=== PATIENT | female | born 1955 | race Two or more races ===

== ENCOUNTER → 2020-07-30 10:49 | Outpatient (BNVA) | payer MEDICARE, MEDICAID, SELFPAY | PROVIDERS: PCP Internal Medicine; Referring Provider Internal Medicine; Visit Provider Internal Medicine Endocrinology, Diabetes & Metabolism | DX: E11.9 Type 2 diabetes mellitus without complications (principal); E11.21 Type 2 diabetes mellitus with diabetic nephropathy; E11.319 Type 2 diabetes mellitus with unspecified diabetic retinopathy without macular edema; E11.22 Type 2 diabetes mellitus with diabetic chronic kidney disease; I12.9 Hypertensive chronic kidney disease with stage 1 through stage 4 chronic kidney disease, or unspecified chronic kidney disease; N18.30 Chronic kidney disease, stage 3 unspecified; E04.2 Nontoxic multinodular goiter; E55.9 Vitamin D deficiency, unspecified; Z79.4 Long term (current) use of insulin | CPT/HCPCS: 82947; 99214 ==

== ENCOUNTER 2020-08-13 09:04 | Day surgery (SDC) | payer MEDICARE, MEDICAID, SELFPAY ==
[2020-08-07 16:02] VITALS: BMI 25.4
--- NOTE | 2020-08-12 10:46 | HO.ANESPROP2 ---
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 Non-toxic multinodular goiter Family History Family History Father Liver disease Mother Hypertension CVD (cardiovascular disease) Renal disease Hyperlipidemia Surgical History Surgical History History of hysterectomy with unilateral oophorectomy Hx of bilateral cataract extraction Hx of section Hx of thyroidectomy Social History Social History Smoking Status: Never smoker Use of substances other than those prescribed or required for medical reasons: No Advance Directives: No Advance Directives Information Provided: No Advance Directives on File: No Meds Allergies Allergy/AdvReac Type Severity Reaction Status Date / Time crab Allergy Severe SWELLING Unverified 06/27/20 15:09 metformin AdvReac Unknown diarrhea Verified 04/30/20 00:00 Home Medications Medication Instructions Recorded Confirmed Type alcohol swabs pad TOPICAL 07/30/20 07/30/20 History elviteg 150 mg-cob 150 mg-emtricit tab PO 07/30/20 07/30/20 History 200 mg-tenofo alafenam 10 mg tablet ferrous sulfate 325 mg (65 mg 325 mg PO DAILY 07/30/20 08/07/20 History iron) tablet liraglutide 1.8 mg SUBCUT BEDTIME 08/07/20 08/07/20 History Exam Exam Date and Time: August 12, 2020 1046 Height,Weight and Vital Signs: Height 4 ft 11 in Weight 57.153 kg Pertinent Lab Results Pertinent Lab Results: Laboratory Tests 06/04/20 06/04/20 10:12 10:12 WBC 5.2 Hgb 11.1 L Hct 36.6 L Plt Count 250 Sodium 141 Potassium 4.1 Chloride 106 BUN 17 H Creatinine 1.12 Assessment and Plan Assessment Anesthesia Assessment: Chart Reviewed Documented by User: Dany Saucedo 08/13/20 10:05 PMFSH Past Medical History Medical History CKD stage 3 due to type 2 diabetes mellitus Diabetes type 2, controlled Diabetic nephropathy associated with type 2 diabetes mellitus Diabetic retinopathy associated with type 2 diabetes mellitus Dyslipidemia 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 infection) Hypertension Hypovitaminosis D detention (current) use of insulin Non-toxic multinodular goiter Family History Family History Father Liver disease Mother Hypertension CVD (cardiovascular disease) Renal disease Hyperlipidemia Surgical History Surgical History History of hysterectomy with unilateral oophorectomy Hx of bilateral cataract extraction Hx of section Hx of thyroidectomy Social History Social History Smoking Status: Never smoker Use of substances other than those prescribed or required for medical reasons: No Advance Directives: No Advance Directives Information Provided: No Advance Directives on File: No Meds Allergies Allergy/AdvReac Type Severity Reaction Status Date / Time crab Allergy Severe SWELLING Unverified 06/27/20 15:09 metformin AdvReac Unknown diarrhea Verified 04/30/20 00:00 Home Medications Medication Instructions Recorded Confirmed Type alcohol swabs pad TOPICAL 07/30/20 07/30/20 History elviteg 150 mg-cob 150 mg-emtricit tab PO 07/30/20 07/30/20 History 200 mg-tenofo alafenam 10 mg tablet ferrous sulfate 325 mg (65 mg 325 mg PO DAILY 07/30/20 08/07/20 History iron) tablet liraglutide 1.8 mg SUBCUT BEDTIME 08/07/20 08/07/20 History Exam Airway Mallampati Class: II TM Dist: >3cm Neck ROM: Full Loose/Missing/Broken Teeth: Yes (Poor) Heart: [id number] Lungs: cta b/l Assessment and Plan Assessment Anesthesia Assessment: Anesthesia Plan Discussed, PAT Visit and Chart Reviewed Final Anesthetic Review NPO: Yes ASA Class: III Final Preanesthetic Review: No Changes in Pt Med Stat, Meds/Allgs Chart Reviewed, Consent Obtained/Reviewed and Anes Risks/Benef Reviewed Patient Risk: Low Procedure Risk: Low Assessment/Block/Sedation in SS: Assess/Block/Sedation-SS Anesthetic Plan Anesthetic Plan: MAC: Disposition: Standard PACU
[2020-08-13 09:26] VITALS: BP 147/62; PULSE 63; RESP 16; TEMP 36; O2SAT 100; BMI 25.4
[2020-08-13] MEDS: Lactated Ringers 1,000 ML 100 ML IVCONT (09:43)
[2020-08-13] MEDS: Sodium Phosphate,Mono-Dibasic 133 ML ENEMA PR (09:45)
--- NOTE | 2020-08-13 09:46 | MHC.SHP ---
Pre-Procedural Eval Section A The History & Physical has been completed within 30 days and I have reviewed it.: No Section B Chief Complaint: SCREENING Details of Present Illness: A 64 y/o female referred for 10 year screening colonoscopy. She reportedly had a colonoscopy 10 years ago without any issues she did not have any polyps. She typically has no GI complaints Good apetite no BM issues-she feels quite well. She does have diabetes which she tries to manage well She has no nausea, vomiting, abdominal pain, change in bowels, rectal bleeding fever or chills. Relevant Family History (Specify if Yes): No Relevant Social History: None Present Medications: see Short Stay Collaborative assessment Medical History: Significant History (Hypertension. Hyperlipidemia. type II diabetes. Anemia. Non toxic multinodular goiter. ) History of Previous Operations: Relevant previous surgery/procedure and date(s) (total with unilateral salpingo-oophorectomy (USO) hysterectomy thyroidectomy section Right eye surgery- day stay, not admitted 06/30/19 Left eye surgery 07/28/19 ) Allergies: Allergies Allergy/AdvReac Type Severity Reaction Status Date / Time crab Allergy Severe SWELLING Unverified 06/27/20 15:09 metformin AdvReac Unknown diarrhea Verified 04/30/20 00:00 Review of Systems Sugical H&P ROS: Negative: Cardiovascular, Respiratory, Gastrointestinal and Musculoskeletal Exam Surgical H&P Exam: Normal: Heart, Normal: Lungs, Normal: Extremities and Normal: Abdomen Plan Diagnosis/Plan: Unchanged Patient has been examined and remains a candidate for the planned procedure
[2020-08-13 10:46] VITALS: BP 124/71; PULSE 83; RESP 14; TEMP 36.7; O2SAT 97
[2020-08-13 11:01] VITALS: BP 136/68; PULSE 58; RESP 16; O2SAT 99
--- NOTE | 2020-08-13 11:24 | HO.POSTANES ---
Post Anesthesia Evaluation Post Anesthesia Evaluation Vital Signs: Vital Signs Temp Pulse Resp BP Pulse Ox 08/13/20 11:01 98.1 F 58 16 136/68 99 08/13/20 10:46 98.1 F 83 14 124/71 97 08/13/20 09:26 96.8 F 63 16 147/62 H 100 Anesthesia: Monitored Mental Status: Awake Pain Control: Satisfactory Nausea/Vomiting: None Hydration: Adequate Anesthesia-Related Issues: No Anes. Related Issues
--- NOTE | 2020-08-13 18:00 | W.PM.OPN ---
Operative Note Operative Note Narrative: Date of procedure: 08/13/20 Pre-op diagnosis: Colon cancer screening Post-op diagnosis: other (Colon polyp, diverticulosis internal hemorrhoids) Procedure: COLONOSCOPY TILL CECUM WITH BIOPSIES Consent: Indications for the procedure and potential complications of bleeding, perforation, reaction to medications and missed diagnosis were discussed with the patient and informed consent was obtained. Instrument: Olympus PCF H 190 L variable stiffness pediatric colonoscope Monitoring: Vital signs and clinical assessment, intermittent blood pressure monitoring, continuous EKG monitoring, Pulse oximetry and Carbon Dioxide monitoring were done throughout the procedure. Colon withdrawl time was 23 minutes. Procedure: The patient was placed in the left lateral decubitis position and pre-procedure medications were administered. After a digital rectal examination of the ano-rectum, the video colonoscope was inserted into the rectum and advanced through the colon to the cecum. The colonoscope was slowly withdrawn in a retrograde panoramic fashion and the colon mucosa was carefully examined including a retroflexed view of the rectum. Findings and interventions are described below. Procedure Difficulty: Without difficulty Findings: Terminal Ileum: Not evaluated Cecum: Partially evaluated to sub-optimal prep Ascending Colon: 5 mm sessile polyp ascending, removed with a cold bx. Transverse Colon: Normal Descending Colon: Moderate diverticulosis Sigmoid Colon: Moderate diverticulosis Rectum: Normal Ano-rectum: Small internal hemorrhoids Colon preparation: Fair and poor in the right colon with adherent stool which could not be flushed off. Impression and Post Procedure Diagnosis: Colonoscopy Findings: One small polyp removed Moderate diverticulosis seen in the left colon Small hemorrhoids on retroflexed exam. Fair prep - poor in the right colon Plan: Await pathology results Patient has an appointment on 09/03/20 in the [facility] with MARY Beck. Repeat Colonoscopy interval based on path results - in 1-2 years due to fair prep. Above findings were reviewed with the patient and colon polyps and diverticulosis handouts were given in the discharge area Surgeon: Дмитрий Ferraro MD Travel Specialist: Gómez Cantor Estimated blood loss (mL): 0 Pathology: other (A. AC polyp) Condition: stable Disposition: PACU
== END 2020-08-13 11:34 | disposition home or self-care (01) ==
PROVIDERS: PCP Internal Medicine; Visit Provider Internal Medicine Gastroenterology
PROC: 0DJD8ZZ Inspection of Lower Intestinal Tract, Via Natural or Artificial Opening Endoscopic (ICD-10-PCS; CPT 45378; principal; 2020-08-13 10:30)
DX: Z12.11 Encounter for screening for malignant neoplasm of colon (principal); D12.2 Benign neoplasm of ascending colon; K57.30 Diverticulosis of large intestine without perforation or abscess without bleeding; K64.8 Other hemorrhoids; E11.22 Type 2 diabetes mellitus with diabetic chronic kidney disease; I12.9 Hypertensive chronic kidney disease with stage 1 through stage 4 chronic kidney disease, or unspecified chronic kidney disease; N18.30 Chronic kidney disease, stage 3 unspecified; E11.21 Type 2 diabetes mellitus with diabetic nephropathy; E11.319 Type 2 diabetes mellitus with unspecified diabetic retinopathy without macular edema; Z79.4 Long term (current) use of insulin; B20 Human immunodeficiency virus [HIV] disease; E55.9 Vitamin D deficiency, unspecified; Z88.8 Allergy status to other drugs, medicaments and biological substances
CPT/HCPCS: 45380; 88305; J2405

== ENCOUNTER → 2020-09-03 08:59 | Outpatient (BNVA) | payer MEDICARE, MEDICAID, SELFPAY | PROVIDERS: PCP Internal Medicine; Referring Provider Internal Medicine; Visit Provider Physician Assistant | DX: D12.6 Benign neoplasm of colon, unspecified (principal) | CPT/HCPCS: Q3014 ==

== ENCOUNTER 2020-10-08 09:58 | Outpatient (REF) | payer MEDICARE, MEDICAID, SELFPAY ==
[2020-10-08 10:38] LABS: MANUAL DIFF FLAG NO
[2020-10-08 10:45] LABS: Basophils Percent Auto 0.2 % (0-2); Eosinophils Absolute Auto 0.1 X10*3/uL (0.0-0.4); Eosinophils Percent Auto 0.9 % (0-4); Hematocrit 35.6 % (37-47); Imm Gran Abs Auto 0.01 X10*3/uL (0.00-0.03); Imm Gran Pct Auto 0.2 % (0.0-0.4); Lymphocytes Absolute Auto 1.5 X10*3/uL (1.2-4.9); Lymphocytes Percent Auto 28.7 % (20-40); Mean Corpuscular HGB Conc 30.9 g/dl (31.0-35.0); Mean Corpuscular Hemoglobin 26.8 pg (27.0-33.0); Mean Corpuscular Volume 86.6 fL (80-98); Mean Platelet Volume 10.4 fL (9.4-12.3); Monocytes Absolute Auto 0.5 X10*3/uL (0.1-1.2); Monocytes Percent Auto 9.7 % (2-11); Neutrophils Absolute Auto 3.2 X10*3/uL (2.0-8.3); Neutrophils Percent Auto 60.3 % (45-73); Platelet Count 238 X10*3/uL (160-400); Red Blood Count 4.11 X10*6/uL (4.20-5.50); Red Cell Distribution Width 12.9 % (11.0-16.0); White Blood Count 5.3 X10*3/uL (4.8-10.8)
[2020-10-08 11:10] LABS: Alanine Aminotransferase 53 U/L (0-31); Albumin Level 4.1 g/dL (3.5-5.0); Alkaline Phosphatase 60 U/L (39-117); Anion Gap 11 (12-20); Aspartate Amino Transferase 33 U/L (5-31); Bilirubin Direct < 0.2 mg/dL (0.0-0.5); Bilirubin Total 0.3 mg/dL (0.0-1.0); Blood Urea Nitrogen 24 mg/dL (9-16); Carbon Dioxide 26 mmol/L (22-29); Chloride 107 mmol/L (96-108); Estimated Glomerular Filt Rate 42; Glucose Random 138 mg/dL (60-115); Potassium 4.1 mmol/l (3.3-5.1); Sodium 140 mmol/L (135-145); Total Protein 7.6 g/dL (6.5-8.0)
[2020-10-08 11:14] LABS: Phosphorus 3.7 mg/dL (2.7-4.5)
[2020-10-08 11:42] LABS: Renal w Reflex Lab Use Only Order verified
[2020-10-08 11:49] LABS: Creatinine Urine 157.48 mg/dL; Microalbum/Creatinine Ratio Ur 304.8 ug/mg cr
[2020-10-09 12:43] LABS: Absolute CD3 Count 1295 cells/uL (840-3060); Absolute CD4 Count 432 cells/uL (490-1740); Absolute CD8 Count 857 cells/uL (180-1170); Absolute Lymphocytes 1749 cells/uL (850-3900); Percent CD3 Cells 74 % (57-85); Percent CD4 Cells 25 % (30-61); Percent CD8 Cells 49 % (12-42)
[2020-10-11 14:48] LABS: HIV RNA PCR Qn Copies <20 NOT DETECTED copies/mL (NOT DETECTED); HIV RNA PCR Qn Log Copies <1.30 NOT DETECTED (NOT DETECTED)
[2020-10-12 16:52] LABS: FIB-ALT 40 U/L (6-29); FIB-Alpha-2-Macroglobulin 330 mg/dL (106-279); FIB-Apolipoprotein A1 154 mg/dL (101-198); FIB-GGT 28 U/L (3-65); FIB-Haptoglobin 137 mg/dL (43-212); FIB-Total Bilirubin 0.2 mg/dL (0.2-1.2); Liver Fibrosis Score 0.26; Liver Fibrosis Stage F0-F1; Nec Inflam Act Grade A0-A1; Nec Inflam Act Score 0.21
== END 2020-10-08 09:59 | disposition home or self-care (01) ==
LOC: HO.LAB 09:58
PROVIDERS: Absent Provider Internal Medicine; PCP Internal Medicine; Visit Provider Internal Medicine Nephrology
DX: N28.1 Cyst of kidney, acquired (principal); E11.9 Type 2 diabetes mellitus without complications; I10 Essential (primary) hypertension; R80.9 Proteinuria, unspecified; Z21 Asymptomatic human immunodeficiency virus [HIV] infection status
CPT/HCPCS: 36415; 80048; 80051; 80076; 81596; 82043; 82310; 82565; 84100; 84520; 85025; 86359; 86360; 87536

== ENCOUNTER → 2020-10-15 10:40 | Outpatient (BNVA) | payer MEDICARE, MEDICAID, SELFPAY | PROVIDERS: PCP Internal Medicine; Visit Provider Nurse Practitioner Gerontology | DX: E11.319 Type 2 diabetes mellitus with unspecified diabetic retinopathy without macular edema (principal); E11.21 Type 2 diabetes mellitus with diabetic nephropathy; E78.00 Pure hypercholesterolemia, unspecified; I10 Essential (primary) hypertension | CPT/HCPCS: 82947; 99212 ==

== ENCOUNTER 2020-10-22 09:59 | Outpatient (REF) | payer MEDICARE, MEDICAID, SELFPAY ==
[2020-10-22 11:19] LABS: Alanine Aminotransferase 54 U/L (0-31); Alkaline Phosphatase 58 U/L (39-117); Anion Gap 11 (12-20); Aspartate Amino Transferase 37 U/L (5-31); Bilirubin Total 0.3 mg/dL (0.0-1.0); Blood Urea Nitrogen 22 mg/dL (9-16); Calcium 9.3 mg/dL (8.4-10.2); Carbon Dioxide 27 mmol/L (22-29); Chloride 106 mmol/L (96-108); Cholesterol 155 mg/dL; Estimated Glomerular Filt Rate 45; Glucose Fasting 127 mg/dL (60-99); HDL Cholesterol 39 mg/dL; LDL Cholesterol Calculated 52 mg/dl; Potassium 4.3 mmol/l (3.3-5.1); Sodium 140 mmol/L (135-145); Total Protein 7.8 g/dL (6.5-8.0); Triglycerides 322 mg/dL
[2020-10-22 11:38] LABS: Vitamin B12 313 pg/mL (200-900)
[2020-10-23 09:53] LABS: LDL Cholesterol Direct 42 mg/dL (<100)
== END 2020-10-22 10:00 | disposition home or self-care (01) ==
LOC: HO.LAB 09:59
PROVIDERS: PCP Internal Medicine; Visit Provider Internal Medicine Endocrinology, Diabetes & Metabolism
DX: E11.9 Type 2 diabetes mellitus without complications (principal)
CPT/HCPCS: 36415; 80053; 80061; 82607; 83721

== ENCOUNTER → 2020-10-29 10:22 | Outpatient (BNVA) | payer MEDICARE, MEDICAID, SELFPAY | PROVIDERS: PCP Internal Medicine; Visit Provider Internal Medicine Endocrinology, Diabetes & Metabolism | DX: E11.21 Type 2 diabetes mellitus with diabetic nephropathy (principal); E11.319 Type 2 diabetes mellitus with unspecified diabetic retinopathy without macular edema; E11.22 Type 2 diabetes mellitus with diabetic chronic kidney disease; I12.9 Hypertensive chronic kidney disease with stage 1 through stage 4 chronic kidney disease, or unspecified chronic kidney disease; N18.30 Chronic kidney disease, stage 3 unspecified; E04.2 Nontoxic multinodular goiter; E55.9 Vitamin D deficiency, unspecified; E78.5 Hyperlipidemia, unspecified; Z79.4 Long term (current) use of insulin | CPT/HCPCS: 82947; 99212 ==

== ENCOUNTER 2020-11-19 09:09 | Outpatient (REF) | payer MEDICARE, MEDICAID, SELFPAY ==
[2020-11-19 10:31] LABS: Hematocrit 34.6 % (37-47); Hemoglobin 10.6 g/dl (12.0-16.0); Mean Corpuscular HGB Conc 30.6 g/dl (31.0-35.0); Mean Corpuscular Hemoglobin 26.5 pg (27.0-33.0); Mean Corpuscular Volume 86.5 fL (80-98); Mean Platelet Volume 10.9 fL (9.4-12.3); Platelet Count 228 X10*3/uL (160-400); Red Cell Distribution Width 12.4 % (11.0-16.0); White Blood Count 4.2 X10*3/uL (4.8-10.8)
[2020-11-19 10:47] LABS: Alanine Aminotransferase 40 U/L (0-31); Alkaline Phosphatase 57 U/L (39-117); Anion Gap 13 (12-20); Aspartate Amino Transferase 26 U/L (5-31); Bilirubin Direct < 0.2 mg/dL (0.0-0.5); Bilirubin Total 0.2 mg/dL (0.0-1.0); Blood Urea Nitrogen 22 mg/dL (9-16); Carbon Dioxide 25 mmol/L (22-29); Chloride 109 mmol/L (96-108); Estimated Glomerular Filt Rate 43; Glucose Fasting 135 mg/dL (60-99); Sodium 143 mmol/L (135-145); Total Protein 7.5 g/dL (6.5-8.0)
[2020-11-19 11:09] LABS: ~HepC Num1 0.53 S/CO (0.00-0.79); ~Hepatitis C Antibody Nonreactive (Nonreactive)
[2020-11-20 13:58] LABS: Absolute CD3 Count 1031 cells/uL (840-3060); Absolute CD4 Count 356 cells/uL (490-1740); Absolute CD8 Count 677 cells/uL (180-1170); Absolute Lymphocytes 1375 cells/uL (850-3900); CD4 CD8 Ratio 0.53 (0.86-5.00); Percent CD3 Cells 75 % (57-85); Percent CD4 Cells 26 % (30-61); Percent CD8 Cells 49 % (12-42)
[2020-11-23 07:57] LABS: HIV RNA PCR Qn Copies 25 copies/mL (NOT DETECTED)
== END 2020-11-19 09:10 | disposition home or self-care (01) ==
LOC: HO.LAB 09:09
PROVIDERS: PCP Internal Medicine; Visit Provider Internal Medicine
DX: B20 Human immunodeficiency virus [HIV] disease (principal)
CPT/HCPCS: 36415; 80048; 80076; 85027; 86359; 86360; 86803; 87536

== ENCOUNTER → 2020-11-27 10:31 | Outpatient (BNVA) | payer MEDICARE, MEDICAID, SELFPAY | PROVIDERS: PCP Internal Medicine; Visit Provider Internal Medicine | DX: B20 Human immunodeficiency virus [HIV] disease (principal) | CPT/HCPCS: 99212 ==

== ENCOUNTER 2020-12-13 09:03 | Outpatient (REF) | payer MEDICARE, MEDICAID, SELFPAY ==
[2020-12-13 10:38] LABS: Syphilis Screen Nonreactive (Nonreactive)
== END 2020-12-13 09:04 | disposition home or self-care (01) ==
LOC: HO.LAB 09:03
PROVIDERS: PCP Internal Medicine; Visit Provider Internal Medicine
DX: B20 Human immunodeficiency virus [HIV] disease (principal)
CPT/HCPCS: 36415; 86780

== ENCOUNTER 2020-12-17 10:45 | Outpatient (REF) | payer MEDICARE, MEDICAID, SELFPAY ==
--- NOTE | ~2020-12-17 | MM_ITS ---
EXAMINATION: MM SCREENING DIGITAL BREAST TOMOSYNTHESIS, BILATERAL CLINICAL INFORMATION: Screening. Asymptomatic. The lifetime risk of breast cancer based on the Tyrer-Cuzick Model is 4.2%. COMPARISON: Mammography: June 05, 2019 and studies dating back to September 17, 2005 TECHNIQUE: Digital breast tomosynthesis is performed in both the craniocaudal and mediolateral oblique views along with computer-aided detection (CAD). Synthesized 2D images are generated from the tomosynthesis. FINDINGS: There are scattered areas of fibroglandular density (ACR BI-RADS breast composition Category b). There are no significant masses, abnormal calcifications, or other abnormalities. MM/MM tomosynthesis screening BI IMPRESSION: There are no significant changes from prior study. ASSESSMENT: BI-RADS 1: Negative RECOMMENDATION: Routine annual mammography screening. This patient's information was entered into a reminder system with a target due date for their next mammogram.
== END 2020-12-17 10:46 | disposition home or self-care (01) ==
LOC: HO.MAMMO 10:45
PROVIDERS: PCP Internal Medicine; Visit Provider Internal Medicine
DX: Z12.31 Encounter for screening mammogram for malignant neoplasm of breast (principal)
CPT/HCPCS: 77063; 77067

== ENCOUNTER → 2021-02-06 11:12 | Outpatient (BNVA) | payer MEDICARE, MEDICAID, SELFPAY | PROVIDERS: PCP Internal Medicine; Visit Provider Internal Medicine Endocrinology, Diabetes & Metabolism | DX: E11.22 Type 2 diabetes mellitus with diabetic chronic kidney disease (principal); E11.319 Type 2 diabetes mellitus with unspecified diabetic retinopathy without macular edema; E11.21 Type 2 diabetes mellitus with diabetic nephropathy; I12.9 Hypertensive chronic kidney disease with stage 1 through stage 4 chronic kidney disease, or unspecified chronic kidney disease; N18.30 Chronic kidney disease, stage 3 unspecified; E78.5 Hyperlipidemia, unspecified; E04.2 Nontoxic multinodular goiter; E55.9 Vitamin D deficiency, unspecified; Z79.4 Long term (current) use of insulin | CPT/HCPCS: 82947; 99212 ==

== ENCOUNTER 2021-02-21 08:06 | Outpatient (REF) | payer MEDICARE, MEDICAID, SELFPAY ==
[2021-02-21 08:34] LABS: Hematocrit 34.6 % (37-47); Hemoglobin 10.6 g/dl (12.0-16.0); Mean Corpuscular HGB Conc 30.6 g/dl (31.0-35.0); Mean Corpuscular Hemoglobin 26.4 pg (27.0-33.0); Mean Corpuscular Volume 86.3 fL (80-98); Mean Platelet Volume 10.5 fL (9.4-12.3); Platelet Count 222 X10*3/uL (160-400); Red Blood Count 4.01 X10*6/uL (4.20-5.50); Red Cell Distribution Width 12.9 % (11.0-16.0); White Blood Count 5.3 X10*3/uL (4.8-10.8)
[2021-02-21 08:57] LABS: Alanine Aminotransferase 47 U/L (0-31); Alkaline Phosphatase 63 U/L (39-117); Anion Gap 10 (12-20); Aspartate Amino Transferase 33 U/L (5-31); Bilirubin Direct < 0.2 mg/dL (0.0-0.5); Bilirubin Total 0.2 mg/dL (0.0-1.0); Blood Urea Nitrogen 24 mg/dL (9-16); Calcium 9.4 mg/dL (8.4-10.2); Carbon Dioxide 27 mmol/L (22-29); Chloride 105 mmol/L (96-108); Estimated Glomerular Filt Rate 48; Glucose Random 150 mg/dL (60-115); Potassium 4.1 mmol/L (3.3-5.1); Sodium 138 mmol/L (135-145); Total Protein 7.5 g/dL (6.5-8.0)
[2021-02-21 09:14] LABS: ~HepC Num1 0.48 S/CO (0.00-0.79); ~Hepatitis C Antibody Nonreactive (Nonreactive)
[2021-02-24 14:22] LABS: Absolute CD3 Count 1564 cells/uL (840-3060); Absolute CD4 Count 529 cells/uL (490-1740); Absolute CD8 Count 1047 cells/uL (180-1170); Absolute Lymphocytes 2069 cells/uL (850-3900); CD4 CD8 Ratio 0.51 (0.86-5.00); Percent CD3 Cells 76 % (57-85); Percent CD4 Cells 26 % (30-61); Percent CD8 Cells 51 % (12-42)
[2021-02-25 09:37] LABS: HIV RNA PCR Qn Copies <20 NOT DETECTED copies/mL (NOT DETECTED); HIV RNA PCR Qn Log Copies <1.30 NOT DETECTED (NOT DETECTED)
== END 2021-02-21 08:07 | disposition home or self-care (01) ==
LOC: HO.LAB 08:06
PROVIDERS: PCP Internal Medicine; Visit Provider Internal Medicine
DX: B20 Human immunodeficiency virus [HIV] disease (principal)
CPT/HCPCS: 36415; 80048; 80076; 85027; 86359; 86360; 86803; 87536

== ENCOUNTER 2021-03-23 14:41 | Emergency (ER) | payer MEDICARE, MEDICAID, SELFPAY ==
--- NOTE | ~2021-03-23 | XR_ITS ---
EXAMINATION: XR CHEST CLINICAL INFORMATION: Cough COMPARISON: Chest x-ray of 04/10/2020 and 12/08/2014 TECHNIQUE: 2 views of the chest were obtained. FINDINGS: The cardiomediastinal silhouette is stable and normal. Scattered aortic wall calcifications. No abnormal tracheal deviation. The lungs are mildly hyperinflated. The lungs are clear. No evidence of pleural effusions or pneumothorax. Mild S-shaped scoliosis of the thoracolumbar spine is seen with associated multilevel mild degenerative changes. No acute osseous abnormality. The visualized upper abdomen is unremarkable. XR/XR chest 2V IMPRESSION: Mildly hyperinflated lungs. Noted atrophic evidence of pneumonia. No acute pulmonary process.
[2021-03-23 14:47] VITALS: BP 131/78; PULSE 98; RESP 18; TEMP 36.9; O2SAT 98; BMI 25.0
--- NOTE | 2021-03-23 16:35 | ECG_ITS ---
Test Reason : DISCONFORT CHEST Blood Pressure : / mmHG Vent. Rate : 099 BPM Atrial Rate : 099 BPM P-R Int : 170 ms QRS Dur : 082 ms QT Int : 366 ms P-R-T Axes : 042 003 048 degrees QTc Int : 469 ms Normal sinus rhythm Normal ECG When compared with ECG of 20-JUN-2019 09:07, No significant change was found Referred By: Boo Chacko Electronically Signed By:HUNTER NICOLAS
[2021-03-23 16:48] LABS: MANUAL DIFF FLAG NO
[2021-03-23 16:53] LABS: Basophils Percent Auto 0.2 % (0-2); Eosinophils Absolute Auto 0.1 X10*3/uL (0.0-0.4); Eosinophils Percent Auto 0.9 % (0-4); Hematocrit 34.5 % (37-47); Hemoglobin 10.7 g/dl (12.0-16.0); Imm Gran Abs Auto 0.02 X10*3/uL (0.00-0.03); Imm Gran Pct Auto 0.2 % (0.0-0.4); Lymphocytes Absolute Auto 2.1 X10*3/uL (1.2-4.9); Lymphocytes Percent Auto 25.7 % (20-40); Mean Corpuscular Hemoglobin 26.4 pg (27.0-33.0); Mean Corpuscular Volume 85.2 fL (80-98); Mean Platelet Volume 10.6 fL (9.4-12.3); Monocytes Absolute Auto 0.8 X10*3/uL (0.1-1.2); Monocytes Percent Auto 10.1 % (2-11); Neutrophils Percent Auto 62.9 % (45-73); Platelet Count 213 X10*3/uL (160-400); Red Blood Count 4.05 X10*6/uL (4.20-5.50); Red Cell Distribution Width 12.5 % (11.0-16.0)
[2021-03-23 17:19] VITALS: BP 158/83; PULSE 76; RESP 141; O2SAT 100
[2021-03-23 17:29] LABS: Alanine Aminotransferase 33 U/L (0-31); Alkaline Phosphatase 63 U/L (39-117); Anion Gap 11 (12-20); Aspartate Amino Transferase 25 U/L (5-31); Bilirubin Direct < 0.2 mg/dL (0.0-0.5); Bilirubin Total 0.3 mg/dL (0.0-1.0); Blood Urea Nitrogen 16 mg/dL (9-16); Calcium 9.4 mg/dL (8.4-10.2); Carbon Dioxide 27 mmol/L (22-29); Chloride 106 mmol/L (96-108); Estimated Glomerular Filt Rate 50; Glucose Random 76 mg/dL (60-115); Lipase 32 U/L (8-78); Potassium 4.2 mmol/L (3.3-5.1); Sodium 140 mmol/L (135-145); Total Protein 7.4 g/dL (6.5-8.0); Troponin-I High Sensitivity < 3.5 ng/L (<3.5-17.0)
--- NOTE | 2021-03-23 18:14 | ED_ITS ---
HPI - General Adult General Chief complaint: Upper Respiratory Symptoms <MARY Srinivasan - Last Filed: 03/23/21 18:22> Stated complaint: bad cough <MARY Srinivasan - Last Filed: 03/23/21 18:22> Time Seen by Provider: 03/23/21 15:57 <MARY Srinivasan - Last Filed: 03/23/21 18:22> History of Present Illness HPI narrative: Patient with past medical history of hyper cholesterol, hypertension, diabetes, HIV complains of episodes lasting a few minutes over the past week that she believes are GERD which involve a pain radiating up from her stomach that is burning that shoots into her chest, it seems to be worse after eating, there is no associated nausea or vomiting there is no associated shortness of breath no sweating no fainting no feeling faint She came today as last night she had the burning sensation accompanied by coughing spells, the coughing was gone this morning <MARY Srinivasan - Last Filed: 03/23/21 18:22> Related Data Home medications: Home Medications Medication Instructions Recorded Confirmed elviteg 150 mg-cob 150 mg-emtricit tab PO 07/30/20 02/25/21 200 mg-tenofo alafenam 10 mg tablet Previous Rx's Medication Instructions Recorded ferrous sulfate 325 mg (65 mg 325 mg PO DAILY #90 tab 11/23/20 iron) tablet blood sugar diagnostic #150 ea 12/10/20 blood-glucose meter #1 ea 12/10/20 alcohol swabs 1 pad TOPICAL .4 times a day 30 02/06/21 Days #200 ea amlodipine 5 mg tablet 5 mg PO DAILY 90 Days #90 tab 02/06/21 blood sugar diagnostic #100 ea 02/06/21 canagliflozin 100 mg tablet 100 mg PO DAILY 90 Days #90 tab 02/06/21 cholecalciferol (vitamin D3) 50 50 mcg PO DAILY 90 Days #90 cap 02/06/21 mcg (2,000 unit) capsule insulin glargine 100 unit/mL (3 12 unit SUBCUT DAILY 90 Days #15 ml 02/06/21 mL) subcutaneous pen lancets #100 ea 02/06/21 liraglutide 0.6 mg/0.1 mL (18 mg/3 1.8 mg SUBCUT DAILY 90 Days #27 ml 02/06/21 mL) subcutaneous pen injector lisinopril 40 mg tablet 40 mg PO DAILY #90 tab 02/06/21 pen needle, diabetic 32 gauge x #200 ea 02/06/21 rosuvastatin 20 mg tablet 20 mg PO DAILY 90 Days #90 tab 02/06/21 elviteg 150 mg-cob 150 mg-emtricit 1 tab PO DAILY 90 Days #90 tab 03/11/21 200 mg-tenofo alafenam 10 mg tablet pen needle, diabetic 32 gauge x #100 ea 03/20/21 omeprazole 40 mg PO DAILY #30 cap 03/23/21 <MARY Srinivasan Last Filed: 03/23/21 18:22> Allergies/adverse reactions: Allergies Allergy/AdvReac Type Severity Reaction Status Date / Time crab Allergy Severe SWELLING Verified 02/25/21 09:19 metformin AdvReac Intermediate diarrhea Verified 02/25/21 09:19 <MARY Srinivasan Last Filed: 03/23/21 18:22> Review of Systems Review of Systems: Positive for burning epigastric pain shooting into the chest as well as coughing Negatives are no fever no chills no dizziness no weakness no fainting no feeling faint no headache no neck pain no shortness of breath no palpitations no nausea vomiting or diarrhea no blood in the stool no dysuria no frequency no pain or swelling in legs, no rash, no numbness or weakness <MARY Srinivasan Last Filed: 03/23/21 18:22> Yes all other systems are reviewed and are negative <MARY Srinivasan Last Filed: 03/23/21 18:22> [facility] Past Medical History Source: nursing notes reviewed <MARY Srinivasan Last Filed: 03/23/21 18:22> Medical History: Medical History (Updated 03/23/21 @ 20:29 by Sendy Mejia NP) CKD stage 3 due to type 2 diabetes mellitus Diabetes type 2, controlled Diabetic nephropathy associated with type 2 diabetes mellitus Diabetic retinopathy associated with type 2 diabetes mellitus Dyslipidemia Essential hypertension 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 infection) 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 infection) Hypertension Hypovitaminosis D skilled nursing (current) use of insulin Non-toxic multinodular goiter Normocytic anemia Pure hypercholesterolemia Sessile colonic polyp <MARY Srinivasan Last Filed: 03/23/21 18:22> Surgical History: Surgical History H/O colonoscopy (08/13/20) History of hysterectomy with unilateral oophorectomy Hx of bilateral cataract extraction Hx of section Hx of thyroidectomy <MARY Srinivasan - Last Filed: 03/23/21 18:22> Family History Family History: Family History Father Liver disease Mother Hypertension CVD (cardiovascular disease) Renal disease Hyperlipidemia <MARY Srinviasan - Last Filed: 03/23/21 18:22> Social History Social History: Social History Household Members: Other Household Members Other:: grandson Housing: House Advance Directives: No Advance Directives Information Provided: Yes Patient : No <MARY Srinivasan - Last Filed: 03/23/21 18:22> Physical Exam Vital Signs: Vital Signs: Last Vital Signs Temp 98.7 F 03/23/21 20:13 Pulse 69 03/23/21 20:13 Resp 16 03/23/21 20:13 BP 152/76 H 03/23/21 20:13 Pulse Ox 100 03/23/21 20:13 Body Mass Index 25.0 Respiratory rate is 16 to 18, a respiratory rate of 141 was entered by mistake <MARY Srinivasan - Last Filed: 03/23/21 18:22> Vital Signs: Last Vital Signs Temp 98.7 F 03/23/21 20:13 Pulse 69 03/23/21 20:13 Resp 16 03/23/21 20:13 BP 152/76 H 03/23/21 20:13 Pulse Ox 100 03/23/21 20:13 Body Mass Index 25.0 <Sendy Mejia NP - Last Filed: 03/23/21 20:40> General appearance no acute distress comfortable and cooperative Eyes are anicteric with no pallor Pharynx is well hydrated with no redness swelling or exudate, voice is normal The neck is supple The chest is clear to auscultation bilateral There is no respiratory distress there is no chest wall tenderness The heart no murmur auscultated Abdomen is soft and nontender Extremities no edema, no calf tenderness or swelling Extremities full range of motion x4 Neuro no gross motor or sensory deficit, speech both expression and comprehension are normal there is no facial asymmetry motor is 5/5 x4, gait and balance are normal <MARY Srinivasan - Last Filed: 03/23/21 18:22> Course Course Course Narrative: EKG was a normal sinus rhythm with the rate of 99, MT interval was 170, QRS was 82, intervals were normal, there are no acute ST changes, no acute ischemic changes Initial troponin was negative No other acute laboratory abnormality Patient with hypercholesterol, hypertension and diabetes who has new onset over past 2 weeks of intermittent episode of burning pain radiating from epigastrium to chest is pending 2nd troponin to rule out acute myocardial infarction At 18:00 the case was signed out to physician grants and contracts assistant joanna <MARY Srinivasan - Last Filed: 03/23/21 18:22> [id number] was received from Rigoberto HERNANDEZ pending repeat troponin. I reviewed her labs, EKG, chest x-ray and troponin x2 which were all negative. Symptoms typical for GERD. Will start patient on low-dose PPI. Will have her follow-up with her primary care doctor Reviewed worrisome signs and symptoms with diplomatic interpreter/translator. Comfortable discharge home. <Sendy Mejia NP - Last Filed: 03/23/21 20:40> Medical Decision Making Lab Data Result diagrams: : 03/23/21 16:43 03/23/21 16:43 <MARY Srinivasan - Last Filed: 03/23/21 18:22> Labs: Lab Results 03/23/21 03/23/21 03/23/21 Range/Units 16:43 16:43 16:43 WBC 8.0 (4.8-10.8) X10*3/uL RBC 4.05 L (4.20-5.50) X10*6/uL Hgb 10.7 L (12.0-16.0) g/dl Hct 34.5 L (37-47) % MCV 85.2 (80-98) fL MCH 26.4 L (27.0-33.0) pg MCHC 31.0 (31.0-35.0) g/dl RDW 12.5 (11.0-16.0) % Plt Count 213 (160-400) X10*3/uL MPV 10.6 (9.4-12.3) fL Immature Gran % (Auto) 0.2 (0.0-0.4) % Neut % (Auto) 62.9 (45-73) % Lymph % (Auto) 25.7 (20-40) % [place] % (Auto) 10.1 (2-11) % Eos % (Auto) 0.9 (0-4) % Baso % (Auto) 0.2 (0-2) % Lymph # (Auto) 2.1 (1.2-4.9) X10*3/uL [place] # (Auto) 0.8 (0.1-1.2) X10*3/uL Eos # (Auto) 0.1 (0.0-0.4) X10*3/uL Baso # (Auto) 0.0 (0.0-0.2) X10*3/uL Abs Immat Gran (auto) 0.02 (0.00-0.03) X10*3/uL Absolute Neuts (auto) 5.0 (2.0-8.3) X10*3/uL Absolute Nucleated RBC 0.000 (0.0-0.012) X10*3/uL Nucleated RBC % (auto) 0.0 (0.0-0.2) /100WBC Sodium 140 (135-145) mmol/L Potassium 4.2 (3.3-5.1) mmol/L Chloride 106 (96-108) mmol/L Carbon Dioxide 27 (22-29) mmol/L Anion Gap 11 L (12-20) BUN 16 (9-16) mg/dL Creatinine 1.10 (0.5-1.4) mg/dL Estim Creat Clear Calc 40.0 Estimated GFR 50 Random Glucose 76 D (60-115) mg/dL Calcium 9.4 (8.4-10.2) mg/dL Total Bilirubin 0.3 (0.0-1.0) mg/dL Direct Bilirubin < 0.2 (0.0-0.5) mg/dL AST 25 (5-31) U/L ALT 33 H (0-31) U/L Alkaline Phosphatase 63 (39-117) U/L Troponin I High Sens < 3.5 (<3.5-17.0) ng/L Total Protein 7.4 (6.5-8.0) g/dL Albumin 4.0 (3.5-5.0) g/dL Lipase 32 (8-78) U/L 03/23/21 Range/Units 19:47 WBC (4.8-10.8) X10*3/uL RBC (4.20-5.50) X10*6/uL Hgb (12.0-16.0) g/dl Hct (37-47) % MCV (80-98) fL MCH (27.0-33.0) pg MCHC (31.0-35.0) g/dl RDW (11.0-16.0) % Plt Count (160-400) X10*3/uL MPV (9.4-12.3) fL Immature Gran % (Auto) (0.0-0.4) % Neut % (Auto) (45-73) % Lymph % (Auto) (20-40) % [place] % (Auto) (2-11) % Eos % (Auto) (0-4) % Baso % (Auto) (0-2) % Lymph # (Auto) (1.2-4.9) X10*3/uL [place] # (Auto) (0.1-1.2) X10*3/uL Eos # (Auto) (0.0-0.4) X10*3/uL Baso # (Auto) (0.0-0.2) X10*3/uL Abs Immat Gran (auto) (0.00-0.03) X10*3/uL Absolute Neuts (auto) (2.0-8.3) X10*3/uL Absolute Nucleated RBC (0.0-0.012) X10*3/uL Nucleated RBC % (auto) (0.0-0.2) /100WBC Sodium (135-145) mmol/L Potassium (3.3-5.1) mmol/L Chloride (96-108) mmol/L Carbon Dioxide (22-29) mmol/L Anion Gap (12-20) BUN (9-16) mg/dL Creatinine (0.5-1.4) mg/dL Estim Creat Clear Calc Estimated GFR Random Glucose (60-115) mg/dL Calcium (8.4-10.2) mg/dL Total Bilirubin (0.0-1.0) mg/dL Direct Bilirubin (0.0-0.5) mg/dL AST (5-31) U/L ALT (0-31) U/L Alkaline Phosphatase (39-117) U/L Troponin I High Sens < 3.5 (<3.5-17.0) ng/L Total Protein (6.5-8.0) g/dL Albumin (3.5-5.0) g/dL Lipase (8-78) U/L <MARY Srinivasan - Last Filed: 03/23/21 18:22> Lab Results 03/23/21 03/23/21 03/23/21 Range/Units 16:43 16:43 16:43 WBC 8.0 (4.8-10.8) X10*3/uL RBC 4.05 L (4.20-5.50) X10*6/uL Hgb 10.7 L (12.0-16.0) g/dl Hct 34.5 L (37-47) % MCV 85.2 (80-98) fL MCH 26.4 L (27.0-33.0) pg MCHC 31.0 (31.0-35.0) g/dl RDW 12.5 (11.0-16.0) % Plt Count 213 (160-400) X10*3/uL MPV 10.6 (9.4-12.3) fL Immature Gran % (Auto) 0.2 (0.0-0.4) % Neut % (Auto) 62.9 (45-73) % Lymph % (Auto) 25.7 (20-40) % [place] % (Auto) 10.1 (2-11) % Eos % (Auto) 0.9 (0-4) % Baso % (Auto) 0.2 (0-2) % Lymph # (Auto) 2.1 (1.2-4.9) X10*3/uL [place] # (Auto) 0.8 (0.1-1.2) X10*3/uL Eos # (Auto) 0.1 (0.0-0.4) X10*3/uL Baso # (Auto) 0.0 (0.0-0.2) X10*3/uL Abs Immat Gran (auto) 0.02 (0.00-0.03) X10*3/uL Absolute Neuts (auto) 5.0 (2.0-8.3) X10*3/uL Absolute Nucleated RBC 0.000 (0.0-0.012) X10*3/uL Nucleated RBC % (auto) 0.0 (0.0-0.2) /100WBC Sodium 140 (135-145) mmol/L Potassium 4.2 (3.3-5.1) mmol/L Chloride 106 (96-108) mmol/L Carbon Dioxide 27 (22-29) mmol/L Anion Gap 11 L (12-20) BUN 16 (9-16) mg/dL Creatinine 1.10 (0.5-1.4) mg/dL Estim Creat Clear Calc 40.0 Estimated GFR 50 Random Glucose 76 D (60-115) mg/dL Calcium 9.4 (8.4-10.2) mg/dL Total Bilirubin 0.3 (0.0-1.0) mg/dL Direct Bilirubin < 0.2 (0.0-0.5) mg/dL AST 25 (5-31) U/L ALT 33 H (0-31) U/L Alkaline Phosphatase 63 (39-117) U/L Troponin I High Sens < 3.5 (<3.5-17.0) ng/L Total Protein 7.4 (6.5-8.0) g/dL Albumin 4.0 (3.5-5.0) g/dL Lipase 32 (8-78) U/L 03/23/21 Range/Units 19:47 WBC (4.8-10.8) X10*3/uL RBC (4.20-5.50) X10*6/uL Hgb (12.0-16.0) g/dl Hct (37-47) % MCV (80-98) fL MCH (27.0-33.0) pg MCHC (31.0-35.0) g/dl RDW (11.0-16.0) % Plt Count (160-400) X10*3/uL MPV (9.4-12.3) fL Immature Gran % (Auto) (0.0-0.4) % Neut % (Auto) (45-73) % Lymph % (Auto) (20-40) % [place] % (Auto) (2-11) % Eos % (Auto) (0-4) % Baso % (Auto) (0-2) % Lymph # (Auto) (1.2-4.9) X10*3/uL [place] # (Auto) (0.1-1.2) X10*3/uL Eos # (Auto) (0.0-0.4) X10*3/uL Baso # (Auto) (0.0-0.2) X10*3/uL Abs Immat Gran (auto) (0.00-0.03) X10*3/uL Absolute Neuts (auto) (2.0-8.3) X10*3/uL Absolute Nucleated RBC (0.0-0.012) X10*3/uL Nucleated RBC % (auto) (0.0-0.2) /100WBC Sodium (135-145) mmol/L Potassium (3.3-5.1) mmol/L Chloride (96-108) mmol/L Carbon Dioxide (22-29) mmol/L Anion Gap (12-20) BUN (9-16) mg/dL Creatinine (0.5-1.4) mg/dL Estim Creat Clear Calc Estimated GFR Random Glucose (60-115) mg/dL Calcium (8.4-10.2) mg/dL Total Bilirubin (0.0-1.0) mg/dL Direct Bilirubin (0.0-0.5) mg/dL AST (5-31) U/L ALT (0-31) U/L Alkaline Phosphatase (39-117) U/L Troponin I High Sens < 3.5 (<3.5-17.0) ng/L Total Protein (6.5-8.0) g/dL Albumin (3.5-5.0) g/dL Lipase (8-78) U/L <Sendy Mejia NP - Last Filed: 03/23/21 20:40> Discharge Plan Discharge Clinical Impression: Atypical chest pain, GERD without esophagitis <MARY Srinivasan - Last Filed: 03/23/21 18:22> Patient Disposition: Home, Self-Care <MARY Srinivasan - Last Filed: 03/23/21 18:22> Instructions: Chest Pain (ED), Gastroesophageal Reflux Disease (ED) <MARY Srinivasan - Last Filed: 03/23/21 18:22> Additional Instructions: Your labs, EKG and chest x-ray all show now acute finding Follow a gerd diet seen in attached paperwork <MARY Srinivasan - Last Filed: 03/23/21 18:22> Prescriptions: New omeprazole 40 mg capsule,delayed release(DR/EC) 40 mg PO DAILY Qty: 30 RF: 0 No Action ferrous sulfate 325 mg (65 mg iron) tablet 325 mg PO DAILY Qty: 90 RF: 2 (DME) FreeStyle Lite Strips Strip See Rx Instructions .MEDSUPPLY Qty: 150 RF: 6 (DME) blood-glucose meter [Accu-Chek Moriah Plus Meter] Misc See Rx Instructions .ROUTE .MEDSUPPLY Qty: 1 RF: 0 Genvoya [phone] mg tablet 1 tab PO DAILY 90 Days Qty: 90 RF: 1 (DME) pen needle, diabetic [BD Mansi 2nd Gen Pen Needle] 32 gauge x 5/32 needle See Rx Instructions .MEDSUPPLY Qty: 100 RF: 4 tqusyns-any-objpt-tenof alafen [id number] mg tablet PO RF: 0 alcohol swabs Pads, Medicated 1 pad topical .4 times a day 30 Days Qty: 200 RF: 11 amlodipine 5 mg tablet 5 mg PO DAILY 90 Days Qty: 90 RF: 3 canagliflozin 100 mg tablet 100 mg PO DAILY 90 Days Qty: 90 RF: 3 cholecalciferol (vitamin D3) 50 mcg (2,000 unit) capsule 50 mcg PO DAILY 90 Days Qty: 90 RF: 3 insulin glargine 100 unit/mL (3 mL) insulin pen 12 unit subcut DAILY 90 Days Qty: 15 RF: 3 (DME) lancets [Accu-Chek Fastclix Lancet Drum] Misc See Rx Instructions .ROUTE .MEDSUPPLY Qty: 100 RF: 6 (DME) Accu-Chek Moriah Plus test strp Strip See Rx Instructions .ROUTE .MEDSUPPLY Qty: 100 RF: 6 Victoza 3-Yvon 0.6 mg/0.1 mL (18 mg/3 mL) pen injector 1.8 mg subcut DAILY 90 Days Qty: 27 RF: 3 lisinopril 40 mg tablet 40 mg PO DAILY Qty: 90 RF: 3 (DME) pen needle, diabetic 32 gauge x 5/32 needle See Rx Instructions ea subcut .MEDSUPPLY Qty: 200 RF: 5 rosuvastatin 20 mg tablet 20 mg PO DAILY 90 Days Qty: 90 RF: 3 <MARY Srinivasan - Last Filed: 03/23/21 18:22> Referrals: Mishel Cummings MD [Primary Care Provider] - 2 days <MARY Srinivasan - Last Filed: 03/23/21 18:22> Print Language: Guamanian <MARY Srinivasan - Last Filed: 03/23/21 18:22>
[2021-03-23 20:13] VITALS: BP 152/76; PULSE 69; RESP 16; TEMP 37.1; O2SAT 100
[2021-03-23 20:20] LABS: Troponin-I High Sensitivity < 3.5 ng/L (<3.5-17.0)
== END 2021-03-23 21:46 | disposition home or self-care (01) ==
PROVIDERS: Nurse Practitioner Family; Physician Assistant Medical; Emergency Provider Emergency Medicine Emergency Medical Services; PCP Internal Medicine
DX: R07.89 Other chest pain (principal); K21.9 Gastro-esophageal reflux disease without esophagitis; I12.9 Hypertensive chronic kidney disease with stage 1 through stage 4 chronic kidney disease, or unspecified chronic kidney disease; E11.22 Type 2 diabetes mellitus with diabetic chronic kidney disease; N18.30 Chronic kidney disease, stage 3 unspecified; Z21 Asymptomatic human immunodeficiency virus [HIV] infection status; Z79.4 Long term (current) use of insulin; Z79.899 Other long term (current) drug therapy
CPT/HCPCS: 36415; 71046; 80048; 80076; 83690; 84484; 85025; 93005; 99283; 99284

== ENCOUNTER 2021-03-31 09:56 | Outpatient (REF) | payer MEDICARE, MEDICAID, SELFPAY ==
[2021-03-31 11:19] LABS: Anion Gap 11 (12-20); Blood Urea Nitrogen 25 mg/dL (9-16); Calcium 9.4 mg/dL (8.4-10.2); Carbon Dioxide 26 mmol/L (22-29); Chloride 108 mmol/L (96-108); Estimated Glomerular Filt Rate 46; Phosphorus 3.7 mg/dL (2.7-4.5); Sodium 141 mmol/L (135-145)
[2021-03-31 11:33] LABS: Renal w Reflex Lab Use Only Order verified
[2021-03-31 11:40] LABS: Glucose Urine UA 500 MG/DL (NEG); Leukocyte Esterase Urine NEG (NEG); Nitrite Urine NEG (NEG); Specific Gravity - Urine 1.025 (1.005-1.025); Urine Blood NEG (NEG); Urine Ketones NEG (NEG); Urine Protein 1+ MG/DL (NEG-TRACE)
[2021-03-31 11:45] LABS: Appearance Urine HAZY; Color Urine YELLOW
[2021-03-31 11:54] LABS: Bacteria Urine 2+ /LPF; RBC Urine 0 /HPF (0); Squamous Epithelial Cell Urine TRACE /LPF
[2021-03-31 12:22] LABS: Creatinine Urine 104.97 mg/dL; Microalbum/Creatinine Ratio Ur 373.4 ug/mg cr
== END 2021-03-31 09:57 | disposition home or self-care (01) ==
LOC: HO.LAB 09:56
PROVIDERS: PCP Internal Medicine; Visit Provider Internal Medicine Nephrology
DX: N28.1 Cyst of kidney, acquired (principal); E11.9 Type 2 diabetes mellitus without complications; I10 Essential (primary) hypertension; R80.9 Proteinuria, unspecified
CPT/HCPCS: 36415; 80051; 81001; 82043; 82310; 82565; 84100; 84520

== ENCOUNTER → 2021-05-14 10:00 | Outpatient (BNVA) | payer MEDICARE, MEDICAID, SELFPAY | PROVIDERS: Visit Provider Internal Medicine | DX: Z21 Asymptomatic human immunodeficiency virus [HIV] infection status (principal) | CPT/HCPCS: 99212 ==

== ENCOUNTER 2021-08-08 10:05 | Outpatient (REF) | payer MEDICARE, MEDICAID, SELFPAY ==
--- NOTE | ~2021-08-08 | MM_ITS ---
EXAMINATION: BONE DENSITOMETRY CLINICAL INDICATION: Asymptomatic menopausal state. COMPARISON: This is the patient's baseline examination. TECHNIQUE: Using a [employer] DXA System (software version: 13.1) manufactured by [employer], dual-energy x-ray absorptiometry was performed of the lumbar spine and left hip. The images are of good technical quality. Summary results are attached. FINDINGS: AP SPINE L1-L4: BMD 1.052 g/cm2, Z-score 0.7, T-score -1.1, osteopenia. LEFT FEMUR, NECK: BMD 0.842 g/cm2, Z-score 0.2, T-score -1.4, osteopenia. LEFT FEMUR, TOTAL: BMD 0.951 g/cm2, Z-score 0.9, T-score -0.4, normal. IDENTIFIED RISK FACTORS: Secondary osteoporosis, menopause, hysterectomy, bilateral oophorectomy. HISTORY OF FRACTURE: None listed. MEDICATIONS: None listed. MM/XR DEXA axial skeleton IMPRESSION: 1. DIAGNOSIS: Osteopenia based on the lowest T-score value of -1.4 in the femoral neck applying World Health Organization criteria. 2. 10-YEAR FRACTURE RISK PREDICTION, FRAX: Major osteoporotic fracture (clinical spine, forearm, hip or shoulder) 4.8%. Hip fracture 0.5%. 3. Treatment Recommendations: NOF guidelines recommend consideration for treatment in postmenopausal women and men age 50 and older presenting with the following: -A hip or vertebral (clinical or morphometric) fracture. -T-score less than or equal to -2.5 at the femoral neck or spine after appropriate evaluation to exclude secondary causes. -Low bone mass at the hip or spine and a 10-year fracture probability by FRAX of greater than or equal to 3% for hip fracture or greater than or equal to 20% for major osteoporotic fracture based on the [place] adapted WHO algorithm. 4. Other Recommendations: All treatment decisions require clinical judgment and consideration of individual patient factors, including patient preferences, comorbidities, previous drug use, risk factors not captured in the FRAX model (e.g. frailty, falls, vitamin D deficiency, increased bone turnover, interval significant decline in bone density) and possible under or overestimation of fracture risk by FRAX. Additional medical evaluation for secondary cause of low bone mineral density may be appropriate. FUTURE SCAN RECOMMENDATION: People with diagnosed cases of osteoporosis or at high risk for fracture should have regular bone mineral density tests. For patients eligible for Medicare, routine testing is allowed once every 2 years. The testing frequency can be increased to one year for patients who have rapidly progressing disease, those who are receiving or discontinuing medical therapy to restore bone mass, or have additional risk factors.
== END 2021-08-08 10:06 | disposition home or self-care (01) ==
LOC: HO.MAMMO 10:05
PROVIDERS: PCP Internal Medicine; Visit Provider Nurse Practitioner Family
DX: Z13.820 Encounter for screening for osteoporosis (principal); M85.80 Other specified disorders of bone density and structure, unspecified site; Z78.0 Asymptomatic menopausal state; Z98.890 Other specified postprocedural states
CPT/HCPCS: 77080

== ENCOUNTER → 2021-09-19 12:21 | Outpatient (BNVA) | payer MEDICARE, MEDICAID, SELFPAY | PROVIDERS: PCP Internal Medicine; Visit Provider Nurse Practitioner Gerontology | DX: E11.22 Type 2 diabetes mellitus with diabetic chronic kidney disease (principal); I12.9 Hypertensive chronic kidney disease with stage 1 through stage 4 chronic kidney disease, or unspecified chronic kidney disease; N18.30 Chronic kidney disease, stage 3 unspecified; E11.21 Type 2 diabetes mellitus with diabetic nephropathy; E11.319 Type 2 diabetes mellitus with unspecified diabetic retinopathy without macular edema; E78.5 Hyperlipidemia, unspecified; E04.2 Nontoxic multinodular goiter; E55.9 Vitamin D deficiency, unspecified; Z79.4 Long term (current) use of insulin | CPT/HCPCS: 82947; 83036; 99212 ==

== ENCOUNTER 2021-10-09 12:02 | Emergency (ER) | payer MEDICARE, MEDICAID, SELFPAY ==
--- NOTE | ~2021-10-09 | CT_ITS ---
EXAMINATION: CT ANGIOGRAM HEAD CT ANGIOGRAM NECK CLINICAL INFORMATION: Dizziness. Headache. Presented with right-sided weakness. COMPARISON: CT head from 10/09/2021. Thyroid ultrasound from 09/11/2019. TECHNIQUE: Initial noncontrast licensed vocational nurse imaging of the head and neck was performed. Comparison is made with noncontrast head CT from earlier today. Test bolus sequences followed by intravenous administration 70 mL of Omnipaque 350. Helical imaging was performed in the axial plane from the aortic arch to the skull vertex. Delayed postcontrast imaging of the head was also performed. The data was processed at the dairy technologist's workstation for generation of MIP sequences. Angled MIPs and volume rendered reformatted images were also generated at an offline 3D workstation. Stenoses are assessed in accordance with NASCET criteria unless otherwise indicated. This CT examination was performed using dose optimization techniques as appropriate, variously including the following: *Automated exposure control. *Adjustment of mA and/or kV according to patient size (this includes techniques or standardized protocols for targeted exams where dose is matched to indication/reason for exam; i.e. extremities or head). *Use of iterative reconstruction technique. DLP: 1397 mGy-cm FINDINGS: CT Head: There is no evidence of acute intracranial hemorrhage or edematous territorial infarction. A few foci of hypoattenuation in the periventricular and deep white matter are consistent with mild microangiopathy. Small lacunar infarcts of the left thalamus and left caudate head. No additional loss of sebastian-white matter differentiation. The ventricles are normal in size and configuration. No evidence for obstructive hydrocephalus. No abnormal mass effect or midline shift. No extra-axial fluid collections. No pathologic intra-axial enhancement or regional oligemia. No acute soft tissue or osseous abnormalities. Mild mucosal thickening of the paranasal sinuses. The mastoid air cells and middle ear cavities are clear. CT Neck: Changes of prior left thyroidectomy. There is a 1 cm hypoattenuating nodule in the right thyroid lobe (no follow-up imaging recommended). The remaining cervical soft tissues are within normal limits. Straightening of the normal cervical lordosis. Moderate degenerative disc disease from C4-C7 with disc-osteophyte complex formation. CT Upper Chest: The visualized lung apices and upper mediastinum are within normal limits. Neck CTA: Aortic Arch: Normal contour and caliber with moderate calcific atherosclerotic disease. Two vessel branching pattern of the arch with left common carotid artery arising from the brachiocephalic trunk. Great Vessel Origins: No significant stenosis of the branch origins. Right Common Carotid Artery: No focal stenosis or occlusion. Cervical Right Internal Carotid Artery: Calcific atherosclerotic disease of the carotid bulb and proximal internal carotid artery causing less than 50% stenosis. Left Common Carotid Artery: No focal stenosis or occlusion. Cervical Left Internal Carotid Artery: Mild calcific atherosclerotic disease of the carotid bulb and proximal internal carotid artery without flow-limiting stenosis. Cervical Right Vertebral Artery: Co-dominant. No focal stenosis or occlusion. Cervical Left Vertebral Artery: Co-dominant. No focal stenosis or occlusion. Brain CTA: Intracranial Internal Carotid Arteries: Calcific atherosclerotic disease of the intracranial internal carotid arteries without occlusion or flow-limiting stenosis. Right Anterior Cerebral Artery: Normal A1 segment. Normal opacification of the distal LAURA segments. Left Anterior Cerebral Artery: Normal A1 segment. Normal opacification of the distal LAURA segments. Anterior Communicating Artery: Normal. Right Middle Cerebral Artery: Normal M1 segment of the MCA without focal stenosis or occlusion. Normal arborization of the distal segments. Left Middle Cerebral Artery: Normal M1 segment of the MCA without focal stenosis or occlusion. Normal arborization of the distal segments. Right Vertebral Artery: Normal V4 segment. Normal opacification of the proximal segments of the posterior inferior cerebellar artery. Left Vertebral Artery: Normal V4 segment. Normal opacification of the proximal segments of the posterior inferior cerebellar artery. Basilar Artery: Normal without focal stenosis or occlusion. Normal appearance of the proximal superior cerebellar arteries. Right Posterior Cerebral Artery: Normal P1 segment. Normal opacification of the distal UNPAID INTERN segments. Left Posterior Cerebral Artery: Normal P1 segment. Normal opacification of the distal UNPAID INTERN segments. Normal opacification of the superior sagittal, straight, transverse, and sigmoid sinuses. CT/CT angio head neck stroke IMPRESSION: 1. No evidence of acute intracranial hemorrhage or edematous territorial infarction. 2. CTA of the head and neck without proximal occlusion or flow-limiting stenosis. 3. Mild underlying microangiopathy. Small lacunar infarcts of the left caudate head and left thalamus. This critical result was discussed with Dr. Hutton at 12:48 on 10/09/2021 and it was ascertained that the content and urgency of the report was understood at the time of direct communication.
--- NOTE | ~2021-10-09 | CT_ITS ---
EXAMINATION: CT HEAD WITHOUT CONTRAST (STROKE PROTOCOL) CLINICAL INFORMATION: Stroke, dizziness, headache COMPARISON: January 05, 2018 TECHNIQUE: Contiguous axial imaging was performed from the skull base to vertex without intravenous administration of contrast. This CT examination was performed using dose optimization techniques as appropriate, variously including the following: *Automated exposure control *Adjustment of mA and/or kV according to patient size (this includes techniques or standardized protocols for targeted exams where dose is matched to indication/reason for exam; i.e. extremities or head) *Use of iterative reconstruction technique DLP: 648 mGy-cm FINDINGS: There is no intracranial hemorrhage, hematoma, or extra-axial fluid collection. The ventricles are normal in size. There is no hydrocephalus, edema, or mass effect. The sebastian-white matter differentiation appears symmetric. There is no acute infarct or mass lesion. There is some mild periventricular white matter low density seen The calvarium appears intact. There is no pneumocephalus or orbital emphysema. The visualized sinuses and middle ears and mastoid air cells show no significant mucosal thickening. There are no air-fluid levels. CT/CT head for stroke IMPRESSION: No acute intracranial pathology. Small amount of periventricular white matter low density which can be seen with microangiopathy. This critical result was discussed with Donna Chu at 12:35 PM hours on October 09, 2021. It was ascertained that the content and urgency of the report was understood at the time of direct communication.
--- NOTE | 2021-10-09 12:08 | ECG_ITS ---
Test Reason : SYNCOPE Blood Pressure : / mmHG Vent. Rate : 064 BPM Atrial Rate : 064 BPM P-R Int : 164 ms QRS Dur : 092 ms QT Int : 432 ms P-R-T Axes : 033 022 030 degrees QTc Int : 445 ms Normal sinus rhythm Normal ECG When compared with ECG of 23-MAR-2021 16:51, Vent. rate has decreased BY 35 BPM Referred By: Radha Hutton Electronically Signed By:Rickie Castaneda
[2021-10-09 12:14] VITALS: BP 129/52; BP 138/80; PULSE 66; PULSE 77; RESP 18; TEMP 36.7; O2SAT 100; BMI 21.8
--- NOTE | 2021-10-09 12:17 | ED.NEUROSD ---
HPI - Neuro Symptoms/Deficit General Chief Complaint: Altered Mental Status Stated Complaint: STROKE ALERT ,GARBLE SPEECH,LKWT 1130AM,FAM WIT Time Seen by Provider: 10/09/21 12:07 Source: patient and educational interpreter Mode of arrival: EMS Limitations: no limitations History of Present Illness HPI Narrative: 66 yo female with hx of HLD, HTN, anemia, HIV well controlled here with headaches yesterday then reported dizziness sometime today almost passed out son caught her EMS noted she was slow to respond ?R sided weakness on arrival patient was alert and oriented x 3, no deficits on arrival and patient reports she feels better Onset (ago): hour(s) (headache yesterday then dizziness sometime this AM) Location: other (head) History of same: No Severity: moderate Quality: weak and other (spinning) Relieving factors: rest Exacerbating factors: other (moving, standing up) Context: gradual onset and other (fell and son caught her) On Anticoagulants: No Associated symptoms: headaches, loss of appetite and vertigo Treatments Prior to Arrival: none Related Data Home Medications Medication Instructions Recorded Confirmed omeprazole 10 mg capsule,delayed mg PO 09/19/21 09/19/21 release Previous Rx's Medication Instructions Recorded alcohol swabs 1 pad TOPICAL .4 times a day 30 02/06/21 Days #200 ea amlodipine 5 mg tablet 5 mg PO DAILY 90 Days #90 tab 02/06/21 canagliflozin 100 mg tablet 100 mg PO DAILY 90 Days #90 tab 02/06/21 cholecalciferol (vitamin D3) 50 50 mcg PO DAILY 90 Days #90 cap 02/06/21 mcg (2,000 unit) capsule liraglutide 0.6 mg/0.1 mL (18 mg/3 1.8 mg (0.3 mL) SUBCUT DAILY 02/06/21 mL) subcutaneous pen injector Days #27 ml (Victoza 3-Yvon) lisinopril 40 mg tablet 40 mg PO DAILY #90 tab 02/06/21 pen needle, diabetic 32 gauge x #200 ea 02/06/21 rosuvastatin 20 mg tablet 20 mg PO DAILY 90 Days #90 tab 02/06/21 pen needle, diabetic 32 gauge x #100 ea 03/20/21 (BD Mansi 2nd Gen Pen Needle) omeprazole 40 mg capsule,delayed 40 mg PO DAILY #30 cap 03/23/21 release Accu-Chek Softclix Lancets #300 ea NS 04/04/21 (lancets) FreeStyle Lancets 28 gauge #300 ea NS 04/07/21 (lancets) elviteg 150 mg-cob 150 mg-emtricit 1 tab PO DAILY 90 Days #90 tab 05/14/21 200 mg-tenofo alafenam 10 mg tablet (Genvoya) Accu-Chek Guide test strips (blood #300 ea NS 05/19/21 sugar diagnostic) insulin glargine 100 unit/mL (3 12 unit (0.12 mL) SUBCUT DAILY 90 06/23/21 mL) subcutaneous pen Days #15 ml ferrous sulfate 325 mg (65 mg 325 mg PO DAILY #90 tab 08/25/21 iron) tablet Allergies Allergy/AdvReac Type Severity Reaction Status Date / Time crab Allergy Severe SWELLING Verified 10/09/21 12:14 metformin AdvReac Intermediate diarrhea Verified 10/09/21 12:14 Review of Systems Review of Systems: Constitutional : No Fever, No Chills, No Fatigue ENT/Mouth : No sore throat, No Rhinorrhea Eyes: No Eye Pain, No Swelling, No Redness Cardiovascular : No Chest Pain, No SOB, No Dyspnea on Exertion Respiratory : No Cough, No Sputum Gastrointestinal : No Nausea, No Vomiting, No Diarrhea, No abdominal Pain Genitourinary : No Dysuria, No Urinary Frequency, No Hematuria, Musculoskeletal : No joint pain, No Myalgias, No Joint Swelling Skin : No Skin Lesions, No rash Neuro : No Weakness, No Numbness, pos Dizziness, positive Headache Psych : No Anxiety/Panic, No Depression Heme/Lymph: No Bruising, No Bleeding,No Lymphadenopathy Endocrine : No Polyuria, No Polydipsia All other systems reviewed and are negative [facility] Past Medical History Medical History CKD stage 3 due to type 2 diabetes mellitus Diabetes type 2, controlled Diabetic nephropathy associated with type 2 diabetes mellitus Diabetic retinopathy associated with type 2 diabetes mellitus Dyslipidemia Essential hypertension 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 infection) 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 infection) Hypertension Hypovitaminosis D residential (current) use of insulin Non-toxic multinodular goiter Normocytic anemia Pure hypercholesterolemia Sessile colonic polyp Surgical History H/O colonoscopy (08/13/20) History of hysterectomy with unilateral oophorectomy Hx of bilateral cataract extraction Hx of section Hx of thyroidectomy Family History Family History Father Liver disease Mother Hypertension CVD (cardiovascular disease) Renal disease Hyperlipidemia Paternal Aunt Glaucoma Social History Social History Household Members: Other Household Members Other:: grandson Housing: House Alcohol intake: never Patient Tobacco Use Status: Never used Tobacco Use of substances other than those prescribed or required for medical reasons: No Advance Directives: Yes Advance Directives on File: Yes Advance Directives Date on File: 07/01/21 Patient : No service: No Current occupational status: employed Physical Exam Vital Signs: Vital Signs: Last Vital Signs Temp 97.5 F 10/09/21 13:44 Pulse 72 10/09/21 13:44 Resp 20 10/09/21 13:44 BP 114/92 H 10/09/21 13:44 Pulse Ox 100 10/09/21 13:44 BMI result Body Mass Index 21.8 Appearance: Alert. Oriented X3. No acute distress. Eyes: Pupils equal, round and reactive to light. No nystagmus noted. Denies any visual field changes. ENT: Pharynx normal. Neck: Normal inspection. Neck supple. no meningeal signs noted CVS: Normal heart rate and rhythm. Pulses normal. Respiratory: No respiratory distress. Breath sounds normal. Abdomen: Soft and nontender. Skin: Skin warm and dry. Normal skin color. Normal skin turgor. Extremities: No lower extremity edema. No calf ttp Neuro: Oriented X 3. No motor deficit. No sensory deficit. no pronator drift noted Course Course Course Narrative: headaches yesterday dizziness sometime today then worsening headache - NIH 0 on arrival patient reports symptoms improving, timeline vague as well as NIH 0 score too low for tPa at this time call from radiology - initial head CT negative 1248pm call CTA: no acute findings at this time. no proximal occlusions. hydration slight bump in Cr, after talking to the patient it seems diffuse weakness and malaise no focal deficits and a headache - ?COVID - rapid test sent off I do not suspect stroke or TIA at this time + COVID no hypoxia or dyspnea gentle fluids done, eating food in ED no dizziness up and to commode without issue FILLED OUT MAB FORM FOR PATIENT TO TAKE HOME MDM - Neuro Symptoms/Deficit MDM Narrative Medical decision making narrative: 66 yo female with hx of HIV well controlled, DM, HLD, HTN here with headaches since yesterday as well as dizziness that started some time today resulting in a near syncopal event without trauma at this time no focal deficitis NIH 0 on arrival sent to stat head CT - labs, EKG, ortho VS ordered. Dispo per results and findings. Lab Data Result diagrams: 10/09/21 12:51 10/09/21 12:51 Labs: Lab Results 10/09/21 10/09/21 10/09/21 Range/Units 12:44 12:51 12:51 WBC 6.9 (4.8-10.8) X10*3/uL RBC 3.94 L (4.20-5.50) X10*6/uL Hgb 10.5 L (12.0-16.0) g/dl Hct 34.0 L (37.0-47.0) % MCV 86.3 (80.0-98.0) fL MCH 26.6 L (27.0-33.0) pg MCHC 30.9 L (31.0-35.0) g/dl RDW 13.0 (11.0-16.0) % Plt Count 198 (160-400) X10*3/uL MPV 10.4 (9.4-12.3) fL Immature Gran % (Auto) 0.3 (0.0-0.4) % Neut % (Auto) 67.3 (45-73) % Lymph % (Auto) 16.8 L (20-40) % [place] % (Auto) 15.4 H (2-11) % Eos % (Auto) 0.1 (0-4) % Baso % (Auto) 0.1 (0-2) % Lymph # (Auto) 1.2 (1.2-4.9) X10*3/uL [place] # (Auto) 1.1 (0.1-1.2) X10*3/uL Eos # (Auto) 0.0 (0.0-0.4) X10*3/uL Baso # (Auto) 0.0 (0.0-0.2) X10*3/uL Abs Immat Gran (auto) 0.02 (0.00-0.03) X10*3/uL Absolute Neuts (auto) 4.6 (2.0-8.3) x10*3/uL Absolute Nucleated RBC 0.000 (0.0-0.012) X10*3/uL Nucleated RBC % (auto) 0.0 (0.0-0.2) /100WBC PT (9.9-13.0) SEC INR (0.9-1.1) APTT (24.1-38.0) SEC Sodium 138 (135-145) mmol/L Potassium 3.7 (3.3-5.1) mmol/L Chloride 108 (96-108) mmol/L Carbon Dioxide 24 (22-29) mmol/L Anion Gap 10 L (12-20) BUN 20 H (9-16) mg/dL Creatinine 1.43 H (0.5-1.4) mg/dL Estim Creat Clear Calc 34.3 Estimated GFR 37 POC Glucose 139 H (60-115) mg/dL Random Glucose 167 H (60-115) mg/dL Calcium 8.6 D (8.4-10.2) mg/dL Magnesium 2.0 (1.6-2.6) mg/dL Total Bilirubin 0.4 (0.0-1.0) mg/dL Direct Bilirubin < 0.2 (0.0-0.5) mg/dL AST 32 H (5-31) U/L ALT 39 H (0-31) U/L Alkaline Phosphatase 50 D (39-117) U/L Troponin I High Sens (<3.5-17.0) ng/L B-Natriuretic Peptide (<100) pg/mL Total Protein 7.0 (6.5-8.0) g/dL Albumin 3.5 (3.5-5.0) g/dL Lipase 48 (8-78) U/L COVID-19 (MARI) (Negative) COVID-19 Clin Com 10/09/21 10/09/21 10/09/21 Range/Units 12:51 12:51 12:51 WBC (4.8-10.8) X10*3/uL RBC (4.20-5.50) X10*6/uL Hgb (12.0-16.0) g/dl Hct (37.0-47.0) % MCV (80.0-98.0) fL MCH (27.0-33.0) pg MCHC (31.0-35.0) g/dl RDW (11.0-16.0) % Plt Count (160-400) X10*3/uL MPV (9.4-12.3) fL Immature Gran % (Auto) (0.0-0.4) % Neut % (Auto) (45-73) % Lymph % (Auto) (20-40) % [place] % (Auto) (2-11) % Eos % (Auto) (0-4) % Baso % (Auto) (0-2) % Lymph # (Auto) (1.2-4.9) X10*3/uL [place] # (Auto) (0.1-1.2) X10*3/uL Eos # (Auto) (0.0-0.4) X10*3/uL Baso # (Auto) (0.0-0.2) X10*3/uL Abs Immat Gran (auto) (0.00-0.03) X10*3/uL Absolute Neuts (auto) (2.0-8.3) x10*3/uL Absolute Nucleated RBC (0.0-0.012) X10*3/uL Nucleated RBC % (auto) (0.0-0.2) /100WBC PT 12.4 (9.9-13.0) SEC INR 1.1 (0.9-1.1) APTT 32.1 (24.1-38.0) SEC Sodium (135-145) mmol/L Potassium (3.3-5.1) mmol/L Chloride (96-108) mmol/L Carbon Dioxide (22-29) mmol/L Anion Gap (12-20) BUN (9-16) mg/dL Creatinine (0.5-1.4) mg/dL Estim Creat Clear Calc Estimated GFR POC Glucose (60-115) mg/dL Random Glucose (60-115) mg/dL Calcium (8.4-10.2) mg/dL Magnesium (1.6-2.6) mg/dL Total Bilirubin (0.0-1.0) mg/dL Direct Bilirubin (0.0-0.5) mg/dL AST (5-31) U/L ALT (0-31) U/L Alkaline Phosphatase (39-117) U/L Troponin I High Sens < 3.5 (<3.5-17.0) ng/L B-Natriuretic Peptide < 10 (<100) pg/mL Total Protein (6.5-8.0) g/dL Albumin (3.5-5.0) g/dL Lipase (8-78) U/L COVID-19 (MARI) (Negative) COVID-19 Clin Com 10/09/21 10/09/21 Range/Units 12:52 13:39 WBC (4.8-10.8) X10*3/uL RBC (4.20-5.50) X10*6/uL Hgb (12.0-16.0) g/dl Hct (37.0-47.0) % MCV (80.0-98.0) fL MCH (27.0-33.0) pg MCHC (31.0-35.0) g/dl RDW (11.0-16.0) % Plt Count (160-400) X10*3/uL MPV (9.4-12.3) fL Immature Gran % (Auto) (0.0-0.4) % Neut % (Auto) (45-73) % Lymph % (Auto) (20-40) % [place] % (Auto) (2-11) % Eos % (Auto) (0-4) % Baso % (Auto) (0-2) % Lymph # (Auto) (1.2-4.9) X10*3/uL [place] # (Auto) (0.1-1.2) X10*3/uL Eos # (Auto) (0.0-0.4) X10*3/uL Baso # (Auto) (0.0-0.2) X10*3/uL Abs Immat Gran (auto) (0.00-0.03) X10*3/uL Absolute Neuts (auto) (2.0-8.3) x10*3/uL Absolute Nucleated RBC (0.0-0.012) X10*3/uL Nucleated RBC % (auto) (0.0-0.2) /100WBC PT (9.9-13.0) SEC INR (0.9-1.1) APTT (24.1-38.0) SEC Sodium (135-145) mmol/L Potassium (3.3-5.1) mmol/L Chloride (96-108) mmol/L Carbon Dioxide (22-29) mmol/L Anion Gap (12-20) BUN (9-16) mg/dL Creatinine (0.5-1.4) mg/dL Estim Creat Clear Calc Estimated GFR POC Glucose 130 H (60-115) mg/dL Random Glucose (60-115) mg/dL Calcium (8.4-10.2) mg/dL Magnesium (1.6-2.6) mg/dL Total Bilirubin (0.0-1.0) mg/dL Direct Bilirubin (0.0-0.5) mg/dL AST (5-31) U/L ALT (0-31) U/L Alkaline Phosphatase (39-117) U/L Troponin I High Sens (<3.5-17.0) ng/L B-Natriuretic Peptide (<100) pg/mL Total Protein (6.5-8.0) g/dL Albumin (3.5-5.0) g/dL Lipase (8-78) U/L COVID-19 (MARI) Positive A (Negative) COVID-19 Clin Com See Note ECG Data Attestation: I personally reviewed and interpreted this ECG as follows: ECG interpretation date: 10/09/21 ECG interpretation time: 12:51 Interpretation: Rate: 64 Rhythm: NSR [place]: normal Normal P waves. Normal ISABEL. Normal QRS complex. ST T wave : normal no JAMILA qTC: normal prior studies: no acute ischemia The study has been interpreted contemporaneously by me. . NIH Stroke Scale Internal: Initial- Upon Arrival Level of Consciousness: Alert Level of Consciousness Questions: Answers both questions correctly Level of Consciousness Commands: Performs both tasks correctly Best Gaze: Normal Visual: No visual loss Facial Palsy: Normal Motor Arm (Right): No drift Motor Arm (Left): No drift Motor Leg (Right): No drift Motor Leg (Left): No drift Limb Ataxia: Absent Sensory: Normal Best Language: No aphasia Dysarthia: Normal Extinction and Inattention: No abnormality Score: 0 Discharge Plan Discharge Clinical Impression: Weakness, Acute dehydration, COVID-19 Patient Disposition: Home, Self-Care Instructions: Dehydration (ED), Weakness (ED), COVID-19 (Coronavirus Disease 2019) (ED) Additional Instructions: return to ED for any worsening symptoms or concerns HOLD LISINOPRIL FOR 2 DAYS DRINK PLENTY OF FLUIDS repeat kidney function in 3 days YOU WERE GIVEN A MONOCLONAL ANTIBODY FORM TAKE A PICTURE OF IT AND SEND FROM YOUR EMAIL. RETURN IF YOU HAVE DIFFICULTY BREATHING Prescriptions: No Action (DME) pen needle, diabetic [BD Mansi 2nd Gen Pen Needle] 32 gauge x 5/32 needle See Rx Instructions .MEDSUPPLY Qty: 100 RF: 4 (DME) lancets [Accu-Chek Softclix Lancets] Misc See Rx Instructions .ROUTE .MEDSUPPLY Qty: 300 RF: 2 (DME) lancets [FreeStyle Lancets] 28 gauge misc See Rx Instructions .MEDSUPPLY Qty: 300 RF: 2 (DME) Accu-Chek Guide test strips Strip See Rx Instructions .ROUTE .MEDSUPPLY Qty: 300 RF: 11 insulin glargine 100 unit/mL (3 mL) insulin pen 12 unit subcut DAILY 90 Days Qty: 15 RF: 3 ferrous sulfate 325 mg (65 mg iron) tablet 325 mg PO DAILY Qty: 90 RF: 2 omeprazole 40 mg capsule,delayed release(DR/EC) 40 mg PO DAILY Qty: 30 RF: 0 Genvoya [phone] mg tablet 1 tab PO DAILY 90 Days Qty: 90 RF: 1 alcohol swabs Pads, Medicated 1 pad topical .4 times a day 30 Days Qty: 200 RF: 11 amlodipine 5 mg tablet 5 mg PO DAILY 90 Days Qty: 90 RF: 3 canagliflozin 100 mg tablet 100 mg PO DAILY 90 Days Qty: 90 RF: 3 cholecalciferol (vitamin D3) 50 mcg (2,000 unit) capsule 50 mcg PO DAILY 90 Days Qty: 90 RF: 3 Victoza 3-Yvon 0.6 mg/0.1 mL (18 mg/3 mL) pen injector 1.8 mg subcut DAILY 90 Days Qty: 27 RF: 3 lisinopril 40 mg tablet 40 mg PO DAILY Qty: 90 RF: 3 (DME) pen needle, diabetic 32 gauge x 5/32 needle See Rx Instructions ea subcut .MEDSUPPLY Qty: 200 RF: 5 rosuvastatin 20 mg tablet 20 mg PO DAILY 90 Days Qty: 90 RF: 3 omeprazole 10 mg capsule,delayed release(DR/EC) PO RF: 0 Referrals: Mishel Cummings MD [Primary Care Provider] - 3 days (REPEAT KIDNEY FUNCTION) Print Language: Kiswahili
--- NOTE | 2021-10-09 12:40 | PC.NURSE ---
no neuro deficits after CTA. speaking clearly able to transfer from CT to stretched independently. no weakness noted.
--- NOTE | 2021-10-09 12:43 | PC.NURSE ---
This rn speaking with witness at home. pt was sick yesterday cold sweats last night, headache. This am woke feeling better, was ambulatory and on phone. aprox 1120 patient was walking up the stairs, asked to be lowered to ground and c/o lightheadedness . sat on floor briefly then when she attempted to rise, her body became weak and she sat once more. one arm was shaking and patient wasn't responding to grandson.
[2021-10-09 12:56] LABS: MANUAL DIFF FLAG NO
[2021-10-09 12:57] LABS: Basophils Percent Auto 0.1 % (0-2); Eosinophils Percent Auto 0.1 % (0-4); Hemoglobin 10.5 g/dl (12.0-16.0); Imm Gran Abs Auto 0.02 X10*3/uL (0.00-0.03); Imm Gran Pct Auto 0.3 % (0.0-0.4); Lymphocytes Absolute Auto 1.2 X10*3/uL (1.2-4.9); Lymphocytes Percent Auto 16.8 % (20-40); Mean Corpuscular HGB Conc 30.9 g/dl (31.0-35.0); Mean Corpuscular Hemoglobin 26.6 pg (27.0-33.0); Mean Corpuscular Volume 86.3 fL (80.0-98.0); Mean Platelet Volume 10.4 fL (9.4-12.3); Monocytes Absolute Auto 1.1 X10*3/uL (0.1-1.2); Monocytes Percent Auto 15.4 % (2-11); Neutrophils Absolute Auto 4.6 x10*3/uL (2.0-8.3); Neutrophils Percent Auto 67.3 % (45-73); Platelet Count 198 X10*3/uL (160-400); Red Blood Count 3.94 X10*6/uL (4.20-5.50); White Blood Count 6.9 X10*3/uL (4.8-10.8)
[2021-10-09 12:59] LABS: Glucose, Whole Blood 139 mg/dL (60-115)
[2021-10-09 13:05] LABS: INTERNATIONAL NORM RATIO 1.1 (0.9-1.1); Prothrombin Time 12.4 SEC (9.9-13.0)
[2021-10-09 13:07] LABS: COVID-19 Test Positive (Negative); IDNOW Serial# 9DD0AD1C
[2021-10-09 13:08] LABS: Partial Thromboplastin Time 32.1 SEC (24.1-38.0)
[2021-10-09 13:14] LABS: Alanine Aminotransferase 39 U/L (0-31); Albumin Level 3.5 g/dL (3.5-5.0); Alkaline Phosphatase 50 U/L (39-117); Anion Gap 10 (12-20); Aspartate Amino Transferase 32 U/L (5-31); Bilirubin Direct < 0.2 mg/dL (0.0-0.5); Bilirubin Total 0.4 mg/dL (0.0-1.0); Blood Urea Nitrogen 20 mg/dL (9-16); Calcium 8.6 mg/dL (8.4-10.2); Carbon Dioxide 24 mmol/L (22-29); Chloride 108 mmol/L (96-108); Creatinine Clr Calc Pharmacy 34.3; Estimated Glomerular Filt Rate 37; Glucose Random 167 mg/dL (60-115); Lipase 48 U/L (8-78); Potassium 3.7 mmol/L (3.3-5.1); Sodium 138 mmol/L (135-145)
[2021-10-09 13:20] LABS: B Type Natriuretic Peptide < 10 pg/mL (<100); Troponin-I High Sensitivity < 3.5 ng/L (<3.5-17.0)
--- NOTE | 2021-10-09 13:31 | PC.NURSE ---
pt and family aware of covid status. pt is alert, sitting upright for labs.
[2021-10-09 13:44] VITALS: BP 114/92; PULSE 72; RESP 20; TEMP 36.4; O2SAT 100
[2021-10-09 13:45] LABS: Glucose, Whole Blood 130 mg/dL (60-115)
[2021-10-09 14:00] LABS: Appearance Urine CLEAR; Color Urine YELLOW; Glucose Urine UA >=1000 MG/DL (NEG); Leukocyte Esterase Urine NEG (NEG); Nitrite Urine NEG (NEG); Specific Gravity - Urine <= 1.005 (1.005-1.025); UACC Culture Trigger NO; Urine Blood NEG (NEG); Urine Ketones NEG (NEG); Urine Protein 1+ MG/DL (NEG-TRACE)
[2021-10-09 14:15] LABS: Squamous Epithelial Cell Urine 1+ /LPF; WBC Urine 0-2 /HPF (0-4)
[2021-10-09 14:16] LABS: RBC Urine 0-2 /HPF (0)
[2021-10-09] MEDS: 0.9 % Sodium Chloride 500 ML IV ×2 (14:22→14:23)
[2021-10-09] MEDS: ondansetron HCL 4 MG/2 ML VIAL IVPUSH (14:23)
[2021-10-09 14:24] VITALS: BP 127/63; PULSE 765; RESP 18; TEMP 36.7; O2SAT 98
--- NOTE | 2021-10-09 15:39 | PC.NURSE ---
pt tolerated ambulation without diff. wasn't SOB and saO2 maintained 100% entire time.
== END 2021-10-09 16:23 | disposition home or self-care (01) ==
PROVIDERS: Emergency Provider Emergency Medicine; PCP Internal Medicine
DX: U07.1 COVID-19 (principal); E86.0 Dehydration; R53.1 Weakness; R42 Dizziness and giddiness; R51.9 Headache, unspecified; R06.02 Shortness of breath; Z79.899 Other long term (current) drug therapy
CPT/HCPCS: 36415; 70450; 70496; 70498; 80048; 80076; 81001; 81003; 82947; 83690; 83735; 83880; 84484; 85025; 85610; 85730; 87635; 93005; 96361; 96374; 99284; J2405

== ENCOUNTER 2021-10-24 09:52 | Outpatient (REF) | payer MEDICARE, MEDICAID, SELFPAY ==
[2021-10-24 11:47] LABS: Anion Gap 12 (12-20); Blood Urea Nitrogen 19 mg/dL (9-16); Calcium 9.6 mg/dL (8.4-10.2); Carbon Dioxide 26 mmol/L (22-29); Chloride 107 mmol/L (96-108); Estimated Glomerular Filt Rate 53; Sodium 141 mmol/L (135-145)
[2021-10-24 12:31] LABS: Creatinine Urine 127.49 mg/dL; Protein/Creatinine Ratio, Ur 1.15 (<0.2); Total Protein Urine Random 147 mg/dL (<12)
== END 2021-10-24 09:53 | disposition home or self-care (01) ==
LOC: HO.LAB 09:52
PROVIDERS: Absent Provider Internal Medicine; PCP Internal Medicine; Visit Provider Internal Medicine Nephrology
DX: R80.8 Other proteinuria (principal); I12.9 Hypertensive chronic kidney disease with stage 1 through stage 4 chronic kidney disease, or unspecified chronic kidney disease; N18.31 Chronic kidney disease, stage 3a; Z21 Asymptomatic human immunodeficiency virus [HIV] infection status
CPT/HCPCS: 36415; 80051; 82310; 82565; 84156; 84520

== ENCOUNTER 2021-11-07 13:12 | Emergency (ER) | payer MEDICARE, MEDICAID, SELFPAY ==
--- NOTE | ~2021-11-07 | CT_ITS ---
EXAMINATION: CT ABDOMEN AND PELVIS WITHOUT CONTRAST CLINICAL INFORMATION: Right flank pain COMPARISON: Previous CT December 2017 and abdominal ultrasound May 29 TECHNIQUE: Multidetector volumetric imaging was performed from the superior aspect of the liver through the pubic symphysis. Sagittal and coronal reformatted images were obtained on the technologist's workstation. This CT examination was performed using dose optimization techniques as appropriate, variously including the following: *Automated exposure control *Adjustment of mA and/or kV according to patient size (this includes techniques or standardized protocols for targeted exams where dose is matched to indication/reason for exam; i.e. extremities or head) *Use of iterative reconstruction technique DLP: 332 mGy-cm FINDINGS: LUNG BASES: The visualized lung bases are unremarkable. LIVER, GALLBLADDER, AND BILIARY TREE: The liver is normal in size, shape, and attenuation. No focal hepatic lesion or biliary ductal dilatation is present. There is a gallstone in the gallbladder.. PANCREAS: Unremarkable. SPLEEN: Unremarkable. ADRENAL GLANDS: Unremarkable. KIDNEYS AND URETERS: The kidneys are normal in size, shape, and attenuation. No hydronephrosis, hydroureter, or calculi seen. No perinephric stranding. BLADDER: Unremarkable. GASTROINTESTINAL TRACT: The small and large bowel are unremarkable. The appendix is unremarkable. ABDOMINAL WALL: No significant hernia is appreciated. LYMPH NODES: Normal. VASCULAR: There is evidence of atherosclerotic disease. PELVIC VISCERA: The uterus appears to have been removed. No pelvic mass is seen. OSSEOUS STRUCTURES: There is thoracolumbar scoliosis and degenerative changes of the spine. CT/CT abdomen pelvis wo con IMPRESSION: No renal stone or hydronephrosis. Small gallstone in the gallbladder. Fleischner guidelines were followed.
[2021-11-07 13:51] VITALS: BP 127/64; PULSE 112; RESP 18; TEMP 36.7; O2SAT 100; BMI 37.8
[2021-11-07 14:39] LABS: Appearance Urine CLEAR; Color Urine YELLOW; Glucose Urine UA >=1000 MG/DL (NEG); Leukocyte Esterase Urine NEG (NEG); Nitrite Urine NEG (NEG); Specific Gravity - Urine <= 1.005 (1.005-1.025); UACC Culture Trigger NO; Urine Blood TRACE (NEG); Urine Ketones NEG (NEG); Urine Protein 2+ MG/DL (NEG-TRACE)
[2021-11-07 14:51] LABS: UACC CULT YES
[2021-11-07 14:52] LABS: Bacteria Urine TRACE /LPF; Squamous Epithelial Cell Urine 1+ /LPF
--- NOTE | 2021-11-07 18:59 | ED_ITS ---
HPI - General Adult General Chief complaint: Upper Respiratory Symptoms Stated complaint: congestion,sinus pain,right hip pain Time Seen by Provider: 11/07/21 14:29 Source: patient Mode of arrival: ambulatory Limitations: language barrier History of Present Illness HPI narrative: 66-year-old female presents for 6 days of sinus Pain and pressure, frontal headache, and green mucus when she blows her nose. Patient was diagnosed with COVID at the end of September and got monoclonal antibody treatment. Also 6 days ago patient started with right flank Pain that has been constant, with no radiation, no dysuria, no hematuria, no history of kidney stones. Related Data Home Medications Medication Instructions Recorded Confirmed omeprazole 10 mg capsule,delayed mg PO 09/19/21 11/06/21 release Previous Rx's Medication Instructions Recorded alcohol swabs 1 pad TOPICAL .4 times a day 30 02/06/21 Days #200 ea amlodipine 5 mg tablet 5 mg PO DAILY 90 Days #90 tab 02/06/21 canagliflozin 100 mg tablet 100 mg PO DAILY 90 Days #90 tab 02/06/21 cholecalciferol (vitamin D3) 50 50 mcg PO DAILY 90 Days #90 cap 02/06/21 mcg (2,000 unit) capsule liraglutide 0.6 mg/0.1 mL (18 mg/3 1.8 mg (0.3 mL) SUBCUT DAILY 90 02/06/21 mL) subcutaneous pen injector Days #27 ml (Victoza 3-Yvon) lisinopril 40 mg tablet 40 mg PO DAILY #90 tab 02/06/21 pen needle, diabetic 32 gauge x #200 ea 02/06/21 rosuvastatin 20 mg tablet 20 mg PO DAILY 90 Days #90 tab 02/06/21 pen needle, diabetic 32 gauge x #100 ea 03/20/21 (BD Mansi 2nd Gen Pen Needle) omeprazole 40 mg capsule,delayed 40 mg PO DAILY #30 cap 03/23/21 release Accu-Chek Softclix Lancets #300 ea NS 04/04/21 (lancets) FreeStyle Lancets 28 gauge #300 ea NS 04/07/21 (lancets) Accu-Chek Guide test strips (blood #300 ea NS 05/19/21 sugar diagnostic) insulin glargine 100 unit/mL (3 12 unit (0.12 mL) SUBCUT DAILY 90 06/23/21 mL) subcutaneous pen Days #15 ml ferrous sulfate 325 mg (65 mg 325 mg PO DAILY #90 tab 08/25/21 iron) tablet elviteg 150 mg-cob 150 mg-emtricit 1 tab PO DAILY 90 Days #90 tab 10/22/21 200 mg-tenofo alafenam 10 mg tablet (Genvoya) amoxicillin 875 mg-potassium 1 tab PO BID 10 Days #20 tab 11/07/21 clavulanate 125 mg tablet (Augmentin) Allergies Allergy/AdvReac Type Severity Reaction Status Date / Time crab Allergy Severe SWELLING Verified 11/07/21 13:51 metformin AdvReac Intermediate diarrhea Verified 11/07/21 13:51 Review of Systems Verdana 4l Constitutional: Verdana 4d Constitutional: Verdana 4d Verdana 4d Denies body ache(s), Denies chills, Reports fatigue, Denies fever(s), Reports headache(s), Denies malaise and Denies weakness Verdana 4l Eyes: Verdana 4d Verdana 4d Eyes: Verdana 4d Denies diplopia Verdana 4l ENT: Verdana 4d Denies vertigo, Denies dizziness, Denies otalgia, Reports headache(s), Denies mouth pain, Denies post nasal drip, Reports sinus pain, Reports sinus pressure and Denies sore throat Verdana 4l Cardiovascular: Verdana 4d Cardiovascular: Verdana 4d Verdana 4d Denies chest pain, Denies syncope, Denies leg edema, Denies lightheadedness, Denies Loss of Consciousness, Denies palpitations and Denies dyspnea Verdana 4l Respiratory: Verdana 4d Verdana 4d Respiratory: Verdana 4d Denies chest congestion, Denies cough and Denies dyspnea Verdana 4l Gastrointestinal: Verdana 4d Gastrointestinal: Verdana 4d Verdana 4d Denies abdominal pain, Denies hematochezia, Denies constipation, Denies diarrhea and Denies vomiting Verdana 4l Genitourinary: Verdana 4d Verdana 4d Genitourinary: Verdana 4d Denies hematuria, Denies dysuria, Denies pelvic pain, Reports flank pain, Denies urinary incontinence and Denies urinary hesitancy Verdana 4l Musculoskeletal: Verdana 4d Musculoskeletal: Verdana 4d Verdana 4d Reports back pain Verdana 4l Neurologic: Verdana 4d Denies confusion, Denies vertigo, Denies dizziness, Denies syncope, Reports headache(s) and Denies weakness Verdana 4l Psychiatric: Verdana 4d Verdana 4d Psychiatric: Verdana 4d Denies anxiety, Denies confusion and Denies depression Verdana 4l Endocrine: Verdana 4d Verdana 4d Endocrine: Verdana 4d Reports fatigue and Denies palpitations PMFSH Past Medical History Medical History CKD stage 3 due to type 2 diabetes mellitus Diabetes type 2, controlled Diabetic nephropathy associated with type 2 diabetes mellitus Diabetic retinopathy associated with type 2 diabetes mellitus Dyslipidemia Essential hypertension 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 infection) 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 infection) Hypertension Hypovitaminosis 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 Non-toxic multinodular goiter Normocytic anemia Pure hypercholesterolemia Sessile colonic polyp Surgical History H/O colonoscopy (08/13/20) History of hysterectomy with unilateral oophorectomy Hx of bilateral cataract extraction Hx of section Hx of thyroidectomy Family History Family History Father Liver disease Mother Hypertension CVD (cardiovascular disease) Renal disease Hyperlipidemia Paternal Aunt Glaucoma Social History Social History Household Members: Other Household Members Other:: grandson Housing: House Alcohol intake: never Patient Tobacco Use Status: Never used Tobacco e-Cigarette/Vaping Use: Never Used Advance Directives: No Advance Directives Information Provided: No Advance Directives Date on File: 07/01/21 service: No Current occupational status: employed Physical Exam Verdana 4l Vital Signs: Verdana 4d Verdana 4d Vital Signs: Verdana 4d Verdana 4Bd Last Vital Signs Verdana 4d Air Hole Driller New 4d Air Hole Driller New 4d Temp 98.1 F 11/07/21 13:51 Air Hole Driller New 4d Pulse 112 H 11/07/21 13:51 Air Hole Driller New 4d Resp 18 11/07/21 13:51 BP 127/64 01/28/22 13:51 Pulse Ox 100 11/07/21 13:51 BMI result Body Mass Index 37.8 Const: General: No confusion Nutritional Appearance: well nourished Orientation/consciousness: No confusion Limitations: no limitations HENMT: Head: Yes normal to inspection, Yes normocephalic and Yes atraumatic Ears: hearing grossly normal bilaterally, external ears normal, TM's normal bila terally and EAC's normal General nose exam: Normal external nose present Face and sinus: Yes normal facial exam, Yes face symmetric, No erythema, No edema and Yes sinus tenderness Mouth: Normal oral and palatal mucosa present Throat: Yes posterior oropharynx normal Eyes: Conjunctivae: conjunctivae normal Pupils: Equal, round and reactive pupils present EOM: EOMs intact bilaterally Neck: Neck: Yes full ROM, Yes no lymphadenopathy and Yes supple Resp: Effort & Inspection: normal respiratory effort and able to speak in complete sentences Auscultation: clear to auscultation bilaterally, no crackles, no rales, no rhonchi and no wheezes Cardio: Rate: regular rate Rhythm: regular rhythm Heart sounds: S1 normal heart sound present and S2 normal heart sound present GI: Inspection: Yes normal to inspection Palpation (GI): Soft to palpation, nontender, no guarding and not rigid Percussion: Yes normal to percussion Auscultation: normal bowel sounds : General: Yes CVA tenderness on the right Back/Spine/Pelvis: Back: CVA tenderness Skin: General skin exam: no rashes or lesions noted Neuro: General: No confusion Cranial nerves: Yes Equal, round and reactive pupils present Extrem: General: Yes normal to inspection and Yes full ROM Psych: Appearance: grossly normal Affect: normal affect Attitude: cooperative Thought process: Normal thought process present Course Course Course Narrative: 66-year-old female who had COVID 1 month ago presents with 6 days of sinus P ain.and pressure. On exam, patient is tender to palpation over her left maxillary sinus especially. Patient also has right CVA tenderness. Non con CT shows no renal stone or hydronephrosis. Started patient on Augmentin, gave return precautions CT/CT abdomen pelvis wo con IMPRESSION: No renal stone or hydronephrosis. Small gallstone in the gallbladder.? Medical Decision Making Lab Data Labs: Lab Results 11/07/21 Range/Units 14:22 Urine Color YELLOW Urine Appearance CLEAR Urine pH 6.0 (5.0-8.0) Ur Specific [place] <= 1.005 (1.005-1.025) Urine Protein 2+ H (NEG-TRACE) MG/DL Urine Glucose (UA) >=1000 H (NEG) MG/DL Urine Ketones NEG (NEG) MG/DL Urine Blood TRACE (NEG) Urine Nitrite NEG (NEG) Ur Leukocyte Esterase NEG (NEG) Urine RBC 1-4 (0) /HPF Urine WBC 5-9 H (0-4) /HPF Ur Squamous Epith Cells 1+ /LPF Urine Bacteria TRACE /LPF Discharge Plan Discharge Clinical Impression: Sinusitis, acute Patient Disposition: Home, Self-Care Instructions: Sinusitis (ED) Additional Instructions: The CT scan of your kidneys did not show any disease. Your symptoms show that you have a sinusitis we will treat this with antibiotics and I have prescribed to her pharmacy please return if you have fevers, worsening back pain, has some leg weakness, numbness or tingling in your groin, if you are incontinent of bowel or bladder, or for any other new or concerning symptoms La tomograf?a computarizada de ivan ri?ones no mostr? ninguna enfermedad. Tus s?ntomas muestran que tienes cynthia sinusitis. lo trataremos con antibi?ticos y le he recetado a melton farmacia regrese si tiene fiebre, empeora el dolor de espalda, tiene algo de debilidad en las piernas, entumecimiento u hormigueo en la lv, si tiene incontinencia intestinal o vesical, o por cualquier otro s?ntoma nuevo o preocupante Prescriptions: New amoxicillin-pot clavulanate [Augmentin] 875-125 mg tablet 1 tab PO BID 10 Days Qty: 20 0RF No Action (DME) pen needle, diabetic [BD Mansi 2nd Gen Pen Needle] 32 gauge x 5/32 needle See Rx Instructions .MEDSUPPLY Qty: 100 4RF Rx Instructions: twice a day (DME) lancets [Accu-Chek Softclix Lancets] Misc See Rx Instructions .ROUTE .MEDSUPPLY Qty: 300 2RF Rx Instructions: 3 times a day (DME) lancets [FreeStyle Lancets] 28 gauge misc See Rx Instructions .MEDSUPPLY Qty: 300 2RF Rx Instructions: 3 times a day (DME) Accu-Chek Guide test strips Strip See Rx Instructions .ROUTE .MEDSUPPLY Qty: 300 11RF Rx Instructions: 3 times a day insulin glargine 100 unit/mL (3 mL) insulin pen 12 unit subcut DAILY 90 Days Qty: 15 3RF ferrous sulfate 325 mg (65 mg iron) tablet 325 mg PO DAILY Qty: 90 2RF Genvoya [id number] mg tablet 1 tab PO DAILY 90 Days Qty: 90 1RF Rx Instructions: must administer with a meal/food omeprazole 40 mg capsule,delayed release(DR/EC) 40 mg PO DAILY Qty: 30 0RF alcohol swabs Pads, Medicated 1 pad topical .4 times a day 30 Days Qty: 200 11RF amlodipine 5 mg tablet 5 mg PO DAILY 90 Days Qty: 90 3RF canagliflozin 100 mg tablet 100 mg PO DAILY 90 Days Qty: 90 3RF cholecalciferol (vitamin D3) 50 mcg (2,000 unit) capsule 50 mcg PO DAILY 90 Days Qty: 90 3RF Victoza 3-Yvon 0.6 mg/0.1 mL (18 mg/3 mL) pen injector 1.8 mg subcut DAILY 90 Days Qty: 27 3RF lisinopril 40 mg tablet 40 mg PO DAILY Qty: 90 3RF (DME) pen needle, diabetic 32 gauge x 5/32 needle See Rx Instructions ea subcut .MEDSUPPLY Qty: 200 5RF Rx Instructions: twice a day rosuvastatin 20 mg tablet 20 mg PO DAILY 90 Days Qty: 90 3RF omeprazole 10 mg capsule,delayed release(DR/EC) PO 0RF Interventions: ED Discharge Assessment Last Done: 11/07/21 16:08 Discharge Date/Time: 11/07/21 16:08 Print Language: Italian
== END 2021-11-07 16:08 | disposition home or self-care (01) ==
PROVIDERS: Emergency Provider Emergency Medicine; PCP Internal Medicine
DX: J01.90 Acute sinusitis, unspecified (principal); R51.9 Headache, unspecified; R10.9 Unspecified abdominal pain; R09.81 Nasal congestion; Z79.899 Other long term (current) drug therapy
CPT/HCPCS: 74176; 81001; 87086; 99283; 99284

== ENCOUNTER → 2021-11-12 10:09 | Outpatient (BNVA) | payer MEDICARE, MEDICAID, SELFPAY | LOC: CF 12:24 | PROVIDERS: PCP Internal Medicine; Visit Provider Internal Medicine | DX: J32.9 Chronic sinusitis, unspecified (principal) | CPT/HCPCS: 99212 ==

== ENCOUNTER 2021-11-13 10:58 | Outpatient (REF) | payer MEDICARE, MEDICAID, SELFPAY ==
[2021-11-13 11:42] LABS: Hematocrit 31.5 % (37.0-47.0); Hemoglobin 9.4 g/dl (12.0-16.0); Mean Corpuscular HGB Conc 29.8 g/dl (31.0-35.0); Mean Corpuscular Hemoglobin 25.6 pg (27.0-33.0); Mean Corpuscular Volume 85.8 fL (80.0-98.0); Mean Platelet Volume 9.7 fL (9.4-12.3); Platelet Count 379 X10*3/uL (160-400); Red Blood Count 3.67 X10*6/uL (4.20-5.50); Red Cell Distribution Width 12.7 % (11.0-16.0); White Blood Count 7.6 X10*3/uL (4.8-10.8)
[2021-11-13 12:21] LABS: Alanine Aminotransferase 116 U/L (0-31); Albumin Level 3.5 g/dL (3.5-5.0); Alkaline Phosphatase 90 U/L (39-117); Anion Gap 11 (12-20); Aspartate Amino Transferase 43 U/L (5-31); Bilirubin Direct < 0.2 mg/dL (0.0-0.5); Bilirubin Total 0.3 mg/dL (0.0-1.0); Blood Urea Nitrogen 19 mg/dL (9-16); Calcium 9.7 mg/dL (8.4-10.2); Carbon Dioxide 28 mmol/L (22-29); Chloride 107 mmol/L (96-108); Estimated Glomerular Filt Rate 48; Glucose Random 133 mg/dL (60-115); Potassium 4.4 mmol/L (3.3-5.1); Sodium 142 mmol/L (135-145)
[2021-11-13 12:24] LABS: ~HepC Num1 0.46 S/CO (0.00-0.79); ~Hepatitis C Antibody Nonreactive (Nonreactive)
[2021-11-14 12:56] LABS: Absolute CD3 Count 1537 cells/uL (840-3060); Absolute CD4 Count 535 cells/uL (490-1740); Absolute CD8 Count 1008 cells/uL (180-1170); Absolute Lymphocytes 2027 cells/uL (850-3900); CD4 CD8 Ratio 0.53 (0.86-5.00); Percent CD3 Cells 76 % (57-85); Percent CD4 Cells 26 % (30-61); Percent CD8 Cells 50 % (12-42)
[2021-11-15 20:17] LABS: TS Negative Control Passed; TS Panel A 0; TS Panel B 0; TS Positive Control Passed; TSpotTB Negative (Negative)
[2021-11-16 19:02] LABS: HIV RNA PCR Qn Copies <20 Copies/mL; HIV RNA PCR Qn Log Copies <1.30 Log cps/mL
== END 2021-11-13 10:59 | disposition home or self-care (01) ==
LOC: HO.LAB 10:58
PROVIDERS: PCP Internal Medicine; Visit Provider Internal Medicine
DX: B20 Human immunodeficiency virus [HIV] disease (principal)
CPT/HCPCS: 36415; 80048; 80076; 85027; 86359; 86360; 86481; 86803; 87536

== ENCOUNTER → 2021-11-21 10:13 | Outpatient (BNVA) | payer MEDICARE, MEDICAID, SELFPAY | PROVIDERS: PCP Internal Medicine; Visit Provider Internal Medicine | DX: Z21 Asymptomatic human immunodeficiency virus [HIV] infection status (principal) | CPT/HCPCS: 99212 ==

== ENCOUNTER → 2021-12-03 13:25 | Outpatient (BNVA) | payer MEDICARE, MEDICAID, SELFPAY | PROVIDERS: PCP Internal Medicine; Referring Provider Internal Medicine; Visit Provider Physician Assistant | DX: K63.5 Polyp of colon (principal); E11.21 Type 2 diabetes mellitus with diabetic nephropathy; E11.319 Type 2 diabetes mellitus with unspecified diabetic retinopathy without macular edema; I12.9 Hypertensive chronic kidney disease with stage 1 through stage 4 chronic kidney disease, or unspecified chronic kidney disease; N18.30 Chronic kidney disease, stage 3 unspecified; E78.00 Pure hypercholesterolemia, unspecified; E55.9 Vitamin D deficiency, unspecified; B20 Human immunodeficiency virus [HIV] disease; Z88.8 Allergy status to other drugs, medicaments and biological substances; Z88.1 Allergy status to other antibiotic agents; Z88.0 Allergy status to penicillin; Z91.013 Allergy to seafood; Z79.4 Long term (current) use of insulin; Z79.899 Other long term (current) drug therapy | CPT/HCPCS: 99212 ==

== ENCOUNTER 2022-02-09 10:20 | Outpatient (REF) | payer MEDICARE, MEDICAID, SELFPAY ==
[2022-02-09 11:16] LABS: Anion Gap 11 (12-20); Blood Urea Nitrogen 17 mg/dL (9-16); Calcium 9.9 mg/dL (8.4-10.2); Carbon Dioxide 27 mmol/L (22-29); Chloride 106 mmol/L (96-108); Estimated Glomerular Filt Rate 48; Potassium 4.3 mmol/L (3.3-5.1); Sodium 140 mmol/L (135-145)
[2022-02-09 11:34] LABS: Protein/Creatinine Ratio, Ur 1.12 (<0.2); Total Protein Urine Random 183 mg/dL (<12)
== END 2022-02-09 10:21 | disposition home or self-care (01) ==
LOC: HO.LAB 10:20
PROVIDERS: Absent Provider Internal Medicine Nephrology; PCP Internal Medicine; Visit Provider Internal Medicine
DX: I12.9 Hypertensive chronic kidney disease with stage 1 through stage 4 chronic kidney disease, or unspecified chronic kidney disease (principal); N18.31 Chronic kidney disease, stage 3a; R80.8 Other proteinuria
CPT/HCPCS: 36415; 80051; 82310; 82565; 84156; 84520

== ENCOUNTER 2022-04-06 10:22 | Outpatient (REF) | payer MEDICARE, MEDICAID, SELFPAY ==
[2022-04-06 10:45] LABS: MANUAL DIFF FLAG NO
[2022-04-06 11:11] LABS: Basophils Percent Auto 0.5 % (0-2); Eosinophils Absolute Auto 0.1 X10*3/uL (0.0-0.4); Eosinophils Percent Auto 2.1 % (0-4); Hematocrit 35.4 % (37.0-47.0); Hemoglobin 10.7 g/dl (12.0-16.0); Imm Gran Abs Auto 0.01 X10*3/uL (0.00-0.03); Imm Gran Pct Auto 0.2 % (0.0-0.4); Lymphocytes Absolute Auto 1.7 X10*3/uL (1.2-4.9); Mean Corpuscular HGB Conc 30.2 g/dl (31.0-35.0); Mean Corpuscular Volume 85.9 fL (80.0-98.0); Mean Platelet Volume 10.5 fL (9.4-12.3); Monocytes Absolute Auto 0.4 X10*3/uL (0.1-1.2); Monocytes Percent Auto 9.8 % (2-11); Neutrophils Percent Auto 47.4 % (45-73); Platelet Count 210 X10*3/uL (160-400); Red Blood Count 4.12 X10*6/uL (4.20-5.50); Red Cell Distribution Width 12.5 % (11.0-16.0); White Blood Count 4.3 X10*3/uL (4.8-10.8)
[2022-04-06 11:14] LABS: Estimated Average Glucose 143 mg/dL; Hemoglobin A1c % 6.6 %
[2022-04-06 11:28] LABS: Alanine Aminotransferase 85 U/L (0-31); Alkaline Phosphatase 75 U/L (39-117); Anion Gap 13 (12-20); Aspartate Amino Transferase 81 U/L (5-31); Bilirubin Direct < 0.2 mg/dL (0.0-0.5); Bilirubin Total < 0.2 mg/dL (0.0-1.0); Blood Urea Nitrogen 28 mg/dL (9-16); Calcium 9.4 mg/dL (8.4-10.2); Carbon Dioxide 26 mmol/L (22-29); Chloride 107 mmol/L (96-108); Cholesterol 152 mg/dL; Estimated Glomerular Filt Rate 41; Glucose Random 155 mg/dL (60-115); HDL Cholesterol 30 mg/dL; LDL Cholesterol Calculated 51 mg/dl; Potassium 4.7 mmol/L (3.3-5.1); Sodium 141 mmol/L (135-145); Total Protein 7.4 g/dL (6.5-8.0); Triglycerides 358 mg/dL
[2022-04-06 11:41] LABS: ~Hepatitis C Antibody Nonreactive (Nonreactive)
[2022-04-06 12:42] LABS: Syphilis Screen Nonreactive (Nonreactive)
[2022-04-06 12:46] LABS: Creatinine Urine 98.68 mg/dL; Microalbum/Creatinine Ratio Ur 430.6 ug/mg cr
[2022-04-07 14:45] LABS: Absolute CD3 Count 1414 cells/uL (840-3060); Absolute CD4 Count 464 cells/uL (490-1740); Absolute CD8 Count 958 cells/uL (180-1170); Absolute Lymphocytes 1865 cells/uL (850-3900); CD4 CD8 Ratio 0.48 (0.86-5.00); Percent CD3 Cells 76 % (57-85); Percent CD4 Cells 25 % (30-61); Percent CD8 Cells 51 % (12-42)
[2022-04-08 13:22] LABS: HIV RNA PCR Qn Copies NOT DETECTED copies/mL (NOT DETECTED); HIV RNA PCR Qn Log Copies NOT DETECTED (NOT DETECTED)
[2022-04-10 16:36] LABS: Vitamin D 25-OH, D2 <4 ng/mL; Vitamin D 25-OH, D3 28 ng/mL; Vitamin D 25-OH, Total 28 ng/mL (30-100)
== END 2022-04-06 10:23 | disposition home or self-care (01) ==
LOC: HO.LAB 10:22
PROVIDERS: Absent Provider Internal Medicine; PCP Internal Medicine; Referring Provider Internal Medicine; Visit Provider Nurse Practitioner Gerontology
DX: Z11.1 Encounter for screening for respiratory tuberculosis (principal); B20 Human immunodeficiency virus [HIV] disease; E78.5 Hyperlipidemia, unspecified; E11.40 Type 2 diabetes mellitus with diabetic neuropathy, unspecified; I10 Essential (primary) hypertension; D64.9 Anemia, unspecified; E55.9 Vitamin D deficiency, unspecified
CPT/HCPCS: 36415; 80053; 80061; 80076; 82043; 82248; 82306; 83036; 85025; 85027; 86359; 86360; 86780; 86803; 87536

== ENCOUNTER → 2022-04-09 11:08 | Outpatient (BNVA) | payer MEDICARE, MEDICAID, SELFPAY | PROVIDERS: PCP Internal Medicine; Visit Provider Internal Medicine | DX: E04.2 Nontoxic multinodular goiter (principal); E55.9 Vitamin D deficiency, unspecified; E11.22 Type 2 diabetes mellitus with diabetic chronic kidney disease; N18.30 Chronic kidney disease, stage 3 unspecified; Z79.4 Long term (current) use of insulin | CPT/HCPCS: Q3014 ==

== ENCOUNTER 2022-04-29 10:58 | Outpatient (REF) | payer MEDICARE, MEDICAID, SELFPAY ==
--- NOTE | ~2022-04-29 | US_ITS ---
EXAMINATION: US THYROID CLINICAL INFORMATION: Nontoxic multinodular goiter. COMPARISON: US thyroid 09/11/2019 and 08/22/2018. TECHNIQUE: Linear transducer grayscale and color Doppler examination with attention to the region of the thyroid. FINDINGS: SIZE: Measurements of the thyroid lobes and nodules are given in sagittal, anteroposterior and transverse dimensions respectively. Right Thyroid Lobe: 5.1 x 2.0 x 1.8 cm, volume 9.6 mL. Previously 4.8 x 1.5 x 1.7 cm, volume 6.2 mL. Parenchyma: The gland echotexture is heterogeneous. Thyroid vascularity is normal. Left Thyroid Lobe: Surgically absent. Isthmus: 0.5 cm in maximum AP dimension. Previously 0.5 cm. Estimated total number of nodules greater than or equal to 1 cm: 1. Systems Software Designer nodules are described as follows: 1. Location: Right superior. Size: 0.5 x 0.5 x 0.4 cm, volume 0.06 mL. Previously: 0.5 x 0.3 x 0.4 cm, volume 0.03 mL. Nodule characteristics: Composition: Cystic(0). ACR TI-RADS total points: 0 ACR TI-RADS category: 1 Significant change in size (>/= 20% in 2 dimensions and minimal increase of 2 mm or 50% or greater increase in volume): No Change in features: No Change in ACR TI-RADS risk category: No 2. Location: Right mid. Size: 1.7 x 1.0 x 1.0 cm, volume 0.9 mL. Previously: 1.3 x 0.8 x 0.9 cm, volume 0.5 mL. Nodule characteristics: Composition: Cystic(0). ACR TI-RADS total points: 0 ACR TI-RADS category: 1 Significant change in size (>/= 20% in 2 dimensions and minimal increase of 2 mm or 50% or greater increase in volume): Yes Change in features: No Change in ACR TI-RADS risk category: No NODES: No lymphadenopathy is seen in the tissue surrounding the thyroid gland. US/US thyroid IMPRESSION: Prior left thyroidectomy. No nodules in the thyroidectomy bed. Redemonstration of several colloid cysts in the right lobe, largest 1.7 cm previously 1.3 cm. No visible lymphadenopathy in the adjacent soft tissues. ACR TI-RADS RECOMMENDATION REFERENCE: Ultrasound-guided fine-needle aspiration, followup ultrasound, no further follow up. * TR1 (0 point) and TR 2 (2 points): No FNA or follow up * TR3 (3 points): FNA if more than or equal to 2.5 cm in maximum dimension, followup ultrasound in 1, 3 and 5 years if 1.5 to 2.4 cm in maximum dimension. * TR4 (4-6 points): FNA if more than or equal to 1.5 cm in maximum dimension, followup ultrasound in 1, 2, 3 and 5 years if 1 to 1.4 cm in maximum dimension. * TR5 (more than or equal to 7 points): FNA if more than or equal to 1 cm in maximum dimension, followup ultrasound every year for 5 years if 0.5 to 0.9 cm in maximum dimension. * TR3, TR4 or TR5 nodules that are below the size threshold for follow up receive no follow up.
== END 2022-04-29 10:59 | disposition home or self-care (01) ==
LOC: HO.US 10:58
PROVIDERS: Visit Provider Nurse Practitioner Gerontology
DX: E04.2 Nontoxic multinodular goiter (principal)
CPT/HCPCS: 76536

== ENCOUNTER → 2022-05-26 11:01 | Outpatient (BNVA) | payer MEDICARE, MEDICAID, SELFPAY | PROVIDERS: Visit Provider Internal Medicine | DX: Z21 Asymptomatic human immunodeficiency virus [HIV] infection status (principal); R74.01 Elevation of levels of liver transaminase levels | CPT/HCPCS: 99212 ==

== ENCOUNTER 2022-06-08 08:20 | Outpatient (REF) | payer MEDICARE, MEDICAID, SELFPAY ==
--- NOTE | ~2022-06-08 | US_ITS ---
EXAMINATION: US COMPLETE ABDOMEN WITH LIVER ELASTOGRAPHY CLINICAL INFORMATION: Elevated liver transaminase levels. COMPARISON: None. TECHNIQUE: Real-time imaging of the abdominal viscera. Noninvasive ultrasound liver fibrosis assessment is performed using Sugey ElastPQ point quantification shear wave elastography (2D-SWE) with a C5-2 MHz transducer. Multiple elastography samples are obtained. FINDINGS: PANCREAS: Normal. The visualized pancreatic head and body are normal in appearance. The remainder of the pancreas is obscured from visualization by the overlying bowel gas. ABDOMINAL AORTA: The proximal, middle, and distal aortic segments are normal in caliber. There are atherosclerotic calcifications. INFERIOR VENA CAVA: Visualized portions are normal. LIVER: Normal. The liver demonstrates normal size, contour and echogenicity. No focal lesion or intrahepatic biliary duct dilatation. The right lobe measures 14.9 cm in length. The left lobe measures 10.8 cm in length. Portal flow is towards the liver (hepatopetal). Shear wave liver elastography median stiffness is 1.52 m/s (reference: normal median stiffness is 1.3 m/s or less). IQR/median stiffness to assess sampling precision is 0.07 (reference: good quality data set is IQR/median stiffness of 0.15 or less). GALLBLADDER: A 9 mm gallstone is seen. There is no evidence of stones, sludge, polyps, wall thickening or pericholecystic fluid. COMMON BILE DUCT: Normal in caliber measuring 0.3 cm in diameter. RIGHT KIDNEY: There is increased renal cortical echotexture. No hydronephrosis. No renal calculi or focal parenchymal lesions. The kidney measures 8.8 cm in maximum dimension. LEFT KIDNEY: There is increased renal cortical echotexture. There is very mild hydronephrosis. No renal calculi or focal parenchymal lesions. The kidney measures 8.1 cm in maximum dimension. SPLEEN: Normal. The spleen measures 6.9 cm in maximum dimension. FREE FLUID: None. US/US abdomen comp w elastography IMPRESSION: 1. Liver elastography: In the absence of other known clinical signs, measurements rule out compensated advanced chronic liver disease. If there are known clinical signs, further testing may be needed for confirmation. 2. There is mild cholelithiasis. 3. There is increased renal cortical echotexture, which can be associated with medical renal disease. 4. There is very mild left hydronephrosis. REFERENCE: Society of Radiologists in Ultrasound Liver Stiffness Thresholds (2020): LIVER STIFFNESS THRESHOLDS: *Liver Stiffness equal or less than 1.3 m/s: High probability of being normal. *Liver Stiffness less than 1.7 m/s: In the absence of other known clinical signs, rules out compensated advanced chronic liver disease. *Liver Stiffness 1.7-2.1 m/s: Suggestive of compensated advanced chronic liver disease but need further test for confirmation. *Liver Stiffness over 2.1 m/s: Rules in compensated advanced chronic liver disease. *Liver Stiffness over 2.4 m/s: Suggestive of clinically significant portal hypertension. QUALITY OF DATA SET: *IQR/Median value equal or less than 0.15 implies a quality data set. *IQR/Median value over 0.15 implies a poor quality data set. SIGNIFICANT CHANGE FROM PRIOR EXAM: Significant change if liver stiffness measurement is 10% or greater from prior exam. OTHER CONSIDERATIONS: The stage of liver fibrosis may be overestimated in the setting of acute hepatitis, liver inflammation, elevated liver function tests, hepatic vascular congestion, obstructive cholestasis, non-fasting state, and infiltrative diseases such as amyloidosis and lymphoma. In some patients with NAFLD, the liver stiffness thresholds for compensated advanced chronic liver disease may be lower. In causes other than viral hepatitis and NAFLD, liver stiffness thresholds are not well established.
== END 2022-06-08 08:21 | disposition home or self-care (01) ==
LOC: HO.US 08:20
PROVIDERS: Visit Provider Internal Medicine
DX: R74.01 Elevation of levels of liver transaminase levels (principal)
CPT/HCPCS: 76705; 76981

== ENCOUNTER 2022-06-24 10:43 | Outpatient (REF) | payer MEDICARE, MEDICAID, SELFPAY ==
[2022-06-24 10:59] LABS: MANUAL DIFF FLAG NO
[2022-06-24 11:29] LABS: Basophils Percent Auto 0.3 % (0-2); Eosinophils Absolute Auto 0.1 X10*3/uL (0.0-0.4); Eosinophils Percent Auto 1.1 % (0-4); Hematocrit 38.2 % (37.0-47.0); Hemoglobin 11.6 g/dl (12.0-16.0); Imm Gran Abs Auto 0.01 X10*3/uL (0.00-0.03); Imm Gran Pct Auto 0.1 % (0.0-0.4); Lymphocytes Absolute Auto 1.6 X10*3/uL (1.2-4.9); Lymphocytes Percent Auto 21.6 % (20-40); Mean Corpuscular HGB Conc 30.4 g/dl (31.0-35.0); Mean Corpuscular Hemoglobin 25.9 pg (27.0-33.0); Mean Corpuscular Volume 85.3 fL (80.0-98.0); Monocytes Absolute Auto 0.7 X10*3/uL (0.1-1.2); Monocytes Percent Auto 9.5 % (2-11); Neutrophils Absolute Auto 5.1 x10*3/uL (2.0-8.3); Neutrophils Percent Auto 67.4 % (45-73); Platelet Count 212 X10*3/uL (160-400); Red Blood Count 4.48 X10*6/uL (4.20-5.50); Red Cell Distribution Width 12.5 % (11.0-16.0); White Blood Count 7.6 X10*3/uL (4.8-10.8)
[2022-06-24 12:08] LABS: Anion Gap 14 (12-20); Blood Urea Nitrogen 20 mg/dL (9-16); Calcium 9.4 mg/dL (8.4-10.2); Carbon Dioxide 24 mmol/L (22-29); Chloride 108 mmol/L (96-108); Estimated Glomerular Filt Rate 45; Glucose Random 103 mg/dL (60-115); Potassium 3.9 mmol/L (3.3-5.1); Sodium 142 mmol/L (135-145)
[2022-06-24 12:21] LABS: Thyroid Stimulating Hormone 1.08 uIU/mL (0.32-4.0)
[2022-06-24 12:27] LABS: Free T4 (Free Thyroxine) 1.01 ng/dL (0.71-1.85); Vitamin D 25-OH Total 34.2 ng/mL (>30)
[2022-06-24 12:47] LABS: Cholesterol 147 mg/dL; HDL Cholesterol 40 mg/dL; Iron 90 mcg/dL (30-160); LDL Cholesterol Calculated 75 mg/dl; Percent Iron Saturation 34 % (15-50); Total Iron Binding Capacity 268 mcg/dL (228-428); Triglycerides 164 mg/dL; Unsaturated Iron Binding 178 ug/dL
[2022-06-24 15:03] LABS: Microalbum/Creatinine Ratio Ur 3218.5 ug/mg cr
[2022-06-26 13:16] LABS: HIV RNA PCR Qn Copies NOT DETECTED copies/mL (NOT DETECTED); HIV RNA PCR Qn Log Copies NOT DETECTED (NOT DETECTED)
[2022-06-26 13:25] LABS: Absolute CD3 Count 1342 cells/uL (840-3060); Absolute CD4 Count 383 cells/uL (490-1740); Absolute CD8 Count 959 cells/uL (180-1170); Absolute Lymphocytes 1845 cells/uL (850-3900); Percent CD3 Cells 73 % (57-85); Percent CD4 Cells 21 % (30-61); Percent CD8 Cells 52 % (12-42)
[2022-06-26 13:41] LABS: TS Negative Control Passed; TS Panel A 0; TS Panel B 0; TS Positive Control Passed; TSpotTB Negative (Negative)
== END 2022-06-24 10:44 | disposition home or self-care (01) ==
LOC: HO.LAB 10:43
PROVIDERS: Internal Medicine; PCP Internal Medicine; Visit Provider Internal Medicine
DX: Z11.1 Encounter for screening for respiratory tuberculosis (principal); B20 Human immunodeficiency virus [HIV] disease; E04.2 Nontoxic multinodular goiter; E55.9 Vitamin D deficiency, unspecified; E11.9 Type 2 diabetes mellitus without complications; E78.5 Hyperlipidemia, unspecified; D64.9 Anemia, unspecified
CPT/HCPCS: 36415; 80048; 80061; 82043; 82306; 83540; 84439; 84443; 85025; 85027; 86359; 86360; 86481; 87536

== ENCOUNTER → 2022-06-30 10:41 | Outpatient (BNVA) | payer MEDICARE, MEDICAID, SELFPAY | PROVIDERS: PCP Internal Medicine; Visit Provider Internal Medicine | DX: E04.2 Nontoxic multinodular goiter (principal); E55.9 Vitamin D deficiency, unspecified | CPT/HCPCS: Q3014 ==

== ENCOUNTER 2022-08-05 07:43 | Outpatient (REF) | payer OTHER, SELFPAY ==
--- NOTE | 2022-08-05 08:19 | P.BOP_ITS ---
Brief Operative Note Date of Service: 08/05/22 Pre-op diagnosis: Multinodular Thyroid Procedure: EXAMINATION: US THYROID CLINICAL INFORMATION: Multinodular Thyroid COMPARISON: Prior TECHNIQUE: Linear transducer sebastian-scale and color Doppler examination with attention to the region of the thyroid. FINDINGS: SIZE: Measurements of the thyroid lobes and nodules are given in sagittal, anteroposterior and transverse dimensions respectively. Right Thyroid Lobe: 5.5 x 1.5 x 2.0 cm, volume 8.6 mL. Parenchyma: The gland echotexture is heterogenous. Thyroid vascularity is normal. The left thyroid lobe and the isthmus have been surgically removed. RIGHT THYROID LOBE: There is a 1.6 x 1.1 x 0.8 cm cyst within the RMP of the thyroid. There are scattered subcentimeter cysts in the remainder of the R lobe. NODES: No lymphadenopathy is seen in the tissue surrounding the thyroid gland. IMPRESSION: a 1.6 cm RMP cyst not meeting indication for FNA biopsy. Surgeon: Kristen Contreras, DO Was an Dry Cleaner Presser used for this Procedure?: No Estimated blood loss (mL): 0
== END 2022-08-05 07:44 | disposition home or self-care (01) ==
LOC: HO.US 07:43
PROVIDERS: Visit Provider Internal Medicine
DX: E04.2 Nontoxic multinodular goiter (principal)
CPT/HCPCS: 76536

== ENCOUNTER 2022-08-13 08:10 | Day surgery (SDC) | payer OTHER, MEDICAID, SELFPAY ==
--- NOTE | 2022-08-12 08:47 | P.CONAN_ITS ---
Documented by User: Vani Justice NP 08/12/22 08:48 HPI - Anesthesia Eval Consult details Narrative: 67yo F for Colonoscopy PMFSH Active Problems Active Problems: All Active Problems (Updated 06/25/22 @ 13:21 by Mishel Rao MD) Physical exam (Acute) 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 infection) (Acute) Transaminitis (Acute) Sinusitis (Acute) Hepatitis (Acute) COVID-19 (Acute) Adult general medical exam (Acute) Post-menopausal (Acute) Normocytic anemia (Acute) Pure hypercholesterolemia (Acute) Essential hypertension (Acute) Sessile colonic polyp (Acute) Diverticulosis (Acute) Colon polyp (Acute) skilled nursing (current) use of insulin (Acute) Hypertension (Acute) Non-toxic multinodular goiter (Acute) Diabetic retinopathy associated with type 2 diabetes mellitus (Acute) CKD stage 3 due to type 2 diabetes mellitus (Acute) Diabetic nephropathy associated with type 2 diabetes mellitus (Acute) Dyslipidemia (Acute) Diabetes type 2, controlled (Acute) Hypovitaminosis D (Acute) Past Medical History Medical History CKD stage 3 due to type 2 diabetes mellitus Diabetes type 2, controlled Diabetic nephropathy associated with type 2 diabetes mellitus Diabetic retinopathy associated with type 2 diabetes mellitus Dyslipidemia Essential hypertension Hepatitis 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 infection) 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 infection) Hypertension Hypovitaminosis D skilled nursing (current) use of insulin Non-toxic multinodular goiter Normocytic anemia Pure hypercholesterolemia Sessile colonic polyp Sinusitis Family History Family History Father Liver disease Mother Hypertension CVD (cardiovascular disease) Renal disease Hyperlipidemia ESRD on hemodialysis Paternal Aunt Glaucoma Surgical History Surgical History H/O colonoscopy (08/13/20) History of hysterectomy with unilateral oophorectomy Hx of bilateral cataract extraction Hx of section Hx of thyroidectomy Social History Social History Household Members: Other Household Members Other:: grandson Housing: House Alcohol intake: never Patient Tobacco Use Status: Never used Tobacco e-Cigarette/Vaping Use: Never Used Advance Directives Date on File: 07/01/21 service: No Current occupational status: unemployed Cognitive needs: No Hearing needs: No Vision needs: No Meds Allergies Allergy/AdvReac Type Severity Reaction Status Date / Time crab Allergy Severe SWELLING Verified 06/30/22 11:56 amoxicillin [From Augmentin] Allergy Mild Abdominal Verified 06/30/22 11:56 Pain clavulanic acid Allergy Mild Abdominal Verified 06/30/22 11:56 [From Augmentin] Pain metformin AdvReac Intermediate diarrhea Verified 06/30/22 11:56 Home Medications Medication Instructions Recorded Confirmed Last Taken Type rosuvastatin 10 mg tablet 20 mg PO DAILY 06/30/22 06/30/22 Unknown History Exam Exam Date and Time: August 12, 2022 0847 Pertinent Lab Results Pertinent Lab Results: Laboratory Tests 06/04/20 06/24/22 06/24/22 10:12 10:58 10:58 WBC 7.6 Hgb 11.6 L Hct 38.2 Plt Count 212 Sodium 142 Potassium 3.9 Chloride 108 Carbon Dioxide 24 BUN 20 H Creatinine 1.21 Total Lymphocytes 1580 % CD3 Cells 73 Absolute CD3 Count 1149 Assessment and Plan Assessment Anesthesia Assessment: Chart Reviewed Documented by User: Winston Weiss MD 08/13/22 12:12 [facility] Past Medical History Medical History CKD stage 3 due to type 2 diabetes mellitus Diabetes type 2, controlled Diabetic nephropathy associated with type 2 diabetes mellitus Diabetic retinopathy associated with type 2 diabetes mellitus Dyslipidemia Essential hypertension Hepatitis 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 infection) 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 infection) Hypertension Hypovitaminosis D skilled nursing (current) use of insulin Non-toxic multinodular goiter Normocytic anemia Pure hypercholesterolemia Sessile colonic polyp Sinusitis Family History Family History Father Liver disease Mother Hypertension CVD (cardiovascular disease) Renal disease Hyperlipidemia ESRD on hemodialysis Paternal Aunt Glaucoma Family history of problems with anesthesia: No Surgical History Surgical History H/O colonoscopy (08/13/20) History of hysterectomy with unilateral oophorectomy Hx of bilateral cataract extraction Hx of section Hx of thyroidectomy History of Problems with Anesthesia: No Social History Social History Household Members: Other Household Members Other:: grandson Housing: House Alcohol intake: never Patient Tobacco Use Status: Never used Tobacco e-Cigarette/Vaping Use: Never Used Advance Directives Date on File: 07/01/21 service: No Current occupational status: unemployed Cognitive needs: No Hearing needs: No Vision needs: No Meds Allergies Allergy/AdvReac Type Severity Reaction Status Date / Time crab Allergy Severe SWELLING Verified 06/30/22 11:56 amoxicillin [From Augmentin] Allergy Mild Abdominal Verified 06/30/22 11:56 Pain clavulanic acid Allergy Mild Abdominal Verified 06/30/22 11:56 [From Augmentin] Pain metformin AdvReac Intermediate diarrhea Verified 06/30/22 11:56 Home Medications Medication Instructions Recorded Confirmed Last Taken Type rosuvastatin 10 mg tablet 20 mg PO DAILY 06/30/22 06/30/22 Unknown History Exam Airway Mallampati Class: II TM Dist: >3cm Neck ROM: Full Loose/Missing/Broken Teeth: Yes Assessment and Plan Assessment Anesthesia Assessment: Anesthesia Plan Discussed Final Anesthetic Review Family History of Problems with Anesthesia: No History of Problems with Anesthesia: No NPO: Yes ASA Class: III Final Preanesthetic Review: No Changes in Pt Med Stat, Meds/Allgs Chart Reviewed, Consent Obtained/Reviewed and Anes Risks/Benef Reviewed Patient Risk: Intermediate Procedure Risk: Low Anesthetic Plan Anesthetic Plan: MAC: Disposition: Standard PACU
[2022-08-13 09:16] VITALS: BP 140/70; PULSE 65; RESP 18; TEMP 36.8; O2SAT 98; BMI 25.2
--- NOTE | 2022-08-13 09:32 | MHC.SHP ---
Pre-Procedural Eval Section A Date of Service: 08/13/22 Section B Chief Complaint: Polyp of colon Details of Present Illness: 67 y.o F with hx of colonoscopy in 2019 - was found to have poor prep on R side and an SSL. Here for repeat colo. Relevant Family History (Specify if Yes): No Medical History: Significant History ( CKD stage 3 due to type 2 diabetes mellitus Diabetes type 2, controlled Diabetic nephropathy associated with type 2 diabetes mellitus Diabetic retinopathy associated with type 2 diabetes mellitus Dyslipidemia HTN HIV) History of Previous Operations: Relevant previous surgery/procedure and date(s) (Hysterectomy, thyroidectomy, C section ) Allergies: Allergies Allergy/AdvReac Type Severity Reaction Status Date / Time crab Allergy Severe SWELLING Verified 06/30/22 11:56 amoxicillin [From Augmentin] Allergy Mild Abdominal Verified 06/30/22 11:56 Pain clavulanic acid Allergy Mild Abdominal Verified 06/30/22 11:56 [From Augmentin] Pain metformin AdvReac Intermediate diarrhea Verified 06/30/22 11:56 Review of Systems Review of Systems Comment: 10 point ROS negative Exam Exam Comment: Gen appear: No acute distress, well nourished HEENT: no icterus, no cervical lymphadenopathy Chest: No overt resp distress Abd: soft, nontender, nondistended Psych: Stable affect, answering questions appropriately Neuro: A/Ox3 noted to move all extremities spontaneously Ext: no peripheral edema Plan Diagnosis/Plan: Unchanged I have reviewed the history and physical and performed a pertinent physical examination on my patient. No changes have occurred unless specified.
--- NOTE | 2022-08-13 09:46 | P.OP_ITS ---
Operative Note Operative Note Date of Service: 08/13/22 Narrative: Procedure: Colonoscopy Indication: Personal history of polyps Endoscopist: Yumiko Trimble MD Anesthesia Provider: Dr Winston Weiss Anesthesia type: MAC Instrument: Olympus [id number]-[id number] Consent: Indication, risks vs benefits, and alternatives were discussed with the patient who gave written informed consent to proceed. An court interpreter was utilized to assist with the consent. EKG, pulse, pulse oximetry and blood pressure were monitored throughout the procedure. Please see anesthesia flowsheet. Procedure: The patient was brought to the procedure room and placed in the left lateral decubitus position. IV medications were administered by the anesthesia provider in attendance. A digital rectal exam was performed which was normal. The colonoscope was then inserted through the anus and advanced through the colon to the cecum at 80 cm,and terminal ileum. Mucosa was carefully examined under high definition white light as the instrument was slowly withdrawn in a retrograde panoramic fashion. Retroflexion was performed in ascending colon and rectum. The procedure was not difficult. There were no immediate obvious complications. The quality of the prep was BBPS: 3+3+3 = excellent Withdrawal time 12 minutes. Limitations: No limitations. Findings: Mucosa: Normal to cecum and terminal ileum. Protruding lesions: * Medium internal hemorrhoids without stigmata of recent bleeding. Excavated lesions: * Few diverticula in sigmoid colon. Impression: 1. Normal colon and terminal ileum mucosa 2. Sigmoid diverticulosis 3. External hemorrhoids Recommendations: - Repeat colonoscopy in 7-10 years for colorectal cancer screening.
[2022-08-13] MEDS: Sodium Phosphate,Mono-Dibasic 133 ML ENEMA PR (09:47)
[2022-08-13] MEDS: Lactated Ringers 1,000 ML 100 ML IVCONT (09:47)
[2022-08-13 10:10] LABS: Glucose, Whole Blood 140 mg/dL (60-115)
[2022-08-13 10:42] VITALS: BP 109/61; PULSE 61; RESP 20; TEMP 36.1; O2SAT 99
[2022-08-13 10:57] VITALS: BP 134/71; PULSE 56; RESP 16; O2SAT 99
[2022-08-13 11:10] VITALS: BP 139/69; PULSE 62; RESP 16; TEMP 36.2; O2SAT 100
== END 2022-08-13 12:03 | disposition home or self-care (01) ==
PROVIDERS: PCP Internal Medicine; Visit Provider Internal Medicine
PROC: 0DJD8ZZ Inspection of Lower Intestinal Tract, Via Natural or Artificial Opening Endoscopic (ICD-10-PCS; CPT 45378; principal; 2022-08-13 10:00)
DX: Z12.11 Encounter for screening for malignant neoplasm of colon (principal); Z86.010 Personal history of colon polyps; K57.30 Diverticulosis of large intestine without perforation or abscess without bleeding; K64.8 Other hemorrhoids; K75.9 Inflammatory liver disease, unspecified; J32.9 Chronic sinusitis, unspecified; E11.22 Type 2 diabetes mellitus with diabetic chronic kidney disease; I12.9 Hypertensive chronic kidney disease with stage 1 through stage 4 chronic kidney disease, or unspecified chronic kidney disease; N18.30 Chronic kidney disease, stage 3 unspecified; E11.21 Type 2 diabetes mellitus with diabetic nephropathy; E11.319 Type 2 diabetes mellitus with unspecified diabetic retinopathy without macular edema; B20 Human immunodeficiency virus [HIV] disease; Z79.4 Long term (current) use of insulin; Z79.899 Other long term (current) drug therapy; Z88.1 Allergy status to other antibiotic agents; Z88.8 Allergy status to other drugs, medicaments and biological substances
CPT/HCPCS: G0105; 82947

== ENCOUNTER → 2022-08-27 11:42 | Outpatient (BNVA) | payer OTHER, MEDICAID, SELFPAY | PROVIDERS: PCP Internal Medicine; Visit Provider Physician Assistant | DX: K57.30 Diverticulosis of large intestine without perforation or abscess without bleeding (principal); K64.8 Other hemorrhoids; Z86.010 Personal history of colon polyps | CPT/HCPCS: 99212 ==

== ENCOUNTER → 2022-09-07 08:29 | Outpatient (BNVA) | payer OTHER, MEDICAID, SELFPAY | PROVIDERS: PCP Internal Medicine; Visit Provider Internal Medicine | DX: E04.2 Nontoxic multinodular goiter (principal) | CPT/HCPCS: 99212 ==

== ENCOUNTER 2022-10-22 09:15 | Outpatient (REF) | payer OTHER, MEDICAID, SELFPAY ==
[2022-10-22 09:46] LABS: MANUAL DIFF FLAG NO
[2022-10-22 09:53] LABS: Basophils Percent Auto 0.6 % (0-2); Eosinophils Percent Auto 0.6 % (0-4); Hematocrit 40.1 % (37.0-47.0); Hemoglobin 12.2 g/dl (12.0-16.0); Imm Gran Abs Auto 0.01 X10*3/uL (0.00-0.03); Imm Gran Pct Auto 0.2 % (0.0-0.4); Lymphocytes Absolute Auto 1.8 X10*3/uL (1.2-4.9); Lymphocytes Percent Auto 35.8 % (20-40); Mean Corpuscular HGB Conc 30.4 g/dl (31.0-35.0); Mean Corpuscular Hemoglobin 25.2 pg (27.0-33.0); Mean Corpuscular Volume 82.9 fL (80.0-98.0); Mean Platelet Volume 11.7 fL (9.4-12.3); Monocytes Absolute Auto 0.4 X10*3/uL (0.1-1.2); Monocytes Percent Auto 8.9 % (2-11); Neutrophils Absolute Auto 2.7 x10*3/uL (2.0-8.3); Neutrophils Percent Auto 53.9 % (45-73); Platelet Count 183 X10*3/uL (160-400); Red Blood Count 4.84 X10*6/uL (4.20-5.50); Red Cell Distribution Width 11.5 % (11.0-16.0)
[2022-10-22 11:42] LABS: Anion Gap 10 (12-20); Blood Urea Nitrogen 24 mg/dL (9-16); Calcium 9.8 mg/dL (8.4-10.2); Carbon Dioxide 28 mmol/L (22-29); Chloride 101 mmol/L (96-108); Estimated Glomerular Filt Rate 36; Potassium 3.7 mmol/L (3.3-5.1); Sodium 135 mmol/L (135-145)
[2022-10-22 11:48] LABS: Alanine Aminotransferase 28 U/L (0-31); Albumin Level 3.6 g/dL (3.5-5.0); Alkaline Phosphatase 109 U/L (39-117); Anion Gap 9 (12-20); Aspartate Amino Transferase 21 U/L (5-31); Bilirubin Total 0.4 mg/dL (0.0-1.0); Blood Urea Nitrogen 24 mg/dL (9-16); Calcium 9.8 mg/dL (8.4-10.2); Carbon Dioxide 29 mmol/L (22-29); Chloride 101 mmol/L (96-108); Cholesterol 158 mg/dL; Estimated Glomerular Filt Rate 35; Glucose Fasting 392 mg/dL (60-99); HDL Cholesterol 42 mg/dL; Iron 101 mcg/dL (30-160); LDL Cholesterol Calculated 73 mg/dl; Percent Iron Saturation 40 % (15-50); Potassium 4.1 mmol/L (3.3-5.1); Sodium 135 mmol/L (135-145); Total Iron Binding Capacity 250 mcg/dL (228-428); Triglycerides 219 mg/dL; Unsaturated Iron Binding 149 ug/dL
[2022-10-22 12:01] LABS: Creatinine Urine 92.25 mg/dL
[2022-10-22 12:04] LABS: Vitamin D 25-OH Total 28.2 ng/mL (>30)
[2022-10-22 12:18] LABS: Creatinine Urine 91.65 mg/dL
[2022-10-22 12:53] LABS: Protein/Creatinine Ratio, Ur 4.34 (<0.2); Total Protein Urine Random 398 mg/dL (<12)
[2022-10-22 13:44] LABS: Microalbumin Urine > 2000.0 mg/L
== END 2022-10-22 09:16 | disposition home or self-care (01) ==
LOC: HO.LAB 09:15
PROVIDERS: Absent Provider Internal Medicine Nephrology; PCP Internal Medicine; Visit Provider Internal Medicine
DX: Z00.00 Encounter for general adult medical examination without abnormal findings (principal); I12.9 Hypertensive chronic kidney disease with stage 1 through stage 4 chronic kidney disease, or unspecified chronic kidney disease; E11.22 Type 2 diabetes mellitus with diabetic chronic kidney disease; N18.31 Chronic kidney disease, stage 3a; N28.1 Cyst of kidney, acquired; R80.8 Other proteinuria; D64.9 Anemia, unspecified; E55.9 Vitamin D deficiency, unspecified; E78.5 Hyperlipidemia, unspecified
CPT/HCPCS: 36415; 80051; 80053; 80061; 82043; 82306; 82310; 82565; 83540; 84156; 84520; 85025

== ENCOUNTER 2022-11-09 08:57 | Outpatient (REF) | payer OTHER, MEDICAID, SELFPAY ==
[2022-11-09 09:53] LABS: Hematocrit 37.8 % (37.0-47.0); Hemoglobin 11.7 g/dl (12.0-16.0); Mean Corpuscular Hemoglobin 25.7 pg (27.0-33.0); Mean Corpuscular Volume 83.1 fL (80.0-98.0); Mean Platelet Volume 11.8 fL (9.4-12.3); Platelet Count 210 X10*3/uL (160-400); Red Blood Count 4.55 X10*6/uL (4.20-5.50); Red Cell Distribution Width 11.8 % (11.0-16.0)
== END 2022-11-09 08:58 | disposition home or self-care (01) ==
LOC: HO.LAB 08:57
PROVIDERS: PCP Internal Medicine; Visit Provider Internal Medicine
DX: B20 Human immunodeficiency virus [HIV] disease (principal)
CPT/HCPCS: 36415; 85027

== ENCOUNTER → 2022-11-23 09:41 | Outpatient (BNVA) | payer OTHER, MEDICAID, SELFPAY | PROVIDERS: PCP Internal Medicine; Visit Provider Internal Medicine | DX: Z13.89 Encounter for screening for other disorder (principal) ==

== ENCOUNTER 2022-12-03 08:38 | Outpatient (REF) | payer OTHER, MEDICAID, SELFPAY ==
[2022-12-03 09:41] LABS: Alanine Aminotransferase 26 U/L (0-31); Albumin Level 3.6 g/dL (3.5-5.0); Alkaline Phosphatase 105 U/L (39-117); Aspartate Amino Transferase 22 U/L (5-31); Bilirubin Direct < 0.2 mg/dL (0.0-0.5); Bilirubin Total 0.2 mg/dL (0.0-1.0); Total Protein 7.3 g/dL (6.5-8.0)
[2022-12-04 05:40] LABS: Syphilis Screen Nonreactive (Nonreactive)
[2022-12-04 06:48] LABS: ~HepC Num1 0.35 S/CO (0.00-0.79); ~Hepatitis C Antibody Nonreactive (Nonreactive)
[2022-12-07 07:53] LABS: HIV RNA PCR Qn Copies NOT DETECTED copies/mL (NOT DETECTED); HIV RNA PCR Qn Log Copies NOT DETECTED (NOT DETECTED)
[2022-12-07 14:08] LABS: Absolute CD3 Count 1221 cells/uL (840-3060); Absolute CD4 Count 387 cells/uL (490-1740); Absolute CD8 Count 838 cells/uL (180-1170); Absolute Lymphocytes 1628 cells/uL (850-3900); CD4 CD8 Ratio 0.46 (0.86-5.00); Percent CD3 Cells 75 % (57-85); Percent CD4 Cells 24 % (30-61); Percent CD8 Cells 51 % (12-42)
== END 2022-12-03 08:39 | disposition home or self-care (01) ==
LOC: HO.LAB 08:38
PROVIDERS: PCP Internal Medicine; Visit Provider Internal Medicine
DX: B20 Human immunodeficiency virus [HIV] disease (principal)
CPT/HCPCS: 36415; 80076; 86359; 86360; 86780; 86803; 87536

== ENCOUNTER → 2022-12-14 10:18 | Outpatient (BNVA) | payer OTHER, MEDICAID, SELFPAY | PROVIDERS: PCP Internal Medicine; Visit Provider Internal Medicine | DX: Z21 Asymptomatic human immunodeficiency virus [HIV] infection status (principal) | CPT/HCPCS: 99212 ==

== ENCOUNTER 2023-01-22 09:08 | Outpatient (REF) | payer OTHER, MEDICAID, SELFPAY ==
[2023-01-22 09:31] LABS: MANUAL DIFF FLAG NO
[2023-01-22 09:47] LABS: Basophils Percent Auto 0.4 % (0-2); Eosinophils Percent Auto 0.6 % (0-4); Hematocrit 33.6 % (37.0-47.0); Hemoglobin 10.4 g/dl (12.0-16.0); Imm Gran Abs Auto 0.01 X10*3/uL (0.00-0.03); Imm Gran Pct Auto 0.2 % (0.0-0.4); Lymphocytes Absolute Auto 1.7 X10*3/uL (1.2-4.9); Lymphocytes Percent Auto 34.5 % (20-40); Mean Corpuscular Hemoglobin 26.1 pg (27.0-33.0); Mean Corpuscular Volume 84.4 fL (80.0-98.0); Mean Platelet Volume 10.9 fL (9.4-12.3); Monocytes Absolute Auto 0.6 X10*3/uL (0.1-1.2); Monocytes Percent Auto 12.6 % (2-11); Neutrophils Absolute Auto 2.6 x10*3/uL (2.0-8.3); Neutrophils Percent Auto 51.7 % (45-73); Platelet Count 210 X10*3/uL (160-400); Red Blood Count 3.98 X10*6/uL (4.20-5.50)
[2023-01-22 09:51] LABS: INTERNATIONAL NORM RATIO 0.9 (0.9-1.1); Prothrombin Time 10.6 SEC (10.0-13.1)
[2023-01-22 10:50] LABS: Anion Gap 13 (12-20); Blood Urea Nitrogen 21 mg/dL (9-16); Calcium 9.1 mg/dL (8.4-10.2); Carbon Dioxide 24 mmol/L (22-29); Chloride 107 mmol/L (96-108); Estimated Glomerular Filt Rate 41; Potassium 4.3 mmol/L (3.3-5.1); Sodium 140 mmol/L (135-145)
[2023-01-22 13:16] LABS: Creatinine Urine 178.58 mg/dL; Total Protein Urine Random 393 mg/dL (<12)
== END 2023-01-22 09:09 | disposition home or self-care (01) ==
LOC: HO.LAB 09:08
PROVIDERS: Absent Provider Internal Medicine Nephrology; PCP Internal Medicine; Visit Provider Internal Medicine
DX: I12.9 Hypertensive chronic kidney disease with stage 1 through stage 4 chronic kidney disease, or unspecified chronic kidney disease (principal); N18.31 Chronic kidney disease, stage 3a; R80.8 Other proteinuria; R79.1 Abnormal coagulation profile
CPT/HCPCS: 36415; 80051; 82310; 82565; 84156; 84520; 85025; 85610

== ENCOUNTER 2023-02-09 10:35 | Outpatient (REF) | payer OTHER, MEDICAID, SELFPAY ==
--- NOTE | ~2023-02-09 | MM_ITS ---
EXAMINATION: MM SCREENING DIGITAL BREAST TOMOSYNTHESIS, BILATERAL CLINICAL INFORMATION: Screening. Asymptomatic. The lifetime risk of breast cancer based on the Tyrer-Cuzick Model is 3%. COMPARISON: Mammography: 12/17/2020, 06/05/2019, 10/12/2016 TECHNIQUE: Digital breast tomosynthesis is performed in both the craniocaudal and mediolateral oblique views along with computer-aided detection (CAD). Synthesized 2D images are generated from the tomosynthesis. FINDINGS: There are scattered areas of fibroglandular density (ACR BI-RADS breast composition Category b). The parenchymal pattern is similar to prior studies. There is no breast parenchymal developing density, architectural abnormality, or abnormal calcifications. There is no adenopathy. There is a circumscribed nodule overlying high right axilla 14 cm from nipple on MLO view increased in size from prior studies, currently measuring around 1.2 x 0.8 cm. This may represent an intradermal lesion such as a sebaceous cyst. Patient will be recalled for additional imaging with targeted ultrasound. MM/MM tomosynthesis screening BI IMPRESSION: Right: -Superficial nodule high right axilla 1.2 cm, possibly intradermal lesion such as sebaceous cyst. Left: -No mammographic evidence of malignancy. ASSESSMENT: BI-RADS 0: Incomplete - Need Additional Imaging Evaluation RECOMMENDATION: 1. Targeted ultrasound right axilla. 2. Radiology department staff will contact the patient for additional imaging. This patient's information was entered into a reminder system with a target due date for their next mammogram.
== END 2023-02-09 10:36 | disposition home or self-care (01) ==
LOC: HO.MAMMO 10:35
PROVIDERS: PCP Internal Medicine; Visit Provider Internal Medicine
DX: Z12.31 Encounter for screening mammogram for malignant neoplasm of breast (principal)
CPT/HCPCS: 77063; 77067

== ENCOUNTER 2023-02-18 13:00 | Outpatient (REF) | payer OTHER, MEDICAID, SELFPAY ==
--- NOTE | ~2023-02-18 | US_ITS ---
EXAMINATION: US DIAGNOSTIC ULTRASOUND BREAST, RIGHT CLINICAL INFORMATION: Recall from screening for superficial nodule high right axilla possibly intradermal lesion. COMPARISON: Mammography 02/09/2023, 06/13/2021, 06/05/2019, 10/12/2016 TECHNIQUE: Ultrasound is targeted to the right axilla corresponding to the area for recall. Grayscale imaging and color Doppler are performed without and with harmonics. FINDINGS: There is a clearly visible intradermal skin lesion corresponding to the finding on mammography. On ultrasound, this is circumscribed, oval, hypoechoic, measuring approximately 1.2 x 0.7 cm. There is some geographic internal echogenicity and. Increased through-transmission of sound. No associated color flow. Results are discussed with the patient at time of visit, using an supervisor channel process. Patient is aware of the finding which has been chronic. If the intradermal lesion is increasing or becomes symptomatic, then surgical consult would be suggested. US/US breast RT limited IMPRESSION: -Circumscribed intradermal lesion right axilla corresponding to finding on mammography, likely sebaceous cyst. No hyperemia. ASSESSMENT: BI-RADS 2: Benign RECOMMENDATION: -Patient may be managed based on the clinical impression as needed. If the chronic right axillary intradermal lesion is increasing or becomes symptomatic, then surgical consult would be suggested. -Otherwise, routine annual screening mammography. This patient's information was entered into a reminder system with a target due date for their next mammogram.
== END 2023-02-18 13:01 | disposition home or self-care (01) ==
LOC: HO.MAMMO 13:00
PROVIDERS: PCP Internal Medicine; Visit Provider Internal Medicine
DX: N63.31 Unspecified lump in axillary tail of the right breast (principal)
CPT/HCPCS: 76642

== ENCOUNTER 2023-06-01 09:33 | Outpatient (REF) | payer OTHER, MEDICAID, SELFPAY ==
[2023-06-01 09:49] LABS: MANUAL DIFF FLAG NO
[2023-06-01 10:07] LABS: Basophils Percent Auto 0.5 % (0-2); Eosinophils Percent Auto 0.7 % (0-4); Hematocrit 38.2 % (37.0-47.0); Hemoglobin 11.8 g/dl (12.0-16.0); Imm Gran Abs Auto 0.03 X10*3/uL (0.00-0.03); Imm Gran Pct Auto 0.5 % (0.0-0.4); Lymphocytes Absolute Auto 1.9 X10*3/uL (1.2-4.9); Lymphocytes Percent Auto 33.7 % (20-40); Mean Corpuscular HGB Conc 30.9 g/dl (31.0-35.0); Mean Corpuscular Hemoglobin 25.5 pg (27.0-33.0); Mean Corpuscular Volume 82.7 fL (80.0-98.0); Mean Platelet Volume 11.1 fL (9.4-12.3); Monocytes Absolute Auto 0.5 X10*3/uL (0.1-1.2); Monocytes Percent Auto 9.1 % (2-11); Neutrophils Absolute Auto 3.1 x10*3/uL (2.0-8.3); Neutrophils Percent Auto 55.5 % (45-73); Platelet Count 245 X10*3/uL (160-400); Red Blood Count 4.62 X10*6/uL (4.20-5.50); Red Cell Distribution Width 12.5 % (11.0-16.0); White Blood Count 5.6 X10*3/uL (4.8-10.8)
[2023-06-01 10:40] LABS: Alanine Aminotransferase 25 U/L (0-31); Albumin Level 3.3 g/dL (3.5-5.0); Alkaline Phosphatase 80 U/L (39-117); Anion Gap 16 (12-20); Aspartate Amino Transferase 21 U/L (5-31); Bilirubin Direct 0.1 mg/dL (0.0-0.5); Bilirubin Total 0.3 mg/dL (0.0-1.0); Blood Urea Nitrogen 14 mg/dL (9-16); Calcium 9.4 mg/dL (8.4-10.2); Carbon Dioxide 24 mmol/L (22-29); Chloride 103 mmol/L (96-108); Estimated Glomerular Filt Rate 46; Glucose Random 205 mg/dL (60-115); Potassium 3.5 mmol/L (3.3-5.1); Sodium 139 mmol/L (135-145); Total Protein 7.4 g/dL (6.5-8.0)
[2023-06-02 11:39] LABS: Absolute CD3 Count 1410 cells/uL (840-3060); Absolute CD4 Count 426 cells/uL (490-1740); Absolute CD8 Count 986 cells/uL (180-1170); Absolute Lymphocytes 1894 cells/uL (850-3900); CD4 CD8 Ratio 0.43 (0.86-5.00); Percent CD3 Cells 74 % (57-85); Percent CD4 Cells 22 % (30-61); Percent CD8 Cells 52 % (12-42)
[2023-06-03 15:07] LABS: HIV RNA PCR Qn Copies NOT DETECTED copies/mL (NOT DETECTED); HIV RNA PCR Qn Log Copies NOT DETECTED (NOT DETECTED)
== END 2023-06-01 09:34 | disposition home or self-care (01) ==
LOC: HO.LAB 09:33
PROVIDERS: PCP Internal Medicine; Visit Provider Internal Medicine
DX: B20 Human immunodeficiency virus [HIV] disease (principal)
CPT/HCPCS: 36415; 80048; 80076; 85025; 86359; 86360; 87536

== ENCOUNTER 2023-06-16 13:03 | Outpatient (AMB) | payer OTHER, MEDICAID, SELFPAY ==
[2023-06-16 13:02] VITALS: BP 146/90; PULSE 78; O2SAT 98; BMI 24.8
--- NOTE | 2023-06-16 13:02 | MHC.OFFVIS ---
Intake Vital Signs 06/16/23 13:02 Height 4 ft 11 in Weight 123 lb BMI 24.8 BP 146/90 H Blood Pressure Location Lt brachial Position Sitting Pulse 78 Pulse Source Pulse Oximeter Pulse Oximetry (%) 98 Intake Visit Reasons: Per Dr. Kang, [facility].Lab. Screw Machine Set Up Operator Tool Required: Yes Screw Machine Set Up Operator Tool Name: Celia Childress CMA Allergies crab Allergy (Severe, Verified 06/16/23 13:14) SWELLING amoxicillin [From Augmentin] Allergy (Mild, Verified 06/16/23 13:14) Abdominal Pain clavulanic acid [From Augmentin] Allergy (Mild, Verified 06/16/23 13:14) Abdominal Pain metformin Adverse Reaction (Intermediate, Verified 06/16/23 13:14) diarrhea HPI Per Dr. Kang, F/[facility].Lab. HPI Details Her CD4 count on 06/01 is 426 and viral load undetectable. She has no concerns and feels well except bilateral leg swelling with no pain and is seeing her PCP next week. She takes Biktarvy daily. [facility] Medical History CKD stage 3 due to type 2 diabetes mellitus Diabetes type 2, controlled Diabetic nephropathy associated with type 2 diabetes mellitus Diabetic retinopathy associated with type 2 diabetes mellitus Dyslipidemia Essential hypertension Hepatitis 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 infection) 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 infection) Hypertension Hypovitaminosis D senior care (current) use of insulin Non-toxic multinodular goiter Normocytic anemia Pure hypercholesterolemia Sessile colonic polyp Sinusitis Surgical History H/O colonoscopy (08/13/20) History of hysterectomy with unilateral oophorectomy Hx of bilateral cataract extraction Hx of section Hx of thyroidectomy Family History Father Liver disease Mother Hypertension CVD (cardiovascular disease) Renal disease Hyperlipidemia ESRD on hemodialysis Paternal Aunt Glaucoma Social History Household Members: Other Household Members Other:: grandson Housing: House Alcohol intake: never Patient Tobacco Use Status: Never used Tobacco e-Cigarette/Vaping Use: Never Used Second Hand Smoke Exposure: No Advance Directives Date on File: 07/01/21 service: No Current occupational status: unemployed Cognitive needs: No Hearing needs: No Vision needs: No Review of Systems Const All systems reviewed & are unremarkable except as noted in HPI and below Physical Exam Vital Signs: Last Vital Signs Pulse 78 06/16/23 13:02 BP 146/90 H 06/16/23 13:02 Pulse Ox 98 06/16/23 13:02 BMI result Body Mass Index 24.8 Const General: cooperative Orientation/consciousness: patient oriented x3 HEENT Head: Yes normal to inspection Mouth: Normal oral and palatal mucosa present Eyes General: appearance normal, both eyes and all related structures Pupils: Equal, round and reactive pupils present Resp Effort & Inspection: normal respiratory effort Cardio Rate: regular rate Rhythm: regular rhythm GI Palpation (GI): Soft to palpation and nontender General: Yes no CVA tenderness Back/Spine/Pelvis Back: no CVA tenderness Skin General skin exam: no rashes or lesions noted Neuro General: patient oriented x3 Cranial nerves: Yes CN's II-XII intact bilaterally and Yes Equal, round and reactive pupils present Extrem General: Yes normal to inspection Psych Appearance: grossly normal Assessment & Plan Assessment & Plan (1) 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 infection): Comment: She is doing well and CD4 count and viral load good on Biktarvy. She has no complaints except leg swelling not due to Biktarvy generally. There is possible venous insufficiency ( very hot weather) Code(s): B20 - Human immunodeficiency virus [HIV] disease Qualifiers: HIV symptom status: asymptomatic, with no history of HIV-related illness Qualified Code(s): Z21 - Asymptomatic human immunodeficiency virus [HIV] infection status Plan: Continue Biktarvy. Check CD4 count and viral load before next appointment in six months. Ask PCP to check for vascular/cardiac issues with leg swelling. Orders: Orders Lymphocyte Subset Panel 3 5 Months B20 - Human immunodeficiency virus [HIV] disease Hepatitis C Antibody 5 Months B20 - Human immunodeficiency virus [HIV] disease HIV-1 RNA QN PCR Expanded 5 Months B20 - Human immunodeficiency virus [HIV] disease Medications: Refilled [id number]-[id number] ala 50-200-25 mg (Biktarvy) 1 tab PO DAILY 30 days 30 tabs 5RF Coding Level of Care Code Est Pt Level 3 (44388) Diagnoses 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 infection) Z21 HIV symptom status: asymptomatic, with no history of HIV-related illness
== END 2023-06-16 13:58 | disposition home or self-care (01) ==
LOC: HO.HID 13:03
PROVIDERS: PCP Internal Medicine; Visit Provider Internal Medicine
DX: Z21 Asymptomatic human immunodeficiency virus [HIV] infection status (principal)
CPT/HCPCS: 99213

== ENCOUNTER → 2023-06-16 13:03 | Outpatient (BNVA) | payer OTHER, MEDICAID, SELFPAY | PROVIDERS: PCP Internal Medicine; Visit Provider Internal Medicine | DX: Z21 Asymptomatic human immunodeficiency virus [HIV] infection status (principal) | CPT/HCPCS: 99212 ==

== ENCOUNTER 2023-06-18 09:09 | Outpatient (REF) | payer OTHER, MEDICAID, SELFPAY ==
[2023-06-18 10:49] LABS: Basophils Percent Auto 0.7 % (0-2); Eosinophils Absolute Auto 0.1 X10*3/uL (0.0-0.4); Eosinophils Percent Auto 1.1 % (0-4); Hematocrit 37.5 % (37.0-47.0); Hemoglobin 11.8 g/dl (12.0-16.0); Imm Gran Abs Auto 0.02 X10*3/uL (0.00-0.03); Imm Gran Pct Auto 0.4 % (0.0-0.4); Lymphocytes Absolute Auto 1.9 X10*3/uL (1.2-4.9); Lymphocytes Percent Auto 34.5 % (20-40); MANUAL DIFF FLAG NO; Mean Corpuscular HGB Conc 31.5 g/dl (31.0-35.0); Mean Corpuscular Hemoglobin 26.2 pg (27.0-33.0); Mean Corpuscular Volume 83.3 fL (80.0-98.0); Mean Platelet Volume 12.1 fL (9.4-12.3); Monocytes Absolute Auto 0.5 X10*3/uL (0.1-1.2); Monocytes Percent Auto 8.8 % (2-11); Neutrophils Percent Auto 54.5 % (45-73); Platelet Count 251 X10*3/uL (160-400); Red Cell Distribution Width 12.6 % (11.0-16.0); White Blood Count 5.6 X10*3/uL (4.8-10.8)
[2023-06-18 11:25] LABS: Alanine Aminotransferase 23 U/L (0-31); Albumin Level 3.3 g/dL (3.5-5.0); Alkaline Phosphatase 90 U/L (39-117); Anion Gap 17 (12-20); Aspartate Amino Transferase 30 U/L (5-31); Bilirubin Total 0.2 mg/dL (0.0-1.0); Blood Urea Nitrogen 14 mg/dL (9-16); Calcium 9.3 mg/dL (8.4-10.2); Carbon Dioxide 21 mmol/L (22-29); Chloride 102 mmol/L (96-108); Cholesterol 430 mg/dL (<200); Estimated Glomerular Filt Rate 42; Glucose Fasting 195 mg/dL (60-99); HDL Cholesterol 30 mg/dL (>40); Iron 69 mcg/dL (30-160); Percent Iron Saturation 32 % (15-50); Potassium 3.4 mmol/L (3.3-5.1); Sodium 137 mmol/L (135-145); Total Iron Binding Capacity 215 mcg/dL (228-428); Total Protein 7.5 g/dL (6.5-8.0); Unsaturated Iron Binding 146 ug/dL
[2023-06-18 11:30] LABS: Triglycerides 1845 mg/dL (<150)
[2023-06-18 11:45] LABS: Vitamin D 25-OH Total 19.3 ng/mL (>30)
[2023-06-18 12:46] LABS: Microalbumin Urine > 2000.0 mg/L
== END 2023-06-18 09:10 | disposition home or self-care (01) ==
LOC: HO.LAB 09:09
PROVIDERS: PCP Internal Medicine; Visit Provider Internal Medicine
DX: E11.9 Type 2 diabetes mellitus without complications (principal); E55.9 Vitamin D deficiency, unspecified; E78.5 Hyperlipidemia, unspecified; D64.9 Anemia, unspecified; Z79.4 Long term (current) use of insulin
CPT/HCPCS: 36415; 80053; 80061; 82043; 82306; 82570; 83540; 85025

== ENCOUNTER 2023-09-08 08:39 | Outpatient (REF) | payer OTHER, SELFPAY ==
[2023-09-08 10:56] LABS: Thyroid Stimulating Hormone 1.87 uIU/mL (0.32-4.0)
[2023-09-08 12:01] LABS: Free T4 (Free Thyroxine) 0.95 ng/dL (0.71-1.85)
== END 2023-09-08 08:40 | disposition home or self-care (01) ==
LOC: HO.LAB 08:39
PROVIDERS: Internal Medicine; PCP Internal Medicine; Visit Provider Internal Medicine
DX: E04.2 Nontoxic multinodular goiter (principal)
CPT/HCPCS: 36415; 84439; 84443

== ENCOUNTER 2023-09-15 08:40 | Outpatient (REF) | payer OTHER, SELFPAY ==
[2023-09-15 10:22] LABS: Anion Gap 17 (12-20); Blood Urea Nitrogen 22 mg/dL (9-16); Calcium 9.3 mg/dL (8.4-10.2); Carbon Dioxide 24 mmol/L (22-29); Chloride 101 mmol/L (96-108); Estimated Glomerular Filt Rate 45; Potassium 3.5 mmol/L (3.3-5.1); Sodium 138 mmol/L (135-145)
[2023-09-15 10:41] LABS: Creatinine Urine 121.75 mg/dL
[2023-09-15 10:54] LABS: Protein/Creatinine Ratio, Ur 7.52 (<0.2); Total Protein Urine Random 916 mg/dL (<12)
== END 2023-09-15 08:41 | disposition home or self-care (01) ==
LOC: HO.LAB 08:40
PROVIDERS: PCP Internal Medicine; Visit Provider Internal Medicine Nephrology
DX: I12.9 Hypertensive chronic kidney disease with stage 1 through stage 4 chronic kidney disease, or unspecified chronic kidney disease (principal); N18.31 Chronic kidney disease, stage 3a
CPT/HCPCS: 36415; 80051; 82310; 82565; 82570; 84156; 84520

== ENCOUNTER 2023-09-17 11:44 | Outpatient (AMB) | payer OTHER, SELFPAY ==
--- NOTE | 2023-09-17 12:10 | HO.NEPHOV_ITS ---
HPI HPI Comments History of Present Illness Details I had the pleasure of seeing Barbara in the office in follow-up of her chronic kidney disease, proteinuria, renal cyst and hypertension. Her blood sugar is better controlled. She has been feeling well. She is on CORNELIA- inhibitor. Her blood pressure has been at goal. She avoids taking nonsteroidal anti-inflammatories. Her viral load is undetectable and CD4 are very good. She had no specific complaints at the time this office visit. [facility] Medical History CKD stage 3 due to type 2 diabetes mellitus Diabetes type 2, controlled Diabetic nephropathy associated with type 2 diabetes mellitus Diabetic retinopathy associated with type 2 diabetes mellitus Dyslipidemia Essential hypertension Hepatitis 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 infection) 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 infection) Hypertension Hypovitaminosis D long-term (current) use of insulin Non-toxic multinodular goiter Normocytic anemia Pure hypercholesterolemia Sessile colonic polyp Sinusitis Surgical History H/O colonoscopy (08/13/20) Hx of bilateral cataract extraction History of hysterectomy with unilateral oophorectomy Hx of section Hx of thyroidectomy Family History Father Liver disease Mother Hypertension CVD (cardiovascular disease) Renal disease Hyperlipidemia ESRD on hemodialysis Paternal Aunt Glaucoma Social History Household Members: Other Household Members Other:: grandson Housing: House Alcohol intake: never Patient Tobacco Use Status: Never used Tobacco e-Cigarette/Vaping Use: Never Used Second Hand Smoke Exposure: No Advance Directives Date on File: 07/01/21 service: No Current occupational status: unemployed Cognitive needs: No Hearing needs: No Vision needs: No Vital Signs 09/17/23 12:11 Height 4 ft 11 in Weight 124 lb BMI 25.0 BP 148/70 H Blood Pressure Location Rt brachial Position Sitting Pulse 67 Pulse Source Pulse Oximeter Physical Exam Vital Signs: Last Vital Signs Pulse 67 09/17/23 12:11 BP 148/70 H 09/17/23 12:11 BMI result Body Mass Index 25.0 Const General: comfortable and no acute distress Orientation/consciousness: patient oriented x3 HEENT Head: Yes normocephalic Mouth: Normal oral and palatal mucosa present Eyes EOM: EOMs intact bilaterally Neck Neck: Yes supple Resp Auscultation: clear to auscultation bilaterally Cardio Jugular venous distension: no JVD Rate: regular rate GI Palpation (GI): Soft to palpation Auscultation: normal bowel sounds General: Yes no CVA tenderness Back/Spine/Pelvis Back: no CVA tenderness Skin General skin exam: no rashes or lesions noted Neuro General: patient oriented x3 and moves all extremities Extrem General: Yes no pedal edema Assessment & Plan Assessment & Plan (1) CKD stage 3 due to type 2 diabetes mellitus: Code(s): E11.22 - Type 2 diabetes mellitus with diabetic chronic kidney disease; N18.30 - Chronic kidney disease, stage 3 unspecified (2) Proteinuria: Code(s): R80.9 - Proteinuria, unspecified Qualifiers: Proteinuria type: other Qualified Code(s): R80.8 - Other proteinuria Plan Barbara has a significant proteinuria. Her renal functions had been fairly stable. Her blood pressure control is optimal. She is on CORNELIA-inhibitor. She had an incidental finding of left renal cyst which will need a follow-up renal ultrasound. She has had HIV which is well controlled. She avoids nonsteroidal anti-inflammatories. I have repeated blood work and urine studies. She most likely will need renal biopsy soon. I did not make any medication changes today. All questions answered. Follow-up given Orders: Orders Creatinine 09/17/23 E11.22 - Type 2 diabetes mellitus with diabetic chronic kidney disease, N18.30 - Chronic kidney disease, stage 3 unspecified Calcium 09/17/23 E11.22 - Type 2 diabetes mellitus with diabetic chronic kidney disease, N18.30 - Chronic kidney disease, stage 3 unspecified Protein Creatinine Ratio, Ur 09/17/23 E11.22 - Type 2 diabetes mellitus with diabetic chronic kidney disease, N18.30 - Chronic kidney disease, stage 3 unspecified Protein Creatinine Ratio, Ur 2 Months E11.22 - Type 2 diabetes mellitus with diabetic chronic kidney disease, N18.30 - Chronic kidney disease, stage 3 unspecified, R80.9 - Proteinuria, unspecified Electrolytes 09/17/23 E11.22 - Type 2 diabetes mellitus with diabetic chronic kidney disease, N18.30 - Chronic kidney disease, stage 3 unspecified Blood Urea Nitrogen 09/17/23 E11.22 - Type 2 diabetes mellitus with diabetic chronic kidney disease, N18.30 - Chronic kidney disease, stage 3 unspecified Medications: New lisinopril 10 mg PO DAILY 30 tabs 3RF 30 days Coding Level of Care Code Est Pt Level 4 (19170) Diagnoses CKD stage 3 due to type 2 diabetes mellitus E11.22; N18.30 Other proteinuria R80.8 Proteinuria type: other Results Reviewed Nephrology Results: Hgb 11.8 g/dl (12.0-16.0) L 06/18/23 WBC 5.6 X10*3/uL (4.8-10.8) 06/18/23 Plt Count 251 X10*3/uL (160-400) 06/18/23 Sodium 138 mmol/L (135-145) 09/15/23 Potassium 3.5 mmol/L (3.3-5.1) 09/15/23 Chloride 101 mmol/L (96-108) 09/15/23 Carbon Dioxide 24 mmol/L (22-29) 09/15/23 BUN 22 mg/dL (9-16) H 09/15/23 Creatinine 1.20 mg/dL (0.5-1.4) 09/15/23 Calcium 9.3 mg/dL (8.4-10.2) 09/15/23 Urine Creatinine 121.75 mg/dL 09/15/23 Protein/Creatinin Ratio 7.52 (<0.2) H 09/15/23
[2023-09-17 12:11] VITALS: BP 148/70; PULSE 67; BMI 25.0
== END 2023-09-17 12:52 | disposition home or self-care (01) ==
PROVIDERS: PCP Internal Medicine; Visit Provider Internal Medicine Nephrology
DX: E11.22 Type 2 diabetes mellitus with diabetic chronic kidney disease (principal); N18.30 Chronic kidney disease, stage 3 unspecified; R80.8 Other proteinuria
CPT/HCPCS: 99214

== ENCOUNTER → 2023-09-17 11:44 | Outpatient (BNVA) | payer OTHER, SELFPAY | PROVIDERS: PCP Internal Medicine; Visit Provider Internal Medicine Nephrology | DX: E11.22 Type 2 diabetes mellitus with diabetic chronic kidney disease (principal); N18.30 Chronic kidney disease, stage 3 unspecified; R80.8 Other proteinuria | CPT/HCPCS: 99212 ==

== ENCOUNTER 2023-09-28 12:33 | Outpatient (REF) | payer OTHER, SELFPAY ==
--- NOTE | ~2023-09-28 | US_ITS ---
EXAMINATION: US THYROID CLINICAL INFORMATION: Nontoxic multinodular goiter. COMPARISON: Thyroid ultrasound 08/05/2022 and 04/29/2022. TECHNIQUE: Linear transducer sebastian-scale and color Doppler examination with attention to the region of the thyroid. FINDINGS: SIZE: Measurements of the solitary right thyroid lobe and nodules are given in sagittal, anteroposterior and transverse dimensions respectively. Right Thyroid Lobe: 5.2 x 1.9 x 1.8 cm, volume 9.3 mL. Previously 5.1 x 2.0 x 1.8 cm, volume 9.6 mL. Parenchyma: The gland echotexture is homogeneous. Thyroid vascularity is normal. Left Thyroid Lobe: Surgically absent. Isthmus: 0.4 cm in maximum AP dimension. Previously 0.5 cm. Estimated total number of nodules greater than or equal to 1 cm: 1. 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 Location: Right mid. Size: 2.0 x 1.0 x 1.2 cm, volume 1.2 mL. Previously (04/29/2022): 1.7 x 1.0 x 1.0 cm, volume 0.9 mL. Nodule characteristics: Composition: Mixed cystic and solid (1). Vascular septation within the cyst. ACR TI-RADS total points: 1 Previous: 0 ACR TI-RADS category: 2 Previous: 1 Significant change in size (>/= 20% in 2 dimensions and minimal increase of 2 mm or 50% or greater increase in volume): Yes Change in features: No Change in ACR TI-RADS risk category: Yes Multiple subcentimeter colloid cysts in the right thyroid lobe. NODES: No lymphadenopathy is seen in the tissue surrounding the thyroid gland. US/US thyroid IMPRESSION: Left thyroid lobe surgically absent. Right mid 2.0 cm TR2 thyroid nodule has increased in size. Continued surveillance recommended. ACR TI-RADS RECOMMENDATION REFERENCE: Ultrasound-guided fine-needle aspiration, follow up ultrasound, no further followup. * TR1 (0 point) and TR2 (2 points): No FNA or followup * TR3 (3 points): FNA if more than or equal to 2.5 cm in maximum dimension, follow up ultrasound in 1, 3 and 5 years if 1.5 to 2.4 cm in maximum dimension. * TR4 (4-6 points): FNA if more than or equal to 1.5 cm in maximum dimension, follow up ultrasound in 1, 2, 3 and 5 years if 1 to 1.4 cm in maximum dimension. * TR5 (more than or equal to 7 points): FNA if more than or equal to 1 cm in maximum dimension, follow up ultrasound every year for 5 years if 0.5 to 0.9 cm in maximum dimension. * TR3, TR4 or TR5 nodules that are below the size threshold for follow up receive no followup.
== END 2023-09-28 12:34 | disposition home or self-care (01) ==
LOC: HO.US 12:33
PROVIDERS: PCP Internal Medicine; Visit Provider Internal Medicine Endocrinology, Diabetes & Metabolism
DX: E04.2 Nontoxic multinodular goiter (principal)
CPT/HCPCS: 76536

== ENCOUNTER 2023-11-15 08:36 | Outpatient (REF) | payer OTHER, SELFPAY ==
[2023-11-15 09:42] LABS: Anion Gap 14 (12-20); Blood Urea Nitrogen 20 mg/dL (9-16); Calcium 9.4 mg/dL (8.4-10.2); Carbon Dioxide 25 mmol/L (22-29); Chloride 103 mmol/L (96-108); Estimated Glomerular Filt Rate 35; Potassium 3.8 mmol/L (3.3-5.1); Sodium 138 mmol/L (135-145)
[2023-11-15 09:54] LABS: Creatinine Urine 138.25 mg/dL
[2023-11-15 10:12] LABS: Protein/Creatinine Ratio, Ur 4.77 (<0.2); Total Protein Urine Random 660 mg/dL (<12)
== END 2023-11-15 08:37 | disposition home or self-care (01) ==
LOC: HO.LAB 08:36
PROVIDERS: PCP Internal Medicine; Visit Provider Internal Medicine Nephrology
DX: E11.22 Type 2 diabetes mellitus with diabetic chronic kidney disease (principal); N18.30 Chronic kidney disease, stage 3 unspecified
CPT/HCPCS: 36415; 80051; 82310; 82565; 82570; 84156; 84520

== ENCOUNTER 2023-11-19 10:49 | Outpatient (AMB) | payer OTHER, SELFPAY ==
[2023-11-19 11:11] VITALS: BP 130/60; PULSE 72; O2SAT 97; BMI 24.7
--- NOTE | 2023-11-19 11:11 | HO.NEPHOV_ITS ---
HPI HPI Comments History of Present Illness Details I had the pleasure of seeing Barbara in the office in follow-up of her chronic kidney disease, proteinuria, renal cyst and hypertension. Her blood sugar is better controlled. She has been feeling well. She is on CORNELIA- inhibitor. Her blood pressure has been at goal. She avoids taking nonsteroidal anti-inflammatories. Her viral load is undetectable and CD4 are very good. She had no specific complaints at the time this office visit. She continues to have nephrotic range proteinuria. She has no edema. 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 Non-toxic multinodular goiter Normocytic anemia Pure hypercholesterolemia Sessile colonic polyp Sinusitis Surgical History H/O colonoscopy (08/13/20) Hx of bilateral cataract extraction History of hysterectomy with unilateral oophorectomy Hx of section Hx of thyroidectomy Family History Father Liver disease Mother Hypertension CVD (cardiovascular disease) Renal disease Hyperlipidemia ESRD on hemodialysis Paternal Aunt Glaucoma Social History Household Members: Other Household Members Other:: grandson Housing: House Alcohol intake: never Patient Tobacco Use Status: Never used Tobacco e-Cigarette/Vaping Use: Never Used Second Hand Smoke Exposure: No Advance Directives Date on File: 07/01/21 service: No Current occupational status: unemployed Cognitive needs: No Hearing needs: No Vision needs: No Vital Signs 11/19/23 11:11 Height 4 ft 11 in Weight 122 lb 6 oz BMI 24.7 BP 130/60 Blood Pressure Location Lt brachial Position Sitting Pulse 72 Pulse Source Pulse Oximeter Pulse Oximetry (%) 97 Oxygen Delivery Method Room Air Physical Exam Vital Signs: Last Vital Signs Pulse 72 11/19/23 11:11 BP 130/60 11/19/23 11:11 Pulse Ox 97 02/09/24 11:11 Oxygen Delivery Method Room Air 11/19/23 11:11 BMI result Body Mass Index 24.7 Const General: comfortable and no acute distress Orientation/consciousness: patient oriented x3 HEENT Head: Yes normocephalic Mouth: Normal oral and palatal mucosa present Eyes EOM: EOMs intact bilaterally Neck Neck: Yes supple Resp Auscultation: clear to auscultation bilaterally Cardio Jugular venous distension: no JVD Rate: regular rate GI Palpation (GI): Soft to palpation Auscultation: normal bowel sounds General: Yes no CVA tenderness Back/Spine/Pelvis Back: no CVA tenderness Skin General skin exam: no rashes or lesions noted Neuro General: patient oriented x3 and moves all extremities Extrem General: Yes no pedal edema Assessment & Plan Assessment & Plan (1) Proteinuria: Code(s): R80.9 - Proteinuria, unspecified Qualifiers: Proteinuria type: other Qualified Code(s): R80.8 - Other proteinuria (2) CKD stage 3 due to type 2 diabetes mellitus: Code(s): E11.22 - Type 2 diabetes mellitus with diabetic chronic kidney disease; N18.30 - Chronic kidney disease, stage 3 unspecified (3) 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 infection): Comment: She is doing well and CD4 count and viral load good on Biktarvy. Code(s): B20 - Human immunodeficiency virus [HIV] disease Qualifiers: HIV symptom status: asymptomatic, with no history of HIV-related illness Qualified Code(s): Z21 - Asymptomatic human immunodeficiency virus [HIV] infection status (4) Hypertension: Code(s): I10 - Essential (primary) hypertension Qualifiers: Hypertension type: essential hypertension Qualified Code(s): I10 - Essential (primary) hypertension Plan Barbara has a significant proteinuria, even though it was a bit better than the last time. Her renal functions had been fairly stable. Her blood pressure control is optimal. She is on CORNELIA-inhibitor. She had an incidental finding of left renal cyst which will need a follow-up renal ultrasound. She has had HIV which is well controlled. She avoids nonsteroidal anti-inflammatories. I have ordered repeat blood work and urine studies. She most likely will need renal biopsy soon. I did not make any medication changes today. All questions answered. Follow-up given Orders: Orders Protein Creatinine Ratio, Ur Today E11.22 - Type 2 diabetes mellitus with diabetic chronic kidney disease, N18.30 - Chronic kidney disease, stage 3 unspecified, R80.9 - Proteinuria, unspecified Blood Urea Nitrogen Today E11.22 - Type 2 diabetes mellitus with diabetic chronic kidney disease, N18.30 - Chronic kidney disease, stage 3 unspecified, R80.9 - Proteinuria, unspecified Creatinine Today E11. - Type 2 diabetes mellitus with diabetic chronic kidney disease, N18.30 - Chronic kidney disease, stage 3 unspecified, R80.9 - Proteinuria, unspecified Immunofixation Pnl, Serum Today R80.9 - Proteinuria, unspecified Complement C4 Today R80.9 - Proteinuria, unspecified Hepatitis A,B,C Profile Today R80.9 - Proteinuria, unspecified Hemoglobin A1c Today E11. - Type 2 diabetes mellitus with diabetic chronic kidney disease, N18.30 - Chronic kidney disease, stage 3 unspecified, R80.9 - Proteinuria, unspecified Electrolytes Today E11. - Type 2 diabetes mellitus with diabetic chronic kidney disease, N18.30 - Chronic kidney disease, stage 3 unspecified, R80.9 - Proteinuria, unspecified Complement C3 Today R80.9 - Proteinuria, unspecified Cryoglobulin Today R80.9 - Proteinuria, unspecified Prothrombin Time INR Today R80.9 - Proteinuria, unspecified Complete Blood Count Auto Diff Today R80.9 - Proteinuria, unspecified Coding Level of Care Code Est Pt Level 4 (04835) Diagnoses Other proteinuria R80.8 Proteinuria type: other CKD stage 3 due to type 2 diabetes mellitus E11.; N18.30 Asymptomatic HIV infection, with no history of HIV-related illness Z21 HIV symptom status: asymptomatic, with no history of HIV-related illness Essential hypertension I10 Hypertension type: essential hypertension Results Reviewed Nephrology Results: Hgb 11.8 g/dl (12.0-16.0) L 06/18/23 WBC 5.6 X10*3/uL (4.8-10.8) 06/18/23 Plt Count 251 X10*3/uL (160-400) 06/18/23 Sodium 138 mmol/L (135-145) 11/15/23 Potassium 3.8 mmol/L (3.3-5.1) 11/15/23 Chloride 103 mmol/L (96-108) 11/15/23 Carbon Dioxide 25 mmol/L (22-29) 11/15/23 BUN 20 mg/dL (9-16) H 11/15/23 Creatinine 1.50 mg/dL (0.5-1.4) H 11/15/23 Calcium 9.4 mg/dL (8.4-10.2) 11/15/23 Urine Creatinine 138.25 mg/dL 11/15/23 Protein/Creatinin Ratio 4.77 (<0.2) H 11/15/23
== END 2023-11-19 11:26 | disposition home or self-care (01) ==
PROVIDERS: PCP Internal Medicine; Visit Provider Internal Medicine Nephrology
DX: R80.8 Other proteinuria (principal); E11.22 Type 2 diabetes mellitus with diabetic chronic kidney disease; N18.30 Chronic kidney disease, stage 3 unspecified; Z21 Asymptomatic human immunodeficiency virus [HIV] infection status; I10 Essential (primary) hypertension
CPT/HCPCS: 99214

== ENCOUNTER → 2023-11-19 10:49 | Outpatient (BNVA) | payer OTHER, SELFPAY | PROVIDERS: PCP Internal Medicine; Visit Provider Internal Medicine Nephrology | DX: E11.22 Type 2 diabetes mellitus with diabetic chronic kidney disease (principal); I12.9 Hypertensive chronic kidney disease with stage 1 through stage 4 chronic kidney disease, or unspecified chronic kidney disease; N18.30 Chronic kidney disease, stage 3 unspecified; Z21 Asymptomatic human immunodeficiency virus [HIV] infection status; R80.8 Other proteinuria | CPT/HCPCS: 99212 ==

== ENCOUNTER 2023-11-26 08:40 | Outpatient (REF) | payer OTHER, SELFPAY ==
[2023-11-26 10:12] LABS: ~HepC Num1 0.37 S/CO (0.00-0.79); ~Hepatitis C Antibody Nonreactive (Nonreactive)
[2023-11-29 10:53] LABS: Absolute CD3 Count 1224 cells/uL (840-3060); Absolute CD4 Count 378 cells/uL (490-1740); Absolute CD8 Count 860 cells/uL (180-1170); Absolute Lymphocytes 1607 cells/uL (850-3900); CD4 CD8 Ratio 0.44 (0.86-5.00); Percent CD3 Cells 76 % (57-85); Percent CD4 Cells 23 % (30-61); Percent CD8 Cells 54 % (12-42)
[2023-12-01 19:43] LABS: HIV RNA PCR Qn Copies <20 DETECTED copies/mL (NOT DETECTED); HIV RNA PCR Qn Log Copies <1.30 DETECTED (NOT DETECTED)
== END 2023-11-26 08:41 | disposition home or self-care (01) ==
LOC: HO.LAB 08:40
PROVIDERS: PCP Internal Medicine; Visit Provider Internal Medicine
DX: B20 Human immunodeficiency virus [HIV] disease (principal)
CPT/HCPCS: 36415; 86359; 86360; 86803; 87536

== ENCOUNTER 2023-12-15 13:04 | Outpatient (AMB) | payer OTHER, MEDICAID, SELFPAY ==
[2023-12-15 13:13] VITALS: PULSE 69; O2SAT 99; BMI 25.0
--- NOTE | 2023-12-15 13:13 | A.OFFVIS_ITS ---
Intake Vital Signs 12/15/23 13:13 Height 4 ft 11 in Weight 124 lb BMI 25.0 Pulse 69 Pulse Source Pulse Oximeter Pulse Oximetry (%) 99 Intake Visit Reasons: 6 month hiv lab follow up Allergies crab Allergy (Severe, Verified 12/15/23 13:18) SWELLING amoxicillin [From Augmentin] Allergy (Mild, Verified 12/15/23 13:18) Abdominal Pain clavulanic acid [From Augmentin] Allergy (Mild, Verified 12/15/23 13:18) Abdominal Pain metformin Adverse Reaction (Intermediate, Verified 12/15/23 13:18) diarrhea HPI 6 month hiv lab follow up HPI Details She has viral load undetectable and CD4 count 378 on 11/26. She has GFR of 35. 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 Hypertension Non-toxic multinodular goiter Diabetic retinopathy associated with type 2 diabetes mellitus CKD stage 3 due to type 2 diabetes mellitus Diabetic nephropathy associated with type 2 diabetes mellitus Dyslipidemia Diabetes type 2, controlled Hypovitaminosis D Surgical History H/O colonoscopy (08/13/20) Hx of bilateral cataract extraction History of hysterectomy with unilateral oophorectomy Hx of section Hx of thyroidectomy Family History Father Liver disease Mother Hypertension CVD (cardiovascular disease) Renal disease Hyperlipidemia ESRD on hemodialysis Paternal Aunt Glaucoma Social History Household Members: Other Household Members Other:: grandson Housing: House Alcohol intake: never Patient Tobacco Use Status: Never used Tobacco e-Cigarette/Vaping Use: Never Used Second Hand Smoke Exposure: No Advance Directives Date on File: 07/01/21 service: No Current occupational status: unemployed Cognitive needs: No Hearing needs: No Vision needs: No Review of Systems Const All systems reviewed & are unremarkable except as noted in HPI and below Physical Exam Vital Signs: Last Vital Signs Pulse 69 12/15/23 13:13 Pulse Ox 99 12/15/23 13:13 BMI result Body Mass Index 25.0 Const General: cooperative Orientation/consciousness: patient oriented x3 HEENT Head: Yes normal to inspection Mouth: Normal oral and palatal mucosa present Eyes General: appearance normal, both eyes and all related structures Pupils: Equal, round and reactive pupils present Resp Effort & Inspection: normal respiratory effort Cardio Rate: regular rate Rhythm: regular rhythm GI Palpation (GI): Soft to palpation and nontender General: Yes no CVA tenderness Back/Spine/Pelvis Back: no CVA tenderness Skin General skin exam: no rashes or lesions noted Neuro General: patient oriented x3 Cranial nerves: Yes CN's II-XII intact bilaterally and Yes Equal, round and reactive pupils present Extrem General: Yes normal to inspection Psych Appearance: grossly normal Assessment & Plan Assessment & Plan (1) 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 infection): Comment: She is doing well and CD4 count and viral load good on Biktarvy. However GFR is down to 35. Code(s): B20 - Human immunodeficiency virus [HIV] disease Qualifiers: HIV symptom status: asymptomatic, with no history of HIV-related illness Qualified Code(s): Z21 - Asymptomatic human immunodeficiency virus [HIV] infection status Plan: Would continue Biktarvy for now. But renal biopsy is pending so may need switch to dolutegravir 50 mg and abacavir 300 bid with lamivudine 100 mg daily See us after this Orders: Orders HIV-1 RNA QN PCR Expanded 5 Months B20 - Human immunodeficiency virus [HIV] disease Hepatitis C Viral Load 5 Months B20 - Human immunodeficiency virus [HIV] disease Hepatitis C Antibody 5 Months B20 - Human immunodeficiency virus [HIV] disease Lymphocyte Subset Panel 3 5 Months B20 - Human immunodeficiency virus [HIV] disease Complete Blood Count Auto Diff 5 Months B20 - Human immunodeficiency virus [HIV] disease Basic Metabolic Panel 5 Months B20 - Human immunodeficiency virus [HIV] disease Liver Panel 5 Months B20 - Human immunodeficiency virus [HIV] disease Medications: Refilled etukjxdsk-jchqzvlu-aikxyvk ala 50-200-25 mg (Biktarvy) 1 tab PO DAILY 30 days 30 tabs 5RF Coding Level of Care Code Est Pt Level 4 (86018) Diagnoses Asymptomatic HIV infection, with no history of HIV-related illness Z21 HIV symptom status: asymptomatic, with no history of HIV-related illness
== END 2023-12-15 13:56 | disposition home or self-care (01) ==
PROVIDERS: PCP Internal Medicine; Visit Provider Internal Medicine
DX: Z21 Asymptomatic human immunodeficiency virus [HIV] infection status (principal)
CPT/HCPCS: 99214

== ENCOUNTER → 2023-12-15 13:04 | Outpatient (BNVA) | payer OTHER, MEDICAID, SELFPAY | PROVIDERS: PCP Internal Medicine; Visit Provider Internal Medicine | DX: Z21 Asymptomatic human immunodeficiency virus [HIV] infection status (principal) | CPT/HCPCS: 99212 ==

== ENCOUNTER 2023-12-20 08:37 | Outpatient (AMB) | payer OTHER, SELFPAY ==
--- NOTE | 2023-12-20 08:44 | A.OFFVIS_ITS ---
Intake Vital Signs 12/20/23 08:45 Height 4 ft 11 in Weight 124 lb 12.506 oz BMI 25.2 BP 140/70 H Blood Pressure Location Lt brachial Position Sitting Pulse 79 Pulse Source Pulse Oximeter Intake Visit Reasons: NTMNG-lvm Intake Note: Patient presents today for NTMNG follow up, last seen by Dr. Askew on 09/07/2022. Patient Thyroid US was done at [facility] on 09/28/2023. Bilingual Speech Language Pathologist Required: Yes Bilingual Speech Language Pathologist Language: Airplane Patroller Name: [facility] medical staff Information Interpreted: non-clinical & clinical Accompanied by: Self / Same As Patient Allergies crab Allergy (Severe, Verified 12/20/23 08:50) SWELLING amoxicillin [From Augmentin] Allergy (Mild, Verified 12/20/23 08:50) Abdominal Pain clavulanic acid [From Augmentin] Allergy (Mild, Verified 12/20/23 08:50) Abdominal Pain metformin Adverse Reaction (Intermediate, Verified 12/20/23 08:50) diarrhea Medication List - Last Reconciled 12/20/23 by Renny Bland MD alcohol swabs 1 pad topical .4 times a day 30 days amlodipine 10 mg PO DAILY 90 days vforktbxe-gtnbfcxb-hnvlbsy ala 50-200-25 mg (Biktarvy) 1 tab PO DAILY 30 days blood sugar diagnostic (OneTouch Ultra Test strips) Use 1 lancet four times a day blood-glucose meter (OneTouch UltraMini kit) As directed canagliflozin 100 mg PO DAILY 90 days cholecalciferol (vitamin D3) 50 mcg PO DAILY 90 days dulaglutide (Trulicity) 0.75 mg (0.5 mL) subcut QWEEK 90 days ferrous sulfate 325 mg PO DAILY insulin degludec (Tresiba FlexTouch U-100 insulin) 25 units (0.25 mL) subcut DAILY 90 days lancets (OneTouch UltraSoft Lancets) Use 1 lancet four times a day lisinopril 10 mg PO DAILY omeprazole 20 mg PO DAILY 90 days pen needle, diabetic (BD Mansi 2nd Gen Pen Needle) twice a day pen needle, diabetic twice a day rosuvastatin 40 mg PO DAILY 90 days HPI HPI Comments History of Present Illness Details 67 YO F with PMHx T2DM and a NTMNG who is seen in F/U for her NTMNG. The patient last saw Dr. Askew on 09/07/22 She has a long history of NTMNG. She had a prior L hemithyroidectomy many years ago, and she reports the pathology of this was benign. She is unsure of the reason for her L hemithyroidectomy. She reports her Sister also has a history of a NTMNG and underwent a thyroidectomy which was also benign. I repeated her US of the thyroid myself 08/05/2022. This revealed a 1.6 cm cyst within the thyroid, but no other nodules. She denies any compressive symptoms. She denies any symptoms of hyper or hypothyroidism. Denies any history of head or neck irradiation. Denies any family history of thyroid cancer. Thyroid US: 08/05/2022 FINDINGS: SIZE: Measurements of the thyroid lobes and nodules are given in sagittal, anteroposterior and transverse dimensions respectively. Right Thyroid Lobe: 5.5 x 1.5 x 2.0 cm, volume 8.6 mL. Parenchyma: The gland echotexture is heterogenous. Thyroid vascularity is normal. The left thyroid lobe and the isthmus have been surgically removed. RIGHT THYROID LOBE: There is a 1.6 x 1.1 x 0.8 cm cyst within the RMP of the thyroid.? There are scattered subcentimeter cysts in the remainder of the R lobe.? NODES: No lymphadenopathy is seen in the tissue surrounding the thyroid gland. IMPRESSION:? a 1.6 cm RMP cyst not meeting indication for FNA biopsy. 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 Hypertension Non-toxic multinodular goiter Diabetic retinopathy associated with type 2 diabetes mellitus CKD stage 3 due to type 2 diabetes mellitus Diabetic nephropathy associated with type 2 diabetes mellitus Dyslipidemia Diabetes type 2, controlled Hypovitaminosis D Surgical History H/O colonoscopy (08/13/20) Hx of bilateral cataract extraction History of hysterectomy with unilateral oophorectomy Hx of section Hx of thyroidectomy Family History Father Liver disease Mother Hypertension CVD (cardiovascular disease) Renal disease Hyperlipidemia ESRD on hemodialysis Paternal Aunt Glaucoma Social History Household Members: Other Household Members Other:: grandson Housing: House Alcohol intake: never Patient Tobacco Use Status: Never used Tobacco e-Cigarette/Vaping Use: Never Used Second Hand Smoke Exposure: No Advance Directives Date on File: 07/01/21 service: No Current occupational status: unemployed Cognitive needs: No Hearing needs: No Vision needs: No Physical Exam Vital Signs: Last Vital Signs Pulse 79 12/20/23 08:45 BP 140/70 H 12/20/23 08:45 BMI result Body Mass Index 25.2 Const Other: There is a healed scar status post left lobectomy. The right lobe was without the presence of any palpable nodules Assessment & Plan Assessment & Plan (1) Non-toxic multinodular goiter: Code(s): E04.2 - Nontoxic multinodular goiter Plan: This is a 68-year-old female with a history of left lobectomy and isthusectomy with right lobe nodule which was predominantly cystic and now complex enlarged in size. She appears to be clinically biochemically euthyroid. Plan is to send the patient for a FNA of the right lobe nodule. Orders: Orders US guided fine needle asp Today E04.2 - Nontoxic multinodular goiter Coding Level of Care Code Est Pt Level 3 (33837) Diagnoses Non-toxic multinodular goiter E04.2
[2023-12-20 08:45] VITALS: BP 140/70; PULSE 79; BMI 25.2
== END 2023-12-20 09:11 | disposition home or self-care (01) ==
PROVIDERS: PCP Internal Medicine; Referring Provider Internal Medicine; Visit Provider Internal Medicine Endocrinology, Diabetes & Metabolism
DX: E04.2 Nontoxic multinodular goiter (principal)
CPT/HCPCS: 99213

== ENCOUNTER → 2023-12-20 08:37 | Outpatient (BNVA) | payer OTHER, SELFPAY | PROVIDERS: PCP Internal Medicine; Referring Provider Internal Medicine; Visit Provider Internal Medicine Endocrinology, Diabetes & Metabolism | DX: E04.2 Nontoxic multinodular goiter (principal) | CPT/HCPCS: 99212 ==

== ENCOUNTER 2024-01-21 12:56 | Outpatient (AMB) | payer OTHER, SELFPAY ==
--- NOTE | 2024-01-21 13:18 | HO.NEPHOV_ITS ---
HPI HPI Comments History of Present Illness Details I had the pleasure of seeing Barbara in the office in follow-up of her chronic kidney disease, proteinuria, renal cyst and hypertension. Her blood sugar is better controlled. She has been feeling well. She is on CORNELIA- inhibitor. Her blood pressure has been at goal. She avoids taking nonsteroidal anti-inflammatories. Her viral load is undetectable and CD4 are very good. She had no specific complaints at the time this office visit. She continues to have nephrotic range proteinuria. She has no edema. [facility] Medical History Sinusitis Hepatitis Normocytic anemia 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 infection) Pure hypercholesterolemia Essential hypertension Sessile colonic polyp 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 infection) penitentiary (current) use of insulin Hypertension Non-toxic multinodular goiter Diabetic retinopathy associated with type 2 diabetes mellitus CKD stage 3 due to type 2 diabetes mellitus Diabetic nephropathy associated with type 2 diabetes mellitus Dyslipidemia Diabetes type 2, controlled Hypovitaminosis D Surgical History H/O colonoscopy (08/13/20) Hx of bilateral cataract extraction History of hysterectomy with unilateral oophorectomy Hx of section Hx of thyroidectomy Family History Father Liver disease Mother Hypertension CVD (cardiovascular disease) Renal disease Hyperlipidemia ESRD on hemodialysis Paternal Aunt Glaucoma Social History Household Members: Other Household Members Other:: grandson Housing: House Alcohol intake: never Patient Tobacco Use Status: Never used Tobacco e-Cigarette/Vaping Use: Never Used Second Hand Smoke Exposure: No Advance Directives Date on File: 07/01/21 service: No Current occupational status: unemployed Cognitive needs: No Hearing needs: No Vision needs: No Vital Signs 01/21/24 13:26 Height 4 ft 11 in Weight 123 lb BMI 24.8 BP 146/60 H Blood Pressure Location Lt brachial Position Sitting Pulse 83 Pulse Source Pulse Oximeter Pulse Oximetry (%) 97 Oxygen Delivery Method Room Air Physical Exam Vital Signs: Last Vital Signs Pulse 83 01/21/24 13:26 BP 146/60 H 01/21/24 13:26 Pulse Ox 97 04/12/24 13:26 Oxygen Delivery Method Room Air 04/12/24 13:26 BMI result Body Mass Index 24.8 Const General: comfortable and no acute distress Orientation/consciousness: patient oriented x3 HEENT Head: Yes normocephalic Mouth: Normal oral and palatal mucosa present Eyes EOM: EOMs intact bilaterally Neck Neck: Yes supple Resp Auscultation: clear to auscultation bilaterally Cardio Jugular venous distension: no JVD Rate: regular rate GI Palpation (GI): Soft to palpation Auscultation: normal bowel sounds General: Yes no CVA tenderness Back/Spine/Pelvis Back: no CVA tenderness Skin General skin exam: no rashes or lesions noted Neuro General: patient oriented x3 and moves all extremities Extrem General: Yes no pedal edema Assessment & Plan Assessment & Plan (1) Essential hypertension: Code(s): I10 - Essential (primary) hypertension (2) CKD stage 3 due to type 2 diabetes mellitus: Code(s): E11.22 - Type 2 diabetes mellitus with diabetic chronic kidney disease; N18.30 - Chronic kidney disease, stage 3 unspecified (3) Diabetic nephropathy associated with type 2 diabetes mellitus: Code(s): E11.21 - Type 2 diabetes mellitus with diabetic nephropathy (4) Hypertension: Code(s): I10 - Essential (primary) hypertension Qualifiers: Hypertension type: essential hypertension Qualified Code(s): I10 - Essential (primary) hypertension Plan Barbara has a significant proteinuria, even though it was a bit better than the last time. Her renal functions had been fairly stable. Her blood pressure control is optimal. She is on CORNELIA-inhibitor. I had increased her lisinopril to 10 mg bid. She had an incidental finding of left renal cyst which will need a follow-up renal ultrasound. She has had HIV which is well controlled. She a voids nonsteroidal anti-inflammatories. I have ordered repeat blood work and urine studies. She most likely will need renal biopsy soon. I did not make any medication changes today. All questions answered. Follow-up given Orders: Orders Protein Creatinine Ratio, Ur Today E11.21 - Type 2 diabetes mellitus with diabetic nephropathy, E11.22 - Type 2 diabetes mellitus with diabetic chronic kidney disease, I10 - Essential (primary) hypertension, N18.30 - Chronic kidney disease, stage 3 unspecified Creatinine Today E11.21 - Type 2 diabetes mellitus with diabetic nephropathy, E11.22 - Type 2 diabetes mellitus with diabetic chronic kidney disease, I10 - Essential (primary) hypertension, N18.30 - Chronic kidney disease, stage 3 unspecified Blood Urea Nitrogen Today E11.21 - Type 2 diabetes mellitus with diabetic nephropathy, E11.22 - Type 2 diabetes mellitus with diabetic chronic kidney disease, I10 - Essential (primary) hypertension, N18.30 - Chronic kidney disease, stage 3 unspecified Electrolytes Today E11.21 - Type 2 diabetes mellitus with diabetic nephropathy, E11.22 - Type 2 diabetes mellitus with diabetic chronic kidney disease, I10 - Essential (primary) hypertension, N18.30 - Chronic kidney disease, stage 3 unspecified Complete Blood Count Auto Diff Today E11.21 - Type 2 diabetes mellitus with diabetic nephropathy, E11.22 - Type 2 diabetes mellitus with diabetic chronic kidney disease, I10 - Essential (primary) hypertension, N18.30 - Chronic kidney disease, stage 3 unspecified Prothrombin Time INR Today E11.21 - Type 2 diabetes mellitus with diabetic nephropathy, E11.22 - Type 2 diabetes mellitus with diabetic chronic kidney disease, I10 - Essential (primary) hypertension, N18.30 - Chronic kidney disease, stage 3 unspecified Medications: Changed From lisinopril 10 mg PO DAILY 90 tabs 3RF To lisinopril 10 mg PO BID 60 tabs 3RF Coding Level of Care Code Est Pt Level 4 (77968) Diagnoses Essential hypertension I10 CKD stage 3 due to type 2 diabetes mellitus E11.22; N18.30 Diabetic nephropathy associated with type 2 diabetes mellitus E11.21 Essential hypertension I10 Hypertension type: essential hypertension Results Reviewed Nephrology Results: Sodium 138 mmol/L (135-145) 11/15/23 Potassium 3.8 mmol/L (3.3-5.1) 11/15/23 Chloride 103 mmol/L (96-108) 11/15/23 Carbon Dioxide 25 mmol/L (22-29) 11/15/23 BUN 20 mg/dL (9-16) H 11/15/23 Creatinine 1.50 mg/dL (0.5-1.4) H 11/15/23 Calcium 9.4 mg/dL (8.4-10.2) 11/15/23 Urine Creatinine 138.25 mg/dL 11/15/23 Protein/Creatinin Ratio 4.77 (<0.2) H 11/15/23
[2024-01-21 13:26] VITALS: BP 146/60; PULSE 83; O2SAT 97; BMI 24.8
== END 2024-01-21 13:38 | disposition home or self-care (01) ==
PROVIDERS: PCP Internal Medicine; Visit Provider Internal Medicine Nephrology
DX: I10 Essential (primary) hypertension (principal); E11.22 Type 2 diabetes mellitus with diabetic chronic kidney disease; N18.30 Chronic kidney disease, stage 3 unspecified; E11.21 Type 2 diabetes mellitus with diabetic nephropathy
CPT/HCPCS: 99214

== ENCOUNTER → 2024-01-21 12:56 | Outpatient (BNVA) | payer OTHER, SELFPAY | PROVIDERS: PCP Internal Medicine; Visit Provider Internal Medicine Nephrology | DX: E11.22 Type 2 diabetes mellitus with diabetic chronic kidney disease (principal); I12.9 Hypertensive chronic kidney disease with stage 1 through stage 4 chronic kidney disease, or unspecified chronic kidney disease; N18.30 Chronic kidney disease, stage 3 unspecified; E11.21 Type 2 diabetes mellitus with diabetic nephropathy | CPT/HCPCS: 99212 ==

== ENCOUNTER 2024-02-03 08:47 | Outpatient (REF) | payer OTHER, SELFPAY ==
[2024-02-03 09:22] LABS: MANUAL DIFF FLAG NO
[2024-02-03 09:34] LABS: Basophils Percent Auto 0.5 % (0-2); Eosinophils Absolute Auto 0.1 X10*3/uL (0.0-0.4); Eosinophils Percent Auto 1.5 % (0-4); Hematocrit 40.1 % (37.0-47.0); Hemoglobin 12.4 g/dl (12.0-16.0); Imm Gran Abs Auto 0.02 X10*3/uL (0.00-0.03); Imm Gran Pct Auto 0.3 % (0.0-0.4); Lymphocytes Absolute Auto 2.1 X10*3/uL (1.2-4.9); Lymphocytes Percent Auto 35.3 % (20-40); Mean Corpuscular HGB Conc 30.9 g/dl (31.0-35.0); Mean Corpuscular Hemoglobin 25.8 pg (27.0-33.0); Mean Corpuscular Volume 83.5 fL (80.0-98.0); Mean Platelet Volume 11.4 fL (9.4-12.3); Monocytes Absolute Auto 0.6 X10*3/uL (0.1-1.2); Monocytes Percent Auto 9.5 % (2-11); Neutrophils Absolute Auto 3.2 x10*3/uL (2.0-8.3); Neutrophils Percent Auto 52.9 % (45-73); Platelet Count 251 X10*3/uL (160-400); Red Cell Distribution Width 12.4 % (11.0-16.0)
[2024-02-03 10:01] LABS: Creatinine Urine 143.87 mg/dL
[2024-02-03 10:09] LABS: Alanine Aminotransferase 25 U/L (0-31); Albumin Level 3.4 g/dL (3.5-5.0); Alkaline Phosphatase 76 U/L (39-117); Anion Gap 12 (12-20); Aspartate Amino Transferase 18 U/L (5-31); Bilirubin Total 0.2 mg/dL (0.0-1.0); Blood Urea Nitrogen 17 mg/dL (9-16); Calcium 9.5 mg/dL (8.4-10.2); Carbon Dioxide 27 mmol/L (22-29); Chloride 104 mmol/L (96-108); Cholesterol 311 mg/dL (<200); Estimated Glomerular Filt Rate 38; Glucose Fasting 224 mg/dL (60-99); HDL Cholesterol 35 mg/dL (>40); Iron 68 mcg/dL (30-160); Percent Iron Saturation 29 % (15-50); Potassium 4.2 mmol/L (3.3-5.1); Sodium 139 mmol/L (135-145); Total Iron Binding Capacity 236 mcg/dL (228-428); Total Protein 7.7 g/dL (6.5-8.0); Triglycerides 849 mg/dL (<150); Unsaturated Iron Binding 168 ug/dL
[2024-02-03 10:17] LABS: Vitamin D 25-OH Total 16.8 ng/mL (>30)
[2024-02-03 10:31] LABS: Microalbum/Creatinine Ratio Ur 1390.1 ug/mg cr (<30); Microalbumin Urine > 2000.0 mg/L
== END 2024-02-03 08:48 | disposition home or self-care (01) ==
LOC: HO.LAB 08:47
PROVIDERS: PCP Internal Medicine; Visit Provider Internal Medicine
DX: E78.00 Pure hypercholesterolemia, unspecified (principal); D64.9 Anemia, unspecified; E78.5 Hyperlipidemia, unspecified; E55.9 Vitamin D deficiency, unspecified; E11.9 Type 2 diabetes mellitus without complications
CPT/HCPCS: 36415; 80053; 80061; 82043; 82306; 82570; 83540; 85025

== ENCOUNTER 2024-02-09 08:00 | Outpatient (AMB) | payer OTHER, SELFPAY ==
[2024-02-09 08:25] VITALS: BP 124/56; BMI 24.2
--- NOTE | 2024-02-09 08:25 | A.OFFPC_ITS ---
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 Required: No Accompanied by: Self / Same As Patient Allergies crab Allergy (Severe, Verified 02/09/24 09:09) SWELLING amoxicillin [From Augmentin] Allergy (Mild, Verified 02/09/24 09:09) Abdominal Pain clavulanic acid [From Augmentin] Allergy (Mild, Verified 02/09/24 09:09) Abdominal Pain metformin Adverse Reaction (Intermediate, Verified 02/09/24 09:09) diarrhea Medication List - Last Reconciled 02/09/24 by Mishel Rao MD alcohol swabs 1 pad topical .4 times a day 30 days amlodipine 10 mg PO DAILY 90 days moxywtywm-wjbrtctr-vpzzoza ala 50-200-25 mg (Biktarvy) 1 tab PO DAILY 30 days blood sugar diagnostic (Green BiofactoryTouch Ultra Test strips) Use 1 lancet four times a day blood-glucose meter (Green BiofactoryTouch UltraMini kit) As directed canagliflozin 100 mg PO DAILY 90 days cholecalciferol (vitamin D3) 50 mcg PO DAILY 90 days dulaglutide (Trulicity) 0.75 mg (0.5 mL) subcut QWEEK 90 days ferrous sulfate 325 mg PO DAILY insulin degludec (Tresiba FlexTouch U-100 insulin) 25 units (0.25 mL) subcut DAILY 90 days lancets (OneTouch UltraSoft Lancets) Use 1 lancet four times a day lisinopril 10 mg PO BID omeprazole 20 mg PO DAILY 90 days pen needle, diabetic (BD Mansi 2nd Gen Pen Needle) twice a day pen needle, diabetic twice a day rosuvastatin 40 mg PO DAILY 90 days Tobacco use date assessed: 02/09/24 Fall risk assessment: No Falls in past year Last assessed Fall Risk: 02/09/24 Dental Screening Dental Screen Date: 02/09/24 Did you have a dental visit in the last 12 months?: Yes Did you have a dental problem in the last 6 months where you did not have access to dental care?: No Was dental information given to patient?: Patient has dentist HPI HPI Comments History of Present Illness Details This is a 68-year-old female with diabetes mellitus type 2 on long-term current use of insulin, chronic kidney disease stage 3 and HIV that comes today for her physical exam. A1c within goal. Blood pressure stable. Cholesterol and triglycerides are very elevated and I will change rosuvastatin to atorvastatin 80 mg. I will also add fenofibrate. GFR has been stable but does have elevated microalbumin and this is follow by Nephrology. HIV has also been well control and follow by ID. Has mammogram appointment soon. Last bone density was 2020 and this will be repeated. Last colonoscopy was 2021 and was normal. No chest pain or shortness of breath. [facility] Medical History (Updated 02/09/24 @ 11:39 by Mishel Rao MD) Sinusitis Hepatitis Normocytic anemia 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 infection) Pure hypercholesterolemia Essential hypertension Sessile colonic polyp 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 infection) halfway (current) use of insulin Hypertension Non-toxic multinodular goiter Diabetic retinopathy associated with type 2 diabetes mellitus CKD stage 3 due to type 2 diabetes mellitus Diabetic nephropathy associated with type 2 diabetes mellitus Dyslipidemia Diabetes type 2, controlled Hypovitaminosis D Surgical History H/O colonoscopy (08/13/20) Hx of bilateral cataract extraction History of hysterectomy with unilateral oophorectomy Hx of section Hx of thyroidectomy Family History Father Liver disease Mother Hypertension CVD (cardiovascular disease) Renal disease Hyperlipidemia ESRD on hemodialysis Paternal Aunt Glaucoma Social History Household Members: Other Household Members Other:: grandson Housing: House Alcohol intake: never Patient Tobacco Use Status: Never used Tobacco e-Cigarette/Vaping Use: Never Used Second Hand Smoke Exposure: No Advance Directives Date on File: 07/01/21 service: No Current occupational status: unemployed Cognitive needs: No Hearing needs: No Vision needs: No Questionnaire PHQ-9 Over the last 2 weeks, how often have you been bothered by any of the following problems? 1. Little interest or pleasure in doing things: not at all 2. Feeling down, depressed, or hopeless: not at all 3. Trouble falling or staying asleep, or sleeping too much: not at all 4. Feeling tired or having little energy: not at all 5. Poor appetite or overeating: not at all 6. Feeling bad about yourself - or that you are a failure or have let yourself or your family down: not at all 7. Trouble concentrating on things, such as reading the newspaper or watching television: not at all 8. Moving or speaking so slowly that other people could have noticed. Or the opposite - being so fidgety or restless that you have been moving around a lot more than usual: not at all 9. Thoughts that you would be better off or of hurting yourself in some way: not at all Total score: 0 Depression Screening Interpretation: Negative Depression Screening Done: Yes 23274 - PHQ-9 Billing: Yes Source: Developed by Drs. Renny Brown, Dayanna Otoole, Bernardo Caruso and colleagues, with an educational sim from [employer]. Thrive Questionnaire Date Thrive assessed: 02/09/24 I am a: Patient What is your living situation today?: I have a steady place to live Within the past 12 months, did the food you bought not last and you didn't have the money to get more?: Never true Within the past 12 months, did you worry whether your food would run out before you got money to buy more?: Never true Do you have trouble paying for medicines?: No Do you have trouble getting transportation to medical appointments?: No Do you have trouble paying your heating and electricity bill?: No Do you have trouble taking care of your child, family member or friend?: No Do you have trouble with day-to-day activities such as bathing, preparing meals, shopping, managing finances, etc.?: No Are you currently unemployed and looking for a job?: No Are you interested in more education?: No Please select the resources that you would like help with: None Currently or been in a relationship where the following occur: no concerns reported THRIVE Score: 0 AUDIT C Alcohol Use Questionnaire (AUDIT-C) 1. How often do you have a drink containing alcohol?: Never Total Score: 0 KB-7 AMB Questionnaire KB-7 Date KB - 7 assessed: 02/09/24 Feeling nervous, anxious, or on edge: 0 = Not at all Not being able to stop or control worryin = Not at all Worrying too much about different things: 0 = Not at all Trouble relaxin = Not at all Being so restless that it is hard to sit still: 0 = Not at all Becoming easily annoyed or irritable: 0 = Not at all Feeling afraid as if something awful might happen: 0 = Not at all Total KB-7 score (0-4 normal; 5-9 mild; 10-14 moderate; 15-21 severe): 0 Source: Developed by Drs. Renny Brown, Dayanna Otoole, Bernardo Caruso and colleagues, with an educational sim from [employer]. Review of Systems Const All systems reviewed & are unremarkable except as noted in HPI and below Card Denies chest pain at rest, Denies chest pain with activity, Denies edema, Denies irregular heart rhythm, Denies claudication, Denies dyspnea, Denies dyspnea on exertion, Denies orthopnea, Denies paroxysmal nocturnal dyspnea and Denies slow heart rate Resp Denies cough, Denies dyspnea and Denies dyspnea on exertion Physical exam (Primary Care) Vital Signs: Last Vital Signs BP 124/56 L 02/09/24 08:25 BMI result Body Mass Index 24.2 Tobacco/Smoking Status: Tobacco use Status Tobacco use date assessed 02/09/24 02/09/24 08:35 Patient Tobacco Use Status Never used Tobacco 02/09/24 08:35 e-Cigarette/Vaping Use Never Used 02/09/24 08:35 PHQ-9: PHQ-9 Score PHQ-9: Total score 0 02/09/24 10:12 Depression Screening Interpretation: Negative Thrive Assessment: Date of Thrive Assessment Date Thrive assessed 02/09/24 02/09/24 08:35 Currently or been in a relationship where the following occur: no concerns reported HENMT Head: Yes normal to inspection, Yes normocephalic and Yes atraumatic Ears: external ears normal Eyes General: appearance normal, both eyes and all related structures Eyelids: Yes eyelids normal Conjunctivae: conjunctivae normal Neck Neck: Yes normal visual inspection and Yes supple Resp Effort & Inspection: normal respiratory effort Auscultation: clear to auscultation bilaterally Cardio Jugular venous distension: no JVD Rate: regular rate Rhythm: regular rhythm Heart sounds: S1 normal heart sound present and S2 normal heart sound present GI Inspection: Yes normal to inspection Palpation (GI): Soft to palpation and nontender Auscultation: normal bowel sounds Skin General skin exam: no rashes or lesions noted Neuro General: no focal motor deficits Extrem General: Yes full ROM Psych Appearance: grossly normal Results AMB Hemoglobin A1c AMB Hemoglobin A1c 9.2 % Last Edit by JULIO CÉSAR Winkler on 02/09/24 08:3 6 Results Reviewed Results Reviewed: Laboratory Last Values Hgb A1c (Clinic) 9.2 % (4.0-6.0) H 02/09/24 08:25 Assessment and Plan Assessment & Plan (1) Physical exam: Code(s): Z00.00 - Encounter for general adult medical examination without abnormal findings Plan: Repeat in a year. (2) Diabetes mellitus, with long-term current use of insulin: Code(s): E11.9 - Type 2 diabetes mellitus without complications; Z79.4 - adjunct faculty for medical terminology (current) use of insulin Plan: Continue insulin. A1c goal is equal or less than 7%. (3) 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 infection): Comment: She is doing well and CD4 count and viral load good on Biktarvy. However GFR is down to 35. Code(s): B20 - Human immunodeficiency virus [HIV] disease Qualifiers: HIV symptom status: asymptomatic, with no history of HIV-related illness Qualified Code(s): Z21 - Asymptomatic human immunodeficiency virus [HIV] infection status Plan: Continue Biktarvy. Follow-up with ID. (4) CKD stage 3 due to type 2 diabetes mellitus: Code(s): E11.22 - Type 2 diabetes mellitus with diabetic chronic kidney disease; N18.30 - Chronic kidney disease, stage 3 unspecified Plan: Avoid NSAIDs. Keep blood pressure within goal being less than 130/80. Follow- up with nephrology. Orders: Orders AMB Hemoglobin A1c Today E11.9 - Type 2 diabetes mellitus without complications, Z79.4 - adjunct faculty for medical terminology (current) use of insulin Complete Blood Count Auto Diff 4 Months D64.9 - Anemia, unspecified IRON PROFILE 4 Months D64.9 - Anemia, unspecified Vitamin B12 and Folate 4 Months E53.8 - Deficiency of other specified B group vitamins Lipid Panel 4 Months E78.5 - Hyperlipidemia, unspecified Microalbumin, Random (w Creat) 4 Months E11.9 - Type 2 diabetes mellitus without complications Vitamin D 25-OH Total 4 Months E55.9 - Vitamin D deficiency, unspecified Comprehensive [place]. Panel Fast 4 Months E11.9 - Type 2 diabetes mellitus without complications, Z79.4 - halfway (current) use of insulin XR DEXA axial skeleton Today N95.9 - Unspecified menopausal and perimenopausal disorder Referrals Ophthalmology Referral E11.9 - Type 2 diabetes mellitus without complications, Z79.4 - adjunct faculty for medical terminology (current) use of insulin Medications: New atorvastatin 80 mg PO BEDTIME 90 days 90 tabs 1RF E78.2 - Mixed hyperlipidemia fenofibrate 54 mg PO DAILY 90 days 90 tabs 1RF E78.2 - Mixed hyperlipidemia Discontinued rosuvastatin Discontinued Reason: Patient Completed Course 40 mg PO DAILY 90 days 90 tabs 1RF Coding Level of Care Code Est Pt Prev Care >65y(77638) Diagnoses Physical exam Z00.00 Diabetes mellitus, with long-term current use of insulin E11.9; Z79.4 Asymptomatic HIV infection, with no history of HIV-related illness Z21 HIV symptom status: asymptomatic, with no history of HIV-related illness CKD stage 3 due to type 2 diabetes mellitus E11.22; N18.30 Time Spent (min) 35
== END 2024-02-09 09:20 | disposition home or self-care (01) ==
PROVIDERS: PCP Internal Medicine; Visit Provider Internal Medicine
DX: Z00.00 Encounter for general adult medical examination without abnormal findings (principal); Z21 Asymptomatic human immunodeficiency virus [HIV] infection status; E11.22 Type 2 diabetes mellitus with diabetic chronic kidney disease; N18.30 Chronic kidney disease, stage 3 unspecified; Z79.4 Long term (current) use of insulin
CPT/HCPCS: 83036; 99397

== ENCOUNTER 2024-02-22 12:40 | Outpatient (REF) | payer OTHER, SELFPAY ==
--- NOTE | ~2024-02-22 | US_ITS ---
Ultrasound-guided thyroid nodule fine needle aspiration Indication: Right lobe thyroid nodule Procedure: Informed consent was obtained from the patient prior to the procedure. During this process, the procedure and potential alternatives were explained, along with the intended outcome and benefits. The risks of the procedure, as well as the risks of not doing the procedure, were discussed. The patient was given the opportunity to ask questions regarding the procedure and appeared competent to make medical decisions. A signed consent form which documents this discussion was placed in the medical record. A timeout was performed in the room. The patient was placed in a supine position with the neck extended. The right side of the neck and chest was prepped and draped in routine sterile fashion. 1% lidocaine was used as anesthetic. Under real-time ultrasound guidance, a 25-gauge needle was placed into the small solid septation of the predominantly cystic nodule and an aspiration was performed. A total of 3 aspirations were performed. The specimens were placed in CytoLyt and and the Affirma bottle. Postprocedure images showed no hematoma. A Band-Aid was applied to the access site. The patient tolerated the procedure well with no immediate complications. Permanent ultrasound images were archived to the procedure. US/US guided fine needle asp Impression: Right thyroid nodule fine-needle aspiration This procedure was performed by Rustam Rogers PA-C, and directly supervised by Dr. Simmons
[2024-02-22] MEDS: Lidocaine HCl 1 % MPF 5 ML VIAL SUBCUT (14:16)
== END 2024-02-22 12:41 | disposition home or self-care (01) ==
LOC: HO.US 12:40
PROVIDERS: PCP Internal Medicine; Visit Provider Internal Medicine Endocrinology, Diabetes & Metabolism
DX: E04.2 Nontoxic multinodular goiter (principal); N95.9 Unspecified menopausal and perimenopausal disorder
CPT/HCPCS: 10005; 88173

== ENCOUNTER → 2024-02-22 12:44 | Outpatient (BNV) | payer OTHER, SELFPAY | PROVIDERS: PCP Internal Medicine; Visit Provider Physician Assistant Surgical | DX: E04.2 Nontoxic multinodular goiter (principal) | CPT/HCPCS: 10005 ==

== ENCOUNTER 2024-02-24 08:39 | Outpatient (REF) | payer OTHER, SELFPAY ==
--- NOTE | ~2024-02-24 | MM_ITS ---
EXAMINATION: MM SCREENING DIGITAL BREAST TOMOSYNTHESIS, BILATERAL CLINICAL INFORMATION: Screening. Asymptomatic. COMPARISON: Mammography: 02/09/2023, 12/17/2020, 06/05/2019, 10/12/2016 TECHNIQUE: Digital breast tomosynthesis is performed in both the craniocaudal and mediolateral oblique views along with computer-aided detection (CAD). Synthesized 2D images are generated from the tomosynthesis. FINDINGS: There are scattered areas of fibroglandular density (ACR BI-RADS breast composition Category b). Breast parenchyma is borderline heterogeneously dense. There is a stable dermal-based 1.3 cm oval lesion in the right axilla, consistent with sebaceous cyst as seen on prior ultrasound 02/18/2023. 2 benign calcifications are present in the upper outer left breast. No suspicious calcifications evident. No suspicious masses, or areas of architectural distortion in either breast. Skin and axillary contours are otherwise normal. MM/MM tomosynthesis screening BI IMPRESSION: -No mammographic evidence of malignancy. No significant interval change. -Stable sebaceous cyst right axilla. ASSESSMENT: BI-RADS BI-RADS 2 - Benign Findings RECOMMENDATION: Routine annual mammography screening. 1 year F/U This examination should not preclude the clinical evaluation of a suspicious palpable abnormality. This patient's information was entered into a reminder system with a target due date for their next mammogram.
--- NOTE | ~2024-02-24 | MM_ITS ---
EXAMINATION: BONE DENSITOMETRY CLINICAL INDICATION: Menopause. COMPARISON: Baseline BD dated 08/08/2021. TECHNIQUE: Using a Ensa DXA System (software version: 13.1) manufactured by [employer], dual-energy x-ray absorptiometry was performed of the lumbar spine and left hip. The images are of good technical quality. Summary results are attached. FINDINGS: LEFT FEMUR, NECK: Current: BMD 0.830 g/cm2, Z-score 0.2, T-score -1.5, osteopenia. Baseline: BMD 0.842 g/cm2. LEFT FEMUR, TOTAL: Current: BMD 0.939 g/cm2, Z-score 0.9, T-score -0.5, normal, 1.3% decrease from baseline (<5% change is not significant). Baseline: BMD 0.951 g/cm2. AP SPINE L1-L4 (excluding L3): The data of L1-L4 has been changed to exclude the L3 vertebral body, because degenerative sclerosis at this level may cause overestimation of lumbar spine density. Current: BMD 1.022 g/cm2, Z-score 0.7, T-score -1.2, osteopenia, 1.8% increase from baseline (<5% change is not significant). Baseline: BMD 1.004 g/cm2. IDENTIFIED RISK FACTORS: Early menopause, hysterectomy, right oophorectomy, secondary osteoporosis (type 1 diabetes). HISTORY OF FRACTURE: None listed. MEDICATIONS: Vitamin D. MM/XR DEXA axial skeleton IMPRESSION: 1. DIAGNOSIS: Osteopenia based on the lowest T-score value of -1.5 in the femoral neck applying World Health Organization criteria. 2. 10-YEAR FRACTURE RISK PREDICTION, FRAX: Major osteoporotic fracture (clinical spine, forearm, hip or shoulder) 5.3%. Hip fracture 0.6%. 3. Treatment Recommendations: NOF guidelines recommend consideration for treatment in postmenopausal women and men age 50 and older presenting with the following: -A hip or vertebral (clinical or morphometric) fracture. -T-score less than or equal to -2.5 at the femoral neck or spine after appropriate evaluation to exclude secondary causes. -Low bone mass at the hip or spine and a 10-year fracture probability by FRAX of greater than or equal to 3% for hip fracture or greater than or equal to 20% for major osteoporotic fracture based on the [place] adapted WHO algorithm. 4. Other Recommendations: All treatment decisions require clinical judgment and consideration of individual patient factors, including patient preferences, comorbidities, previous drug use, risk factors not captured in the FRAX model (e.g. frailty, falls, vitamin D deficiency, increased bone turnover, interval significant decline in bone density) and possible under or overestimation of fracture risk by FRAX. Additional medical evaluation for secondary cause of low bone mineral density may be appropriate. FUTURE SCAN RECOMMENDATION: People with diagnosed cases of osteoporosis or at high risk for fracture should have regular bone mineral density tests. For patients eligible for Medicare, routine testing is allowed once every 2 years. The testing frequency can be increased to one year for patients who have rapidly progressing disease, those who are receiving or discontinuing medical therapy to restore bone mass, or have additional risk factors.
== END 2024-02-24 08:40 | disposition home or self-care (01) ==
LOC: HO.MAMMO 08:39
PROVIDERS: PCP Internal Medicine; Visit Provider Internal Medicine
DX: Z12.31 Encounter for screening mammogram for malignant neoplasm of breast (principal); Z13.820 Encounter for screening for osteoporosis; Z78.0 Asymptomatic menopausal state
CPT/HCPCS: 77063; 77067; 77080

== ENCOUNTER → 2024-02-24 10:00 | Outpatient (BNV) | payer OTHER, SELFPAY | PROVIDERS: PCP Internal Medicine; Visit Provider Radiology Diagnostic Radiology | DX: Z12.31 Encounter for screening mammogram for malignant neoplasm of breast (principal) | CPT/HCPCS: 77063; 77067 ==

== ENCOUNTER 2024-03-07 07:37 | Outpatient (AMB) | payer OTHER, SELFPAY ==
[2024-03-07 07:51] VITALS: BP 138/68; PULSE 73; BMI 24.4
--- NOTE | 2024-03-07 07:51 | MHC.OFFVIS ---
Vital Signs 03/07/24 07:51 Height 4 ft 11 in Weight 120 lb 13.013 oz BMI 24.4 BP 138/68 Blood Pressure Location Lt brachial Position Sitting Pulse 73 Pulse Source Pulse Oximeter Intake Visit Reasons: FNA results Intake Note: Patient present today for FNA results follow up visit. Experimental Electronics Developer Required: Yes Experimental Electronics Developer Language: Kyrgyz Information Interpreted: non-clinical & clinical Accompanied by: Self / Same As Patient Allergies crab Allergy (Severe, Verified 03/07/24 07:57) SWELLING amoxicillin [From Augmentin] Allergy (Mild, Verified 03/07/24 07:57) Abdominal Pain clavulanic acid [From Augmentin] Allergy (Mild, Verified 03/07/24 07:57) Abdominal Pain metformin Adverse Reaction (Intermediate, Verified 03/07/24 07:57) diarrhea HPI Comments Details: 68 YO F with PMHx T2DM and a NTMNG who is seen in F/U for her NTMNG. She has a long history of NTMNG. She had a prior L hemithyroidectomy many years ago, and she reports the pathology of this was benign. She is unsure of the reason for her L hemithyroidectomy. She reports her Sister also has a history of a NTMNG and underwent a thyroidectomy which was also benign. I repeated her US of the thyroid myself 08/05/2022. This revealed a 1.6 cm cyst within the thyroid, but no other nodules. She denies any compressive symptoms. She denies any symptoms of hyper or hypothyroidism. Denies any history of head or neck irradiation. Denies any family history of thyroid cancer. Thyroid US: 08/05/2022 FINDINGS: SIZE: Measurements of the thyroid lobes and nodules are given in sagittal, anteroposterior and transverse dimensions respectively. Right Thyroid Lobe: 5.5 x 1.5 x 2.0 cm, volume 8.6 mL. Parenchyma: The gland echotexture is heterogenous. Thyroid vascularity is normal. The left thyroid lobe and the isthmus have been surgically removed. RIGHT THYROID LOBE: There is a 1.6 x 1.1 x 0.8 cm cyst within the RMP of the thyroid.? There are scattered subcentimeter cysts in the remainder of the R lobe.? NODES: No lymphadenopathy is seen in the tissue surrounding the thyroid gland. IMPRESSION:? a 1.6 cm RMP cyst not meeting indication for FNA biopsy. Labs: Laboratory Tests 06/24/22 06/24/22 10:58 10:58 TSH 1.08 Free T4 1.01 No compressie sx . Status post FNA of a right midpole nodule with benign cytology [facility] Medical History (Updated 02/09/24 @ 11:39 by Mishel Rao MD) Sinusitis Hepatitis Normocytic anemia 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 infection) Pure hypercholesterolemia Essential hypertension Sessile colonic polyp 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 infection) [facility] (current) use of insulin Hypertension Non-toxic multinodular goiter Diabetic retinopathy associated with type 2 diabetes mellitus CKD stage 3 due to type 2 diabetes mellitus Diabetic nephropathy associated with type 2 diabetes mellitus Dyslipidemia Diabetes type 2, controlled Hypovitaminosis D Surgical History H/O colonoscopy (08/13/20) Hx of bilateral cataract extraction History of hysterectomy with unilateral oophorectomy Hx of section Hx of thyroidectomy Family History Father Liver disease Mother Hypertension CVD (cardiovascular disease) Renal disease Hyperlipidemia ESRD on hemodialysis Paternal Aunt Glaucoma Social History Household Members: Other Household Members Other:: grandson Housing: House Alcohol intake: never Patient Tobacco Use Status: Never used Tobacco e-Cigarette/Vaping Use: Never Used Second Hand Smoke Exposure: No Advance Directives Date on File: 07/01/21 service: No Current occupational status: unemployed Cognitive needs: No Hearing needs: No Vision needs: No Physical Exam Const Other: There is a healed scar status post left lobectomy. The right lobe was without the presence of any palpable nodules Assessment & Plan Assessment & Plan (1) Non-toxic multinodular goiter: Code(s): E04.2 - Nontoxic multinodular goiter Category: Medical Plan: This is a 68-year-old female with a history of left lobectomy and isthusectomy with right lobe nodule which was predominantly cystic and now complex enlarged in size. She appears to be clinically biochemically euthyroid. She is status post FNA of the right midpole nodule benign cytology Plan is to have the patient follow up with the primary care provider. A repeat thyroid ultrasound could be obtained about 1-2 years time. If this a significant change in the size or characteristics of the nodule, the patient returned back to endocrinology Coding Level of Care Code Est Pt Level 3 (75357) Diagnoses Non-toxic multinodular goiter E04.2
== END 2024-03-07 08:06 | disposition home or self-care (01) ==
PROVIDERS: PCP Internal Medicine; Visit Provider Internal Medicine Endocrinology, Diabetes & Metabolism
DX: E04.2 Nontoxic multinodular goiter (principal)
CPT/HCPCS: 99213

== ENCOUNTER → 2024-03-07 07:37 | Outpatient (BNVA) | payer OTHER, SELFPAY | PROVIDERS: PCP Internal Medicine; Visit Provider Internal Medicine Endocrinology, Diabetes & Metabolism | DX: E04.2 Nontoxic multinodular goiter (principal) | CPT/HCPCS: 99212 ==

== ENCOUNTER 2024-03-23 09:09 | Outpatient (REF) | payer OTHER, SELFPAY ==
[2024-03-23 09:33] LABS: MANUAL DIFF FLAG NO
[2024-03-23 09:59] LABS: Basophils Percent Auto 0.5 % (0-2); Eosinophils Absolute Auto 0.1 X10*3/uL (0.0-0.4); Eosinophils Percent Auto 0.8 % (0-4); Hematocrit 37.4 % (37.0-47.0); Hemoglobin 11.6 g/dl (12.0-16.0); Imm Gran Abs Auto 0.02 X10*3/uL (0.00-0.03); Imm Gran Pct Auto 0.3 % (0.0-0.4); Lymphocytes Absolute Auto 1.8 X10*3/uL (1.2-4.9); Lymphocytes Percent Auto 29.4 % (20-40); Mean Corpuscular Hemoglobin 26.1 pg (27.0-33.0); Mean Corpuscular Volume 84.2 fL (80.0-98.0); Mean Platelet Volume 11.5 fL (9.4-12.3); Monocytes Absolute Auto 0.5 X10*3/uL (0.1-1.2); Monocytes Percent Auto 8.9 % (2-11); Neutrophils Absolute Auto 3.6 x10*3/uL (2.0-8.3); Neutrophils Percent Auto 60.1 % (45-73); Platelet Count 227 X10*3/uL (160-400); Red Blood Count 4.44 X10*6/uL (4.20-5.50); Red Cell Distribution Width 12.9 % (11.0-16.0)
[2024-03-23 10:02] LABS: INTERNATIONAL NORM RATIO 0.9 (0.9-1.1); Prothrombin Time 11.1 SEC (11.1-13.3)
[2024-03-23 10:13] LABS: Estimated Average Glucose 209 mg/dL; Hemoglobin A1c % 8.9 % (<6.0)
[2024-03-23 10:23] LABS: Anion Gap 17 (12-20); Blood Urea Nitrogen 18 mg/dL (9-16); Carbon Dioxide 21 mmol/L (22-29); Chloride 104 mmol/L (96-108); Estimated Glomerular Filt Rate 38; Sodium 138 mmol/L (135-145)
[2024-03-23 10:47] LABS: HBS Num1 29.88 mIU/mL (0-7.99); HBc Num1 0.14 S/CO (0.00-0.79); HBsAGNum1 0.31 S/CO (0.00-0.99); Hepatitis B Core Antibody Nonreactive (Nonreactive); Hepatitis B Surface Antigen Negative (Negative); ~Hepatitis A Antibody IgM Nonreactive (Nonreactive); ~Hepatitis B Surface Antibody REACTIVE (Nonreactive); ~Hepatitis C Antibody Nonreactive (Nonreactive)
[2024-03-23 12:09] LABS: Creatinine Urine 96.11 mg/dL
[2024-03-23 12:20] LABS: Protein/Creatinine Ratio, Ur 4.86 (<0.2); Total Protein Urine Random 467 mg/dL (<12)
[2024-03-24 12:23] LABS: Complement C3 166 mg/dL (83-193)
[2024-03-28 14:48] LABS: IgA 492 mg/dL (70-320); IgG 1251 mg/dL (600-1540); IgM 91 mg/dL (50-300)
[2024-04-01 00:04] LABS: Cryoglobulin, Qual Negative (Negative)
== END 2024-03-23 09:10 | disposition home or self-care (01) ==
LOC: HO.LAB 09:09
PROVIDERS: PCP Internal Medicine; Visit Provider Internal Medicine Nephrology
DX: I12.9 Hypertensive chronic kidney disease with stage 1 through stage 4 chronic kidney disease, or unspecified chronic kidney disease (principal); E11.22 Type 2 diabetes mellitus with diabetic chronic kidney disease; N18.30 Chronic kidney disease, stage 3 unspecified; R80.9 Proteinuria, unspecified; E11.21 Type 2 diabetes mellitus with diabetic nephropathy
CPT/HCPCS: 36415; 80051; 82565; 82570; 82595; 82784; 83036; 84156; 84520; 85025; 85610; 86160; 86334; 86704; 86706; 86709; 86803; 87340

== ENCOUNTER 2024-04-24 17:01 | Emergency (ER) | payer OTHER, SELFPAY ==
--- NOTE | ~2024-04-24 | XR_ITS ---
EXAMINATION: XR HAND, RIGHT CLINICAL INFORMATION: Pain COMPARISON: None available. TECHNIQUE: PA, lateral, and oblique views of the right hand. FINDINGS: There is no fracture or dislocation. Joint spaces are maintained. Regional soft tissue is normal in appearance. No radiopaque foreign object. XR/XR hand RT min 3V IMPRESSION: No fracture or dislocation.
[2024-04-24 17:12] VITALS: BP 181/87; PULSE 85; RESP 18; TEMP 36.8; O2SAT 97; BMI 23.6
--- NOTE | 2024-04-24 17:26 | ED.GENADULT ---
HPI - General Adult General Chief complaint: Extremity Problem Stated complaint: swollen thumb? Time Seen by Provider: 04/24/24 21:53 History of Present Illness ED Provider: Veena BUSTAMANTE narrative: The patient is a 68-year-old female with a history of type 2 diabetes who says that she woke up with pain and swelling in her right hand near the thumb this morning. She says she 1st noticed it when she tried to hold a glass with her right hand and it was painful. She denies any injury. She denies any overuse of the thumb or hand recently. She denies any repetitive movements. She denies any bug bites. She has never had a problem like this before. She feels the pain primarily beside the thumb in the webspace between the thumb and the index finger but she says that the pain seems to shoot into the other fingers as well. Related Data Previous Rx's ?Medication ?Instructions ?Recorded pen needle, diabetic 32 gauge x #200 ea 02/06/21 alcohol swabs 1 pad topical .4 times a day 05/01/22 days #200 ea canagliflozin 100 mg tablet 100 mg PO DAILY 90 days #90 tabs 10/26/22 omeprazole 20 mg capsule,delayed 20 mg PO DAILY 90 days #90 caps 11/30/22 release lancets ([employer] MediaTouch UltraSoft #100 ea 12/03/22 Lancets) blood-glucose meter ([employer] MediaTouch #1 ea 01/11/23 UltraMini kit) dulaglutide 0.75 mg/0.5 mL 0.75 mg (0.5 mL) subcut QWEEK 90 08/12/23 subcutaneous pen injector days #6.5 mL (Trulicity) ferrous sulfate 325 mg (65 mg 325 mg PO DAILY #90 tabs 08/30/23 iron) tablet pen needle, diabetic 32 gauge x #100 ea 09/10/23 (BD Mansi 2nd Gen Pen Needle) cholecalciferol (vitamin D3) 50 50 mcg PO DAILY 90 days #90 caps 09/29/23 mcg (2,000 unit) capsule amlodipine 10 mg tablet 10 mg PO DAILY 90 days #90 tabs 11/06/23 blood sugar diagnostic (OneTouch #100 ea 11/23/23 Ultra Test strips) bictegravir 50 mg-emtricitabine 1 tab PO DAILY 30 days #30 tabs 12/15/23 200 mg-tenofovir alafenam 25 mg tablet (Biktarvy) lisinopril 10 mg tablet 10 mg PO BID #60 tabs 01/21/24 atorvastatin 80 mg tablet 80 mg PO BEDTIME 90 days #90 tabs 02/09/24 fenofibrate 54 mg tablet 54 mg PO DAILY 90 days #90 tabs 02/09/24 insulin degludec 100 unit/mL (3 25 unit (0.25 mL) subcut DAILY 90 02/17/24 mL) subcutaneous pen (Tresi #22.5 mL FlexTouch U-100 insulin) cephalexin 500 mg capsule 500 mg PO QID #28 caps 04/24/24 Allergies Allergy/AdvReac Type Severity Reaction Status Date / Time crab Allergy Severe SWELLING Verified 04/24/24 17:17 amoxicillin [From Augmentin] Allergy Mild Abdominal Verified 04/24/24 17:17 Pain clavulanic acid Allergy Mild Abdominal Verified 04/24/24 17:17 [From Augmentin] Pain metformin AdvReac Intermediate diarrhea Verified 04/24/24 17:17 Review of Systems Review of Systems: Yes all other systems are reviewed and are negative [facility] Past Medical History Medical History (Updated 04/25/24 @ 00:02 by [facility]) Sinusitis Hepatitis Normocytic anemia 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 infection) Pure hypercholesterolemia Essential hypertension Sessile colonic polyp 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 infection) 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 Hypertension Non-toxic multinodular goiter Diabetic retinopathy associated with type 2 diabetes mellitus CKD stage 3 due to type 2 diabetes mellitus Diabetic nephropathy associated with type 2 diabetes mellitus Dyslipidemia Diabetes type 2, controlled Hypovitaminosis D Surgical History H/O colonoscopy (08/13/20) Hx of bilateral cataract extraction History of hysterectomy with unilateral oophorectomy Hx of section Hx of thyroidectomy Family History Family History Father Liver disease Mother Hypertension CVD (cardiovascular disease) Renal disease Hyperlipidemia ESRD on hemodialysis Paternal Aunt Glaucoma Social History Social History Household Members: Other Household Members Other:: grandson Housing: House Alcohol intake: never Patient Tobacco Use Status: Never used Tobacco e-Cigarette/Vaping Use: Never Used Second Hand Smoke Exposure: No Advance Directives: No Advance Directives Information Provided: No Advance Directives Date on File: 07/01/21 Do you have a plan to hurt others: No Plan service: No Current occupational status: unemployed Cognitive needs: No Hearing needs: No Vision needs: No Physical Exam ED Vital Signs: Vital Signs - 24 hr 04/24/24 17:12 04/24/24 21:40 04/24/24 22:34 Temperature 98.2 F 98.3 F 98.3 F Pulse Rate 85 69 69 Respiratory Rate 18 16 16 Blood Pressure 181/87 H 189/88 H 189/88 H Pulse Oximetry 97 97 97 Oxygen Delivery Method Room Air Room Air Room Air BMI result Body Mass Index 23.6 Const Other: The patient is awake and alert. She has the appearance of a healthy in active 68-year-old. She does not appear in any distress. She does not appear toxic. She does not appear ill. HENMT Other: Face is symmetrical. Mucous membranes are moist. Eyes Other: Pupils are round equal, conjunctivae are clear, extraocular movements intact Neck Other: No JVD Resp Effort & Inspection: normal respiratory effort Auscultation: clear to auscultation bilaterally Cardio Rate: regular rate Rhythm: regular rhythm Heart sounds: S1 normal heart sound present and S2 normal heart sound present Skin Other: The patient has an area of erythema on the right hand which is at the base of the thumb in the region of the webspace between the thumb and the index finger. The skin is intact. No sign of injury. No sign of foreign body. There is no lymphangitis. Neuro Other: The patient is awake and alert with a normal mental status. Cranial nerves are grossly intact. She is intact strength and sensation in the extremities. Extrem Other: The patient has an area of erythema and mild swelling in the webspace between the right thumb and index finger. Most of the erythema is closer to the base of the thumb. I do not appreciate any fluctuance. The erythema does not seem particularly warm. I can move all the joints of the thumb and the index finger and the wrist. Course Course Course Narrative: RME performed by Elizabeth Weaver PA-C. Patient is a 68 year old assigned female at presenting to the emergency department with right thumb pain. Patient states she woke up this morning with right thumb pain. Detailed physical exam and review of systems are deferred to the assistant housekeeping manager. Imaging ordered. Patient placed back in the waiting room pending room availability and results. Medications Administered Discontinued Medications Generic Name Dose Route Start Last Admin Trade Name Joe PRN Reason Stop Dose Admin Cephalexin HCl 500 mg 04/24/24 22:22 04/24/24 22:30 Cephalexin 500 Mg Capsule PO 04/24/24 22:23 500 mg ONCE ONE Administration Procedures Orthopedic Splinting/Casting Injury #1: Side: right Upper Extremity Injury Location: finger Upper Extremity Immobilizer: thumb spica Additional Comments: Thumb spica splint was fabricated using cast padding, Orthoglass, and Mirza bandages. Medical Decision Making Medical Decision Making [facility] Narrative: The patient is a very pleasant 68-year-old female who has a history of type 2 diabetes but who looks as if she is quite healthy. She presents with redness and pain near the base of the right thumb that she noticed when she woke up this morning. She denies any trauma or injury. She denies any activities that might have occurred on the previous day that could have caused any thumb problem. She denies any repetitive motions. She denies any bug bites. Overall I find her presentation somewhat puzzling. This does not seem to be a case of gout. The redness and tenderness seems to be more in the soft tissue of the webspace rather than in a joint. The appearance of the redness is not highly suggestive of a cellulitis although it would be hard to entirely exclude a cellulitis. The lesion does not seem itchy which would make a bug bite less likely. She denies any repetitive motions that could have caused to repetitive motion injury. Ultimately I really was not certain as to the etiology of her problem. I decided that I would put her on a course of cephalexin in case this is a mild infectious process. I also fabricated a thumb spica splint to immobilize the thumb. This was done with cast padding, Orthoglass, and Mirza bandages. The patient will be discharged with instructions to keep the thumb immobilized with a thumb spica splint, to keep the hand elevated, to take the cephalexin as prescribed, and follow up with her regular doctor later this week. She should return to the emergency room if worse. Discharge Plan Discharge Clinical Impression: Right hand pain Patient Disposition: Home, Self-Care Additional Instructions: Is not clear what is causing the pain and redness in your right hand. Your hand has been splinted for comfort. Keep the hand elevated to the level of your heart or higher to reduce swelling and pain. You may use acetaminophen as needed for pain. The splint that was applied can be removed and reapplied. You may remove the splint from time to time to check on how your hand is doing. Please contact your regular doctor's office tomorrow morning to try to schedule a recheck appointment on Wednesday or . A prescription for an antibiotic has been sent to your pharmacy in case the redness is from an infection in your hand. Please take the antibiotic 4 times a day as prescribed. Return to the emergency room if significantly worse. Prescriptions: New cephalexin 500 mg capsule 500 mg PO QID Qty: 28 0RF No Action alcohol swabs Pads, Medicated 1 pad topical .4 times a day 30 Days Qty: 200 11RF omeprazole 20 mg capsule,delayed release(DR/EC) 20 mg PO DAILY 90 Days Qty: 90 3RF (DME) lancets [OneTouch UltraSoft Lancets] Misc See Rx Instructions .Route Qty: 100 6RF Rx Instructions: Use 1 lancet four times a day (DME) blood-glucose meter [OneTouch UltraMini] Kit See Rx Instructions .Route Qty: 1 0RF Rx Instructions: As directed Trulicity 0.75 mg/0.5 mL pen injector 0.75 mg subcut QWEEK 90 Days Qty: 6.5 1RF ferrous sulfate 325 mg (65 mg iron) tablet 325 mg PO DAILY Qty: 90 2RF (DME) pen needle, diabetic [BD Mansi 2nd Gen Pen Needle] 32 gauge x 5/32 needle See Rx Instructions .MEDSUPPLY Qty: 100 4RF Rx Instructions: twice a day cholecalciferol (vitamin D3) 50 mcg (2,000 unit) capsule 50 mcg PO DAILY 90 Days Qty: 90 3RF amlodipine 10 mg tablet 10 mg PO DAILY 90 Days Qty: 90 1RF (DME) OneTouch Ultra Test Strip See Rx Instructions .Route Qty: 100 6RF Rx Instructions: Use 1 lancet four times a day insulin degludec [Tresiba FlexTouch U-100] 100 unit/mL (3 mL) insulin pen 25 unit subcut DAILY 90 Days Qty: 22.5 6RF canagliflozin 100 mg tablet 100 mg PO DAILY 90 Days Qty: 90 1RF atorvastatin 80 mg tablet 80 mg PO BEDTIME 90 Days Qty: 90 1RF fenofibrate 54 mg tablet 54 mg PO DAILY 90 Days Qty: 90 1RF (DME) pen needle, diabetic 32 gauge x 5/32 needle See Rx Instructions subcut .MEDSUPPLY Qty: 200 5RF Rx Instructions: twice a day Biktarvy 50-200-25 mg tablet 1 tab PO DAILY 30 Days Qty: 30 5RF lisinopril 10 mg tablet 10 mg PO BID Qty: 60 3RF Referrals: Mishel Cummings MD [Primary Care Provider] - (Pain and redness in webspace between thumb and index finger of right hand) Interventions: ED Discharge Assessment Last Done: 04/24/24 22:34 Discharge Date/Time: 04/24/24 22:35 Print Language: Russian
[2024-04-24 21:40] VITALS: BP 189/88; PULSE 69; RESP 16; TEMP 36.8; O2SAT 97
[2024-04-24] MEDS: cephALEXin 500 MG CAPSULE PO (22:30)
[2024-04-24 22:34] VITALS: BP 189/88; PULSE 69; RESP 16; TEMP 36.8; O2SAT 97
== END 2024-04-24 22:35 | disposition home or self-care (01) ==
PROVIDERS: Emergency Provider Emergency Medicine; PCP Internal Medicine
DX: S69.91XA Unspecified injury of right wrist, hand and finger(s), initial encounter (principal); M79.644 Pain in right finger(s); E11.9 Type 2 diabetes mellitus without complications; X58.XXXA Exposure to other specified factors, initial encounter; Y33.XXXA Other specified events, undetermined intent, initial encounter; Y93.89 Activity, other specified; Y92.89 Other specified places as the place of occurrence of the external cause; Y99.8 Other external cause status; Z79.899 Other long term (current) drug therapy; Z79.01 Long term (current) use of anticoagulants
CPT/HCPCS: 29130; 73130; 99283; 99284

== ENCOUNTER 2024-05-05 13:15 | Outpatient (AMB) | payer OTHER, SELFPAY ==
--- NOTE | 2024-05-05 13:27 | HO.NEPHOV ---
Vital Signs 05/05/24 13:44 Height 4 ft 11 in Weight 118 lb 8 oz BMI 23.9 BP 184/80 H Blood Pressure Location Lt brachial Position Sitting Pulse 59 Pulse Source Pulse Oximeter Pulse Oximetry (%) 97 Oxygen Delivery Method Room Air Intake Visit Reasons: 2 mon follow up/ Conf Human Performance Professor Required: Yes Human Performance Professor Services: Human Performance Professor Present Human Performance Professor Name: Fernando [id number] Accompanied by: Self / Same As Patient Allergies crab Allergy (Severe, Verified 05/05/24 13:44) SWELLING amoxicillin [From Augmentin] Allergy (Mild, Verified 05/05/24 13:44) Abdominal Pain clavulanic acid [From Augmentin] Allergy (Mild, Verified 05/05/24 13:44) Abdominal Pain metformin Adverse Reaction (Intermediate, Verified 05/05/24 13:44) diarrhea HPI Comments Details: I had the pleasure of seeing Barbara in the office in follow-up of her chronic kidney disease, proteinuria, renal cyst and hypertension. Her blood sugar is better controlled. She has been feeling well. She is on CORNELIA-inhibitor. Her blood pressure has been at goal. She avoids taking nonsteroidal anti-inflammatories. Her viral load is undetectable and CD4 are very good. She had no specific complaints at the time this office visit. She continues to have nephrotic range proteinuria. She has no edema. 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 Hypertension Non-toxic multinodular goiter Diabetic retinopathy associated with type 2 diabetes mellitus CKD stage 3 due to type 2 diabetes mellitus Diabetic nephropathy associated with type 2 diabetes mellitus Dyslipidemia Diabetes type 2, controlled Hypovitaminosis D Surgical History H/O colonoscopy (08/13/20) Hx of bilateral cataract extraction History of hysterectomy with unilateral oophorectomy Hx of section Hx of thyroidectomy Family History Father Liver disease Mother Hypertension CVD (cardiovascular disease) Renal disease Hyperlipidemia ESRD on hemodialysis Paternal Aunt Glaucoma Social History Household Members: Other Household Members Other:: grandson Housing: House Alcohol intake: never Patient Tobacco Use Status: Never used Tobacco e-Cigarette/Vaping Use: Never Used Second Hand Smoke Exposure: No Advance Directives Date on File: 07/01/21 service: No Current occupational status: unemployed Cognitive needs: No Hearing needs: No Vision needs: No Review of Systems Const All systems reviewed & are unremarkable except as noted in HPI and below Physical Exam Vital Signs: Last Vital Signs Pulse 59 05/05/24 13:44 BP 184/80 H 05/05/24 13:44 Pulse Ox 97 05/05/24 13:44 Oxygen Delivery Method Room Air 05/05/24 13:44 BMI result Body Mass Index 23.9 Const General: comfortable and no acute distress Orientation/consciousness: patient oriented x3 HEENT Head: Yes normocephalic Mouth: Normal oral and palatal mucosa present Eyes EOM: EOMs intact bilaterally Neck Neck: Yes supple Resp Auscultation: clear to auscultation bilaterally Cardio Jugular venous distension: no JVD Rate: regular rate GI Palpation (GI): Soft to palpation Auscultation: normal bowel sounds General: Yes no CVA tenderness Back/Spine/Pelvis Back: no CVA tenderness Skin General skin exam: no rashes or lesions noted Neuro General: patient oriented x3 and moves all extremities Extrem General: Yes no pedal edema Results Reviewed Nephrology Results: Hgb 11.6 g/dl (12.0-16.0) L 03/23/24 WBC 6.0 X10*3/uL (4.8-10.8) 03/23/24 Plt Count 227 X10*3/uL (160-400) 03/23/24 Sodium 138 mmol/L (135-145) 03/23/24 Potassium 4.0 mmol/L (3.3-5.1) 03/23/24 Chloride 104 mmol/L (96-108) 03/23/24 Carbon Dioxide 21 mmol/L (22-29) L 03/23/24 BUN 18 mg/dL (9-16) H 03/23/24 Creatinine 1.38 mg/dL (0.5-1.4) 03/23/24 Calcium 9.5 mg/dL (8.4-10.2) 02/03/24 Urine Creatinine 96.11 mg/dL 03/23/24 Protein/Creatinin Ratio 4.86 (<0.2) H 03/23/24 Assessment & Plan Assessment & Plan (1) CKD stage 3 due to type 2 diabetes mellitus: Code(s): E11.22 - Type 2 diabetes mellitus with diabetic chronic kidney disease; N18.30 - Chronic kidney disease, stage 3 unspecified Category: Medical (2) Diabetic nephropathy associated with type 2 diabetes mellitus: Code(s): E11.21 - Type 2 diabetes mellitus with diabetic nephropathy Category: Medical (3) Hypovitaminosis D: Code(s): E55.9 - Vitamin D deficiency, unspecified Category: Medical (4) Hypertension: Code(s): I10 - Essential (primary) hypertension Category: Medical Qualifiers: Hypertension type: essential hypertension Qualified Code(s): I10 - Essential (primary) hypertension Plan Barbara has a significant proteinuria, but stable. Her renal functions had been fairly stable. Her blood pressure control is optimal. She is on CORNELIA-inhibitor. I had increased her lisinopril to 20 mg bid. She had an incidental finding of left renal cyst which will need a follow-up renal ultrasound. She has had HIV which is well controlled. She avoids nonsteroidal anti-inflammatories. I have ordered repeat blood work and urine studies. She most likely will need renal biopsy soon. I did not make any other medication changes today. All questions answered. Follow-up given Orders: Orders Creatinine Today E11.21 - Type 2 diabetes mellitus with diabetic nephropathy, E11.22 - Type 2 diabetes mellitus with diabetic chronic kidney disease, N18.30 - Chronic kidney disease, stage 3 unspecified Blood Urea Nitrogen Today E11.21 - Type 2 diabetes mellitus with diabetic nephropathy, E11.22 - Type 2 diabetes mellitus with diabetic chronic kidney disease, N18.30 - Chronic kidney disease, stage 3 unspecified Electrolytes Today E11.21 - Type 2 diabetes mellitus with diabetic nephropathy, E11.22 - Type 2 diabetes mellitus with diabetic chronic kidney disease, N18.30 - Chronic kidney disease, stage 3 unspecified Protein Creatinine Ratio, Ur Today E11.21 - Type 2 diabetes mellitus with diabetic nephropathy, E11.22 - Type 2 diabetes mellitus with diabetic chronic kidney disease, N18.30 - Chronic kidney disease, stage 3 unspecified Medications: Changed From lisinopril 10 mg PO BID 60 tabs 3RF To lisinopril 20 mg PO BID 30 days 60 tabs 3RF Coding Level of Care Code Est Pt Level 4 (08803) Diagnoses CKD stage 3 due to type 2 diabetes mellitus E11.22; N18.30 Diabetic nephropathy associated with type 2 diabetes mellitus E11.21 Hypovitaminosis D E55.9 Essential hypertension I10 Hypertension type: essential hypertension
[2024-05-05 13:44] VITALS: BP 184/80; PULSE 59; O2SAT 97; BMI 23.9
== END 2024-05-05 13:52 | disposition home or self-care (01) ==
PROVIDERS: PCP Internal Medicine; Visit Provider Internal Medicine Nephrology
DX: E11.22 Type 2 diabetes mellitus with diabetic chronic kidney disease (principal); N18.30 Chronic kidney disease, stage 3 unspecified; E11.21 Type 2 diabetes mellitus with diabetic nephropathy; E55.9 Vitamin D deficiency, unspecified; I10 Essential (primary) hypertension
CPT/HCPCS: 99214

== ENCOUNTER → 2024-05-05 13:15 | Outpatient (BNVA) | payer OTHER, SELFPAY | PROVIDERS: PCP Internal Medicine; Visit Provider Internal Medicine Nephrology | DX: E11.22 Type 2 diabetes mellitus with diabetic chronic kidney disease (principal); E11.21 Type 2 diabetes mellitus with diabetic nephropathy; I12.9 Hypertensive chronic kidney disease with stage 1 through stage 4 chronic kidney disease, or unspecified chronic kidney disease; N18.30 Chronic kidney disease, stage 3 unspecified; E55.9 Vitamin D deficiency, unspecified; Z21 Asymptomatic human immunodeficiency virus [HIV] infection status | CPT/HCPCS: 99212 ==

== ENCOUNTER 2024-05-10 12:21 | Outpatient (AMB) | payer OTHER, SELFPAY ==
[2024-05-10 12:36] VITALS: BP 172/78; BMI 23.8
--- NOTE | 2024-05-10 12:36 | MHC.PC.OV ---
Vital Signs 05/10/24 12:36 Height 4 ft 11 in Weight 118 lb BMI 23.8 BP 172/78 H Blood Pressure Location Lt brachial Position Sitting Intake Visit Reasons: C 7/15 fingers swollen Watch Train Inspector Required: No Accompanied by: Self / Same As Patient Allergies crab Allergy (Severe, Verified 05/10/24 13:01) SWELLING amoxicillin [From Augmentin] Allergy (Mild, Verified 05/10/24 13:01) Abdominal Pain clavulanic acid [From Augmentin] Allergy (Mild, Verified 05/10/24 13:01) Abdominal Pain metformin Adverse Reaction (Intermediate, Verified 05/10/24 13:01) diarrhea Medication List - Last Reconciled 05/10/24 by Mishel Rao MD alcohol swabs 1 pad topical .4 times a day 30 days amlodipine 20 mg PO DAILY atorvastatin 80 mg PO BEDTIME 90 days bnikctfqv-hwmegorw-svoncar ala 50-200-25 mg (Biktarvy) 1 tab PO DAILY 30 days blood sugar diagnostic (A.B ProductionsTouch Ultra Test strips) Use 1 lancet four times a day blood-glucose meter (A.B ProductionsTouch UltraMini kit) As directed canagliflozin 100 mg PO DAILY 90 days cholecalciferol (vitamin D3) 50 mcg PO DAILY 90 days dulaglutide (Trulicity) 0.75 mg (0.5 mL) subcut QWEEK 90 days fenofibrate 54 mg PO DAILY 90 days ferrous sulfate 325 mg PO DAILY insulin degludec (Tresiba FlexTouch U-100 insulin) 25 units (0.25 mL) subcut DAILY 90 days lancets (OneTouch UltraSoft Lancets) Use 1 lancet four times a day lisinopril 20 mg PO BID 30 days omeprazole 20 mg PO DAILY 90 days pen needle, diabetic (BD Mansi 2nd Gen Pen Needle) twice a day pen needle, diabetic twice a day Tobacco use date assessed: 02/09/24 Fall risk assessment: No Falls in past year Last assessed Fall Risk: 05/10/24 Dental Screening Dental Screen Date: 02/09/24 HPI HPI Comments History of Present Illness Details This is a 68-year-old female with hypertension, hyperlipidemia, diabetes mellitus type 2 on long-term current use of insulin, chronic kidney disease stage 3, HIV and hyperlipidemia that comes today as hospital discharge follow-up due to a swollen finger which resolve on its own. X-ray was normal. Blood pressure elevated and she declines having an increase or change in her medications. She said she follows with Nephrology regarding that matter. Last LDL was within goal. A1c elevated but improving and she also declines any change in her medications. Patient is aware that elevated blood pressure and uncontrolled blood glucose can cause heart attack, stroke and . Last GFR was 38 and is follow by Nephrology. Her HIV is follow by ID which has been stable with medication. No opportunistic infection. 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 Hypertension Non-toxic multinodular goiter Diabetic retinopathy associated with type 2 diabetes mellitus CKD stage 3 due to type 2 diabetes mellitus Diabetic nephropathy associated with type 2 diabetes mellitus Dyslipidemia Diabetes type 2, controlled Hypovitaminosis D Surgical History H/O colonoscopy (08/13/20) Hx of bilateral cataract extraction History of hysterectomy with unilateral oophorectomy Hx of section Hx of thyroidectomy Family History Father Liver disease Mother Hypertension CVD (cardiovascular disease) Renal disease Hyperlipidemia ESRD on hemodialysis Paternal Aunt Glaucoma Social History Household Members: Other Household Members Other:: grandson Housing: House Alcohol intake: never Patient Tobacco Use Status: Never used Tobacco e-Cigarette/Vaping Use: Never Used Second Hand Smoke Exposure: No Advance Directives Date on File: 07/01/21 service: No Current occupational status: unemployed Cognitive needs: No Hearing needs: No Vision needs: No Questionnaire Thrive Questionnaire Date Thrive assessed: 02/09/24 KB-7 AMB Questionnaire KB-7 Date KB - 7 assessed: 02/09/24 Source: Developed by Drs. Renny Brown, Dayanna Otoole, Bernardo Caruso and colleagues, with an educational sim from [employer]. Review of Systems Const All systems reviewed & are unremarkable except as noted in HPI and below Card Denies chest pain at rest, Denies chest pain with activity, Denies edema, Denies irregular heart rhythm, Denies claudication, Denies dyspnea, Denies dyspnea on exertion, Denies orthopnea, Denies paroxysmal nocturnal dyspnea and Denies slow heart rate Resp Denies cough, Denies dyspnea and Denies dyspnea on exertion GI Denies abdominal pain, Denies change in bowel habits, Denies excessive flatus, Denies nausea and Denies vomiting Physical exam (Primary Care) Vital Signs: Last Vital Signs BP 172/78 H 05/10/24 12:36 BMI result Body Mass Index 23.8 Tobacco/Smoking Status: Tobacco use Status Tobacco use date assessed 02/09/24 05/10/24 12:40 Patient Tobacco Use Status Never used Tobacco 05/10/24 12:40 e-Cigarette/Vaping Use Never Used 05/10/24 12:40 Thrive Assessment: Date of Thrive Assessment Date Thrive assessed 02/09/24 05/10/24 12:40 Resp Effort & Inspection: normal respiratory effort Auscultation: clear to auscultation bilaterally Cardio Jugular venous distension: no JVD Rate: regular rate Rhythm: regular rhythm Heart sounds: S1 normal heart sound present and S2 normal heart sound present Extrem General: Yes full ROM Results AMB Hemoglobin A1c AMB Hemoglobin A1c 8.2 % Last Edit by JULIO CÉSAR Winkler on 05/10/24 12:46 Results Reviewed Results Reviewed: Laboratory Last Values Hgb A1c (Clinic) 8.2 % (4.0-6.0) H 05/10/24 12:42 Assessment and Plan Assessment & Plan (1) Diabetes mellitus, with long-term current use of insulin: Code(s): E11.9 - Type 2 diabetes mellitus without complications; 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 A1c goal is equal or less than 7%. (2) Hyperlipidemia LDL goal <70: Code(s): E78.5 - Hyperlipidemia, unspecified Plan: Continue statins. LDL goal less than 70. (3) 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 infection): Comment: She is doing well and CD4 count and viral load good on Biktarvy. However GFR is down to 35. Code(s): B20 - Human immunodeficiency virus [HIV] disease Qualifiers: HIV symptom status: asymptomatic, with no history of HIV-related illness Qualified Code(s): Z21 - Asymptomatic human immunodeficiency virus [HIV] infection status Plan: Continue Biktarvy. Follow-up with ID. (4) CKD stage 3 due to type 2 diabetes mellitus: Code(s): E11.22 - Type 2 diabetes mellitus with diabetic chronic kidney disease; N18.30 - Chronic kidney disease, stage 3 unspecified Plan: Avoid NSAIDs. Blood pressure goal is less than 130/80. Follows up with Nephrology. (5) Hypertension: Code(s): I10 - Essential (primary) hypertension Qualifiers: Hypertension type: essential hypertension Qualified Code(s): I10 - Essential (primary) hypertension Plan: Continue lisinopril and amlodipine. Follow-up with nephrology. Blood pressure will be recheck in 3 weeks by nurse navigator. Blood pressure goal is equal or less than 130/80. 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
== END 2024-05-10 13:11 | disposition home or self-care (01) ==
PROVIDERS: PCP Internal Medicine; Visit Provider Internal Medicine
DX: E11.22 Type 2 diabetes mellitus with diabetic chronic kidney disease (principal); N18.30 Chronic kidney disease, stage 3 unspecified; Z79.4 Long term (current) use of insulin; Z21 Asymptomatic human immunodeficiency virus [HIV] infection status; E78.5 Hyperlipidemia, unspecified; I10 Essential (primary) hypertension
CPT/HCPCS: 83036; 99214; G2211

== ENCOUNTER 2024-05-22 08:01 | Outpatient (REF) | payer OTHER, SELFPAY ==
[2024-05-22 08:16] LABS: MANUAL DIFF FLAG NO
[2024-05-22 08:55] LABS: Basophils Percent Auto 0.5 % (0-2); Eosinophils Absolute Auto 0.1 X10*3/uL (0.0-0.4); Eosinophils Percent Auto 1.2 % (0-4); Hemoglobin 11.7 g/dl (12.0-16.0); Imm Gran Abs Auto 0.01 X10*3/uL (0.00-0.03); Imm Gran Pct Auto 0.2 % (0.0-0.4); Lymphocytes Percent Auto 34.4 % (20-40); Mean Corpuscular HGB Conc 31.6 g/dl (31.0-35.0); Mean Corpuscular Hemoglobin 26.6 pg (27.0-33.0); Mean Corpuscular Volume 84.1 fL (80.0-98.0); Mean Platelet Volume 12.5 fL (9.4-12.3); Monocytes Absolute Auto 0.6 X10*3/uL (0.1-1.2); Monocytes Percent Auto 9.6 % (2-11); Neutrophils Absolute Auto 3.1 x10*3/uL (2.0-8.3); Neutrophils Percent Auto 54.1 % (45-73); Platelet Count 244 X10*3/uL (160-400); Red Cell Distribution Width 12.9 % (11.0-16.0); White Blood Count 5.7 X10*3/uL (4.8-10.8)
[2024-05-22 09:33] LABS: Alanine Aminotransferase 17 U/L (0-31); Albumin Level 3.4 g/dL (3.5-5.0); Alkaline Phosphatase 77 U/L (39-117); Anion Gap 17 (12-20); Aspartate Amino Transferase 19 U/L (5-31); Bilirubin Direct < 0.2 mg/dL (0.0-0.5); Bilirubin Total 0.2 mg/dL (0.0-1.0); Blood Urea Nitrogen 23 mg/dL (9-16); Calcium 9.7 mg/dL (8.4-10.2); Carbon Dioxide 22 mmol/L (22-29); Chloride 103 mmol/L (96-108); Estimated Glomerular Filt Rate 31; Glucose Random 226 mg/dL (60-115); Sodium 138 mmol/L (135-145); Total Protein 7.9 g/dL (6.5-8.0)
[2024-05-22 09:54] LABS: ~HepC Num1 0.59 S/CO (0.00-0.79); ~Hepatitis C Antibody Nonreactive (Nonreactive)
[2024-05-24 06:34] LABS: HIV RNA PCR Qn Copies NOT DETECTED copies/mL (NOT DETECTED); HIV RNA PCR Qn Log Copies NOT DETECTED (NOT DETECTED)
[2024-05-24 07:22] LABS: HCV Log PCR <1.18 NOT DETECTED Log IU/mL (NOT DETECTED); HepC Viral Load <15 NOT DETECTED IU/mL (NOT DETECTED)
[2024-05-25 18:23] LABS: Absolute CD3 Count 1662 cells/uL (840-3060); Absolute CD4 Count 509 cells/uL (490-1740); Absolute CD8 Count 1158 cells/uL (180-1170); Absolute Lymphocytes 2125 cells/uL (850-3900); CD4 CD8 Ratio 0.44 (0.86-5.00); Percent CD3 Cells 78 % (57-85); Percent CD4 Cells 24 % (30-61); Percent CD8 Cells 55 % (12-42)
== END 2024-05-22 08:02 | disposition home or self-care (01) ==
LOC: HO.LAB 08:01
PROVIDERS: PCP Internal Medicine; Visit Provider Internal Medicine
DX: B20 Human immunodeficiency virus [HIV] disease (principal)
CPT/HCPCS: 36415; 80048; 80076; 85025; 86359; 86360; 86803; 87522; 87536

== ENCOUNTER 2024-06-05 13:42 | Outpatient (AMB) | payer OTHER, MEDICAID, SELFPAY ==
[2024-06-05 13:55] VITALS: BP 184/90; PULSE 74; O2SAT 98; BMI 24.2
--- NOTE | 2024-06-05 13:55 | MHC.OFFVIS ---
Vital Signs 06/05/24 13:55 Height 4 ft 11 in Weight 120 lb BMI 24.2 BP 184/90 H Blood Pressure Location Lt brachial Position Sitting Pulse 74 Pulse Source Pulse Oximeter Pulse Oximetry (%) 98 Oxygen Delivery Method Room Air Intake Visit Reasons: 6 month hiv lab follow up Electro Mechanical Solar Technician Required: Yes Electro Mechanical Solar Technician Services: Electro Mechanical Solar Technician Present Electro Mechanical Solar Technician Name: Celia Childress CMA Information Interpreted: clinical only Allergies crab Allergy (Severe, Verified 06/05/24 13:56) SWELLING amoxicillin [From Augmentin] Allergy (Mild, Verified 06/05/24 13:56) Abdominal Pain clavulanic acid [From Augmentin] Allergy (Mild, Verified 06/05/24 13:56) Abdominal Pain metformin Adverse Reaction (Intermediate, Verified 06/05/24 13:56) diarrhea HPI HPI 6 month hiv lab follow up: Details: She is feeling well. She has CD4 count of 509 and viral load undetectable on 05/22. She has GFR of 31. She is not taking omeprazole anymore. [facility] Medical History Sinusitis Hepatitis Normocytic anemia 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 infection) Pure hypercholesterolemia Essential hypertension Sessile colonic polyp 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 infection) correction (current) use of insulin Hypertension Non-toxic multinodular goiter Diabetic retinopathy associated with type 2 diabetes mellitus CKD stage 3 due to type 2 diabetes mellitus Diabetic nephropathy associated with type 2 diabetes mellitus Dyslipidemia Diabetes type 2, controlled Hypovitaminosis D Surgical History H/O colonoscopy (08/13/20) Hx of bilateral cataract extraction History of hysterectomy with unilateral oophorectomy Hx of section Hx of thyroidectomy Family History Father Liver disease Mother Hypertension CVD (cardiovascular disease) Renal disease Hyperlipidemia ESRD on hemodialysis Paternal Aunt Glaucoma Social History Household Members: Other Household Members Other:: grandson Housing: House Alcohol intake: never Patient Tobacco Use Status: Never used Tobacco e-Cigarette/Vaping Use: Never Used Second Hand Smoke Exposure: No Advance Directives Date on File: 07/01/21 service: No Current occupational status: unemployed Cognitive needs: No Hearing needs: No Vision needs: No Review of Systems Const All systems reviewed & are unremarkable except as noted in HPI and below Physical Exam Vital Signs: Last Vital Signs Pulse 74 06/05/24 13:55 BP 184/90 H 06/05/24 13:55 Pulse Ox 98 06/05/24 13:55 Oxygen Delivery Method Room Air 06/05/24 13:55 BMI result Body Mass Index 24.2 Const General: cooperative Orientation/consciousness: patient oriented x3 HEENT Head: Yes normal to inspection Mouth: Normal oral and palatal mucosa present Eyes General: appearance normal, both eyes and all related structures Pupils: Equal, round and reactive pupils present Resp Effort & Inspection: normal respiratory effort Cardio Rate: regular rate Rhythm: regular rhythm GI Palpation (GI): Soft to palpation and nontender General: Yes no CVA tenderness Back/Spine/Pelvis Back: no CVA tenderness Skin General skin exam: no rashes or lesions noted Neuro General: patient oriented x3 Cranial nerves: Yes CN's II-XII intact bilaterally and Yes Equal, round and reactive pupils present Extrem General: Yes normal to inspection Psych Appearance: grossly normal Assessment & Plan Assessment & Plan (1) 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 infection): Comment: She is doing well and CD4 count and viral load good on Biktarvy. However GFR is down to 35. Code(s): B20 - Human immunodeficiency virus [HIV] disease Category: Medical Qualifiers: HIV symptom status: asymptomatic, with no history of HIV-related illness Qualified Code(s): Z21 - Asymptomatic human immunodeficiency virus [HIV] infection status Plan: Change to [place] with food. Stop Biktarvy due to decreased GFR. See in 3-4 months with viral load for HIV before visit. Coding Level of Care Code Est Pt Level 4 (30957) Diagnoses Asymptomatic HIV infection, with no history of HIV-related illness Z21 HIV symptom status: asymptomatic, with no history of HIV-related illness
== END 2024-06-05 14:39 | disposition home or self-care (01) ==
LOC: HO.HID 13:42
PROVIDERS: PCP Internal Medicine; Visit Provider Internal Medicine
DX: Z21 Asymptomatic human immunodeficiency virus [HIV] infection status (principal)
CPT/HCPCS: 99214

== ENCOUNTER → 2024-06-05 13:42 | Outpatient (BNVA) | payer OTHER, MEDICAID, SELFPAY | PROVIDERS: PCP Internal Medicine; Visit Provider Internal Medicine | DX: Z21 Asymptomatic human immunodeficiency virus [HIV] infection status (principal) | CPT/HCPCS: 99212 ==

== ENCOUNTER 2024-06-22 10:05 | Outpatient (AMB) | payer OTHER, SELFPAY ==
[2024-06-22 10:15] VITALS: BP 178/84; BMI 23.6
--- NOTE | 2024-06-22 10:15 | MHC.PC.OV ---
Vital Signs 06/22/24 10:15 06/22/24 10:45 Height 4 ft 11 in Weight 117 lb BMI 23.6 BP 178/84 H 170/80 H Blood Pressure Location Lt brachial Lt brachial Position Sitting Sitting Intake Visit Reasons: 3 Month F/U Intake Note: Patient here for a 3 month follow up Gang Mower Operator Required: No Accompanied by: Self / Same As Patient Allergies crab Allergy (Severe, Verified 06/22/24 10:45) SWELLING amoxicillin [From Augmentin] Allergy (Mild, Verified 06/22/24 10:45) Abdominal Pain clavulanic acid [From Augmentin] Allergy (Mild, Verified 06/22/24 10:45) Abdominal Pain metformin Adverse Reaction (Intermediate, Verified 06/22/24 10:45) diarrhea Medication List - Last Reconciled 06/22/24 by Mishel Rao MD alcohol swabs 1 pad topical .4 times a day 30 days amlodipine 10 mg PO DAILY 90 days atorvastatin 80 mg PO BEDTIME 90 days injpelqol-tjyqociy-dknrupo ala 50-200-25 mg (Biktarvy) 1 tab PO DAILY 30 days blood pressure monitor As directed blood sugar diagnostic (Catalyst Repository SystemsTouch Ultra Test strips) Use 1 lancet four times a day blood-glucose meter (Catalyst Repository SystemsTouch UltraMini kit) As directed canagliflozin (Invokana) 300 mg PO DAILY 90 days cholecalciferol (vitamin D3) 50 mcg PO DAILY 90 days dulaglutide (Trulicity) 0.75 mg (0.5 mL) subcut QWEEK 90 days fenofibrate 54 mg PO DAILY 90 days ferrous sulfate 325 mg PO DAILY insulin degludec (Tresiba FlexTouch U-100 insulin) 25 units (0.25 mL) subcut DAILY 90 days lancets (Catal[employer] Repository SystemsTouch UltraSoft Lancets) Use 1 lancet four times a day lisinopril 20 mg PO BID 30 days omeprazole 20 mg PO DAILY 90 days pen needle, diabetic (BD Mansi 2nd Gen Pen Needle) twice a day pen needle, diabetic twice a day Tobacco use date assessed: 02/09/24 Fall risk assessment: No Falls in past year Last assessed Fall Risk: 06/22/24 Dental Screening Dental Screen Date: 06/22/24 Did you have a dental visit in the last 12 months?: Yes Did you have a dental problem in the last 6 months where you did not have access to dental care?: No Was dental information given to patient?: Patient has dentist HPI HPI Comments History of Present Illness Details This is a 68-year-old female with hypertension, diabetes mellitus type 2 on long-term current use of insulin, hyperlipidemia, HIV and chronic kidney disease stage 3 that comes today complaining of left knee pain that started few weeks ago associated with some limping. Denies previous trauma. X-ray will be ordered. Blood pressure elevated but she just took her medications. Last A1c was improving but still elevated and I will increase Invokana from 100 mg to 300 mg. Lipid panel was order and her LDL goal should be less than 70. HIV stable with meds and follow by ID. GFR decreased from 38 to 31 and this is follow by Nephrology. No chest pain or shortness on breath. 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 Hypertension Non-toxic multinodular goiter Diabetic retinopathy associated with type 2 diabetes mellitus CKD stage 3 due to type 2 diabetes mellitus Diabetic nephropathy associated with type 2 diabetes mellitus Dyslipidemia Diabetes type 2, controlled Hypovitaminosis D Surgical History H/O colonoscopy (08/13/20) Hx of bilateral cataract extraction History of hysterectomy with unilateral oophorectomy Hx of section Hx of thyroidectomy Family History Father Liver disease Mother Hypertension CVD (cardiovascular disease) Renal disease Hyperlipidemia ESRD on hemodialysis Paternal Aunt Glaucoma Social History Household Members: Other Household Members Other:: grandson Housing: House Alcohol intake: never Patient Tobacco Use Status: Never used Tobacco e-Cigarette/Vaping Use: Never Used Second Hand Smoke Exposure: No Advance Directives Date on File: 07/01/21 service: No Current occupational status: unemployed Cognitive needs: No Hearing needs: No Vision needs: No Questionnaire Thrive Questionnaire Date Thrive assessed: 02/09/24 KB-7 AMB Questionnaire KB-7 Date KB - 7 assessed: 02/09/24 Source: Developed by Drs. Renny Brown, Dayanna Otoole, Bernardo Caruso and colleagues, with an educational sim from [employer]. Review of Systems Const All systems reviewed & are unremarkable except as noted in HPI and below Card Denies chest pain at rest, Denies chest pain with activity, Denies edema, Denies irregular heart rhythm, Denies claudication, Denies dyspnea, Denies dyspnea on exertion, Denies orthopnea, Denies paroxysmal nocturnal dyspnea and Denies slow heart rate Resp Denies cough, Denies dyspnea and Denies dyspnea on exertion GI Denies abdominal pain, Denies change in bowel habits, Denies excessive flatus, Denies nausea and Denies vomiting Denies urinary incontinence, Denies urinary hesitancy and Denies urinary urgency Musc Denies abnormal gait, Denies atrophy, Denies deformity and Denies limited range of motion Skin/Breast Denies bleeding lesions, Denies changing lesions and Denies rash Neuro Denies abnormal gait, Denies behavioral changes and Denies lack of coordination Psych Denies behavioral changes Physical exam (Primary Care) Vital Signs: Last Vital Signs BP 170/80 H 06/22/24 10:45 BMI result Body Mass Index 23.6 Tobacco/Smoking Status: Tobacco use Status Tobacco use date assessed 02/09/24 06/22/24 10:22 Patient Tobacco Use Status Never used Tobacco 06/22/24 10:22 e-Cigarette/Vaping Use Never Used 06/22/24 10:22 Thrive Assessment: Date of Thrive Assessment Date Thrive assessed 02/09/24 06/22/24 10:22 Resp Effort & Inspection: normal respiratory effort Auscultation: clear to auscultation bilaterally Cardio Jugular venous distension: no JVD Rate: regular rate Rhythm: regular rhythm Heart sounds: S1 normal heart sound present and S2 normal heart sound present Extrem General: Yes full ROM Assessment and Plan Assessment & Plan (1) Diabetes mellitus, with long-term current use of insulin: Code(s): E11.9 - Type 2 diabetes mellitus without complications; Z79.4 - halfway (current) use of insulin Qualifiers: Diabetes mellitus type: type 2 Diabetes mellitus complication status: with hyperglycemia Qualified Code(s): E11.65 - Type 2 diabetes mellitus with hyperglycemia; Z79.4 - halfway (current) use of insulin Plan: Continue insulin. Continue Trulicity. Increase Invokana from 100 mg to 300 mg. A1c goal is equal or less than 7%. (2) Hyperlipidemia LDL goal <70: Code(s): E78.5 - Hyperlipidemia, unspecified Plan: Continue statins. Repeat lipid panel. LDL goal is less than 70. (3) Left knee pain: Code(s): M25.562 - Pain in left knee Qualifiers: Chronicity: acute Qualified Code(s): M25.562 - Pain in left knee Plan: X-ray ordered. (4) 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 infection): Comment: She is doing well and CD4 count and viral load good on Biktarvy. However GFR is down to 35. Code(s): B20 - Human immunodeficiency virus [HIV] disease Qualifiers: HIV symptom status: asymptomatic, with no history of HIV-related illness Qualified Code(s): Z21 - Asymptomatic human immunodeficiency virus [HIV] infection status Plan: Continue Biktarvy. Follow-up with ID. (5) CKD stage 3 due to type 2 diabetes mellitus: Code(s): E11.22 - Type 2 diabetes mellitus with diabetic chronic kidney disease; N18.30 - Chronic kidney disease, stage 3 unspecified Plan: Avoid NSAIDs. Blood pressure goal is equal or less than 130/80. Follow-up with nephrology. (6) Essential hypertension: Code(s): I10 - Essential (primary) hypertension Plan: Continue amlodipine and lisinopril. Blood pressure goal is equal or less than 130/80. Orders: Orders Comprehensive [place]. Panel Fast 4 Months E11.9 - Type 2 diabetes mellitus without complications, Z79.4 - joint setter (current) use of insulin Lipid Panel 4 Months E78.5 - Hyperlipidemia, unspecified Microalbumin, Random (w Creat) 4 Months E11.9 - Type 2 diabetes mellitus without complications Vitamin D 25-OH Total 4 Months E55.9 - Vitamin D deficiency, unspecified Vitamin B12 and Folate 4 Months E53.8 - Deficiency of other specified B group vitamins Complete Blood Count Auto Diff 4 Months D64.9 - Anemia, unspecified IRON PROFILE 4 Months D64.9 - Anemia, unspecified XR knee LT 2V Today M25.562 - Pain in left knee Medications: New canagliflozin (Invokana) 300 mg PO DAILY 90 tabs 1RF 90 days E11.9 - Type 2 diabetes mellitus without complications, Z79.4 - halfway (current) use of insulin Discontinued canagliflozin Discontinued Reason: Patient Completed Course 100 mg PO DAILY 90 days 90 tabs 1RF E11.9 - Type 2 diabetes mellitus without complications Coding Level of Care Code Est Pt Level 4 (41958) Complex EM visit Add On [id number] Diagnoses Type 2 diabetes mellitus with hyperglycemia, with long-term current use of insulin E11.65; Z79.4 Diabetes mellitus type: type 2 Diabetes mellitus complication status: with hyperglycemia Hyperlipidemia LDL goal <70 E78.5 Acute pain of left knee M25.562 Chronicity: acute Asymptomatic HIV infection, with no history of HIV-related illness Z21 HIV symptom status: asymptomatic, with no history of HIV-related illness CKD stage 3 due to type 2 diabetes mellitus E11.22; N18.30 Essential hypertension I10 Time Spent (min) 25
[2024-06-22 10:45] VITALS: BP 170/80
== END 2024-06-22 10:46 | disposition home or self-care (01) ==
PROVIDERS: PCP Internal Medicine; Visit Provider Internal Medicine
DX: E11.65 Type 2 diabetes mellitus with hyperglycemia (principal); Z79.4 Long term (current) use of insulin; E78.5 Hyperlipidemia, unspecified; Z21 Asymptomatic human immunodeficiency virus [HIV] infection status; M25.562 Pain in left knee; I10 Essential (primary) hypertension
CPT/HCPCS: 99214; G2211

== ENCOUNTER 2024-06-22 10:54 | Outpatient (REF) | payer OTHER, SELFPAY ==
--- NOTE | ~2024-06-22 | XR_ITS ---
EXAMINATION: XR KNEE, LEFT CLINICAL INFORMATION: M25.562 - Pain in left knee COMPARISON: None available. TECHNIQUE: AP and lateral views of the left knee. FINDINGS: Meniscal chondrocalcinosis. No significant joint space narrowing. No fracture. No joint effusion. Prominent vascular calcifications. XR/XR knee LT 2V IMPRESSION: Meniscal chondrocalcinosis. No significant joint space narrowing. No fracture. Electronically signed by: Benedicto Marie MD 06/28/2024 01:34 PM EDT
== END 2024-06-22 10:55 | disposition home or self-care (01) ==
LOC: HO.XRAY 10:54
PROVIDERS: PCP Internal Medicine; Visit Provider Internal Medicine
DX: M25.562 Pain in left knee (principal)
CPT/HCPCS: 73560

== ENCOUNTER 2024-07-13 07:44 | Outpatient (REF) | payer OTHER, SELFPAY ==
[2024-07-13 08:08] LABS: MANUAL DIFF FLAG NO
[2024-07-13 08:52] LABS: Basophils Percent Auto 0.6 % (0-2); Eosinophils Absolute Auto 0.1 X10*3/uL (0.0-0.4); Eosinophils Percent Auto 1.5 % (0-4); Hematocrit 37.6 % (37.0-47.0); Hemoglobin 11.8 g/dl (12.0-16.0); Imm Gran Abs Auto 0.01 X10*3/uL (0.00-0.03); Imm Gran Pct Auto 0.2 % (0.0-0.4); Lymphocytes Absolute Auto 1.7 X10*3/uL (1.2-4.9); Lymphocytes Percent Auto 31.8 % (20-40); Mean Corpuscular HGB Conc 31.4 g/dl (31.0-35.0); Mean Corpuscular Hemoglobin 26.3 pg (27.0-33.0); Mean Corpuscular Volume 83.9 fL (80.0-98.0); Mean Platelet Volume 12.2 fL (9.4-12.3); Monocytes Absolute Auto 0.5 X10*3/uL (0.1-1.2); Monocytes Percent Auto 8.9 % (2-11); Platelet Count 230 X10*3/uL (160-400); Red Blood Count 4.48 X10*6/uL (4.20-5.50); Red Cell Distribution Width 12.7 % (11.0-16.0); White Blood Count 5.2 X10*3/uL (4.8-10.8)
[2024-07-13 09:18] LABS: Alanine Aminotransferase 18 U/L (0-31); Albumin Level 3.2 g/dL (3.5-5.0); Alkaline Phosphatase 84 U/L (39-117); Anion Gap 15 (12-20); Aspartate Amino Transferase 20 U/L (5-31); Bilirubin Total 0.2 mg/dL (0.0-1.0); Blood Urea Nitrogen 26 mg/dL (9-16); Calcium 9.6 mg/dL (8.4-10.2); Carbon Dioxide 26 mmol/L (22-29); Chloride 102 mmol/L (96-108); Cholesterol 348 mg/dL (<200); Estimated Glomerular Filt Rate 26; Glucose Fasting 333 mg/dL (60-99); HDL Cholesterol 36 mg/dL (>40); Iron 57 mcg/dL (30-160); Percent Iron Saturation 26 % (15-50); Potassium 4.5 mmol/L (3.3-5.1); Sodium 138 mmol/L (135-145); Total Iron Binding Capacity 216 mcg/dL (228-428); Total Protein 7.2 g/dL (6.5-8.0); Triglycerides 1010 mg/dL (<150); Unsaturated Iron Binding 159 ug/dL
[2024-07-13 09:42] LABS: Creatinine Urine 119.24 mg/dL
[2024-07-13 09:53] LABS: Microalbum/Creatinine Ratio Ur 1677.2 ug/mg cr (<30); Microalbumin Urine > 2000.0 mg/L
[2024-07-13 09:57] LABS: Vitamin D 25-OH Total 16.7 ng/mL (>30)
[2024-07-13 10:16] LABS: Folate 9.8 ng/mL (> or = 4.0); Vitamin B12 364 pg/mL (200-900)
== END 2024-07-13 07:45 | disposition home or self-care (01) ==
LOC: HO.LAB 07:44
PROVIDERS: PCP Internal Medicine; Visit Provider Internal Medicine Nephrology
DX: D64.9 Anemia, unspecified (principal); E11.9 Type 2 diabetes mellitus without complications; Z79.4 Long term (current) use of insulin; E53.8 Deficiency of other specified B group vitamins; E78.5 Hyperlipidemia, unspecified; E55.9 Vitamin D deficiency, unspecified
CPT/HCPCS: 36415; 80053; 80061; 82043; 82306; 82570; 82607; 82746; 83540; 85025

== ENCOUNTER 2024-07-14 13:11 | Outpatient (AMB) | payer OTHER, SELFPAY ==
[2024-07-14 13:29] VITALS: BP 170/108; PULSE 120; O2SAT 97; BMI 23.7
--- NOTE | 2024-07-14 13:29 | HO.NEPHOV_ITS ---
Vital Signs 07/14/24 13:29 Height 4 ft 11 in Weight 117 lb 4 oz BMI 23.7 BP 170/108 H Blood Pressure Location Rt brachial Position Sitting Pulse 120 H Pulse Source Pulse Oximeter Pulse Oximetry (%) 97 Oxygen Delivery Method Room Air Intake Visit Reasons: 2 mon follow up/LVM [place] Cutting Machine Operator Required: Yes [place] Cutting Machine Operator Services: [place] Cutting Machine Operator Present [place] Cutting Machine Operator Name: Kayode Lockwood [id number] Information Interpreted: clinical only Accompanied by: Self / Same As Patient Allergies crab Allergy (Severe, Verified 07/14/24 13:33) SWELLING amoxicillin [From Augmentin] Allergy (Mild, Verified 07/14/24 13:33) Abdominal Pain clavulanic acid [From Augmentin] Allergy (Mild, Verified 07/14/24 13:33) Abdominal Pain metformin Adverse Reaction (Intermediate, Verified 07/14/24 13:33) diarrhea HPI Comments Details: I had the pleasure of seeing Barbara in the office in follow-up of her chronic kidney disease, proteinuria, renal cyst and hypertension. Her blood sugar is better controlled. She is on CORNELIA-inhibitor. She avoids taking nonsteroidal anti-inflammatories. Her viral load is undetectable and CD4 are very good. She had been having flu shot on the left arm yesterday. She continues to have nephrotic range proteinuria. She has no edema. Her serum creatinine is worse. [facility] Medical History Sinusitis Hepatitis Normocytic anemia 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 infection) Pure hypercholesterolemia Essential hypertension Sessile colonic polyp 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 infection) FCI (current) use of insulin Hypertension Non-toxic multinodular goiter Diabetic retinopathy associated with type 2 diabetes mellitus CKD stage 3 due to type 2 diabetes mellitus Diabetic nephropathy associated with type 2 diabetes mellitus Dyslipidemia Diabetes type 2, controlled Hypovitaminosis D Surgical History H/O colonoscopy (08/13/20) Hx of bilateral cataract extraction History of hysterectomy with unilateral oophorectomy Hx of section Hx of thyroidectomy Family History Father Liver disease Mother Hypertension CVD (cardiovascular disease) Renal disease Hyperlipidemia ESRD on hemodialysis Paternal Aunt Glaucoma Social History Household Members: Other Household Members Other:: grandson Housing: House Alcohol intake: never Patient Tobacco Use Status: Never used Tobacco e-Cigarette/Vaping Use: Never Used Second Hand Smoke Exposure: No Advance Directives Date on File: 07/01/21 service: No Current occupational status: unemployed Cognitive needs: No Hearing needs: No Vision needs: No Review of Systems Const All systems reviewed & are unremarkable except as noted in HPI and below Physical Exam Vital Signs: Last Vital Signs Pulse 120 H 07/14/24 13:29 BP 170/108 H 07/14/24 13:29 Pulse Ox 97 07/14/24 13:29 Oxygen Delivery Method Room Air 07/14/24 13:29 BMI result Body Mass Index 23.7 Const General: comfortable and no acute distress Orientation/consciousness: patient oriented x3 HEENT Head: Yes normocephalic Mouth: Normal oral and palatal mucosa present Eyes EOM: EOMs intact bilaterally Neck Neck: Yes supple Resp Auscultation: clear to auscultation bilaterally Cardio Jugular venous distension: no JVD Rate: regular rate GI Palpation (GI): Soft to palpation Auscultation: normal bowel sounds General: Yes no CVA tenderness Back/Spine/Pelvis Back: no CVA tenderness Skin General skin exam: no rashes or lesions noted Neuro General: patient oriented x3 and moves all extremities Extrem General: Yes no pedal edema Results Reviewed Nephrology Results: Hgb 11.8 g/dl (12.0-16.0) L 07/13/24 WBC 5.2 X10*3/uL (4.8-10.8) 07/13/24 Plt Count 230 X10*3/uL (160-400) 07/13/24 Sodium 138 mmol/L (135-145) 07/13/24 Potassium 4.5 mmol/L (3.3-5.1) 07/13/24 Chloride 102 mmol/L (96-108) 07/13/24 Carbon Dioxide 26 mmol/L (22-29) 07/13/24 BUN 26 mg/dL (9-16) H 07/13/24 Creatinine 1.91 mg/dL (0.5-1.4) H 07/13/24 Calcium 9.6 mg/dL (8.4-10.2) 10/03/24 Urine Creatinine 119.24 mg/dL 07/13/24 Protein/Creatinin Ratio 4.86 (<0.2) H 03/23/24 Assessment & Plan Assessment & Plan (1) Hypertension: Code(s): I10 - Essential (primary) hypertension Category: Medical Qualifiers: Hypertension type: essential hypertension Qualified Code(s): I10 - Essential (primary) hypertension (2) CKD stage 3 due to type 2 diabetes mellitus: Code(s): E11.22 - Type 2 diabetes mellitus with diabetic chronic kidney disease; N18.30 - Chronic kidney disease, stage 3 unspecified Category: Medical (3) Diabetic nephropathy associated with type 2 diabetes mellitus: Code(s): E11.21 - Type 2 diabetes mellitus with diabetic nephropathy Category: Medical Plan Barbara has a significant proteinuria. Her renal functions ar worse after increase in ACEI. Her blood pressure control is sub optimal. I held her ACEI and fenofibrate. I started her on Diltiazem 240 mg daily. She had an incidental finding of left renal cyst which will need a follow-up renal ultrasound. She has had HIV which is well controlled. She avoids nonsteroidal anti- inflammatories. I discussed renal biopsy which she wants to wait. I will order repeat blood work after next week. She most likely will need renal biopsy soon. I did not make any other medication changes today. All questions answered. Follow-up given Medications: New diltiazem HCl ER 240 mg PO DAILY 30 caps 4RF Discontinued fenofibrate Discontinued Reason: Doctor's Order 54 mg PO DAILY 90 days 90 tabs 1RF E78.2 - Mixed hyperlipidemia amlodipine Discontinued Reason: Doctor's Order 10 mg PO DAILY 90 days 90 tabs 0RF lisinopril Discontinued Reason: Doctor's Order 20 mg PO BID 30 days 60 tabs 3RF Coding Level of Care Code Est Pt Level 4 (92132) Diagnoses Essential hypertension I10 Hypertension type: essential hypertension CKD stage 3 due to type 2 diabetes mellitus E11.22; N18.30 Diabetic nephropathy associated with type 2 diabetes mellitus E11.21
== END 2024-07-14 13:59 | disposition home or self-care (01) ==
PROVIDERS: PCP Internal Medicine; Visit Provider Internal Medicine Nephrology
DX: I12.9 Hypertensive chronic kidney disease with stage 1 through stage 4 chronic kidney disease, or unspecified chronic kidney disease (principal); E11.22 Type 2 diabetes mellitus with diabetic chronic kidney disease; N18.30 Chronic kidney disease, stage 3 unspecified
CPT/HCPCS: 99214

== ENCOUNTER → 2024-07-14 13:11 | Outpatient (BNVA) | payer OTHER, SELFPAY | PROVIDERS: PCP Internal Medicine; Visit Provider Internal Medicine Nephrology | DX: I12.9 Hypertensive chronic kidney disease with stage 1 through stage 4 chronic kidney disease, or unspecified chronic kidney disease (principal); E11.22 Type 2 diabetes mellitus with diabetic chronic kidney disease; E11.21 Type 2 diabetes mellitus with diabetic nephropathy; N18.4 Chronic kidney disease, stage 4 (severe); R80.9 Proteinuria, unspecified; N28.1 Cyst of kidney, acquired; B20 Human immunodeficiency virus [HIV] disease; E78.2 Mixed hyperlipidemia | CPT/HCPCS: 99212 ==

== ENCOUNTER 2024-07-26 08:59 | Outpatient (AMB) | payer OTHER, SELFPAY ==
[2024-07-26 09:32] VITALS: BP 182/90; PULSE 67; O2SAT 98; BMI 23.5
--- NOTE | 2024-07-26 09:32 | HO.NEPHOV_ITS ---
Vital Signs 07/26/24 09:32 Height 4 ft 11 in Weight 116 lb 8 oz BMI 23.5 BP 182/90 H Blood Pressure Location Lt brachial Position Sitting Pulse 67 Pulse Source Pulse Oximeter Pulse Oximetry (%) 98 Oxygen Delivery Method Room Air Intake Visit Reasons: 1 wk follow up/ Conf Hydraulic Lift Driver Required: Yes Hydraulic Lift Driver Language: Engineering Mgr Services: Hydraulic Lift Driver Present Hydraulic Lift Driver Name: Anna [id number] Accompanied by: Self / Same As Patient Allergies crab Allergy (Severe, Verified 07/26/24 09:35) SWELLING amoxicillin [From Augmentin] Allergy (Mild, Verified 07/26/24 09:35) Abdominal Pain clavulanic acid [From Augmentin] Allergy (Mild, Verified 07/26/24 09:35) Abdominal Pain metformin Adverse Reaction (Intermediate, Verified 07/26/24 09:35) diarrhea HPI Comments Details: I had the pleasure of seeing Barbara in the office in follow-up of her chronic kidney disease, proteinuria, renal cyst and hypertension. Her blood sugar is better controlled. She is on CORNELIA-inhibitor. She avoids taking nonsteroidal anti-inflammatories. Her viral load is undetectable and CD4 are very good. She had been having flu shot on the left arm yesterday. She continues to have nephrotic range proteinuria. She has no edema. Her serum creatinine is worse. 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 Hypertension Non-toxic multinodular goiter Diabetic retinopathy associated with type 2 diabetes mellitus CKD stage 3 due to type 2 diabetes mellitus Diabetic nephropathy associated with type 2 diabetes mellitus Dyslipidemia Diabetes type 2, controlled Hypovitaminosis D Surgical History H/O colonoscopy (08/13/20) Hx of bilateral cataract extraction History of hysterectomy with unilateral oophorectomy Hx of section Hx of thyroidectomy Family History Father Liver disease Mother Hypertension CVD (cardiovascular disease) Renal disease Hyperlipidemia ESRD on hemodialysis Paternal Aunt Glaucoma Social History Household Members: Other Household Members Other:: grandson Housing: House Alcohol intake: never Patient Tobacco Use Status: Never used Tobacco e-Cigarette/Vaping Use: Never Used Second Hand Smoke Exposure: No Advance Directives Date on File: 07/01/21 service: No Current occupational status: unemployed Cognitive needs: No Hearing needs: No Vision needs: No Review of Systems Const All systems reviewed & are unremarkable except as noted in HPI and below Physical Exam Vital Signs: Last Vital Signs Pulse 67 07/26/24 09:32 BP 182/90 H 07/26/24 09:32 Pulse Ox 98 07/26/24 09:32 Oxygen Delivery Method Room Air 07/26/24 09:32 BMI result Body Mass Index 23.5 Const General: comfortable and no acute distress Orientation/consciousness: patient oriented x3 HEENT Head: Yes normocephalic Mouth: Normal oral and palatal mucosa present Eyes EOM: EOMs intact bilaterally Neck Neck: Yes supple Resp Auscultation: clear to auscultation bilaterally Cardio Jugular venous distension: no JVD Rate: regular rate GI Palpation (GI): Soft to palpation Auscultation: normal bowel sounds General: Yes no CVA tenderness Back/Spine/Pelvis Back: no CVA tenderness Skin General skin exam: no rashes or lesions noted Neuro General: patient oriented x3 and moves all extremities Extrem General: Yes no pedal edema Results Reviewed Nephrology Results: Hgb 11.8 g/dl (12.0-16.0) L 07/13/24 WBC 5.2 X10*3/uL (4.8-10.8) 07/13/24 Plt Count 230 X10*3/uL (160-400) 07/13/24 Sodium 138 mmol/L (135-145) 07/13/24 Potassium 4.5 mmol/L (3.3-5.1) 07/13/24 Chloride 102 mmol/L (96-108) 07/13/24 Carbon Dioxide 26 mmol/L (22-29) 07/13/24 BUN 26 mg/dL (9-16) H 07/13/24 Creatinine 1.91 mg/dL (0.5-1.4) H 07/13/24 Calcium 9.6 mg/dL (8.4-10.2) 07/13/24 Urine Creatinine 119.24 mg/dL 07/13/24 Assessment & Plan Assessment & Plan (1) Essential hypertension: Code(s): I10 - Essential (primary) hypertension Category: Medical (2) CKD stage 3 due to type 2 diabetes mellitus: Code(s): E11.22 - Type 2 diabetes mellitus with diabetic chronic kidney disease; N18.30 - Chronic kidney disease, stage 3 unspecified Category: Medical (3) Diabetic nephropathy associated with type 2 diabetes mellitus: Code(s): E11.21 - Type 2 diabetes mellitus with diabetic nephropathy Category: Medical Plan Barbara has a significant proteinuria. Her renal functions ar worse after increase in ACEI. Her blood pressure control is sub optimal. I held her ACEI and fenofibrate. I started her on Diltiazem 240 mg daily at the last visit . I also started her on hydralazine 25 mg tid. She had an incidental finding of left renal cyst which will need a follow-up renal ultrasound. She has had HIV which is well controlled. She avoids nonsteroidal anti-inflammatories. I discussed renal biopsy which she wants to wait. I will order repeat blood work after next week. She most likely will need renal biopsy soon. I did not make any other medication changes today. All questions answered. Follow-up given Medications: New hydralazine 25 mg PO TID 30 days 90 tabs 3RF Coding Level of Care Code Est Pt Level 4 (83585) Diagnoses Essential hypertension I10 CKD stage 3 due to type 2 diabetes mellitus E11.22; N18.30 Diabetic nephropathy associated with type 2 diabetes mellitus E11.21
== END 2024-07-26 10:08 | disposition home or self-care (01) ==
PROVIDERS: PCP Internal Medicine; Visit Provider Internal Medicine Nephrology
DX: I12.9 Hypertensive chronic kidney disease with stage 1 through stage 4 chronic kidney disease, or unspecified chronic kidney disease (principal); E11.22 Type 2 diabetes mellitus with diabetic chronic kidney disease; N18.30 Chronic kidney disease, stage 3 unspecified; E11.21 Type 2 diabetes mellitus with diabetic nephropathy
CPT/HCPCS: 99214

== ENCOUNTER → 2024-07-26 08:59 | Outpatient (BNVA) | payer OTHER, SELFPAY | PROVIDERS: PCP Internal Medicine; Visit Provider Internal Medicine Nephrology | DX: E11.22 Type 2 diabetes mellitus with diabetic chronic kidney disease (principal); I12.9 Hypertensive chronic kidney disease with stage 1 through stage 4 chronic kidney disease, or unspecified chronic kidney disease; N18.30 Chronic kidney disease, stage 3 unspecified; E11.21 Type 2 diabetes mellitus with diabetic nephropathy | CPT/HCPCS: 99212 ==

== ENCOUNTER 2024-07-27 11:07 | Outpatient (AMB) | payer OTHER, SELFPAY ==
--- NOTE | 2024-07-27 11:18 | MHC.OFFVIS ---
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 Patient reports pain in the left knee ongoing for many months now. pain is felt all of the time, worse with ambulation. She notices a limp when increases activity. 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 Patient reports pain in the left knee ongoing for many months now. pain is felt all of the time, worse with ambulation. She notices a limp when increases activity. [facility] Medical History Sinusitis Hepatitis Normocytic anemia 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 infection) Pure hypercholesterolemia Essential hypertension Sessile colonic polyp 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 infection) halfway (current) use of insulin Hypertension Non-toxic multinodular goiter Diabetic retinopathy associated with type 2 diabetes mellitus CKD stage 3 due to type 2 diabetes mellitus Diabetic nephropathy associated with type 2 diabetes mellitus Dyslipidemia Diabetes type 2, controlled Hypovitaminosis D Surgical History H/O colonoscopy (08/13/20) Hx of bilateral cataract extraction History of hysterectomy with unilateral oophorectomy Hx of section Hx of thyroidectomy Family History Father Liver disease Mother Hypertension CVD (cardiovascular disease) Renal disease Hyperlipidemia ESRD on hemodialysis Paternal Aunt Glaucoma Social History Household Members: Other Household Members Other:: grandson Housing: House Alcohol intake: never Patient Tobacco Use Status: Never used Tobacco e-Cigarette/Vaping Use: Never Used Second Hand Smoke Exposure: No Advance Directives Date on File: 09/21/21 service: No Current occupational status: unemployed Cognitive needs: No Hearing needs: No Vision needs: No Physical Exam Const General: cooperative, healthy appearing, no acute distress, well developed and alert HEENT Head: Yes normal to inspection, Yes normocephalic and Yes atraumatic Mouth: moist mucous membranes Eyes General: appearance normal, both eyes and all related structures EOM: EOMs intact bilaterally Chest Other: no audible wheezing. Resp Other: No audible wheezing Effort & Inspection: normal respiratory effort Back/Spine/Pelvis Cervical Spine: normal cervical lordosis Skin General skin exam: no rashes or lesions noted Neuro General: no focal motor deficits Extrem Other: Small Peralta's cyst otherwise normal knee exam with mild gait antalgia. Psych Appearance: grossly normal and well kempt Mental Status: mental status grossly normal Speech and movement: Normal speech and movement present Affect: normal affect Attitude: cooperative Results Reviewed Results Reviewed: I personally reviewed relevant radiographs. Moderate medial compartment osteoarthritis left knee Assessment & Plan Assessment & Plan (1) Osteoarthritis of left knee: Code(s): M17.12 - Unilateral primary osteoarthritis, left knee Category: Medical Plan: This is a 69-year-old woman with moderate radiographic evidence of left knee arthritis and a small Peralta's cyst with mild pain. She has pain with ambulation that occasionally bothers her. She is not really interested in intervention as she thinks the pain is tolerable and she is certainly not interested in surgery. We discussed that if her pain worsens she can come back and we can consider injections. We also discussed physical therapy and compression. At this point she will let me know if there is anything she feels she needs. Coding Level of Care Code New Pt Level 3 (37245) Diagnoses Osteoarthritis of left knee M17.12
== END 2024-07-27 11:45 | disposition home or self-care (01) ==
PROVIDERS: PCP Internal Medicine; Visit Provider Orthopaedic Surgery
DX: M17.12 Unilateral primary osteoarthritis, left knee (principal)
CPT/HCPCS: 99203

== ENCOUNTER → 2024-07-27 11:07 | Outpatient (BNVA) | payer OTHER, SELFPAY | PROVIDERS: PCP Internal Medicine; Visit Provider Orthopaedic Surgery | DX: M17.12 Unilateral primary osteoarthritis, left knee (principal) | CPT/HCPCS: 99202 ==

== ENCOUNTER 2024-08-11 12:09 | Outpatient (AMB) | payer OTHER, SELFPAY ==
--- NOTE | 2024-08-11 12:14 | HO.NEPHOV ---
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 Her blood sugar is better controlled. She is on CORNELIA-inhibitor. She avoids taking nonsteroidal anti-inflammatories. Her viral load is undetectable and CD4 are very good. She had been having flu shot on the left arm yesterday. She continues to have nephrotic range proteinuria. She has no edema. Her serum creatinine has been getting worse lately COUNTS INCLUDE 234 BEDS AT THE [facility] Medical History Sinusitis Hepatitis Normocytic anemia 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 infection) Pure hypercholesterolemia Essential hypertension Sessile colonic polyp 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 infection) intermediate (current) use of insulin Hypertension Non-toxic multinodular goiter Diabetic retinopathy associated with type 2 diabetes mellitus CKD stage 3 due to type 2 diabetes mellitus Diabetic nephropathy associated with type 2 diabetes mellitus Dyslipidemia Diabetes type 2, controlled Hypovitaminosis D Surgical History H/O colonoscopy (08/13/20) Hx of bilateral cataract extraction History of hysterectomy with unilateral oophorectomy Hx of section Hx of thyroidectomy Family History Father Liver disease Mother Hypertension CVD (cardiovascular disease) Renal disease Hyperlipidemia ESRD on hemodialysis Paternal Aunt Glaucoma Social History Household Members: Other Household Members Other:: grandson Housing: House Alcohol intake: never Patient Tobacco Use Status: Never used Tobacco e-Cigarette/Vaping Use: Never Used Second Hand Smoke Exposure: No Advance Directives Date on File: 07/01/21 service: No Current occupational status: unemployed Cognitive needs: No Hearing needs: No Vision needs: No Review of Systems Const All systems reviewed & are unremarkable except as noted in HPI and below Physical Exam Const General: comfortable and no acute distress Orientation/consciousness: patient oriented x3 HEENT Head: Yes normocephalic Mouth: Normal oral and palatal mucosa present Eyes EOM: EOMs intact bilaterally Neck Neck: Yes supple Resp Auscultation: clear to auscultation bilaterally Cardio Jugular venous distension: no JVD Rate: regular rate GI Palpation (GI): Soft to palpation Auscultation: normal bowel sounds General: Yes no CVA tenderness Back/Spine/Pelvis Back: no CVA tenderness Skin General skin exam: no rashes or lesions noted Neuro General: patient oriented x3 and moves all extremities Extrem General: Yes no pedal edema Results Reviewed Nephrology Results: Hgb 11.8 g/dl (12.0-16.0) L 07/13/24 WBC 5.2 X10*3/uL (4.8-10.8) 07/13/24 Plt Count 230 X10*3/uL (160-400) 07/13/24 Sodium 138 mmol/L (135-145) 07/13/24 Potassium 4.5 mmol/L (3.3-5.1) 07/13/24 Chloride 102 mmol/L (96-108) 07/13/24 Carbon Dioxide 26 mmol/L (22-29) 07/13/24 BUN 26 mg/dL (9-16) H 07/13/24 Creatinine 1.91 mg/dL (0.5-1.4) H 07/13/24 Calcium 9.6 mg/dL (8.4-10.2) 07/13/24 Urine Creatinine 119.24 mg/dL 07/13/24 Assessment & Plan Assessment & Plan (1) CKD stage 3 due to type 2 diabetes mellitus: Code(s): E11.22 - Type 2 diabetes mellitus with diabetic chronic kidney disease; N18.30 - Chronic kidney disease, stage 3 unspecified Category: Medical (2) Hypertension: Code(s): I10 - Essential (primary) hypertension Category: Medical Qualifiers: Hypertension type: essential hypertension Qualified Code(s): I10 - Essential (primary) hypertension Plan Barbara has a significant proteinuria. Her renal functions were worse after increase in ACEI. I held her ACEI and fenofibrate. She is now on Diltiazem 240 mg daily as well as hydralazine which is keeping her BP control better. I increased her hydralazine to 50 mg tid. She had an incidental finding of left renal cyst which will need a follow-up renal ultrasound. She has had HIV which is well controlled. She avoids nonsteroidal anti-inflammatories. I discussed renal biopsy which she wants to wait. I ordered repeat blood work . (She most likely will need renal biopsy soon). I did not make any other medication changes today. All questions answered. Follow-up given Orders: Orders Creatinine 1 Month E11.22 - Type 2 diabetes mellitus with diabetic chronic kidney disease, I10 - Essential (primary) hypertension, N18.30 - Chronic kidney disease, stage 3 unspecified Blood Urea Nitrogen 1 Month E11.22 - Type 2 diabetes mellitus with diabetic chronic kidney disease, I10 - Essential (primary) hypertension, N18.30 - Chronic kidney disease, stage 3 unspecified Electrolytes 1 Month E11.22 - Type 2 diabetes mellitus with diabetic chronic kidney disease, I10 - Essential (primary) hypertension, N18.30 - Chronic kidney disease, stage 3 unspecified Medications: Changed From hydralazine 25 mg PO TID 30 days 90 tabs 3RF To hydralazine 50 mg PO TID 30 days 90 tabs 3RF Coding Level of Care Code Est Pt Level 4 (09295) Diagnoses CKD stage 3 due to type 2 diabetes mellitus E11.22; N18.30 Essential hypertension I10 Hypertension type: essential hypertension
[2024-08-11 12:17] VITALS: BP 142/60; PULSE 70; O2SAT 98; BMI 23.8
== END 2024-08-11 12:33 | disposition home or self-care (01) ==
LOC: HO.HKA 12:10
PROVIDERS: PCP Internal Medicine; Visit Provider Internal Medicine Nephrology
DX: I12.9 Hypertensive chronic kidney disease with stage 1 through stage 4 chronic kidney disease, or unspecified chronic kidney disease (principal); E11.22 Type 2 diabetes mellitus with diabetic chronic kidney disease; N18.30 Chronic kidney disease, stage 3 unspecified
CPT/HCPCS: 99214

== ENCOUNTER → 2024-08-11 12:09 | Outpatient (BNVA) | payer OTHER, SELFPAY | PROVIDERS: PCP Internal Medicine; Visit Provider Internal Medicine Nephrology | DX: E11.22 Type 2 diabetes mellitus with diabetic chronic kidney disease (principal); I12.9 Hypertensive chronic kidney disease with stage 1 through stage 4 chronic kidney disease, or unspecified chronic kidney disease; N18.30 Chronic kidney disease, stage 3 unspecified | CPT/HCPCS: 99212 ==

== ENCOUNTER 2024-09-04 08:49 | Outpatient (REF) | payer OTHER, SELFPAY ==
[2024-09-04 09:06] LABS: MANUAL DIFF FLAG NO
[2024-09-04 09:15] LABS: Basophils Percent Auto 0.4 % (0-2); Eosinophils Absolute Auto 0.1 X10*3/uL (0.0-0.4); Eosinophils Percent Auto 0.7 % (0-4); Hematocrit 36.1 % (37.0-47.0); Hemoglobin 11.1 g/dl (12.0-16.0); Imm Gran Abs Auto 0.02 X10*3/uL (0.00-0.03); Imm Gran Pct Auto 0.3 % (0.0-0.4); Lymphocytes Absolute Auto 1.8 X10*3/uL (1.2-4.9); Lymphocytes Percent Auto 26.6 % (20-40); Mean Corpuscular HGB Conc 30.7 g/dl (31.0-35.0); Mean Corpuscular Hemoglobin 25.8 pg (27.0-33.0); Mean Corpuscular Volume 83.8 fL (80.0-98.0); Mean Platelet Volume 11.2 fL (9.4-12.3); Monocytes Absolute Auto 0.6 X10*3/uL (0.1-1.2); Monocytes Percent Auto 9.1 % (2-11); Neutrophils Absolute Auto 4.4 x10*3/uL (2.0-8.3); Neutrophils Percent Auto 62.9 % (45-73); Platelet Count 256 X10*3/uL (160-400); Red Blood Count 4.31 X10*6/uL (4.20-5.50); Red Cell Distribution Width 12.3 % (11.0-16.0); White Blood Count 6.9 X10*3/uL (4.8-10.8)
[2024-09-04 09:19] LABS: INTERNATIONAL NORM RATIO 0.9 (0.9-1.1); Prothrombin Time 10.8 SEC (10.9-12.4)
[2024-09-04 09:45] LABS: Creatinine Urine 177.87 mg/dL
[2024-09-04 09:47] LABS: Anion Gap 10 (12-20); Blood Urea Nitrogen 20 mg/dL (9-16); Carbon Dioxide 27 mmol/L (22-29); Chloride 104 mmol/L (96-108); Estimated Glomerular Filt Rate 26; Potassium 3.8 mmol/L (3.3-5.1); Sodium 137 mmol/L (135-145)
[2024-09-04 10:02] LABS: Protein/Creatinine Ratio, Ur 6.32 (<0.2); Total Protein Urine Random 1125 mg/dL (<12)
[2024-09-09 12:08] LABS: HIV RNA PCR Qn Copies NOT DETECTED copies/mL (NOT DETECTED); HIV RNA PCR Qn Log Copies NOT DETECTED (NOT DETECTED)
== END 2024-09-04 08:50 | disposition home or self-care (01) ==
LOC: HO.LAB 08:49
PROVIDERS: Absent Provider Internal Medicine Nephrology; PCP Internal Medicine; Visit Provider Internal Medicine
DX: E11.21 Type 2 diabetes mellitus with diabetic nephropathy (principal); I10 Essential (primary) hypertension; N18.30 Chronic kidney disease, stage 3 unspecified; E11.22 Type 2 diabetes mellitus with diabetic chronic kidney disease; R80.9 Proteinuria, unspecified; Z21 Asymptomatic human immunodeficiency virus [HIV] infection status
CPT/HCPCS: 36415; 80051; 82565; 82570; 84156; 84520; 85025; 85610; 87536

== ENCOUNTER 2024-09-11 14:08 | Outpatient (AMB) | payer OTHER, SELFPAY ==
--- NOTE | 2024-09-11 14:09 | MHC.OFFVIS ---
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 She has GFR of 26. Her last CD4 count is 509 on 05/22. Bone density shows osteopenia. 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 Hypertension Non-toxic multinodular goiter Diabetic retinopathy associated with type 2 diabetes mellitus CKD stage 3 due to type 2 diabetes mellitus Diabetic nephropathy associated with type 2 diabetes mellitus Dyslipidemia Diabetes type 2, controlled Hypovitaminosis D Surgical History H/O colonoscopy (08/13/20) Hx of bilateral cataract extraction History of hysterectomy with unilateral oophorectomy Hx of section Hx of thyroidectomy Family History Father Liver disease Mother Hypertension CVD (cardiovascular disease) Renal disease Hyperlipidemia ESRD on hemodialysis Paternal Aunt Glaucoma Social History Household Members: Other Household Members Other:: grandson Housing: House Alcohol intake: never Patient Tobacco Use Status: Never used Tobacco e-Cigarette/Vaping Use: Never Used Second Hand Smoke Exposure: No Advance Directives Date on File: 07/01/21 service: No Current occupational status: unemployed Cognitive needs: No Hearing needs: No Vision needs: No Review of Systems Const All systems reviewed & are unremarkable except as noted in HPI and below Physical Exam Vital Signs: Last Vital Signs Pulse 59 09/11/24 14:13 Pulse Ox 98 09/11/24 14:13 BMI result Body Mass Index 24.6 Const General: cooperative HEENT Head: Yes normal to inspection Face and sinus: Yes normal facial exam Mouth: Normal oral and palatal mucosa present Teeth and gingiva: dentition normal Eyes General: appearance normal, both eyes and all related structures Pupils: Equal, round and reactive pupils present Resp Effort & Inspection: normal respiratory effort Cardio Rate: regular rate Rhythm: regular rhythm GI Palpation (GI): Soft to palpation and nontender General: Yes no CVA tenderness Back/Spine/Pelvis Back: no CVA tenderness Skin General skin exam: no rashes or lesions noted Neuro General: moves all extremities Cranial nerves: Yes Equal, round and reactive pupils present Extrem General: Yes normal to inspection Psych Appearance: grossly normal Assessment & Plan Assessment & Plan (1) 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 infection): Comment: She is doing well on Juluca. Would continue Juluca. Check viral load and CD4 count February 2025. See in March 2025. Mammogram and Pap.Follow PCP. Code(s): B20 - Human immunodeficiency virus [HIV] disease Category: Medical Qualifiers: HIV symptom status: asymptomatic, with no history of HIV-related illness Qualified Code(s): Z21 - Asymptomatic human immunodeficiency virus [HIV] infection status Plan as above See in March 2025. Check labs February 2025 and refill done. Orders: Orders Lymphocyte Subset Panel 3 3 Months Z21 - Asymptomatic human immunodeficiency virus [HIV] infection status HIV-1 RNA QN PCR Expanded 3 Months Z21 - Asymptomatic human immunodeficiency virus [HIV] infection status Basic Metabolic Panel 3 Months Z21 - Asymptomatic human immunodeficiency virus [HIV] infection status Complete Blood Count Auto Diff 3 Months Z21 - Asymptomatic human immunodeficiency virus [HIV] infection status Medications: New dolutegravir-rilpivirine 50-25 mg (Juluca) must administer with a meal/food 1 tab PO DAILY 30 tabs 5RF 30 days Discontinued omeprazole Discontinued Reason: Doctor's Order 20 mg PO DAILY 90 days 90 caps 3RF sfkpumwvv-obcurfoe-hdedipo ala 50-200-25 mg Discontinued Reason: Doctor's Order 1 tab PO DAILY 30 days 30 tabs 5RF Coding Level of Care Code Est Pt Level 4 (70516) Diagnoses Asymptomatic HIV infection, with no history of HIV-related illness Z21 HIV symptom status: asymptomatic, with no history of HIV-related illness
[2024-09-11 14:13] VITALS: PULSE 59; O2SAT 98; BMI 24.6
== END 2024-09-11 14:54 | disposition home or self-care (01) ==
LOC: HO.HID 14:08
PROVIDERS: PCP Internal Medicine; Visit Provider Internal Medicine
DX: Z21 Asymptomatic human immunodeficiency virus [HIV] infection status (principal)
CPT/HCPCS: 99214

== ENCOUNTER → 2024-09-11 14:08 | Outpatient (BNVA) | payer OTHER, SELFPAY | PROVIDERS: PCP Internal Medicine; Visit Provider Internal Medicine | DX: Z21 Asymptomatic human immunodeficiency virus [HIV] infection status (principal) | CPT/HCPCS: 99212 ==

== ENCOUNTER 2024-09-20 11:44 | Outpatient (AMB) | payer OTHER, SELFPAY ==
--- NOTE | 2024-09-20 12:12 | HO.NEPHOV ---
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 Services: Beveller Operator Offered & Declined ([facility] full time staff interpreter services refused) Accompanied by: Self / Same As Patient Allergies crab Allergy (Severe, Verified 09/20/24 12:13) SWELLING amoxicillin [From Augmentin] Allergy (Mild, Verified 09/20/24 12:13) Abdominal Pain clavulanic acid [From Augmentin] Allergy (Mild, Verified 09/20/24 12:13) Abdominal Pain metformin Adverse Reaction (Intermediate, Verified 09/20/24 12:13) diarrhea HPI Comments Details: Barbara was seen in the office in follow-up of her chronic kidney disease, proteinuria, renal cyst and hypertension. Her blood sugar is better controlled. She is on CORNELIA-inhibitor. She avoids taking nonsteroidal anti-inflammatories. Her viral load is undetectable and CD4 are very good. She continues to have nephrotic range proteinuria. She has no edema. 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 Hypertension Non-toxic multinodular goiter Diabetic retinopathy associated with type 2 diabetes mellitus CKD stage 3 due to type 2 diabetes mellitus Diabetic nephropathy associated with type 2 diabetes mellitus Dyslipidemia Diabetes type 2, controlled Hypovitaminosis D Surgical History H/O colonoscopy (08/13/20) Hx of bilateral cataract extraction History of hysterectomy with unilateral oophorectomy Hx of section Hx of thyroidectomy Family History Father Liver disease Mother Hypertension CVD (cardiovascular disease) Renal disease Hyperlipidemia ESRD on hemodialysis Paternal Aunt Glaucoma Social History Household Members: Other Household Members Other:: grandson Housing: House Alcohol intake: never Patient Tobacco Use Status: Never used Tobacco e-Cigarette/Vaping Use: Never Used Second Hand Smoke Exposure: No Advance Directives Date on File: 07/01/21 service: No Current occupational status: unemployed Cognitive needs: No Hearing needs: No Vision needs: No Review of Systems Const All systems reviewed & are unremarkable except as noted in HPI and below Physical Exam Vital Signs: Last Vital Signs Pulse 68 09/20/24 12:14 BP 140/52 H 09/20/24 12:14 Pulse Ox 97 09/20/24 12:14 Oxygen Delivery Method Room Air 09/20/24 12:14 BMI result Body Mass Index 24.1 Const General: comfortable and no acute distress Orientation/consciousness: patient oriented x3 HEENT Head: Yes normocephalic Mouth: Normal oral and palatal mucosa present Eyes EOM: EOMs intact bilaterally Neck Neck: Yes supple Resp Auscultation: clear to auscultation bilaterally Cardio Jugular venous distension: no JVD Rate: regular rate GI Palpation (GI): Soft to palpation Auscultation: normal bowel sounds General: Yes no CVA tenderness Back/Spine/Pelvis Back: no CVA tenderness Skin General skin exam: no rashes or lesions noted Neuro General: patient oriented x3 and moves all extremities Extrem General: Yes no pedal edema Results Reviewed Nephrology Results: Hgb 11.1 g/dl (12.0-16.0) L 09/04/24 WBC 6.9 X10*3/uL (4.8-10.8) 09/04/24 Plt Count 256 X10*3/uL (160-400) 09/04/24 Sodium 137 mmol/L (135-145) 09/04/24 Potassium 3.8 mmol/L (3.3-5.1) 09/04/24 Chloride 104 mmol/L (96-108) 09/04/24 Carbon Dioxide 27 mmol/L (22-29) 09/04/24 BUN 20 mg/dL (9-16) H 09/04/24 Creatinine 1.91 mg/dL (0.5-1.4) H 09/04/24 Calcium 9.6 mg/dL (8.4-10.2) 07/13/24 Urine Creatinine 177.87 mg/dL 09/04/24 Protein/Creatinin Ratio 6.32 (<0.2) H 09/04/24 Assessment & Plan Assessment & Plan (1) CKD stage 3 due to type 2 diabetes mellitus: Code(s): E11.22 - Type 2 diabetes mellitus with diabetic chronic kidney disease; N18.30 - Chronic kidney disease, stage 3 unspecified Category: Medical (2) Hypertension: Code(s): I10 - Essential (primary) hypertension Category: Medical Qualifiers: Hypertension type: essential hypertension Qualified Code(s): I10 - Essential (primary) hypertension Plan Barbara has a significant proteinuria. Her renal functions were worse after increase in ACEI. So her ACEI and fenofibrate are on hold. She is now on Diltiazem 240 mg daily as well as hydralazine which is keeping her BP control better. She had an incidental finding of left renal cyst which will need a follow-up renal ultrasound. She has had HIV which is well controlled. She avoids nonsteroidal anti-inflammatories. I discussed renal biopsy again which she wants to wait. I plan to start her on Jardaince at next visit. I ordered repeat blood work . (She most likely will need renal biopsy soon). I did not make any other medication changes today. All questions answered. Follow-up given Orders: Orders Protein Creatinine Ratio, Ur 3 Months E11.22 - Type 2 diabetes mellitus with diabetic chronic kidney disease, I10 - Essential (primary) hypertension, N18.30 - Chronic kidney disease, stage 3 unspecified Blood Urea Nitrogen 3 Months E11.22 - Type 2 diabetes mellitus with diabetic chronic kidney disease, I10 - Essential (primary) hypertension, N18.30 - Chronic kidney disease, stage 3 unspecified Creatinine 3 Months E11.22 - Type 2 diabetes mellitus with diabetic chronic kidney disease, I10 - Essential (primary) hypertension, N18.30 - Chronic kidney disease, stage 3 unspecified Electrolytes 3 Months E11.22 - Type 2 diabetes mellitus with diabetic chronic kidney disease, I10 - Essential (primary) hypertension, N18.30 - Chronic kidney disease, stage 3 unspecified Coding Level of Care Code Est Pt Level 4 (44294) Diagnoses CKD stage 3 due to type 2 diabetes mellitus E11.22; N18.30 Essential hypertension I10 Hypertension type: essential hypertension
[2024-09-20 12:14] VITALS: BP 140/52; PULSE 68; O2SAT 97; BMI 24.1
== END 2024-09-20 12:22 | disposition home or self-care (01) ==
PROVIDERS: PCP Internal Medicine; Visit Provider Internal Medicine Nephrology
DX: I12.9 Hypertensive chronic kidney disease with stage 1 through stage 4 chronic kidney disease, or unspecified chronic kidney disease (principal); E11.22 Type 2 diabetes mellitus with diabetic chronic kidney disease; N18.30 Chronic kidney disease, stage 3 unspecified
CPT/HCPCS: 99214

== ENCOUNTER → 2024-09-20 11:44 | Outpatient (BNVA) | payer OTHER, SELFPAY | PROVIDERS: PCP Internal Medicine; Visit Provider Internal Medicine Nephrology | DX: E11.22 Type 2 diabetes mellitus with diabetic chronic kidney disease (principal); I12.9 Hypertensive chronic kidney disease with stage 1 through stage 4 chronic kidney disease, or unspecified chronic kidney disease; N18.30 Chronic kidney disease, stage 3 unspecified; N28.1 Cyst of kidney, acquired | CPT/HCPCS: 99212 ==

== ENCOUNTER 2024-10-12 08:41 | Outpatient (REF) | payer OTHER, SELFPAY ==
[2024-10-12 08:54] LABS: MANUAL DIFF FLAG NO
[2024-10-12 09:10] LABS: Basophils Percent Auto 0.5 % (0-2); Eosinophils Absolute Auto 0.1 X10*3/uL (0.0-0.4); Hematocrit 37.8 % (37.0-47.0); Hemoglobin 11.6 g/dl (12.0-16.0); Imm Gran Abs Auto 0.02 X10*3/uL (0.00-0.03); Imm Gran Pct Auto 0.3 % (0.0-0.4); Lymphocytes Absolute Auto 1.7 X10*3/uL (1.2-4.9); Lymphocytes Percent Auto 20.9 % (20-40); Mean Corpuscular HGB Conc 30.7 g/dl (31.0-35.0); Mean Corpuscular Hemoglobin 25.7 pg (27.0-33.0); Mean Corpuscular Volume 83.6 fL (80.0-98.0); Mean Platelet Volume 11.4 fL (9.4-12.3); Monocytes Absolute Auto 0.6 X10*3/uL (0.1-1.2); Monocytes Percent Auto 7.6 % (2-11); Neutrophils Absolute Auto 5.6 x10*3/uL (2.0-8.3); Neutrophils Percent Auto 69.7 % (45-73); Platelet Count 250 X10*3/uL (160-400); Red Blood Count 4.52 X10*6/uL (4.20-5.50); Red Cell Distribution Width 11.9 % (11.0-16.0)
[2024-10-12 09:37] LABS: Alanine Aminotransferase 14 U/L (0-31); Alkaline Phosphatase 66 U/L (39-117); Anion Gap 12 (12-20); Aspartate Amino Transferase 18 U/L (5-31); Bilirubin Total 0.3 mg/dL (0.0-1.0); Blood Urea Nitrogen 19 mg/dL (9-16); Calcium 9.1 mg/dL (8.4-10.2); Carbon Dioxide 25 mmol/L (22-29); Chloride 105 mmol/L (96-108); Cholesterol 330 mg/dL (<200); Estimated Glomerular Filt Rate 28; Glucose Fasting 316 mg/dL (60-99); HDL Cholesterol 43 mg/dL (>40); Iron 70 mcg/dL (30-160); Percent Iron Saturation 35 % (15-50); Potassium 3.9 mmol/L (3.3-5.1); Sodium 138 mmol/L (135-145); Total Iron Binding Capacity 201 mcg/dL (228-428); Total Protein 6.8 g/dL (6.5-8.0); Triglycerides 650 mg/dL (<150); Unsaturated Iron Binding 131 ug/dL
[2024-10-12 09:42] LABS: Creatinine Urine 151.77 mg/dL
[2024-10-12 09:55] LABS: Vitamin D 25-OH Total 14.4 ng/mL (>30)
[2024-10-12 10:01] LABS: Microalbum/Creatinine Ratio Ur 1317.7 ug/mg cr (<30); Microalbumin Urine > 2000.0 mg/L
[2024-10-12 10:03] LABS: Folate 11.8 ng/mL (> or = 4.0); Vitamin B12 303 pg/mL (200-900)
== END 2024-10-12 08:42 | disposition home or self-care (01) ==
LOC: HO.LAB 08:41
PROVIDERS: PCP Internal Medicine; Visit Provider Internal Medicine
DX: D64.9 Anemia, unspecified (principal); E11.9 Type 2 diabetes mellitus without complications; Z79.4 Long term (current) use of insulin; E53.8 Deficiency of other specified B group vitamins; E78.5 Hyperlipidemia, unspecified; E55.9 Vitamin D deficiency, unspecified
CPT/HCPCS: 36415; 80053; 80061; 82043; 82306; 82570; 82607; 82746; 83540; 85025

== ENCOUNTER 2024-10-19 10:05 | Emergency (ER) | payer OTHER, SELFPAY ==
--- NOTE | ~2024-10-19 | XR_ITS ---
EXAMINATION: XR HAND, LEFT CLINICAL INFORMATION: thumb pain COMPARISON: None available. TECHNIQUE: PA, lateral, and oblique views of the left hand. FINDINGS: No acute cortical disruption or malalignment. No metallic or radiopaque foreign body. No lytic or blastic lesions. XR/XR hand LT min 3V IMPRESSION: No acute fracture or dislocation. Electronically signed by: Eriberto Yates MD 10/19/2024 11:45 AM [facility]
--- NOTE | ~2024-10-19 | XR_ITS ---
EXAMINATION: XR HAND, RIGHT CLINICAL INFORMATION: thumb pain COMPARISON: None. TECHNIQUE: PA, lateral, and oblique views of the right hand. FINDINGS: Is mild loss of PIP and DIP joint space with mild periarticular spurring DIP joint fifth digit and DIP joint third digit. The MCP, CMCP and inter-carpal joint spaces are maintained normal. The soft tissues are normal. XR/XR hand RT min 3V IMPRESSION: Mild DJD. No visible acute fracture, dislocation or subluxation seen. Electronically signed by: Catalino Fischer MD 10/19/2024 11:46 AM EST
[2024-10-19 11:05] VITALS: BP 176/63; PULSE 61; RESP 18; TEMP 36.9; O2SAT 99; BMI 24.1
--- NOTE | 2024-10-19 11:05 | ED_ITS ---
HPI - General Adult General Chief complaint: Abdominal Pain Stated complaint: abd pain Time Seen by Provider: 10/19/24 16:22 Source: patient, RN notes reviewed, old records reviewed and educational sign language interpreter Mode of arrival: ambulatory Limitations: language barrier History of Present Illness ED Provider: Richar HPI narrative: 69-year-old female past medical history significant for chronic kidney disease follow up with Dr. Ovalles, osteoarthritis, hyperlipidemia, diabetes, HIV, hepatitis, hypertension presents for evaluation of upper abdominal pain and bilateral thumb pain. Patient denies any trauma. Her pain has been present for the last 2 weeks The pain in her thumbs is worse with movement. The pain in her abdomen ?feels like it is on the surface like skin pain. ? She has no rashes. Denies any nausea vomiting, diarrhea No other complaints or concerns at this time Related Data Home Medications ?Medication ?Instructions ?Recorded ?Confirmed liraglutide 0.6 mg/0.1 mL (18 mg/3 3 mg subcut Q24H 08/11/24 mL) subcutaneous pen injector (Victoza 3-Yvon) Previous Rx's ?Medication ?Instructions ?Recorded pen needle, diabetic 32 gauge x #200 ea 02/06/21 alcohol swabs 1 pad topical .4 times a day 30 05/01/22 days #200 ea lancets (OneTouch UltraSoft #100 ea 12/03/22 Lancets) blood-glucose meter (OneTouch #1 ea 01/11/23 UltraMini kit) ferrous sulfate 325 mg (65 mg 325 mg PO DAILY #90 tabs 08/30/23 iron) tablet pen needle, diabetic 32 gauge x #100 ea 09/10/23 (BD Mansi 2nd Gen Pen Needle) blood sugar diagnostic (OneTouch #100 ea 11/23/23 Ultra Test strips) insulin degludec 100 unit/mL (3 25 unit (0.25 mL) subcut DAILY 90 02/17/24 mL) subcutaneous pen ( #22.5 mL FlexTouch U-100 insulin) blood pressure monitor #1 ea 05/28/24 diltiazem HCl 240 mg capsule,24 240 mg PO DAILY #30 caps 07/14/24 hr,extended release atorvastatin 80 mg tablet 80 mg PO BEDTIME 90 days #90 tabs 07/22/24 hydralazine 50 mg tablet 50 mg PO TID 30 days #90 tabs 08/11/24 dolutegravir 50 mg-rilpivirine 25 1 tab PO DAILY 30 days #30 tabs 09/11/24 mg tablet (Juluca) Allergies Allergy/AdvReac Type Severity Reaction Status Date / Time crab Allergy Severe SWELLING Verified 10/19/24 11:07 amoxicillin [From Augmentin] Allergy Mild Abdominal Verified 10/19/24 11:07 Pain clavulanic acid Allergy Mild Abdominal Verified 10/19/24 11:07 [From Augmentin] Pain metformin AdvReac Intermediate diarrhea Verified 10/19/24 11:07 Review of Systems 2 Constitutional: Constitutional: Denies body ache(s), Denies chills and Denies fever(s) Cardiovascular: Cardiovascular: Denies chest pain Gastrointestinal: Gastrointestinal: Reports abdominal pain, Denies nausea and Denies vomiting Musculoskeletal: Musculoskeletal: Reports arthralgias, Denies joint swelling and Denies limited range of motion PMFSH Past Medical History Medical History Sinusitis Hepatitis Normocytic anemia 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 infection) Pure hypercholesterolemia Essential hypertension Sessile colonic polyp 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 infection) 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 Hypertension Non-toxic multinodular goiter Diabetic retinopathy associated with type 2 diabetes mellitus CKD stage 3 due to type 2 diabetes mellitus Diabetic nephropathy associated with type 2 diabetes mellitus Dyslipidemia Diabetes type 2, controlled Hypovitaminosis D Surgical History H/O colonoscopy (08/13/20) Hx of bilateral cataract extraction History of hysterectomy with unilateral oophorectomy Hx of section Hx of thyroidectomy Family History Family History Father Liver disease Mother Hypertension CVD (cardiovascular disease) Renal disease Hyperlipidemia ESRD on hemodialysis Paternal Aunt Glaucoma Social History Social History Household Members: Other Household Members Other:: grandson Housing: House Alcohol intake: never Patient Tobacco Use Status: Never used Tobacco e-Cigarette/Vaping Use: Never Used Second Hand Smoke Exposure: No Advance Directives: No Advance Directives Information Provided: Yes Advance Directives Date on File: 07/01/21 service: No Current occupational status: unemployed Cognitive needs: No Hearing needs: No Vision needs: No Physical Exam ED Vital Signs: Vital Signs - 24 hr 10/19/24 11:05 10/19/24 14:53 10/19/24 17:10 Temperature 98.5 F 97.6 F 97.7 F Pulse Rate 61 84 52 Respiratory Rate 18 14 16 Blood Pressure 176/63 H 166/69 H 172/72 H Pulse Oximetry 99 96 99 Oxygen Delivery Method Room Air Room Air Room Air BMI result Body Mass Index 24.1 Const General: healthy appearing, comfortable, no acute distress, alert and awake Nutritional Appearance: well nourished Orientation/consciousness: patient oriented x3 HENMT Head: Yes normocephalic and Yes atraumatic Eyes Eyelids: Yes eyelids normal Conjunctivae: conjunctivae normal Sclerae: sclerae normal Corneas: corneas normal Pupils: Equal, round and reactive pupils present EOM: EOMs intact bilaterally Neck Neck: Yes full ROM Resp Effort & Inspection: normal respiratory effort, able to speak in complete sentences and not labored GI Other: No rashes to the abdomen Inspection: No distended Palpation (GI): Soft to palpation, not firm, nontender, no guarding and not rigid Skin General skin exam: elasticity normal Neuro General: patient oriented x3 Cranial nerves: Yes Equal, round and reactive pupils present and Yes Bilaterally intact EOM present Cognition (Neuro): normal cognition Extrem Other: Moving all extremities well without any obvious deformities Course Course Course Narrative: This is a rapid medical exam performed by Mayo Sterling NP: Additional HPI, ROS, PE not included below will be deferred to primary provider. Patient is a 69-year-old [place] speaking female presenting with complaint of bilateral thumb pain since September, also complaining of abdominal pain in the meat of her belly. Denies n/v/d. Plan: labs, UA Medical Decision Making Medical Decision Making MDM Narrative: 69-year-old female presents for evaluation of multiple complaints including bilateral thumb pain. She has no deformity noted, x-ray show osteoarthritis. There was no evidence of ischemic disease. Her pain is most likely related to osteoarthritis and this was discussed with her using the sign language interpreter. The patient reports pain to her upper abdomen region but reports that it seems like ?skin pain. ? abdomen is nontender, she has no rashes to suggest shingles. The patient will follow up with the primary doctor regarding this. Differential Diagnosis Differential Diagnoses: The differential diagnosis associated with the presentation includes Osteoarthritis Shingles Abdominal pain Rheumatoid arthritis Gastritis Lab Data MDM Lab Attestation statement: I reviewed the patient's lab results. No leukocytosis. The patient has a mild anemia consistent with a baseline. No significant electrolyte abnormalities. Patient's renal function is elevated with her known history of chronic kidney disease. Her BUN of 22 and creatinine of 1.54 are trending slightly improved compared to her baseline. The patient is a diabetic with a glucose of 296 but no evidence of DKA. Urinalysis shows proteinuria which is chronic for the patient but also hematuria which appears new. I have a low suspicion for obstructive uropathy. 10/19/24 11:47 10/19/24 11:47 Labs: Lab Results 10/19/24 10/19/24 Range/Units 11:47 11:52 WBC 8.1 (4.8-10.8) X10*3/uL RBC 4.45 (4.20-5.50) X10*6/uL Hgb 11.6 L (12.0-16.0) g/dl Hct 36.7 L (37.0-47.0) % MCV 82.5 (80.0-98.0) fL MCH 26.1 L (27.0-33.0) pg MCHC 31.6 (31.0-35.0) g/dl RDW 11.8 (11.0-16.0) % Plt Count 239 (160-400) X10*3/uL MPV 11.2 (9.4-12.3) fL Immature Gran % (Auto) 0.5 H (0.0-0.4) % Neut % (Auto) 62.8 (45-73) % Lymph % (Auto) 27.0 (20-40) % [place] % (Auto) 8.6 (2-11) % Eos % (Auto) 0.9 (0-4) % Baso % (Auto) 0.2 (0-2) % Lymph # (Auto) 2.2 (1.2-4.9) X10*3/uL [place] # (Auto) 0.7 (0.1-1.2) X10*3/uL Eos # (Auto) 0.1 (0.0-0.4) X10*3/uL Baso # (Auto) 0.0 (0.0-0.2) X10*3/uL Abs Immat Gran (auto) 0.04 H (0.00-0.03) X10*3/uL Absolute Neuts (auto) 5.1 (2.0-8.3) x10*3/uL Absolute Nucleated RBC 0.000 (0.0-0.012) X10*3/uL Nucleated RBC % (auto) 0.0 (0.0-0.2) /100WBC Sodium 139 (135-145) mmol/L Potassium 3.9 (3.3-5.1) mmol/L Chloride 103 (96-108) mmol/L Carbon Dioxide 29 (22-29) mmol/L Anion Gap 11 L (12-20) BUN 22 H (9-16) mg/dL Creatinine 1.54 H (0.5-1.4) mg/dL Estim Creat Clear Calc 26.6 Estimated GFR 34 Random Glucose 296 H (60-115) mg/dL Calcium 9.0 (8.4-10.2) mg/dL Magnesium 2.0 (1.6-2.6) mg/dL Total Bilirubin 0.2 (0.0-1.0) mg/dL AST 18 (5-31) U/L ALT 15 (0-31) U/L Alkaline Phosphatase 73 (39-117) U/L Total Protein 7.0 (6.5-8.0) g/dL Albumin 3.0 L (3.5-5.0) g/dL Lipase 27 (8-78) U/L Urine Color Yellow Urine Appearance Clear Urine pH 6.5 (5.0-9.0) Ur Specific [place] 1.025 (1.005-1.025) Urine Protein >=1000 (4+) H (Neg-Trace) mg/dL Urine Glucose (UA) >=1000 H (Negative) mg/dL Urine Ketones Negative (Negative) mg/dL Urine Blood Negative (Negative) Urine Nitrite Negative (Negative) Ur Leukocyte Esterase Negative (Negative) Urine RBC 3-5 H (0-2) /HPF Urine WBC 6-10 (0-5) /HPF Ur Squamous Epith Cells 6-10 (0-2) /HPF Urine Bacteria Trace (None Seen) Hyaline Casts 0-2 (0-2) /LPF Discharge Plan Discharge Clinical Impression: Osteoarthritis, Chronic kidney disease Patient Disposition: Home, Self-Care Instructions: Osteoarthritis (ED) Additional Instructions: Your x-ray showed arthritis the joints in your hand which is likely causing your pain Your blood work was reassuring. Your kidney function slightly better than it usually is Your urinalysis showed both protein and blood which is likely related to your kidney disease Follow this up with your kidney doctor You may use Tylenol as needed for your pain Prescriptions: No Action alcohol swabs Pads, Medicated 1 pad topical .4 times a day 30 Days Qty: 200 11RF (DME) lancets [OneTouch UltraSoft Lancets] Misc See Rx Instructions .Route Qty: 100 6RF Rx Instructions: Use 1 lancet four times a day (DME) blood-glucose meter [OneTouch UltraMini] Kit See Rx Instructions .Route Qty: 1 0RF Rx Instructions: As directed ferrous sulfate 325 mg (65 mg iron) tablet 325 mg PO DAILY Qty: 90 2RF (DME) pen needle, diabetic [BD Mansi 2nd Gen Pen Needle] 32 gauge x 5/32 needle See Rx Instructions .MEDSUPPLY Qty: 100 4RF Rx Instructions: twice a day (DME) OneTouch Ultra Test Strip See Rx Instructions .Route Qty: 100 6RF Rx Instructions: Use 1 lancet four times a day insulin degludec [Tresiba FlexTouch U-100] 100 unit/mL (3 mL) insulin pen 25 unit subcut DAILY 90 Days Qty: 22.5 6RF (DME) blood pressure monitor Kit See Rx Instructions .Route Qty: 1 0RF Rx Instructions: As directed atorvastatin 80 mg tablet 80 mg PO BEDTIME 90 Days Qty: 90 1RF (DME) pen needle, diabetic 32 gauge x 5/32 needle See Rx Instructions subcut .MEDSUPPLY Qty: 200 5RF Rx Instructions: twice a day liraglutide [Victoza 3-Yvon] 0.6 mg/0.1 mL (18 mg/3 mL) pen injector 3 mg subcut Q24H hydralazine 50 mg tablet 50 mg PO TID 30 Days Qty: 90 3RF diltiazem HCl 240 mg capsule,extended release 24 hr 240 mg PO DAILY Qty: 30 4RF Juluca 50-25 mg tablet 1 tab PO DAILY 30 Days Qty: 30 5RF Rx Instructions: must administer with a meal/food Print Language: [place]
[2024-10-19 11:54] LABS: Basophils Percent Auto 0.2 % (0-2); Eosinophils Absolute Auto 0.1 X10*3/uL (0.0-0.4); Eosinophils Percent Auto 0.9 % (0-4); Hematocrit 36.7 % (37.0-47.0); Hemoglobin 11.6 g/dl (12.0-16.0); Imm Gran Abs Auto 0.04 X10*3/uL (0.00-0.03); Imm Gran Pct Auto 0.5 % (0.0-0.4); Lymphocytes Absolute Auto 2.2 X10*3/uL (1.2-4.9); MANUAL DIFF FLAG NO; Mean Corpuscular HGB Conc 31.6 g/dl (31.0-35.0); Mean Corpuscular Hemoglobin 26.1 pg (27.0-33.0); Mean Corpuscular Volume 82.5 fL (80.0-98.0); Mean Platelet Volume 11.2 fL (9.4-12.3); Monocytes Absolute Auto 0.7 X10*3/uL (0.1-1.2); Monocytes Percent Auto 8.6 % (2-11); Neutrophils Absolute Auto 5.1 x10*3/uL (2.0-8.3); Neutrophils Percent Auto 62.8 % (45-73); Platelet Count 239 X10*3/uL (160-400); Red Blood Count 4.45 X10*6/uL (4.20-5.50); Red Cell Distribution Width 11.8 % (11.0-16.0); White Blood Count 8.1 X10*3/uL (4.8-10.8)
[2024-10-19 12:21] LABS: Appearance Urine Clear; Color Urine Yellow; Glucose Urine UA >=1000 mg/dL (Negative); Leukocyte Esterase Urine Negative (Negative); Nitrite Urine Negative (Negative); PH 6.5 (5.0-9.0); Specific Gravity - Urine 1.025 (1.005-1.025); UMIC TRIGGER UACC YES; Urine Blood Negative (Negative); Urine Ketones Negative (Negative); Urine Protein >=1000 (4+) mg/dL (Neg-Trace)
[2024-10-19 12:22] LABS: Alanine Aminotransferase 15 U/L (0-31); Anion Gap 11 (12-20); Aspartate Amino Transferase 18 U/L (5-31); Bilirubin Total 0.2 mg/dL (0.0-1.0); Blood Urea Nitrogen 22 mg/dL (9-16); Carbon Dioxide 29 mmol/L (22-29); Chloride 103 mmol/L (96-108); Creatinine Clr Calc Pharmacy 26.6; Estimated Glomerular Filt Rate 34; Glucose Random 296 mg/dL (60-115); Lipase 27 U/L (8-78); Potassium 3.9 mmol/L (3.3-5.1); Sodium 139 mmol/L (135-145)
[2024-10-19 12:29] LABS: Alkaline Phosphatase 73 U/L (39-117)
[2024-10-19 12:41] LABS: UACC Culture Trigger YES
[2024-10-19 12:42] LABS: Bacteria Urine Trace (None Seen); Hyaline Casts Urine 0-2 /LPF (0-2)
[2024-10-19 14:53] VITALS: BP 166/69; PULSE 84; RESP 14; TEMP 36.4; O2SAT 96
[2024-10-19 17:10] VITALS: BP 172/72; PULSE 52; RESP 16; TEMP 36.5; O2SAT 99
== END 2024-10-20 19:31 | disposition home or self-care (01) ==
PROVIDERS: Registered Nurse Emergency; Emergency Provider Emergency Medicine; PCP Internal Medicine
DX: M19.042 Primary osteoarthritis, left hand (principal); M19.041 Primary osteoarthritis, right hand; E11.22 Type 2 diabetes mellitus with diabetic chronic kidney disease; I12.9 Hypertensive chronic kidney disease with stage 1 through stage 4 chronic kidney disease, or unspecified chronic kidney disease; N18.30 Chronic kidney disease, stage 3 unspecified; R10.10 Upper abdominal pain, unspecified; M79.645 Pain in left finger(s); M79.644 Pain in right finger(s); B20 Human immunodeficiency virus [HIV] disease; E78.5 Hyperlipidemia, unspecified; K75.9 Inflammatory liver disease, unspecified; Z79.4 Long term (current) use of insulin
CPT/HCPCS: 36415; 73130; 80053; 81001; 83690; 83735; 85025; 87086; 99283

== ENCOUNTER → 2024-10-19 11:09 | Outpatient (BNV) | payer OTHER, SELFPAY | PROVIDERS: PCP Internal Medicine; Visit Provider Radiology Diagnostic Radiology | DX: M79.641 Pain in right hand (principal); M79.642 Pain in left hand | CPT/HCPCS: 73130 ==

== ENCOUNTER 2024-11-09 10:24 | Outpatient (AMB) | payer OTHER, SELFPAY ==
--- NOTE | 2024-11-09 10:28 | A.OFFPC_ITS ---
Vital Signs 11/09/24 10:30 Height 4 ft 11 in Weight 119 lb BMI 24.0 BP 152/80 H Blood Pressure Location Lt brachial Position Sitting Intake Visit Reasons: 4 month follow up Intake Note: Patient here for a 4 month follow up, c/o abdominal burning Online User Experience Strategist Required: Yes Online User Experience Strategist Language: Flamer Sealer Name: Mishel Rao MD Information Interpreted: non-clinical & clinical Accompanied by: Self / Same As Patient Allergies crab Allergy (Severe, Verified 11/09/24 10:42) SWELLING amoxicillin [From Augmentin] Allergy (Mild, Verified 11/09/24 10:42) Abdominal Pain clavulanic acid [From Augmentin] Allergy (Mild, Verified 11/09/24 10:42) Abdominal Pain metformin Adverse Reaction (Intermediate, Verified 11/09/24 10:42) diarrhea Medication List - Last Reconciled 11/09/24 by Mishel Rao MD alcohol swabs 1 pad topical .4 times a day 30 days atorvastatin 80 mg PO BEDTIME 90 days blood pressure monitor As directed blood sugar diagnostic (Dengi OnlineTouch Ultra Test strips) Use 1 lancet four times a day blood-glucose meter (Torrent LoadingSystemsuch UltraMini kit) As directed diltiazem HCl ER 240 mg PO DAILY dolutegravir-rilpivirine 50-25 mg (Juluca) 1 tab PO DAILY 30 days ferrous sulfate 325 mg PO DAILY hydralazine 50 mg PO TID 30 days insulin degludec (Tresiba FlexTouch U-100 insulin) 25 units (0.25 mL) subcut DAILY 90 days lancets (OneTouch UltraSoft Lancets) Use 1 lancet four times a day liraglutide (Victoza 3-Yvon) 3 mg subcut Q24H pen needle, diabetic (BD Mansi 2nd Gen Pen Needle) twice a day pen needle, diabetic twice a day Tobacco use date assessed: 11/09/24 Fall risk assessment: No Falls in past year Last assessed Fall Risk: 11/09/24 Dental Screening Dental Screen Date: 11/09/24 Did you have a dental visit in the last 12 months?: Yes Did you have a dental problem in the last 6 months where you did not have access to dental care?: No Was dental information given to patient?: Patient has dentist HPI HPI Comments History of Present Illness Details The patient is a 69-year-old female presenting with diabetes management concerns, specifically elevated blood glucose levels and a recent A1c of 9.4. She reports blood glucose levels fluctuating around 200 mg/dL. The patient has not been receiving her regular insulin doses due to pharmacy supply issues, leading to elevated blood sugar levels and associated mood disturbances. Her diabetes medication regimen includes insulin therapy, which might require dosage adjustment. She is also concerned about hyperlipidemia and is currently prescribed Atorvastatin 80 mg for cholesterol management. The patient reports worries about potential kidney damage from this medication, although reassured about the safety of her current prescription. Additionally, the patient notes a potential risk for pancreatitis with elevated triglyceride levels but seeks clarification and treatment. Abdominal pain persists, exacerbated by driving, and she expresses a need for further investigation through imaging, such as an ultrasound which was order but her appointment is November 24 and she wants it before that. She also has chronic kidney disease stage 3 in which GFR has improved as well as microalbuminuria and this is follow by Nephrology. The patient is also currently taking Diltiazem 240 mg for hypertension management, and adjustments are planned based on concurrent cholesterol management. She has reported using iron supplements and hydralazine 50 mg thrice daily. Blood pressure elevated today but has improved. This will be monitor. She also has HIV follow by Infectious Disease that has been stable with medication. [facility] Medical History (Updated 11/09/24 @ 11:18 by Mishel Rao MD) Sinusitis Hepatitis Normocytic anemia 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 infection) Pure hypercholesterolemia Essential hypertension Sessile colonic polyp 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 infection) shelter (current) use of insulin Hypertension Non-toxic multinodular goiter Diabetic retinopathy associated with type 2 diabetes mellitus CKD stage 3 due to type 2 diabetes mellitus Diabetic nephropathy associated with type 2 diabetes mellitus Dyslipidemia Diabetes type 2, controlled Hypovitaminosis D Surgical History H/O colonoscopy (08/13/20) Hx of bilateral cataract extraction History of hysterectomy with unilateral oophorectomy Hx of section Hx of thyroidectomy Family History Father Liver disease Mother Hypertension CVD (cardiovascular disease) Renal disease Hyperlipidemia ESRD on hemodialysis Paternal Aunt Glaucoma Social History Household Members: Other Household Members Other:: grandson Housing: House Alcohol intake: never Patient Tobacco Use Status: Never used Tobacco e-Cigarette/Vaping Use: Never Used Second Hand Smoke Exposure: No Advance Directives Date on File: 07/01/21 service: No Current occupational status: unemployed Cognitive needs: No Hearing needs: No Vision needs: No Questionnaire PHQ-9 Over the last 2 weeks, how often have you been bothered by any of the following problems? 1. Little interest or pleasure in doing things: not at all 2. Feeling down, depressed, or hopeless: not at all 3. Trouble falling or staying asleep, or sleeping too much: not at all 4. Feeling tired or having little energy: not at all 5. Poor appetite or overeating: not at all 6. Feeling bad about yourself - or that you are a failure or have let yourself or your family down: not at all 7. Trouble concentrating on things, such as reading the newspaper or watching television: not at all 8. Moving or speaking so slowly that other people could have noticed. Or the opposite - being so fidgety or restless that you have been moving around a lot more than usual: not at all 9. Thoughts that you would be better off or of hurting yourself in some way: not at all Total score: 0 Depression Screening Interpretation: Negative Depression Screening Done: Yes 61398 - PHQ-9 Billing: Yes Source: Developed by Drs. Renny Brown, Dayanna Otoole, Bernardo Caruso and colleagues, with an educational sim from [employer]. Thrive Questionnaire Date Thrive assessed: 11/09/24 I am a: Patient What is your living situation today?: I have a steady place to live Within the past 12 months, did the food you bought not last and you didn't have the money to get more?: Never true Within the past 12 months, did you worry whether your food would run out before you got money to buy more?: Never true Do you have trouble paying for medicines?: No Do you have trouble getting transportation to medical appointments?: No Do you have trouble paying your heating and electricity bill?: No Do you have trouble taking care of your child, family member or friend?: No Do you have trouble with day-to-day activities such as bathing, preparing meals, shopping, managing finances, etc.?: No Are you currently unemployed and looking for a job?: No Are you interested in more education?: No Please select the resources that you would like help with: None Currently or been in a relationship where the following occur: No concerns reported THRIVE Score: 0 AUDIT C Alcohol Use Questionnaire (AUDIT-C) 1. How often do you have a drink containing alcohol?: Never Total Score: 0 Score Reviewed/Action Taken: No KB-7 AMB Questionnaire KB-7 Date KB - 7 assessed: 11/09/24 Feeling nervous, anxious, or on edge: 1 = Several days Not being able to stop or control worryin = Not at all Worrying too much about different things: 0 = Not at all Trouble relaxin = Not at all Being so restless that it is hard to sit still: 0 = Not at all Becoming easily annoyed or irritable: 0 = Not at all Feeling afraid as if something awful might happen: 0 = Not at all Total KB-7 score (0-4 normal; 5-9 mild; 10-14 moderate; 15-21 severe): 1 Source: Developed by Drs. Renny Brown, Dayanna Otoole, Bernardo Caruso and colleagues, with an educational sim from [employer]. KB-7 Assessment Billing KB-7 Assessment Tool: KB-7 Assessment 07506 Review of Systems Const All systems reviewed & are unremarkable except as noted in HPI and below Card Denies chest pain at rest, Denies chest pain with activity, Denies edema, Denies irregular heart rhythm, Denies claudication, Denies dyspnea, Denies dyspnea on exertion, Denies orthopnea, Denies paroxysmal nocturnal dyspnea and Denies slow heart rate Resp Denies cough, Denies dyspnea and Denies dyspnea on exertion GI Reports abdominal pain Physical exam (Primary Care) Vital Signs: Last Vital Signs BP 152/80 H 11/09/24 10:30 BMI result Body Mass Index 24.0 Tobacco/Smoking Status: Tobacco use Status Tobacco use date assessed 11/09/24 11/09/24 10:37 Patient Tobacco Use Status Never used Tobacco 11/09/24 10:30 e-Cigarette/Vaping Use Never Used 11/09/24 10:30 PHQ-9: PHQ-9 Score PHQ-9: Total score 0 11/09/24 10:40 Depression Screening Interpretation: Negative Thrive Assessment: Date of Thrive Assessment Date Thrive assessed 11/09/24 11/09/24 10:30 Currently or been in a relationship where the following occur: No concerns reported Resp Effort & Inspection: normal respiratory effort Auscultation: clear to auscultation bilaterally Cardio Jugular venous distension: no JVD Rate: regular rate Rhythm: regular rhythm Heart sounds: S1 normal heart sound present and S2 normal heart sound present GI Inspection: Yes normal to inspection Palpation (GI): Soft to palpation and Tenderness to palpation present (GI) in the epigastrum, in the LLQ, in the RLQ, in the LUQ, in the RUQ and periumbilically Auscultation: normal bowel sounds Extrem General: Yes full ROM Results AMB Hemoglobin A1c AMB Hemoglobin A1c 9.1 % Last Edit by JULIO CÉSAR Winkler on 11/09/24 10:4 1 Coding Level of Care Code Est Pt Level 4 (57884) Complex EM visit Add On G2211 Diagnoses Type 2 diabetes mellitus with hyperglycemia, with long-term current use of insulin E11.65; Z79.4 Diabetes mellitus type: type 2 Diabetes mellitus complication status: with hyperglycemia Generalized abdominal pain R10.84 Abdominal location: generalized Mixed hyperlipidemia E78.2 Asymptomatic HIV infection, with no history of HIV-related illness Z21 HIV symptom status: asymptomatic, with no history of HIV-related illness Essential hypertension I10 CKD stage 3 due to type 2 diabetes mellitus E11.22; N18.30 Diabetic nephropathy associated with type 2 diabetes mellitus E11.21 Additional Codes PHQ-9 - 62408 - PHQ-9 Billing: Yes ([id number]) KB-7 Assessment Billing - KB-7 Assessment Tool: KB-7 Assessment 93203 ([id number]) Time Spent (min) 24 Assessment & Plan Assessment & Plan (1) Diabetes mellitus, with long-term current use of insulin: Code(s): E11.9 - Type 2 diabetes mellitus without complications; Z79.4 - machine heel builder (current) use of insulin Category: Medical Qualifiers: Diabetes mellitus type: type 2 Diabetes mellitus complication status: with hyperglycemia Qualified Code(s): E11.65 - Type 2 diabetes mellitus with hyperglycemia; Z79.4 - machine heel builder (current) use of insulin (2) Abdominal pain: Code(s): R10.9 - Unspecified abdominal pain Category: Medical Qualifiers: Abdominal location: generalized Qualified Code(s): R10.84 - Generalized abdominal pain (3) Mixed hyperlipidemia: Code(s): E78.2 - Mixed hyperlipidemia Category: Medical (4) 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 infection): Comment: She is doing well on Juluca. Would continue Juluca. Check viral load and CD4 count February 2025. See in March 2025. Mammogram and Pap.Follow PCP. Code(s): B20 - Human immunodeficiency virus [HIV] disease Category: Medical Qualifiers: HIV symptom status: asymptomatic, with no history of HIV-related illness Qualified Code(s): Z21 - Asymptomatic human immunodeficiency virus [HIV] infection status (5) Essential hypertension: Code(s): I10 - Essential (primary) hypertension Category: Medical (6) CKD stage 3 due to type 2 diabetes mellitus: Code(s): E11.22 - Type 2 diabetes mellitus with diabetic chronic kidney disease; N18.30 - Chronic kidney disease, stage 3 unspecified Category: Medical (7) Diabetic nephropathy associated with type 2 diabetes mellitus: Code(s): E11.21 - Type 2 diabetes mellitus with diabetic nephropathy Category: Medical Plan - Initiate urgent ultrasound imaging to assess abdominal pain. - Adjust insulin regimen to improve glycemic Fiona discussed the management plan extensively with the patient, emphasizing the importance of glycemic control and its impact on her overall health. We addressed her concerns regarding atorvastatin's safety in relation to renal function, reassuring her based on current medical guidelines. The necessity of insulin therapy in her diabetic management was reinforced due to its significant role in reducing elevated blood sugars. We also covered potential dietary modifications to align with her health goals. For her abdominal pain, we will conduct an urgent ultrasound to further investigate any underlying cause, such as pancreatitis. We agreed to maintain vigilant monitoring of her condition with further follow-up arranged as her condition warrants. trol, potentially increasing Tresiba from 25 to 30 units daily. - Continue Atorvastatin for hyperlipidemia management and start Fenofibrate. - Evaluate potential alternatives or the efficacy of current medications for cholesterol and blood pressure in light of drug allergies. - Maintain current iron supplementation and hydralazine dosage for hypertension control. - Expedite pharmacy assistance to ensure the patient receives insulin timely. Patient was informed and verbally consented to the use of an ambient scribe for clinic note documentation during this visit. Orders: Orders AMB Hemoglobin A1c Today E11.65 - Type 2 diabetes mellitus with hyperglycemia, Z79.4 - machine heel builder (current) use of insulin Medications: New fenofibrate 54 mg PO DAILY 90 days 90 tabs 1RF Changed From liraglutide (Victoza 3-Yvon) 3 mg subcut Q24H To liraglutide (Victoza 3-Yvon) 3 mg (0.5 mL) subcut Q24H 4 weeks 14 mL 6RF From insulin degludec (Tresiba FlexTouch U-100 insulin) 25 units (0.25 mL) subcut DAILY 90 days 22.5 mL 6RF To insulin degludec (Tresiba FlexTouch U-100 insulin) 30 units (0.3 mL) subcut DAILY 90 days 27 mL 6RF From pen needle, diabetic (BD Mansi 2nd Gen Pen Needle) twice a day 100 ea 4RF E11.22 - Type 2 diabetes mellitus with diabetic chronic kidney disease, E11.65 - Type 2 diabetes mellitus with hyperglycemia To pen needle, diabetic (BD Mansi 2nd Gen Pen Needle) Use 1 pen needle once a day 100 ea 4RF E11.22 - Type 2 diabetes mellitus with diabetic chronic kidney disease, E11.65 - Type 2 diabetes mellitus with hyperglycemia Patient Instructions: - Adhere to diabetes management regimen, including insulin as soon as pharmacy issues resolve. - Follow dietary recommendations to minimize hyperlipidemia risk and avoid foods that exacerbate abdominal discomfort. - Monitor and report any worsening symptoms, especially related to abdominal pain or blood glucose fluctuations. - Attend scheduled ultrasound appointment for further evaluation of abdominal pain. - Continue current medications unless instructed otherwise and attend follow-up appointments to reassess treatment effectiveness and make necessary adjustments.
[2024-11-09 10:30] VITALS: BP 152/80; BMI 24.0
--- OUTSIDE RECORDS SUMMARY | 2024-11-09 13:54 | XMS_ITS | Encounter Summary ---
Author Organization [facility] Address [address] [facility] [address] [place] [address] Phone Care Team Providers Care Helicopter Mechanic Name Role Phone Mishel Cummings MD Primary Care Provider [phone] Reason for Visit * Reason Comments Med Refill Encounter Details Date Type Department Care Team (Late st Contact Info) Description 11/27/2021 Refill [facility] [address] [place] [id number] Jignesh Easton MD Social History Tobacco Use Types Packs/Day Years Used Date Smoking Tobacco: Never Smokeless Tobacco: Never Alcohol Use Standard Drinks/Week Comments No 0 (1 standard drink = 0.6 oz pur e alcohol) Comments Unknown Sex and Gender Information Value Date Recorded Sex Assigned at Not on file Legal Sex Female 4:47 PM EST Gender Identity Not on file Sexual Orientation Not on file documented as of this encounter Plan of Treatment Not on file documented as of this encounter Visit Diagnoses Not on filedocumented in this encounter Care Teams Helicopter Mechanic Relationship Specialty Start Date End Date Mishel Cummings MD [address] [place], [place] PCP - General 10/21/20 documented as of this encounter
--- OUTSIDE RECORDS SUMMARY | 2024-11-09 13:54 | XMS_ITS | Clinical Summary ---
Author Organization [facility] Address [address] [place] [address] Phone Care Team Providers Care Toll Test Desk Worker Name Role Phone Mishel Cummings MD Primary Care Provider [phone] Allergies Active Allergy Reactions Criticality Noted Date Comments Metformin Other (see comments) 04/17/2021 Medications Canagliflozin (Invokana) 100 MG tablet Take 1 tablet by mouth 1 (one) time each day Active Cholecalcifero l 50 MCG (2000 UT) capsule Take 1 capsule by mouth 1 (one) time each day Active folic acid (FOLVITE) 1 MG tablet Take 1 tablet by mouth 1 (one) time each day Active liraglutide (Victoza) 18 MG/3ML injection Active lisinopril 40 MG tablet Take 1 tablet by mouth 1 (one) time each day 8 Active ferrous sulfate 325 (65 Fe) MG tablet Take 1 tablet by mouth 1 (one) time each day 1 Active Sotrovimab 500 MG/8ML solution Infuse into a venous catheter Active Tresiba FlexTouch 100 UNIT/ML injection INJECT 12 UNITS SUBCUTANEOUSLY DAILY FOR 30 DAYS 2 Active omeprazole (PriLOSEC) [address] capsule Take 1 capsule by mouth 1 (one) time each day 2 Active omeprazole (PriLOSEC) [address] capsule TOME KIMBERLY CAPSULA [place] *DO NOT CRUSH/CHEW* 90 capsule 1 2 Active Biktarvy 50-200-25 MG tablet Take 1 tablet by mouth 1 (one) time each day 3 Active amLODIPine (NORVASC) 10 MG tablet Take 1 tablet by mouth 1 (one) time each day 3 Active rosuvastatin (CRESTOR) 40 MG tablet Take 1 tablet by mouth 1 (one) time each day 3 Active Active Problems Problem Noted Date Diagnosed Date Hypertension 04/18/2021 HIV positive 04/18/2021 Stage 3a chronic kidney disease 04/18/2021 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 Essential hypertension 04/17/2021 Proteinuria 04/17/2021 Type 2 diabetes mellitus without complication Family History Medical History Relation Comments Diabetes Father Hypertension Mother Kidney disease Mother Diabetes Sibling sister Relation Status Comments Father Mother Sibling Social History Tobacco Use Types Packs/Day Years Used Date Smoking Tobacco: Never Smokeless Tobacco: Never Tobacco Cessation:Counseling Given: Not Answered Alcohol Use Standard Drinks/Week Comments No 0 (1 standard drink = 0.6 oz pur e alcohol) Comments Unknown Sex and Gender Information Value Date Recorded Sex Assigned at Not on file Legal Sex Female 4:47 PM EST Gender Identity Not on file Sexual Orientation Not on file Last Filed Vital Signs Vital Sign Reading Time Taken Comments Blood Pressure 118/70 02/03/2023 12:53 PM EDT Pulse 92 02/03/2023 12:53 PM EDT Temperature - - Respiratory Rate - - Oxygen Saturation 99% 04/18/2021 2:54 PM EDT Inhaled Oxygen Concentration - - Weight 52.7 kg (116 lb 3.2 oz) 02/03/2023 12:53 PM EDT Height 149.9 cm (4' 11 ) 03/13/2020 12:00 PM EDT Body Mass Index 23.47 03/13/2020 12:00 PM EDT Plan of Treatment Health Maintenance Due Date Last Done Comments Breast Cancer Screening 1955 Pneumococcal Vaccine: 65+ Ye ars (1 of 2 - PCV) 1963 Colorectal Cancer Screening: Annual FOBT 2006 Colorectal Cancer Screening: Colonoscopy 2006 Colorectal Cancer Screening: Sigmoidoscopy 2006 Diabetes: Hemoglobin A1C 11/11/2020 Diabetes: Ophthalmology Exam 11/11/2020 Diabetes: Pedal Pulse Checked 11/11/2020 Diabetes: Sensory Foot Exam 11/11/2020 Diabetes: Visual Foot Exam 11/11/2020 Influenza Vaccine (#1) 2024 Hepatitis B Vaccine Aged Out No longe r eligible based on patient's age to complete this topic Insurance [facility] Care Teams Toll Test Desk Worker Relationship Specialty Start Date End Date Mishel Cummings MD [address] [place], [place] PCP - General 10/21/20
--- OUTSIDE RECORDS SUMMARY | 2024-11-09 13:54 | XMS_ITS | Encounter Summary ---
Author Organization [employer] Address [address] [place] [address] [address] [place] [address] Care Team Providers Care Roofing Technician Name Role Phone Unavailable Primary Care Provider Unavailabl e Encounter Details Date Type Department Care Team (Latest Contact Info) Description 06/06/2019 Abstract [facility] CONVERSIONS Dental, Provider, DDS Social History Tobacco Use Types Packs/Day Years Used Date Smoking Tobacco: Never Assessed Comments Unknown Sex and Gender Information Value Date Recorded Sex Assigned at Female 08/10/2022 10:24 AM EDT Legal Sex Female 10:24 AM EDT Gender Identity Female 12/30/2022 9:36 AM EDT Sexual Orientation Straight 12/30/2022 9: 36 AM EDT documented as of this encounter Plan of Treatment Upcoming Encounters Date Type Department Care Team (Late st Contact Info) Description 03/16/2025 10:00 AM EDT Office Visit [facility] [address] [place] [address] Andreas Guerra documented as of this encounter Visit Diagnoses Not on filedocumented in this encounter
--- OUTSIDE RECORDS SUMMARY | 2024-11-09 13:54 | XMS_ITS | Clinical Summary ---
Author Organization [employer] Address [address] [place] [address] 7t [place] [address] Care Team Providers Care Flood Control Engineer Name Role Phone Unavailable Primary Care Provider Unavailabl e Allergies Active Allergy Reactions Criticality Noted Date Comments Metformin Other 04/17/2021 Shellfish Allergy 05/06/2023 Medications folic acid-vit B6-vit B12 2.5-25-1 MG tablet tablet Active elvitegravir-co bicistat-emtric itabine-tenofov ir alafenamide (Genvoya) [phone] MG tablet Active hydroCHLOROthia zide (HYDRODiuril) 12.5 MG tablet Take 1 tablet by mouth at bed time. Active insulin glargine (Lantus SoloStar) 100 UNIT/ML pen Active lisinopril 20 MG tablet Take 1 tablet by mouth at bed time. Active rosuvastatin (Crestor) 5 MG tablet Take 1 tablet by mouth at bed time. Active atorvastatin (Lipitor) 80 MG tablet TAKE 1 TABLET ORALLY AT BEDTIME FOR 90 DAYS 07/23/20 24 Active amLODIPine (Norvasc) 10 MG tablet TOME 1 TABLETA POR V A ORAL TODOS LOS D Active Juluca 50-25 MG tablet TOME 1 TABLETA POR V A ORAL TODOS LOS D CON ALIMENTO 09/11/20 24 Active dulaglutide (Trulicity) 0.75 MG/0.5ML solution pen-injector INJECT 0.75 MG (0.5 ML) SUBCUTANEOUSLY EVERY WEEK FOR 90 DAYS 12/18/19 24 Active ferrous sulfate 325 (65 Fe) MG tablet TOME KIMBERLY TABLETA POR V A ORAL TODOS LOS D Active fenofibrate (Tricor) 54 MG tablet TOME 1 TABLETA POR V A ORAL TODOS LOS D 07/23/20 24 Active cholecalciferol VITAMIN D (Vitamin D-3) 50 MCG (1999 UT) capsule TOME KIMBERLY C PSULA NELL VERA D Active Active Problems No known active problems Encounters Date Type Department Care Team Description 10/17/2024 Telephone [facility] [address] [place] [address] Andreas Guerra 10/06/2024 9:00 AM EST Office Visit [facility] [address] [place] [address] Nisha Ontiveros DDS 09/14/2024 9:00 AM EST Office Visit [facility] [address] [place] [address] Andreas Guerra Dental calculus (Primary Dx); Dental caries; Gingivitis from Last 3 Months Social History Tobacco Use Types Packs/Day Years Used Date Smoking Tobacco: Never Passive Smoke Exposure: Never Smokeless Tobacco: Never Alcohol Use Standard Drinks/Week Comments Never 0 (1 standard drink = 0.6 oz pur e alcohol) Comments Unknown Sex and Gender Information Value Date Recorded Sex Assigned at Female 08/10/2022 10:24 AM EDT Legal Sex Female 10:24 AM EDT Gender Identity Female 12/30/2022 9:36 AM EDT Sexual Orientation Straight 12/30/2022 9: 36 AM EDT Last Filed Vital Signs Vital Sign Reading Time Taken Comments Blood Pressure 160/88 10/06/2024 8:51 AM EST Pulse 75 09/14/2024 8:47 AM EST Temperature - - Respiratory Rate - - Oxygen Saturation - - Inhaled Oxygen Concentration - - Weight - - Height - - Body Mass Index - - Plan of Treatment Upcoming Encounters Date Type Department Care Team (Late st Contact Info) Description 03/16/2025 10:00 AM EDT Office Visit [facility] [address] [place] [address] Andreas Guerra Health Maintenance Due Date Last Done Comments CT Colonography 1957 Colonoscopy 1957 Colorectal Cancer Screening 1957 Depression Screening 1957 FIT DNA/Cologuard 1957 FIT 1957 FOBT 1957 Lipid Panel 1957 SDOH Screening 1957 Sigmoidoscopy 1957 Alcohol/Substance Use Screening 1969 Hepatitis C Screening 1975 Mammogram 1997 Zoster Vaccines (1 of 2) 2007 Pneumococcal Vaccine: 50+ Years (1 of 1 - PCV) 2022 COVID-19 Vaccine (4 - season) 2024 06/18/2022, 01/04/2021, 12/07/2020 Dental Oral Exam 03/16/2025 09/14/2024, 03/23/2023 Dental Prophylaxis 03/16/2025 09/14/2024, 03/23/2023 Dental X-Ray: Bitewings 09/15/2025 09/14/2024, 01/12 Tobacco Screening 10/06/2025 10/06/2024 Dental X-Ray: Full Mouth 01/13/2026 01/12/2023 DTaP/Tdap/Td Vaccines (2 - Td or Tdap) 08/18/2026 08/18/2016 RSV Patients and Patients Aged 60 years or older (1 - 1-dose 75+ series) 2032 Influenza Vaccine Completed 07/13/2024, , 08/27/2022, Additional history exists HIB Vaccines Aged Out No longer eligi ble based on patient's age to complete this topic HPV Vaccines Aged Out No longer eligi ble based on patient's age to complete this topic Hepatitis A Vaccines Aged Out No long er eligible based on patient's age to complete this topic Hepatitis B Vaccines Aged Out No long er eligible based on patient's age to complete this topic IPV Vaccines Aged Out No longer eligi ble based on patient's age to complete this topic Meningococcal Vaccine Aged Out No monet jazmine eligible based on patient's age to complete this topic RSV under 20 months Aged Out No longe r eligible based on patient's age to complete this topic Rotavirus Vaccines Aged Out No longer eligible based on patient's age to complete this topic Procedures Procedure Name Priority Date/Time Associated Diagnosis Comments 3 MO RESTORATIVE - RESIN-BASED COMPOSITE RESTORATIONS - DIRECT - RESIN-BASED COMPOSITE - TWO SURFACES, POSTERIOR Routine 10/06/2024 9:00 AM EST COMPREHENSIVE PERIODONTAL EVALUATION - NEW OR ESTABLISHED PATIENT Routine 09/14/2024 9:00 AM EST Dental caries Gingivitis PERIODIC ORAL EVALUATION - ESTABLISHED PATIENT Routine 09/14/2024 9:00 AM EST Dental caries Gingivitis INTRAORAL - PERIAPICAL EACH ADDITIONAL RADIOGRAPHIC IMAGE Routine 09/14/2024 9:00 AM EST Dental caries Gingivitis INTRAORAL - PERIAPICAL FIRST RADIOGRAPHIC IMAGE Routine 09/14/2024 9:00 AM EST Dental caries Gingivitis ORAL HYGIENE INSTRUCTIONS Routine 2023 9:00 AM EST Dental caries Gingivitis BITEWINGS - 4 RADIOGRAPHIC IMAGES Routine 09/14/2024 9:00 AM EST Dental caries Gingivitis Full PROPHYLAXIS - ADULT Routine 024 9:00 AM EST Dental caries Gingivitis ADJUNCTIVE GENERAL SERVICES - PROFESSIONAL VISITS - CASE PRESENTATION, SUBSEQUENT TO DETAILED AND EXTENSIVE TREATMENT PLANNING Routine 09/14/2024 9:00 AM EST Dental caries Gingivitis DIAGNOSTIC - DIAGNOSTIC IMAGING - INTRAORAL - COMPREHENSIVE SERIES OF RADIOGRAPHIC IMAGES Routine 01/12/2023 10:00 AM EDT from Last 3 Months or Most Recently Relevant to Health Maintenance [place] [address] [place] [address]
--- OUTSIDE RECORDS SUMMARY | 2024-11-09 13:54 | XMS_ITS | Encounter Summary ---
Author Organization [employer] Address [address] [place] [address] 7t h Floor [place] [id number] Care Team Providers Care Account Installer Name Role Phone Unavailable Primary Care Provider Unavailabl e Encounter Details Date Type Department Care Team (Late st Contact Info) Description 10/17/2024 Telephone [facility] [address] [place] [address] Andreas Guerra Social History Tobacco Use Types Packs/Day Years [...] AM EDT documented as of this encounter Miscellaneous Notes * Telephone Encounter - Manisha Francois - 10/17/2024 11:43 AM EST Called regarding upcoming appt; due to a change on hygiene sche we need to resh pt appt. Called to daryl no answer, left message with new appt. documented in this encounter Plan of Treatment Upcoming Encounters Date Type Department Care Team (Late st Contact Info) Description 03/16/2025 10:00 AM EDT Office Visit [facility] [address] [place] [address] Andreas Guerra documented as of this encounter Visit Diagnoses Not on filedocumented in this encounter
== END 2024-11-09 10:55 | disposition home or self-care (01) ==
PROVIDERS: PCP Internal Medicine; Visit Provider Internal Medicine
DX: I12.9 Hypertensive chronic kidney disease with stage 1 through stage 4 chronic kidney disease, or unspecified chronic kidney disease (principal); E11.65 Type 2 diabetes mellitus with hyperglycemia; N18.30 Chronic kidney disease, stage 3 unspecified; Z79.4 Long term (current) use of insulin; Z21 Asymptomatic human immunodeficiency virus [HIV] infection status; E11.22 Type 2 diabetes mellitus with diabetic chronic kidney disease; E11.21 Type 2 diabetes mellitus with diabetic nephropathy; R10.84 Generalized abdominal pain; E78.2 Mixed hyperlipidemia

== ENCOUNTER → 2024-11-09 10:24 | Outpatient (BNVA) | payer OTHER, SELFPAY | PROVIDERS: PCP Internal Medicine; Visit Provider Internal Medicine | DX: E11.65 Type 2 diabetes mellitus with hyperglycemia (principal); R10.84 Generalized abdominal pain; E78.2 Mixed hyperlipidemia; Z21 Asymptomatic human immunodeficiency virus [HIV] infection status; I12.9 Hypertensive chronic kidney disease with stage 1 through stage 4 chronic kidney disease, or unspecified chronic kidney disease; E11.22 Type 2 diabetes mellitus with diabetic chronic kidney disease; N18.30 Chronic kidney disease, stage 3 unspecified; E11.21 Type 2 diabetes mellitus with diabetic nephropathy; Z79.4 Long term (current) use of insulin | CPT/HCPCS: 83036; 96127; 99212 ==

== ENCOUNTER 2024-12-11 10:06 | Outpatient (REF) | payer OTHER, SELFPAY ==
[2024-12-11 10:26] LABS: MANUAL DIFF FLAG NO
[2024-12-11 10:41] LABS: Basophils Percent Auto 0.5 % (0-2); Eosinophils Percent Auto 0.7 % (0-4); Hematocrit 35.8 % (37.0-47.0); Hemoglobin 11.1 g/dl (12.0-16.0); Imm Gran Abs Auto 0.02 X10*3/uL (0.00-0.03); Imm Gran Pct Auto 0.3 % (0.0-0.4); Lymphocytes Absolute Auto 1.6 X10*3/uL (1.2-4.9); Lymphocytes Percent Auto 25.4 % (20-40); Mean Corpuscular Hemoglobin 25.3 pg (27.0-33.0); Mean Corpuscular Volume 81.7 fL (80.0-98.0); Mean Platelet Volume 11.6 fL (9.4-12.3); Monocytes Absolute Auto 0.5 X10*3/uL (0.1-1.2); Monocytes Percent Auto 7.5 % (2-11); Neutrophils Percent Auto 65.6 % (45-73); Platelet Count 236 X10*3/uL (160-400); Red Blood Count 4.38 X10*6/uL (4.20-5.50); Red Cell Distribution Width 12.2 % (11.0-16.0); White Blood Count 6.1 X10*3/uL (4.8-10.8)
[2024-12-11 11:10] LABS: Anion Gap 13 (12-20); Blood Urea Nitrogen 24 mg/dL (9-16); Calcium 9.2 mg/dL (8.4-10.2); Carbon Dioxide 25 mmol/L (22-29); Chloride 104 mmol/L (96-108); Estimated Glomerular Filt Rate 31; Glucose Random 335 mg/dL (60-115); Potassium 3.7 mmol/L (3.3-5.1); Sodium 138 mmol/L (135-145)
--- OUTSIDE RECORDS SUMMARY | 2024-12-11 11:37 | XMS_ITS | Clinical Summary ---
Author Organization [employer] Address [address] [place] [address] 7t [place] [address] Care Team Providers Care Passenger Attendant Name Role Phone Unavailable Primary Care Provider Unavailabl e Allergies Active Allergy Reactions Criticality Noted Date Comments Metformin Other 04/17/2021 Shellfish Allergy 05/06/2023 Medications folic acid-vit B6-vit B12 2.5-25-1 MG tablet tablet Active elvitegravir-co bicistat-emtric itabine-tenofov ir alafenamide (Genvoya) [phone] MG tablet Active hydroCHLOROthia zide (HYDRODiuril) 12.5 [...] Type Department Care Team Description 10/17/[address] [facility]ULT [facility] [address] [place] [address] Andreas Guerra 10/06/2024 9:00 AM EST Office [facility] [address] [place] [address] Nisha Ontiveros DDS 09/14/2024 9:00 AM EST Office [facility] [address] [place] [address] Andreas Guerra Dental calculus (Primary Dx); Dental [...] Description 03/16/2025 10:00 AM EDT Office Visit [facility] [address] [place] [address] Andreas Guerra Health Maintenance Due Date Last Done Comments CT Colonography 1957 Colonoscopy 1957 Colorectal Cancer Screening 1957 Depression Screening 1957 FIT DNA/Cologuard 1957 FIT 1957 FOBT 1957 Lipid Panel 1957 SDOH Screening 1957 Sigmoidoscopy 1957 Alcohol/Substance Use Screening 1969 Hepatitis C Screening 1975 Mammogram 1997 Pneumococcal Vaccine: 50+ Years (1 of 1 - PCV) 2007 Zoster Vaccines (1 of 2) 2007 COVID-19 Vaccine (4 - season) 2024 06/18/2022, [...] Priority Date/Time Associated Diagnosis Comments 3 MO RESIN-BASED COMPOSITE - 2 SURF, POSTERIOR Routine 10/06/2024 9:00 AM EST COMPREHENSIVE [...] 024 9:00 AM EST Dental caries Gingivitis CASE PRESENTATION, DETAILED AND EXTENSIVE TREATMENT PLANNING Routine 09/14/2024 9:00 AM EST Dental caries Gingivitis INTRAORAL - COMPLETE SERIES OF RADIOGRAPHIC IMAGES Routine 01/12/2023 10:00 AM EDT from Last 3 Months or Most Recently Relevant to Health Maintenance Insurance DENTAL - [facility]
--- OUTSIDE RECORDS SUMMARY | 2024-12-11 11:37 | XMS_ITS | Encounter Summary ---
Author Organization [employer] Address [address] [place] [address] 7 [place] [address] Care Team Providers Care Copy Operator Name Role Phone Unavailable Primary Care Provider Unavailabl e Encounter Details Date Type Department Care Team (Latest Contact Info) Description 06/06/2019 Abstract [facility] CONVERSIONS Dental, Provider, DDS Social History [...] Description 03/16/2025 10:00 AM EDT Office Visit [facility] ADULT DENTAL [address] [place] [address] Andreas Guerra documented as of this encounter Visit Diagnoses Not on filedocumented in this encounter
--- OUTSIDE RECORDS SUMMARY | 2024-12-11 11:37 | XMS_ITS | Encounter Summary ---
Author Organization [facility] Address [address] [facility] [address] [place] [address] Phone Care Team Providers Care Steam Drier Operator Name Role Phone Mishel Cummings MD Primary Care Provider [phone] Reason for Visit * Reason Comments Med Refill Encounter Details Date Type Department Care Team (Late st Contact Info) Description 11/27/2021 Refill [facility] [address] [place] [phone] Jignesh Easton MD Social History Tobacco Use [...] on filedocumented in this encounter Care Teams Steam Drier Operator Relationship Specialty Start Date End Date Mishel Cummings MD [address] [place], [place] PCP - General 10/21/20 documented as of this encounter
--- OUTSIDE RECORDS SUMMARY | 2024-12-11 11:37 | XMS_ITS | Clinical Summary ---
Author Organization [facility] Address [address] [facility] [address] [place] [address] Phone Care Team Providers Care Recruiting Team Lead Name Role Phone Mishel Cummings MD Primary Care Provider [phone] Allergies Active Allergy Reactions Criticality Noted Date [...] patient's age to complete this topic Insurance [facility] Care Teams Recruiting Team Lead Relationship Specialty Start Date End Date Mishel Cummings MD [address] [place], [place] PCP - General 10/21/20
[2024-12-11 12:07] LABS: Creatinine Urine 62.55 mg/dL
[2024-12-11 12:38] LABS: Protein/Creatinine Ratio, Ur 8.57 (<0.2); Total Protein Urine Random 536 mg/dL (<12)
[2024-12-13 14:54] LABS: HIV RNA PCR Qn Copies NOT DETECTED copies/mL (NOT DETECTED); HIV RNA PCR Qn Log Copies NOT DETECTED (NOT DETECTED)
[2024-12-15 00:53] LABS: Absolute CD3 Count 1218 cells/uL (840-3060); Absolute CD4 Count 385 cells/uL (490-1740); Absolute CD8 Count 835 cells/uL (180-1170); Absolute Lymphocytes 1621 cells/uL (850-3900); CD4 CD8 Ratio 0.46 (0.86-5.00); Percent CD3 Cells 75 % (57-85); Percent CD4 Cells 24 % (30-61); Percent CD8 Cells 52 % (12-42)
== END 2024-12-11 10:07 | disposition home or self-care (01) ==
LOC: HO.LAB 10:06
PROVIDERS: Absent Provider Internal Medicine; PCP Internal Medicine; Visit Provider Internal Medicine Nephrology
DX: Z21 Asymptomatic human immunodeficiency virus [HIV] infection status (principal); N18.30 Chronic kidney disease, stage 3 unspecified; E11.22 Type 2 diabetes mellitus with diabetic chronic kidney disease; I10 Essential (primary) hypertension
CPT/HCPCS: 36415; 80048; 82570; 84156; 85025; 86359; 86360; 87536

== ENCOUNTER 2024-12-13 11:48 | Outpatient (AMB) | payer OTHER, SELFPAY ==
--- NOTE | 2024-12-13 12:23 | HO.NEPHOV_ITS ---
Vital Signs 12/13/24 12:25 Height 4 ft 11 in Weight 117 lb 6 oz BMI 23.7 BP 164/70 H Blood Pressure Location Lt brachial Position Sitting Pulse 65 Pulse Source Pulse Oximeter Pulse Oximetry (%) 98 Oxygen Delivery Method Room Air Intake Visit Reasons: CKD-Conf Instructor Technical Training Required: Yes Instructor Technical Training Language: Display And Banner Designer Services: Instructor Technical Training Offered & Declined ([facility] [place] [facility] [place] [employer] interpreter services refused ) Accompanied by: Self / Same As Patient Allergies crab Allergy (Severe, Verified 12/13/24 12:24) SWELLING amoxicillin [From Augmentin] Allergy (Mild, Verified 12/13/24 12:24) Abdominal Pain clavulanic acid [From Augmentin] Allergy (Mild, Verified 12/13/24 12:24) Abdominal Pain metformin Adverse Reaction (Intermediate, Verified 12/13/24 12:24) diarrhea HPI Comments Details: Barbara was seen in the office in follow-up of her chronic kidney disease, proteinuria, renal cyst and hypertension. Her blood sugar is better controlled but still high. She is on CORNELIA-inhibitor. She avoids taking nonsteroidal anti- inflammatories. Her viral load is undetectable and CD4 are very good. She continues to have nephrotic range proteinuria. She has no edema. Her serum creatinine had gone up but stable [facility] Medical History Sinusitis Hepatitis Normocytic anemia 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 infection) Pure hypercholesterolemia Essential hypertension Sessile colonic polyp 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 infection) jail (current) use of insulin Hypertension Non-toxic multinodular goiter Diabetic retinopathy associated with type 2 diabetes mellitus CKD stage 3 due to type 2 diabetes mellitus Diabetic nephropathy associated with type 2 diabetes mellitus Dyslipidemia Diabetes type 2, controlled Hypovitaminosis D Surgical History H/O colonoscopy (08/13/20) Hx of bilateral cataract extraction History of hysterectomy with unilateral oophorectomy Hx of section Hx of thyroidectomy Family History Father Liver disease Mother Hypertension CVD (cardiovascular disease) Renal disease Hyperlipidemia ESRD on hemodialysis Paternal Aunt Glaucoma Social History Household Members: Other Household Members Other:: grandson Housing: House Alcohol intake: never Patient Tobacco Use Status: Never used Tobacco e-Cigarette/Vaping Use: Never Used Second Hand Smoke Exposure: No Advance Directives Date on File: 07/01/21 service: No Current occupational status: unemployed Cognitive needs: No Hearing needs: No Vision needs: No Review of Systems Const All systems reviewed & are unremarkable except as noted in HPI and below Physical Exam Vital Signs: Last Vital Signs Pulse 65 12/13/24 12:25 BP 164/70 H 12/13/24 12:25 Pulse Ox 98 12/13/24 12:25 Oxygen Delivery Method Room Air 12/13/24 12:25 BMI result Body Mass Index 23.7 Const General: comfortable and no acute distress Orientation/consciousness: patient oriented x3 HEENT Head: Yes normocephalic Mouth: Normal oral and palatal mucosa present Eyes EOM: EOMs intact bilaterally Neck Neck: Yes supple Resp Auscultation: clear to auscultation bilaterally Cardio Jugular venous distension: no JVD Rate: regular rate GI Palpation (GI): Soft to palpation Auscultation: normal bowel sounds General: Yes no CVA tenderness Back/Spine/Pelvis Back: no CVA tenderness Skin General skin exam: no rashes or lesions noted Neuro General: patient oriented x3 and moves all extremities Extrem General: Yes no pedal edema Results Reviewed Nephrology Results: Hgb 11.1 g/dl (12.0-16.0) L 12/11/24 WBC 6.1 X10*3/uL (4.8-10.8) 12/11/24 Plt Count 236 X10*3/uL (160-400) 12/11/24 Sodium 138 mmol/L (135-145) 12/11/24 Potassium 3.7 mmol/L (3.3-5.1) 12/11/24 Chloride 104 mmol/L (96-108) 12/11/24 Carbon Dioxide 25 mmol/L (22-29) 12/11/24 BUN 24 mg/dL (9-16) H 12/11/24 Creatinine 1.64 mg/dL (0.5-1.4) H 12/11/24 Calcium 9.2 mg/dL (8.4-10.2) 12/11/24 Urine Protein >=1000 (4+) mg/dL (Neg-Trace) H 5 Urine Creatinine 62.55 mg/dL 12/11/24 Protein/Creatinin Ratio 8.57 (<0.2) H 12/11/24 Assessment & Plan Assessment & Plan (1) Proteinuria: Code(s): R80.9 - Proteinuria, unspecified Category: Medical Qualifiers: Proteinuria type: other Qualified Code(s): R80.8 - Other proteinuria (2) 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 infection): Comment: She is doing well on Juluca. Would continue Juluca. Check viral load and CD4 count February 2025. See in March 2025. Mammogram and Pap.Follow PCP. Code(s): B20 - Human immunodeficiency virus [HIV] disease Category: Medical Qualifiers: HIV symptom status: asymptomatic, with no history of HIV-related illness Qualified Code(s): Z21 - Asymptomatic human immunodeficiency virus [HIV] infection status (3) Hypertension: Code(s): I10 - Essential (primary) hypertension Category: Medical Qualifiers: Hypertension type: essential hypertension Qualified Code(s): I10 - Essential (primary) hypertension (4) CKD stage 3 due to type 2 diabetes mellitus: Code(s): E11.22 - Type 2 diabetes mellitus with diabetic chronic kidney disease; N18.30 - Chronic kidney disease, stage 3 unspecified Category: Medical (5) Diabetic nephropathy associated with type 2 diabetes mellitus: Code(s): E11.21 - Type 2 diabetes mellitus with diabetic nephropathy Category: Medical Plan Barbara has a significant proteinuria. Her renal functions are stable. She is now on Diltiazem 240 mg daily as well as hydralazine which is keeping her BP control better. She had an incidental finding of left renal cyst which will need a follow-up renal ultrasound. She has had HIV which is well controlled. She avoids nonsteroidal anti-inflammatories. I discussed renal biopsy again which she wants to wait. I started her on Jardaince 10 mg today and plan to start ARB @ next visit. I ordered repeat blood work . (She most likely will need renal biopsy soon). I did not make any other medication changes today. All questions answered. Follow-up given Orders: Orders Blood Urea Nitrogen 1 Month E11.22 - Type 2 diabetes mellitus with diabetic chronic kidney disease, N18.30 - Chronic kidney disease, stage 3 unspecified Creatinine 1 Month E11.22 - Type 2 diabetes mellitus with diabetic chronic kidney disease, N18.30 - Chronic kidney disease, stage 3 unspecified Electrolytes 1 Month E11.22 - Type 2 diabetes mellitus with diabetic chronic kidney disease, N18.30 - Chronic kidney disease, stage 3 unspecified Medications: New empagliflozin (Jardiance) 10 mg PO DAILY 30 tabs 4RF Coding Level of Care Code Est Pt Level 4 (57864) Diagnoses Other proteinuria R80.8 Proteinuria type: other Asymptomatic HIV infection, with no history of HIV-related illness Z21 HIV symptom status: asymptomatic, with no history of HIV-related illness Essential hypertension I10 Hypertension type: essential hypertension CKD stage 3 due to type 2 diabetes mellitus E11.22; N18.30 Diabetic nephropathy associated with type 2 diabetes mellitus E11.21
[2024-12-13 12:25] VITALS: BP 164/70; PULSE 65; O2SAT 98; BMI 23.7
--- OUTSIDE RECORDS SUMMARY | 2024-12-13 14:15 | XMS_ITS | Clinical Summary ---
Author Organization [employer] Address [address] [place] [address] 7[address] [place] [address] Care Team Providers Care Agricultural Systems Specialist Name Role Phone Unavailable Primary Care Provider Unavailabl e Allergies Active Allergy Reactions Criticality Noted Date Comments Metformin Other 04/17/2021 Shellfish Allergy 05/06/2023 Medications folic acid-vit B6-vit B12 2.5-25-1 MG tablet tablet Active elvitegravir-co bicistat-emtric itabine-tenofov ir alafenamide (Genvoya) [phone] MG tablet Active hydroCHLOROthia zide (HYDRODiuril) 12.5 [...] Type Department Care Team Description 10/17/2024 Telephone [facility] ADULT DENTAL [address] [place] [address] Andreas Guerra 10/06/2024 9:00 AM EST Office Visit [facility]ULT [facility] [address] [place] [address] Nisha Ontiveros DDS 09/14/2024 9:00 AM EST Office Visit [facility] ADULT DENT[facility] [address] [place] [address] Andreas Guerra Dental calculus (Primary Dx); Dental [...] Description 03/16/2025 10:00 AM EDT Office Visit [facility] ADULT D[facility] [address] [place] [address] Andreas Guerra Health Maintenance Due Date Last [...] Relevant to Health Maintenance Insurance [facility]AL - [facility]
--- OUTSIDE RECORDS SUMMARY | 2024-12-13 14:15 | XMS_ITS | Encounter Summary ---
Author Organization [employer] Address [address] [place] [address] 7 [place] [address] Care Team Providers Care Sexual Assault Counselor Name Role Phone Unavailable Primary Care Provider Unavailabl e Encounter Details Date Type Department Care Team (Latest Contact Info) Description 06/06/2019 Abstract [facility] CONVERSIONS Dental, Provider, DDS Social History [...] Description 03/16/2025 10:00 AM EDT Office Visit [facility] ADULT D[facility]AL [address] [place] [address] Andreas Guerra documented as of this encounter Visit Diagnoses Not on filedocumented in this encounter
--- OUTSIDE RECORDS SUMMARY | 2024-12-13 14:15 | XMS_ITS | Encounter Summary ---
Author Organization [facility] Address [address] [facility] [address] [place] [address] Phone Care Team Providers Care Biomass Plant Technician Name Role Phone Mishel Cummings MD Primary Care Provider [phone] Reason for Visit * Reason Comments Med Refill Encounter Details Date Type Department Care Team (Late st Contact Info) Description 11/27/2021 Refill [facility] [address] [place] [phone] Jignesh Easton MD Social History Tobacco Use [...] on filedocumented in this encounter Care Teams Biomass Plant Technician Relationship Specialty Start Date End Date Mishel Cummings MD [address] [place], [place] PCP - General 10/21/20 documented as of this encounter
--- OUTSIDE RECORDS SUMMARY | 2024-12-13 14:15 | XMS_ITS | Clinical Summary ---
Author Organization [facility] Address [address] [facility] [address] [place] [address] [place] [address] Phone Care Team Providers Care Geothermal Operations Engineer Name Role Phone Mishel Cummings MD Primary Care Provider [phone] Allergies Active Allergy Reactions Criticality Noted Date [...] patient's age to complete this topic Insurance [facility] Care Teams Geothermal Operations Engineer Relationship Specialty Start Date End Date Mishel Cummings MD [address] [place], [place] PCP - General 10/21/20
== END 2024-12-13 12:45 | disposition home or self-care (01) ==
PROVIDERS: PCP Internal Medicine; Visit Provider Internal Medicine Nephrology
DX: R80.8 Other proteinuria (principal); Z21 Asymptomatic human immunodeficiency virus [HIV] infection status; I10 Essential (primary) hypertension; E11.22 Type 2 diabetes mellitus with diabetic chronic kidney disease; N18.30 Chronic kidney disease, stage 3 unspecified; E11.21 Type 2 diabetes mellitus with diabetic nephropathy
CPT/HCPCS: 99214

== ENCOUNTER → 2024-12-13 11:48 | Outpatient (BNVA) | payer OTHER, SELFPAY | PROVIDERS: PCP Internal Medicine; Visit Provider Internal Medicine Nephrology | DX: I12.9 Hypertensive chronic kidney disease with stage 1 through stage 4 chronic kidney disease, or unspecified chronic kidney disease (principal); E11.22 Type 2 diabetes mellitus with diabetic chronic kidney disease; E11.21 Type 2 diabetes mellitus with diabetic nephropathy; N18.30 Chronic kidney disease, stage 3 unspecified; R80.9 Proteinuria, unspecified; Z21 Asymptomatic human immunodeficiency virus [HIV] infection status | CPT/HCPCS: 99212 ==

== ENCOUNTER 2024-12-26 08:37 | Outpatient (REF) | payer OTHER, SELFPAY ==
--- NOTE | ~2024-12-26 | US_ITS ---
EXAMINATION: US ABDOMEN COMPLETE CLINICAL INFORMATION: Unspecified abdominal pain.. COMPARISON: May 31, 2019. TECHNIQUE: Real-time imaging of the abdominal viscera using grayscale and color Doppler technique. FINDINGS: PANCREAS: No peripancreatic fluid collections. ABDOMINAL AORTA: The proximal, mid, and distal segments are normal in caliber. INFERIOR VENA CAVA: Visualized portions are normal. LIVER: Liver measures 15 cm. Coarse echotexture. No nodular surface. No solid or cystic lesion detected by the manufacturing technologist. No intrahepatic biliary ductal dilatation. GALLBLADDER: There is a focal 8mm intraluminal hyperechoic lesion. No pericholecystic fluid collection or gallbladder wall thickening. COMMON BILE DUCT: 2 mm. RIGHT KIDNEY: 8 cm. Normal echotexture. Normal renal cortical thickness. No solid or cystic lesion. No hydronephrosis. Normal flow on color Doppler interrogation of the renal hilum. LEFT KIDNEY: 8 cm. Normal echotexture. Normal renal cortical thickness. No solid or cystic lesion. No hydronephrosis. Normal flow on color Doppler interrogation of the renal hilum.. SPLEEN: 6 cm. No focal lesion.. FREE FLUID: None. US/US abdomen complete IMPRESSION: Cholelithiasis. No hydronephrosis. No ascites. Electronically signed by: Eriberto Yates MD 12/26/2024 09:45 AM EDT
--- OUTSIDE RECORDS SUMMARY | 2024-12-26 08:56 | XMS_ITS | Clinical Summary ---
Author Organization [employer] Address [address] [place] [address] 7[address] [place] [address] Care Team Providers Care Assistant Teacher Primary Name Role Phone Unavailable Primary Care Provider Unavailabl e Allergies Active Allergy Reactions Criticality Noted Date Comments Metformin Other 04/17/2021 Shellfish Allergy 05/06/2023 Medications folic acid-vit B6-vit B12 2.5-25-1 MG tablet tablet Active elvitegravir-co bicistat-emtric itabine-tenofov ir alafenamide (Genvoya) 411-225-762-10 MG tablet Active hydroCHLOROthia zide (HYDRODiuril) 12.5 [...] (1999 UT) capsule TOME KIMBERLY C PSULA TOS LOS D Active Active Problems No known active problems Encounters Date Type Department Care Team Description 10/17/2024 Telephone [facility] [address] [place] [address] Andresa Guerra 10/06/2024 9:00 AM EST Office Visit [facility] [address] [place] [address] Nisha Ontiveros DDS from Last 3 Months Social History Tobacco [...] [facility] [address] [place] [address] Andreas Guerra Health Maintenance Due Date Last [...] Vaccines (1 of 2) 2007 COVID-19 Vaccine ( season) 2024 06/18/2022, 01/04/2021, 12/07/2020 Dental Oral [...] SURF, POSTERIOR Routine 10/06/2024 9:00 AM EST Full PROPHYLAXIS - ADULT Routine 024 9:00 AM EST Dental caries Gingivitis BITEWINGS - 4 RADIOGRAPHIC IMAGES Routine 09/14/2024 9:00 AM EST Dental caries Gingivitis PERIODIC ORAL EVALUATION - ESTABLISHED PATIENT Routine 09/14/2024 9:00 AM EST Dental caries Gingivitis INTRAORAL - COMPLETE SERIES OF RADIOGRAPHIC IMAGES Routine 01/12/2023 10:00 AM EDT from Last 3 Months or Most Recently Relevant to Health Maintenance Insurance [facility]
--- OUTSIDE RECORDS SUMMARY | 2024-12-26 08:56 | XMS_ITS | Clinical Summary ---
Author Organization [facility] Address [address] [place] [address] Phone Care Team Providers Care Medical Reviewer Name Role Phone Mishel Cummings MD Primary Care Provider [phone] Allergies Active Allergy Reactions Criticality Noted Date [...] to complete this topic Insurance [facility] Care Teams Medical Reviewer Relationship Specialty Start Date End Date Mishel Cummings MD [address] [place], [place] PCP - General 10/21/20
--- OUTSIDE RECORDS SUMMARY | 2024-12-26 08:56 | XMS_ITS | Encounter Summary ---
Author Organization [facility] Address [address] [facility] [address] [place] [address] Phone Care Team Providers Care Retail Maintenance Technician Name Role Phone Mishel Cummings MD Primary Care Provider [phone] Reason for Visit * Reason Comments Med Refill Encounter Details Date Type Department Care Team (Late st Contact Info) Description 11/27/2021 Refill [facility] [address] [place] [phone] Jignesh Easton MD Social History Tobacco Use [...] on filedocumented in this encounter Care Teams Retail Maintenance Technician Relationship Specialty Start Date End Date Mishel Cummings MD [address] [place], [place] PCP - General 10/21/20 documented as of this encounter
--- OUTSIDE RECORDS SUMMARY | 2024-12-26 08:56 | XMS_ITS | Encounter Summary ---
Author Organization [employer] Address [address] [place] [address] 7 [place] [address] Care Team Providers Care Oil Recovery Unit Operator Name Role Phone Unavailable Primary Care Provider Unavailabl e Encounter Details Date Type Department Care Team (Latest Contact Info) Description 06/06/2019 Abstract [facility] CONVERSIONS Dental, Provider, DDS Social History Tobacco [...] Description 03/16/2025 10:00 AM EDT Office Visit [facility] ADULT [facility]ENTAL [address] [place] [address] Andreas Guerra documented as of this encounter Visit Diagnoses Not on filedocumented in this encounter
== END 2024-12-26 08:38 | disposition home or self-care (01) ==
LOC: HO.US 08:37
PROVIDERS: PCP Internal Medicine; Visit Provider Internal Medicine
DX: R10.9 Unspecified abdominal pain (principal)
CPT/HCPCS: 76700

== ENCOUNTER → 2024-12-26 08:39 | Outpatient (BNV) | payer OTHER, SELFPAY | PROVIDERS: PCP Internal Medicine; Visit Provider Radiology Diagnostic Radiology | DX: K80.20 Calculus of gallbladder without cholecystitis without obstruction (principal) | CPT/HCPCS: 76700 ==

== ENCOUNTER 2025-01-08 13:05 | Outpatient (AMB) | payer OTHER, SELFPAY ==
--- NOTE | 2025-01-08 13:02 | MHC.OFFVIS ---
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 Hypertension Non-toxic multinodular goiter Diabetic retinopathy associated with type 2 diabetes mellitus CKD stage 3 due to type 2 diabetes mellitus Diabetic nephropathy associated with type 2 diabetes mellitus Dyslipidemia Diabetes type 2, controlled Hypovitaminosis D Surgical History H/O colonoscopy (08/13/20) Hx of bilateral cataract extraction History of hysterectomy with unilateral oophorectomy Hx of section Hx of thyroidectomy Family History Father Liver disease Mother Hypertension CVD (cardiovascular disease) Renal disease Hyperlipidemia ESRD on hemodialysis Paternal Aunt Glaucoma Social History Household Members: Other Household Members Other:: grandson Housing: House Alcohol intake: never Patient Tobacco Use Status: Never used Tobacco e-Cigarette/Vaping Use: Never Used Second Hand Smoke Exposure: No Advance Directives Date on File: 07/01/21 service: No Current occupational status: unemployed Cognitive needs: No Hearing needs: No Vision needs: No Coding
--- NOTE | 2025-01-08 13:03 | MHC.OFFVIS ---
Vital Signs 01/08/25 13:11 Height 4 ft 11 in Weight 121 lb BMI 24.4 BP 141/62 H Blood Pressure Location Lt brachial Position Sitting Pulse 69 Pulse Source Pulse Oximeter Intake Visit Reasons: 6 month HIV labs follow up Drop Hammer Mechanic Required: Yes Drop Hammer Mechanic Services: Drop Hammer Mechanic Present Drop Hammer Mechanic Name: Celia Childress CMA Information Interpreted: clinical only Allergies crab Allergy (Severe, Verified 01/08/25 13:12) SWELLING amoxicillin [From Augmentin] Allergy (Mild, Verified 01/08/25 13:12) Abdominal Pain clavulanic acid [From Augmentin] Allergy (Mild, Verified 01/08/25 13:12) Abdominal Pain metformin Adverse Reaction (Intermediate, Verified 01/08/25 13:12) diarrhea HPI HPI 6 month HIV labs follow up: Details: She is doing well. Her CD4 coiunt is 385 and viral load undetectable on 12/15. She is UTD dental ,eye and getting colonoscopy. [facility] Medical History Sinusitis Hepatitis Normocytic anemia 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 infection) Pure hypercholesterolemia Essential hypertension Sessile colonic polyp 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 infection) halfway (current) use of insulin Hypertension Non-toxic multinodular goiter Diabetic retinopathy associated with type 2 diabetes mellitus CKD stage 3 due to type 2 diabetes mellitus Diabetic nephropathy associated with type 2 diabetes mellitus Dyslipidemia Diabetes type 2, controlled Hypovitaminosis D Surgical History H/O colonoscopy (08/13/20) Hx of bilateral cataract extraction History of hysterectomy with unilateral oophorectomy Hx of section Hx of thyroidectomy Family History Father Liver disease Mother Hypertension CVD (cardiovascular disease) Renal disease Hyperlipidemia ESRD on hemodialysis Paternal Aunt Glaucoma Social History Household Members: Other Household Members Other:: grandson Housing: House Alcohol intake: never Patient Tobacco Use Status: Never used Tobacco e-Cigarette/Vaping Use: Never Used Second Hand Smoke Exposure: No Advance Directives Date on File: 07/01/21 service: No Current occupational status: unemployed Cognitive needs: No Hearing needs: No Vision needs: No Review of Systems Const All systems reviewed & are unremarkable except as noted in HPI and below Physical Exam Vital Signs: Last Vital Signs Pulse 69 01/08/25 13:11 BP 141/62 H 01/08/25 13:11 BMI result Body Mass Index 24.4 Const General: cooperative Orientation/consciousness: patient oriented x3 HEENT Head: Yes normal to inspection Mouth: Normal oral and palatal mucosa present Eyes General: appearance normal, both eyes and all related structures Pupils: Equal, round and reactive pupils present Resp Effort & Inspection: normal respiratory effort Cardio Rate: regular rate Rhythm: regular rhythm GI Palpation (GI): Soft to palpation and nontender General: Yes no CVA tenderness Back/Spine/Pelvis Back: no CVA tenderness Skin General skin exam: no rashes or lesions noted Neuro General: patient oriented x3 Cranial nerves: Yes CN's II-XII intact bilaterally and Yes Equal, round and reactive pupils present Extrem General: Yes normal to inspection Psych Appearance: grossly normal Assessment & Plan Assessment & Plan (1) 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 infection): Comment: She is doing well on Juluca. Would continue Juluca. Check HIV viral load and CD4 count before next visit. 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 See in six months. Code(s): B20 - Human immunodeficiency virus [HIV] disease Category: Medical Qualifiers: HIV symptom status: asymptomatic, with no history of HIV-related illness Qualified Code(s): Z21 - Asymptomatic human immunodeficiency virus [HIV] infection status Plan: na Orders: Orders HIV-1 RNA QN PCR Expanded 5 Months Z21 - Asymptomatic human immunodeficiency virus [HIV] infection status Lymphocyte Subset Panel 3 5 Months Z21 - Asymptomatic human immunodeficiency virus [HIV] infection status Medications: Refilled dolutegravir-rilpivirine 50-25 mg (Juluca) must administer with a meal/food 1 tab PO DAILY 30 days 30 tabs 5RF Coding Level of Care Code Est Pt Level 4 (30812) Diagnoses Asymptomatic HIV infection, with no history of HIV-related illness Z21 HIV symptom status: asymptomatic, with no history of HIV-related illness
[2025-01-08 13:11] VITALS: BP 141/62; PULSE 69; BMI 24.4
--- OUTSIDE RECORDS SUMMARY | 2025-01-08 14:43 | XMS_ITS | Encounter Summary ---
Author Organization [employer] Address [address] [place] [address] 7 [place] [address] Care Team Providers Care Freezer Machine Operator Name Role Phone Unavailable Primary Care Provider Unavailabl e Encounter Details Date Type Department Care Team (Latest Contact Info) Description 06/06/2019 Abstract [facility] CONVERSIONS Dental, Provider, DDS Social History Tobacco [...] Description 03/16/2025 10:00 AM EDT Office Visit [facility] ADULT DENTAL [address] [place] [address] Andreas Guerra documented as of this encounter Visit Diagnoses Not on filedocumented in this encounter
--- OUTSIDE RECORDS SUMMARY | 2025-01-08 14:43 | XMS_ITS | Clinical Summary ---
Author Organization [employer] Address [address] [place] [address] 7t [place] [address] Care Team Providers Care Stonemason Name Role Phone Unavailable Primary Care Provider Unavailabl e Allergies Active Allergy Reactions Criticality Noted Date Comments Metformin Other 04/17/2021 Shellfish Allergy 05/06/2023 Medications folic acid-vit B6-vit B12 2.5-25-1 MG tablet tablet Active elvitegravir-co bicistat-emtric itabine-tenofov ir alafenamide (Genvoya) 136-238-354-10 MG tablet Active hydroCHLOROthia zide (HYDRODiuril) 12.5 [...] UT) capsule TOME KIMBERLY C PSULA NELL [place] Active Active Problems No known active problems Encounters Date Type Department Care Team Description 10/17/2024 Telephone [facility] ADULT DENTAL [address] [place] [address] Andreas Guerra from Last 3 Months Social History Tobacco [...] Upcoming Encounters Date Type Department Care Team ([facility] st Contact Info) Description 03/16/2025 10:00 AM EDT Office Visit [facility] ADULT [facility] [address] [place] [address] Andreas Guerra Health Maintenance Due Date Last [...] Procedure Name Priority Date/Time Associated Diagnosis Comments Full PROPHYLAXIS - ADULT Routine 024 9:00 AM EST Dental caries Gingivitis BITEWINGS - 4 RADIOGRAPHIC IMAGES Routine 09/14/2024 9:00 AM EST Dental caries Gingivitis PERIODIC ORAL EVALUATION - ESTABLISHED PATIENT Routine 09/14/2024 9:00 AM EST Dental caries Gingivitis INTRAORAL - COMPLETE SERIES OF RADIOGRAPHIC IMAGES Routine 01/12/2023 10:00 AM EDT from Last 3 Months or Most Recently Relevant to Health Maintenance Insurance [facility]
--- OUTSIDE RECORDS SUMMARY | 2025-01-08 14:43 | XMS_ITS | Encounter Summary ---
Author Organization [facility] Address [address] [facility] [address] [place] [address] Phone Care Team Providers Care Car Packer Name Role Phone Mishel Cummings MD Primary Care Provider [phone] Reason for Visit * Reason Comments Med Refill Encounter Details Date Type Department Care Team (Late st Contact Info) Description 11/27/2021 Refill [facility] [address] [place] [id number] Jignesh Easton MD Social History Tobacco Use [...] on filedocumented in this encounter Care Teams Car Packer Relationship Specialty Start Date End Date Mishel Cummings MD [address] [place], [place] PCP - General 10/21/20 documented as of this encounter
--- OUTSIDE RECORDS SUMMARY | 2025-01-08 14:43 | XMS_ITS | Clinical Summary ---
Author Organization [facility] Address [address] [place] [address] Phone Care Team Providers Care Table Keeper Name Role Phone Mishel Cummings MD Primary Care Provider [phone] Allergies Active Allergy Reactions Criticality Noted Date [...] patient's age to complete this topic Insurance [facility] Care Teams Table Keeper Relationship Specialty Start Date End Date Mishel Cummings MD [address] [place], [place] PCP - General 10/21/20
== END 2025-01-08 13:34 | disposition home or self-care (01) ==
LOC: HO.HID 13:05
PROVIDERS: PCP Internal Medicine; Visit Provider Internal Medicine
DX: Z21 Asymptomatic human immunodeficiency virus [HIV] infection status (principal)
CPT/HCPCS: 99214

== ENCOUNTER → 2025-01-08 13:05 | Outpatient (BNVA) | payer OTHER, SELFPAY | PROVIDERS: PCP Internal Medicine; Visit Provider Internal Medicine | DX: Z21 Asymptomatic human immunodeficiency virus [HIV] infection status (principal) | CPT/HCPCS: 99212 ==

== ENCOUNTER 2025-01-11 08:39 | Outpatient (REF) | payer OTHER, SELFPAY ==
--- OUTSIDE RECORDS SUMMARY | 2025-01-11 08:48 | XMS_ITS | Clinical Summary ---
Author Organization [facility] Address [address] [facility] [address] [place] [address] Phone Care Team Providers Care Dressmaking Teacher Name Role Phone Mishel Cummings MD Primary Care Provider [phone] Allergies Active Allergy Reactions Criticality Noted Date [...] patient's age to complete this topic Insurance [facility] Care Teams Dressmaking Teacher Relationship Specialty Start Date End Date Mishel Cummings MD [address] [place], [place] PCP - General 10/21/20
--- OUTSIDE RECORDS SUMMARY | 2025-01-11 08:48 | XMS_ITS | Encounter Summary ---
Author Organization [facility] Address [address] [facility] [address] [place] [address] Phone Care Team Providers Care Lunchroom Food Service Supervisor Name Role Phone Mishel Cummings MD Primary Care Provider [phone] Reason for Visit * Reason Comments Med Refill Encounter Details Date Type Department Care Team (Late st Contact Info) Description 11/27/2021 [facility]ill [facility] [address] [place] [address] Jignesh Easton MD Social History Tobacco Use [...] on filedocumented in this encounter Care Teams Lunchroom Food Service Supervisor Relationship Specialty Start Date End Date Mishel Cummings MD [address] [place], [place] PCP - General 10/21/20 documented as of this encounter
--- OUTSIDE RECORDS SUMMARY | 2025-01-11 08:48 | XMS_ITS | Clinical Summary ---
Author Organization [employer] Address [address] [place] [address] 7[address] [place] [address] Care Team Providers Care Tandem Mill Operator Name Role Phone Unavailable Primary Care Provider Unavailabl e Allergies Active Allergy Reactions Criticality Noted Date Comments Metformin Other 04/17/2021 Shellfish Allergy 05/06/2023 Medications folic acid-vit B6-vit B12 2.5-25-1 MG tablet tablet Active elvitegravir-co bicistat-emtric itabine-tenofov ir alafenamide (Genvoya) [phone] MG tablet Active hydroCHLOROthia zide (HYDRODiuril) 12.5 [...] Type Department Care Team Description 10/17/2024 Telephone [facility] ADULT DENTAL [address] [place] [address] Andreas Guerra from Last 3 Months Social [...] Upcoming Encounters Date Type Department Care Team ([facility] st Contact Info) Description 03/16/2025 10:00 AM EDT Office Visit [facility] ADULT DENTAL [address] [place] [address] Andreas Guerra Health Maintenance Due Date Last [...] Most Recently Relevant to Health Maintenance Insurance [facility]
--- OUTSIDE RECORDS SUMMARY | 2025-01-11 08:48 | XMS_ITS | Encounter Summary ---
Author Organization [employer] Address [address] [place] [address] 7 [place] [address] Care Team Providers Care Baker Name Role Phone Unavailable Primary Care Provider Unavailabl e Encounter Details Date Type Department Care Team (Latest Contact Info) Description 06/06/2019 Abstract [facility] CONVERSIONS Dental, Provider, DDS Social History [...] 03/16/2025 10:00 AM EDT Office Visit [facility] ADULT DENTAL [address] [place] [address] Andreas Guerra documented as of this encounter Visit Diagnoses Not on filedocumented in this encounter
[2025-01-11 12:50] LABS: Anion Gap 11 (12-20); Blood Urea Nitrogen 25 mg/dL (9-16); Carbon Dioxide 27 mmol/L (22-29); Chloride 106 mmol/L (96-108); Estimated Glomerular Filt Rate 35; Potassium 3.4 mmol/L (3.3-5.1); Sodium 141 mmol/L (135-145)
== END 2025-01-11 08:40 | disposition home or self-care (01) ==
LOC: HO.LAB 08:39
PROVIDERS: Visit Provider Internal Medicine Nephrology
DX: I12.9 Hypertensive chronic kidney disease with stage 1 through stage 4 chronic kidney disease, or unspecified chronic kidney disease (principal); E11.22 Type 2 diabetes mellitus with diabetic chronic kidney disease; N18.30 Chronic kidney disease, stage 3 unspecified
CPT/HCPCS: 36415; 80051; 82565; 84520

== ENCOUNTER 2025-01-12 11:36 | Outpatient (AMB) | payer OTHER, SELFPAY ==
--- NOTE | 2025-01-12 11:44 | HO.NEPHOV_ITS ---
Vital Signs 01/12/25 11:48 Height 4 ft 11 in Weight 118 lb 6 oz BMI 23.9 BP 160/60 H Blood Pressure Location Lt brachial Position Sitting Pulse 73 Pulse Source Pulse Oximeter Pulse Oximetry (%) 97 Oxygen Delivery Method Room Air Intake Visit Reasons: 1 MO FU-LVM Treating Machine Operator Required: Yes Treating Machine Operator Language: Glass Cleaner Services: Treating Machine Operator Offered & Declined ([facility] polishing machine operator services refused ) Accompanied by: Self / Same As Patient Allergies crab Allergy (Severe, Verified 01/12/25 11:48) SWELLING amoxicillin [From Augmentin] Allergy (Mild, Verified 01/12/25 11:48) Abdominal Pain clavulanic acid [From Augmentin] Allergy (Mild, Verified 01/12/25 11:48) Abdominal Pain metformin Adverse Reaction (Intermediate, Verified 01/12/25 11:48) diarrhea HPI Comments Details: Barbara was seen in the office in follow-up of her chronic kidney disease, proteinuria, renal cyst and hypertension. Her blood sugar is better controlled but still high. She is on CORNELIA-inhibitor. She avoids taking nonsteroidal anti- inflammatories. Her viral load is undetectable and CD4 are very good. She continues to have nephrotic range proteinuria. She has no edema. 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 Hypertension Non-toxic multinodular goiter Diabetic retinopathy associated with type 2 diabetes mellitus CKD stage 3 due to type 2 diabetes mellitus Diabetic nephropathy associated with type 2 diabetes mellitus Dyslipidemia Diabetes type 2, controlled Hypovitaminosis D Surgical History H/O colonoscopy (08/13/20) Hx of bilateral cataract extraction History of hysterectomy with unilateral oophorectomy Hx of section Hx of thyroidectomy Family History Father Liver disease Mother Hypertension CVD (cardiovascular disease) Renal disease Hyperlipidemia ESRD on hemodialysis Paternal Aunt Glaucoma Social History Household Members: Other Household Members Other:: grandson Housing: House Alcohol intake: never Patient Tobacco Use Status: Never used Tobacco e-Cigarette/Vaping Use: Never Used Second Hand Smoke Exposure: No Advance Directives Date on File: 07/01/21 service: No Current occupational status: unemployed Cognitive needs: No Hearing needs: No Vision needs: No Review of Systems Const All systems reviewed & are unremarkable except as noted in HPI and below Physical Exam Vital Signs: Last Vital Signs Pulse 73 01/12/25 11:48 BP 160/60 H 01/12/25 11:48 Pulse Ox 97 01/12/25 11:48 Oxygen Delivery Method Room Air 01/12/25 11:48 BMI result Body Mass Index 23.9 Const General: comfortable and no acute distress Orientation/consciousness: patient oriented x3 HEENT Head: Yes normocephalic Mouth: Normal oral and palatal mucosa present Eyes EOM: EOMs intact bilaterally Neck Neck: Yes supple Resp Auscultation: clear to auscultation bilaterally Cardio Jugular venous distension: no JVD Rate: regular rate GI Palpation (GI): Soft to palpation Auscultation: normal bowel sounds General: Yes no CVA tenderness Back/Spine/Pelvis Back: no CVA tenderness Skin General skin exam: no rashes or lesions noted Neuro General: patient oriented x3 and moves all extremities Extrem General: Yes no pedal edema Results Reviewed Nephrology Results: Hgb 11.1 g/dl (12.0-16.0) L 12/11/24 WBC 6.1 X10*3/uL (4.8-10.8) 12/11/24 Plt Count 236 X10*3/uL (160-400) 12/11/24 Sodium 141 mmol/L (135-145) 01/11/25 Potassium 3.4 mmol/L (3.3-5.1) 01/11/25 Chloride 106 mmol/L (96-108) 01/11/25 Carbon Dioxide 27 mmol/L (22-29) 01/11/25 BUN 25 mg/dL (9-16) H 01/11/25 Creatinine 1.50 mg/dL (0.5-1.4) H 01/11/25 Calcium 9.2 mg/dL (8.4-10.2) 12/11/24 Urine Protein >=1000 (4+) mg/dL (Neg-Trace) H 5 Urine Creatinine 62.55 mg/dL 12/11/24 Protein/Creatinin Ratio 8.57 (<0.2) H 12/11/24 Assessment & Plan Assessment & Plan (1) Hypertension: Code(s): I10 - Essential (primary) hypertension Category: Medical Qualifiers: Hypertension type: essential hypertension Qualified Code(s): I10 - Essential (primary) hypertension (2) CKD stage 3 due to type 2 diabetes mellitus: Code(s): E11.22 - Type 2 diabetes mellitus with diabetic chronic kidney disease; N18.30 - Chronic kidney disease, stage 3 unspecified Category: Medical (3) Diabetic nephropathy associated with type 2 diabetes mellitus: Code(s): E11.21 - Type 2 diabetes mellitus with diabetic nephropathy Category: Medical Plan Barbara has a significant proteinuria. Her renal functions are stable. She is now on Diltiazem 240 mg daily as well as hydralazine which is keeping her BP control better. She had an incidental finding of left renal cyst which will need a follow-up renal ultrasound. She has had HIV which is well controlled. She avoids nonsteroidal anti-inflammatories. I discussed renal biopsy again which she wants to wait. I increased Jardaince to 25 mg today and plan to start ARB @ next visit. I ordered repeat blood work . (She most likely will need renal biopsy soon). I did not make any other medication changes today. All questions answered. Follow-up given Orders: Orders Blood Urea Nitrogen 1 Month E11.21 - Type 2 diabetes mellitus with diabetic nephropathy, E11.22 - Type 2 diabetes mellitus with diabetic chronic kidney disease, I10 - Essential (primary) hypertension, N18.30 - Chronic kidney disease, stage 3 unspecified Creatinine 1 Month E11.21 - Type 2 diabetes mellitus with diabetic nephropathy, E11.22 - Type 2 diabetes mellitus with diabetic chronic kidney disease, I10 - Essential (primary) hypertension, N18.30 - Chronic kidney disease, stage 3 unspecified Electrolytes 1 Month E11.21 - Type 2 diabetes mellitus with diabetic nephropathy, E11.22 - Type 2 diabetes mellitus with diabetic chronic kidney disease, I10 - Essential (primary) hypertension, N18.30 - Chronic kidney disease, stage 3 unspecified Medications: Changed From empagliflozin (Jardiance) 10 mg PO DAILY 30 tabs 4RF To empagliflozin 25 mg PO DAILY 30 days 30 tabs 6RF Coding Level of Care Code Est Pt Level 4 (36685) Diagnoses Essential hypertension I10 Hypertension type: essential hypertension CKD stage 3 due to type 2 diabetes mellitus E11.22; N18.30 Diabetic nephropathy associated with type 2 diabetes mellitus E11.21
[2025-01-12 11:48] VITALS: BP 160/60; PULSE 73; O2SAT 97; BMI 23.9
--- OUTSIDE RECORDS SUMMARY | 2025-01-12 13:38 | XMS_ITS | Encounter Summary ---
Author Organization [employer] Address [address] [place] [address] 7 [place] [address] Care Team Providers Care Supervisor Mill Name Role Phone Unavailable Primary Care Provider Unavailabl e Encounter Details Date Type Department Care Team (Latest Contact Info) Description 06/06/2019 Abstract [facility] CONVERSIONS Dental, Provider, DDS Social History Tobacco [...] Description 03/16/2025 10:00 AM EDT Office Visit [facility] ADULT DENTAL [address] [place] [address] Andreas Guerra documented as of this encounter Visit Diagnoses Not on filedocumented in this encounter
--- OUTSIDE RECORDS SUMMARY | 2025-01-12 13:38 | XMS_ITS | Clinical Summary ---
Author Organization [employer] Address [address] [place] [address] 7[address] [place] [address] Care Team Providers Care Cadd Operator Name Role Phone Unavailable Primary Care Provider Unavailabl e Allergies Active Allergy Reactions Criticality Noted Date Comments Metformin Other 04/17/2021 Shellfish Allergy 05/06/2023 Medications folic acid-vit B6-vit B12 2.5-25-1 MG tablet tablet Active elvitegravir-co bicistat-emtric itabine-tenofov ir alafenamide (Genvoya) [phone] MG tablet Active hydroCHLOROthia zide (HYDRODiuril) 12.5 [...] Type Department Care Team Description 10/17/2024 Telephone [facility] ADULT DENTAL [address] [place] [address] Andreas Guerra from Last 3 Months Social [...] Upcoming Encounters Date Type Department Care Team ([facility] st Contact Info) Description 03/16/2025 10:00 AM EDT Office Visit [facility] ADULT DENTAL [address] [place] [address] Andreas Guerra Health Maintenance Due Date Last [...] Most Recently Relevant to Health Maintenance Insurance [facility]
--- OUTSIDE RECORDS SUMMARY | 2025-01-12 13:38 | XMS_ITS | Encounter Summary ---
Author Organization [facility] Address [address] [facility] [address] [place] [address] Phone Care Team Providers Care Plisse Machine Operator Name Role Phone Mishel Cummings MD Primary Care Provider [phone] Reason for Visit * Reason Comments Med Refill Encounter Details Date Type Department Care Team (Late st Contact Info) Description 11/27/2021 Refill [facility] [address] [place] [phone] Jignesh Easton MD Social History Tobacco Use [...] on filedocumented in this encounter Care Teams Plisse Machine Operator Relationship Specialty Start Date End Date Mishel Cummings MD [address] [place], [place] PCP - General 10/21/20 documented as of this encounter
--- OUTSIDE RECORDS SUMMARY | 2025-01-12 13:38 | XMS_ITS | Clinical Summary ---
Author Organization [facility] Address [address] [place] [address] Phone Care Team Providers Care Regulatory Affairs Director Name Role Phone Mishel Cummings MD Primary Care Provider [phone] Allergies Active Allergy Reactions Criticality Noted Date [...] to complete this topic Insurance [facility] Care Teams Regulatory Affairs Director Relationship Specialty Start Date End Date Mishel Cummings MD [address] [place], [place] PCP - General 10/21/20
== END 2025-01-12 12:06 | disposition home or self-care (01) ==
LOC: HO.HKA 11:36
PROVIDERS: PCP Internal Medicine; Visit Provider Internal Medicine Nephrology
DX: I10 Essential (primary) hypertension (principal); E11.22 Type 2 diabetes mellitus with diabetic chronic kidney disease; N18.30 Chronic kidney disease, stage 3 unspecified; E11.21 Type 2 diabetes mellitus with diabetic nephropathy
CPT/HCPCS: 99214

== ENCOUNTER → 2025-01-12 11:36 | Outpatient (BNVA) | payer OTHER, SELFPAY | PROVIDERS: PCP Internal Medicine; Visit Provider Internal Medicine Nephrology | DX: N28.1 Cyst of kidney, acquired (principal); I12.9 Hypertensive chronic kidney disease with stage 1 through stage 4 chronic kidney disease, or unspecified chronic kidney disease; E11.22 Type 2 diabetes mellitus with diabetic chronic kidney disease; E11.21 Type 2 diabetes mellitus with diabetic nephropathy; N18.4 Chronic kidney disease, stage 4 (severe); B20 Human immunodeficiency virus [HIV] disease; R80.8 Other proteinuria | CPT/HCPCS: 99212 ==

== ENCOUNTER 2025-01-16 14:04 | Outpatient (AMB) | payer OTHER, SELFPAY ==
--- NOTE | 2025-01-16 14:13 | MHC.OFFVIS ---
Vital Signs 01/16/25 14:20 Height 4 ft 11 in Weight 119 lb 6 oz BMI 24.1 BP 187/83 H Blood Pressure Location Lt brachial Position Sitting Pulse 68 Intake Visit Reasons: Calculus of gallbladder Intake Note: Patient is seen in office for evaluation and treatment of the gallbladder. Pt c/o: pain in the RUQ, for the past 2 months, today the pain is worse, denies n/v/d/c us:12/26/24 Reeling Machine Setup Operator Required: Yes Reeling Machine Setup Operator Language: Large Engine Assembler Services: Reeling Machine Setup Operator Offered & Declined Reeling Machine Setup Operator Name: Ioana ANGELA Information Interpreted: non-clinical & clinical Technical Training Manager: Technical Training Manager Present Accompanied by: Self / Same As Patient Allergies crab Allergy (Severe, Verified 01/16/25 14:20) SWELLING amoxicillin [From Augmentin] Allergy (Mild, Verified 01/16/25 14:20) Abdominal Pain clavulanic acid [From Augmentin] Allergy (Mild, Verified 01/16/25 14:20) Abdominal Pain metformin Adverse Reaction (Intermediate, Verified 01/16/25 14:20) diarrhea Medication List - Last Reconciled 01/16/25 by Dannie Garcia MD alcohol swabs 1 pad topical .4 times a day 30 days atorvastatin 80 mg PO BEDTIME 90 days blood pressure monitor As directed blood sugar diagnostic (OneTouch Ultra Test strips) Use 1 lancet four times a day blood-glucose meter (YouStream Sport HighlightsTouch UltraMini kit) As directed diltiazem HCl ER (Tiadylt ER) 240 mg PO DAILY dolutegravir-rilpivirine 50-25 mg (Juluca) 1 tab PO DAILY 30 days empagliflozin 25 mg PO DAILY 30 days fenofibrate 54 mg PO DAILY 90 days ferrous sulfate 325 mg PO DAILY hydralazine 50 mg PO TID insulin degludec (Tresiba FlexTouch U-100 insulin) 30 units (0.3 mL) subcut DAILY 90 days lancets (OneTouch UltraSoft Lancets) Use 1 lancet four times a day pen needle, diabetic twice a day pen needle, diabetic (BD Mansi 2nd Gen Pen Needle) Use 1 pen needle once a day HPI Comments Details: 69-year-old female patient presenting with complaints of abdominal pain in the epigastrium radiating into the right upper quadrant. This has been present for the last several months but seems to be increasing in severity. She denies any inciting events and does not feel her diet is changing the pain. She denies nausea, vomiting, fever, chills, diarrhea or constipation. She underwent a workup with an ultrasound of the abdomen which revealed cholelithiasis without evidence of cholecystitis including wall thickening, pericholecystic fluid, or ductal dilatation. She presents today for discussion of a possible cholecystectomy. [facility] Medical History Sinusitis Hepatitis Normocytic anemia 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 infection) Pure hypercholesterolemia Essential hypertension Sessile colonic polyp 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 infection) [facility] (current) use of insulin Hypertension Non-toxic multinodular goiter Diabetic retinopathy associated with type 2 diabetes mellitus CKD stage 3 due to type 2 diabetes mellitus Diabetic nephropathy associated with type 2 diabetes mellitus Dyslipidemia Diabetes type 2, controlled Hypovitaminosis D Surgical History H/O colonoscopy (08/13/20) Hx of bilateral cataract extraction History of hysterectomy with unilateral oophorectomy Hx of section Hx of thyroidectomy Family History Father Liver disease Mother Hypertension CVD (cardiovascular disease) Renal disease Hyperlipidemia ESRD on hemodialysis Paternal Aunt Glaucoma Social History Household Members: Other Household Members Other:: grandson Housing: House Alcohol intake: never Patient Tobacco Use Status: Never used Tobacco e-Cigarette/Vaping Use: Never Used Second Hand Smoke Exposure: No Advance Directives Date on File: 07/01/21 service: No Current occupational status: unemployed Cognitive needs: No Hearing needs: No Vision needs: No Review of Systems Const All systems reviewed & are unremarkable except as noted in HPI and below Physical Exam Vital Signs: Last Vital Signs Pulse 68 01/16/25 14:20 BP 187/83 H 01/16/25 14:20 BMI result Body Mass Index 24.1 Const General: cooperative and no acute distress Nutritional Appearance: well nourished Orientation/consciousness: patient oriented x3 Limitations: no limitations HEENT Head: Yes normocephalic and Yes atraumatic Ears: hearing grossly normal bilaterally Resp Effort & Inspection: normal respiratory effort, no audible wheezes, no cough and no respiratory distress Cardio Jugular venous distension: no JVD GI Inspection: Yes normal to inspection Palpation (GI): Soft to palpation, Tenderness to palpation present (GI) in the RUQ and Millan's sign positive, no guarding, not rigid and No hepatosplenomegaly present Percussion: Yes normal to percussion Auscultation: normal bowel sounds Rectal Exam - Female: deferred Skin Other: Warm, dry, no rash, normal color Neuro General: patient oriented x3 Extrem General: Yes no clubbing, cyanosis or edema Assessment & Plan Assessment & Plan (1) Cholelithiasis: Code(s): K80.20 - Calculus of gallbladder without cholecystitis without obstruction Category: Medical Qualifiers: Cholelithiasis location: gallbladder Cholecystitis acuity: chronic Biliary obstruction: without biliary obstruction (2) Abdominal pain: Code(s): R10.9 - Unspecified abdominal pain Category: Medical Qualifiers: Abdominal location: generalized Qualified Code(s): R10.84 - Generalized abdominal pain Plan 69-year-old female patient presenting with complaints of abdominal pain in the right upper quadrant found on workup to have tenderness in the right upper quadrant and gallstones by ultrasound within the gallbladder. Findings are suggestive of symptomatic cholelithiasis. Her symptoms seem to be worsening therefore I would recommend laparoscopic or possible open cholecystectomy. After discussion of the procedure, risks, and alternatives, she consents to a laparoscopic or possible open cholecystectomy. This will be scheduled as a short-stay surgery. Coding Level of Care Code New Pt Level 4 (45872) Diagnoses Cholelithiasis K80.20 Cholelithiasis location: gallbladder Cholecystitis acuity: chronic Biliary obstruction: without biliary obstruction Generalized abdominal pain R10.84 Abdominal location: generalized
[2025-01-16 14:20] VITALS: BP 187/83; PULSE 68; BMI 24.1
--- OUTSIDE RECORDS SUMMARY | 2025-01-16 17:13 | XMS_ITS | Clinical Summary ---
Author Organization [facility] Address [address] [place] [address] Phone Care Team Providers Care Product Lister Name Role Phone Mishel Cummings MD Primary Care Provider [phone] Allergies Active Allergy Reactions Criticality Noted Date [...] Diabetes: Visual Foot Exam 11/11/2020 Influenza Vaccine (Season Ended) 2025 Hepatitis B Vaccine Aged Out No longe r eligible based on patient's age to complete this topic Insurance [facility] Care Teams Product Lister Relationship Specialty Start Date End Date Mishel Cummigns MD [address] [place], [place] PCP - General 10/21/20
--- OUTSIDE RECORDS SUMMARY | 2025-01-16 17:13 | XMS_ITS | Encounter Summary ---
Author Organization [facility] Address [address] [facility] [address] [place] [address] Phone Care Team Providers Care Net Programmer Analyst Name Role Phone Mishel Cummings MD Primary Care Provider [phone] Reason for Visit * Reason Comments Med Refill Encounter Details Date Type Department Care Team (Late st Contact Info) Description 11/27/2021 Refill [facility] [address] [place] [phone] Jignesh Easton MD Social History Tobacco Use [...] on filedocumented in this encounter Care Teams Net Programmer Analyst Relationship Specialty Start Date End Date Mishel Cummings MD [address] [place], [place] PCP - General 10/21/20 documented as of this encounter
--- OUTSIDE RECORDS SUMMARY | 2025-01-16 17:13 | XMS_ITS | Clinical Summary ---
Author Organization [employer] Address [address] [place] [address] 7[address] [place] [address] Care Team Providers Care Rig Manager Name Role Phone Unavailable Primary Care Provider Unavailabl e Allergies Active Allergy Reactions Criticality Noted Date Comments Metformin Other 04/17/2021 Shellfish Allergy 05/06/2023 Medications folic acid-vit B6-vit B12 2.5-25-1 MG tablet tablet Active elvitegravir-co bicistat-emtric itabine-tenofov ir alafenamide (Genvoya) [phone] MG tablet Active hydroCHLOROthia zide (HYDRODiuril) 12.5 [...] Active Active Problems No known active problems Social History Tobacco Use Types Packs/Day Years [...] Description 03/16/2025 10:00 AM EDT Office Visit [facility] [address] [place] [address] Andreas Guerra Health Maintenance Due Date Last [...] (1 of 2) 2007 COVID-19 Vaccine ( - season) 2024 06/18/2022, 01/04/2021, 12/07/2020 Dental [...] Relevant to Health Maintenance Insurance [facility] - [facility]
--- OUTSIDE RECORDS SUMMARY | 2025-01-16 17:13 | XMS_ITS | Encounter Summary ---
Author Organization [employer] Address [address] [place] [address] [address] [place] [address] Care Team Providers Care Software Support Engineer Name Role Phone Unavailable Primary Care Provider Unavailabl e Encounter Details Date Type Department Care Team (Latest Contact Info) Description 06/06/2019 Abstract [facility] CONVERSIONS Dental, Provider, DDS Social History [...] Description 03/16/2025 10:00 AM EDT Office Visit [facility] ADULT DENTAL [address] [place] [address] Andreas Guerra documented as of this encounter Visit Diagnoses Not on filedocumented in this encounter
== END 2025-01-16 14:33 | disposition home or self-care (01) ==
LOC: HO.HGS 14:05
PROVIDERS: PCP Internal Medicine; Visit Provider Surgery
DX: K80.20 Calculus of gallbladder without cholecystitis without obstruction (principal); R10.84 Generalized abdominal pain
CPT/HCPCS: 99204

== ENCOUNTER → 2025-01-16 14:04 | Outpatient (BNVA) | payer OTHER, SELFPAY | PROVIDERS: PCP Internal Medicine; Visit Provider Surgery | DX: K80.20 Calculus of gallbladder without cholecystitis without obstruction (principal); R10.11 Right upper quadrant pain | CPT/HCPCS: 99202 ==

== ENCOUNTER 2025-02-06 07:28 | Outpatient (REF) | payer OTHER, SELFPAY ==
--- OUTSIDE RECORDS SUMMARY | 2025-02-06 07:32 | XMS_ITS | Clinical Summary ---
Author Organization [employer] Address [address] [place] [address] 7[address] [place] [address] Care Team Providers Care Tombstone Erector Name Role Phone Unavailable Primary Care Provider Unavailabl e Allergies Active Allergy Reactions Criticality Noted Date Comments Metformin Other 04/17/2021 Shellfish Allergy 05/06/2023 Medications folic acid-vit B6-vit B12 2.5-25-1 MG tablet tablet Active elvitegravir-co bicistat-emtric itabine-tenofov ir alafenamide (Genvoya) [phone] MG tablet Active hydroCHLOROthia zide (HYDRODiuril) 12.5 [...] Description 03/16/2025 10:00 AM EDT Office Visit [facility] ADULT [facility] [address] [place] [address] Andreas Guerra Health Maintenance Due Date Last [...] Relevant to Health Maintenance Insurance [facility]AL - [facility]
--- OUTSIDE RECORDS SUMMARY | 2025-02-06 07:32 | XMS_ITS | Encounter Summary ---
Author Organization [facility] Address [address] [facility] [address] [place] [address] Phone Care Team Providers Care Valet Cashier Name Role Phone Mishel Cummings MD Primary Care Provider [phone] Reason for Visit * Reason Comments Med Refill Encounter Details Date Type Department Care Team (Late st Contact Info) Description 11/27/2021 Refill [facility] [address] [place] [phone] Jignesh Easton MD Social History Tobacco Use [...] on filedocumented in this encounter Care Teams Valet Cashier Relationship Specialty Start Date End Date Mishel Cummings MD [address] [place], [place] PCP - General 10/21/20 documented as of this encounter
--- OUTSIDE RECORDS SUMMARY | 2025-02-06 07:32 | XMS_ITS | Clinical Summary ---
Author Organization [facility] Address [address] [address] [place] [address] Phone Care Team Providers Care Oil And Gas Field Technician Name Role Phone Mishel Cummings MD Primary Care Provider [phone] Allergies Active Allergy Reactions Criticality Noted Date [...] Comments Breast Cancer Screening 1957 Pneumococcal Vaccine: 50+ Ye ars (1 of 2 - PCV) 1976 Colorectal Cancer Screening: Annual FOBT 2006 Colorectal Cancer Screening: Colonoscopy 2006 Colorectal Cancer Screening: Sigmoidoscopy 2006 Diabetes: Hemoglobin A1C 11/11/2020 Diabetes: Ophthalmology Exam 11/11/2020 Diabetes: Pedal Pulse Checked 11/11/2020 Diabetes: Sensory Foot Exam 11/11/2020 Diabetes: Visual Foot Exam 11/11/2020 Influenza Vaccine (Season Ended) 2025 Hepatitis B Vaccine Aged Out No longe r eligible based on patient's age to complete this topic Insurance Replaced By [facility] Replaced By [facility] Care Teams Oil And Gas Field Technician Relationship Specialty Start Date End Date Mishel Cummings MD [address] [place], [place] PCP - General 10/21/20
--- OUTSIDE RECORDS SUMMARY | 2025-02-06 07:32 | XMS_ITS | Encounter Summary ---
Author Organization [employer] Address [address] [place] [address] 7 [place] [address] Care Team Providers Care Bankruptcy Attorney Name Role Phone Unavailable Primary Care Provider Unavailabl e Encounter Details Date Type Department Care Team (Latest Contact Info) Description 06/06/2019 Abstract [facility] CONVERSIONS Dental, Provider, DDS Social [...] Description 03/16/2025 10:00 AM EDT Office Visit [facility] ADULT DENTAL [address] [place] [address] Andreas Guerra documented as of this encounter Visit Diagnoses Not on filedocumented in this encounter
[2025-02-06 09:19] LABS: Anion Gap 12 (12-20); Blood Urea Nitrogen 25 mg/dL (9-16); Carbon Dioxide 25 mmol/L (22-29); Chloride 105 mmol/L (96-108); Estimated Glomerular Filt Rate 24; Potassium 3.3 mmol/L (3.3-5.1); Sodium 139 mmol/L (135-145)
== END 2025-02-06 07:29 | disposition home or self-care (01) ==
LOC: HO.LAB 07:28
PROVIDERS: PCP Internal Medicine; Visit Provider Internal Medicine Nephrology
DX: E11.22 Type 2 diabetes mellitus with diabetic chronic kidney disease (principal); N18.30 Chronic kidney disease, stage 3 unspecified; I10 Essential (primary) hypertension; I12.9 Hypertensive chronic kidney disease with stage 1 through stage 4 chronic kidney disease, or unspecified chronic kidney disease
CPT/HCPCS: 36415; 80051; 82565; 84520

== ENCOUNTER 2025-02-09 12:26 | Outpatient (AMB) | payer OTHER, SELFPAY ==
--- NOTE | 2025-02-09 12:25 | HO.NEPHOV ---
Vital Signs 02/09/25 12:26 Height 4 ft 11 in Weight 118 lb 6 oz BMI 23.9 BP 148/60 H Blood Pressure Location Lt brachial Position Sitting Pulse 62 Pulse Oximetry (%) 98 Oxygen Delivery Method Room Air Intake Visit Reasons: 1 MO FU-Conf [employer] Required: Yes Space And Missile [employer] Language: [place] Islander Accompanied by: Self / Same As Patient Allergies crab Allergy (Severe, Verified 02/09/25 12:28) SWELLING amoxicillin [From Augmentin] Allergy (Mild, Verified 02/09/25 12:28) Abdominal Pain clavulanic acid [From Augmentin] Allergy (Mild, Verified 02/09/25 12:28) Abdominal Pain metformin Adverse Reaction (Intermediate, Verified 02/09/25 12:28) diarrhea Do you need a note to return to daycare/school/sports/work: No HPI Comments Details: Barbara was seen in the office in follow-up of her chronic kidney disease, proteinuria, renal cyst and hypertension. Her blood sugar is better controlled but still high. She is not on CORNELIA-inhibitor. She avoids taking nonsteroidal anti-inflammatories. Her viral load is undetectable and CD4 are very good. She continues to have nephrotic range proteinuria. She has no edema. Her serum creatinine is fluctuant [facility] Medical History Sinusitis Hepatitis Normocytic anemia 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 infection) Pure hypercholesterolemia Essential hypertension Sessile colonic polyp 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 infection) halfway (current) use of insulin Hypertension Non-toxic multinodular goiter Diabetic retinopathy associated with type 2 diabetes mellitus CKD stage 3 due to type 2 diabetes mellitus Diabetic nephropathy associated with type 2 diabetes mellitus Dyslipidemia Diabetes type 2, controlled Hypovitaminosis D Surgical History H/O colonoscopy (08/13/20) Hx of bilateral cataract extraction History of hysterectomy with unilateral oophorectomy Hx of section Hx of thyroidectomy Family History Father Liver disease Mother Hypertension CVD (cardiovascular disease) Renal disease Hyperlipidemia ESRD on hemodialysis Paternal Aunt Glaucoma Social History Household Members: Other Household Members Other:: grandson Housing: House Alcohol intake: never Patient Tobacco Use Status: Never used Tobacco e-Cigarette/Vaping Use: Never Used Second Hand Smoke Exposure: No Advance Directives Date on File: 07/01/21 service: No Current occupational status: unemployed Cognitive needs: No Hearing needs: No Vision needs: No Review of Systems Const All systems reviewed & are unremarkable except as noted in HPI and below Physical Exam Vital Signs: Last Vital Signs Pulse 62 02/09/25 12:26 BP 148/60 H 02/09/25 12:26 Pulse Ox 98 02/09/25 12:26 Oxygen Delivery Method Room Air 02/09/25 12:26 BMI result Body Mass Index 23.9 Const General: comfortable and no acute distress Orientation/consciousness: patient oriented x3 HEENT Head: Yes normocephalic Mouth: Normal oral and palatal mucosa present Eyes EOM: EOMs intact bilaterally Neck Neck: Yes supple Resp Auscultation: clear to auscultation bilaterally Cardio Jugular venous distension: no JVD Rate: regular rate GI Palpation (GI): Soft to palpation Auscultation: normal bowel sounds General: Yes no CVA tenderness Back/Spine/Pelvis Back: no CVA tenderness Skin General skin exam: no rashes or lesions noted Neuro General: patient oriented x3 and moves all extremities Extrem General: Yes no pedal edema Results Reviewed Nephrology Results: Hgb 11.1 g/dl (12.0-16.0) L 12/11/24 WBC 6.1 X10*3/uL (4.8-10.8) 12/11/24 Plt Count 236 X10*3/uL (160-400) 12/11/24 Sodium 139 mmol/L (135-145) 02/06/25 Potassium 3.3 mmol/L (3.3-5.1) 02/06/25 Chloride 105 mmol/L (96-108) 02/06/25 Carbon Dioxide 25 mmol/L (22-29) 02/06/25 BUN 25 mg/dL (9-16) H 02/06/25 Creatinine 2.03 mg/dL (0.5-1.4) H 02/06/25 Calcium 9.2 mg/dL (8.4-10.2) 12/11/24 Urine Creatinine 62.55 mg/dL 12/11/24 Protein/Creatinin Ratio 8.57 (<0.2) H 12/11/24 Assessment & Plan Assessment & Plan (1) CKD stage 3 due to type 2 diabetes mellitus: Code(s): E11.22 - Type 2 diabetes mellitus with diabetic chronic kidney disease; N18.30 - Chronic kidney disease, stage 3 unspecified Category: Medical (2) Diabetic nephropathy associated with type 2 diabetes mellitus: Code(s): E11.21 - Type 2 diabetes mellitus with diabetic nephropathy Category: Medical (3) Hypertension: Code(s): I10 - Essential (primary) hypertension Category: Medical Qualifiers: Hypertension type: essential hypertension Qualified Code(s): I10 - Essential (primary) hypertension Plan Barbara has a significant proteinuria. Her renal functions are fluctuant. She is now on Diltiazem 240 mg daily as well as hydralazine which is keeping her BP control better. I plan to increase her hydralazine if her BP is not at goal. She needs to cut back salt in the diet. She had an incidental finding of left renal cyst which will need a follow-up renal ultrasound. She has had HIV which is well controlled. She avoids nonsteroidal anti-inflammatories. I discussed renal biopsy again which she wants to wait. C/W Jardaince to 25 mg today and plan to start ARB with time, if possible. I ordered repeat blood work . (She most likely will need renal biopsy soon). I did not make any other medication changes today. All questions answered. Follow-up given Orders: Orders Creatinine 2 Months E11.21 - Type 2 diabetes mellitus with diabetic nephropathy, E11.22 - Type 2 diabetes mellitus with diabetic chronic kidney disease, I10 - Essential (primary) hypertension, N18.30 - Chronic kidney disease, stage 3 unspecified Blood Urea Nitrogen 2 Months E11.21 - Type 2 diabetes mellitus with diabetic nephropathy, E11.22 - Type 2 diabetes mellitus with diabetic chronic kidney disease, I10 - Essential (primary) hypertension, N18.30 - Chronic kidney disease, stage 3 unspecified Electrolytes 2 Months E11.21 - Type 2 diabetes mellitus with diabetic nephropathy, E11.22 - Type 2 diabetes mellitus with diabetic chronic kidney disease, I10 - Essential (primary) hypertension, N18.30 - Chronic kidney disease, stage 3 unspecified Coding Level of Care Code Est Pt Level 4 (28564) Diagnoses CKD stage 3 due to type 2 diabetes mellitus E11.22; N18.30 Diabetic nephropathy associated with type 2 diabetes mellitus E11.21 Essential hypertension I10 Hypertension type: essential hypertension
[2025-02-09 12:26] VITALS: BP 148/60; PULSE 62; O2SAT 98; BMI 23.9
--- OUTSIDE RECORDS SUMMARY | 2025-02-09 12:58 | XMS_ITS | Clinical Summary ---
Author Organization [facility] Address [address] [place] [address] Phone Care Team Providers Care Customer Advocate Name Role Phone Mishel Cummings MD Primary Care Provider [phone] Allergies Active Allergy Reactions Criticality Noted Date [...] patient's age to complete this topic Insurance [facility] Care Teams Customer Advocate Relationship Specialty Start Date End Date Mishel Cummings MD [address] [place], [place] PCP - General 10/21/20
--- OUTSIDE RECORDS SUMMARY | 2025-02-09 12:58 | XMS_ITS | Encounter Summary ---
Author Organization [facility] Address [address] [facility] [address] [place] [address] Phone Care Team Providers Care Jewelry Store Manager Name Role Phone Mishel Cummings MD Primary Care Provider [phone] Reason for Visit * Reason Comments Med Refill Encounter Details Date Type Department Care Team (Late st Contact Info) Description 11/27/2021 Refill [facility] [address] [place] [address] Jignesh Easton MD Social History Tobacco [...] on filedocumented in this encounter Care Teams Jewelry Store Manager Relationship Specialty Start Date End Date Mishel Cummings MD [address] [place], [place] PCP - General 10/21/20 documented as of this encounter
== END 2025-02-09 12:45 | disposition home or self-care (01) ==
LOC: HO.HKA 12:33
PROVIDERS: PCP Internal Medicine; Visit Provider Internal Medicine Nephrology
DX: E11.22 Type 2 diabetes mellitus with diabetic chronic kidney disease (principal); N18.30 Chronic kidney disease, stage 3 unspecified; E11.21 Type 2 diabetes mellitus with diabetic nephropathy; I10 Essential (primary) hypertension
CPT/HCPCS: 99214

== ENCOUNTER → 2025-02-09 12:26 | Outpatient (BNVA) | payer OTHER, SELFPAY | PROVIDERS: PCP Internal Medicine; Visit Provider Internal Medicine Nephrology | DX: I12.9 Hypertensive chronic kidney disease with stage 1 through stage 4 chronic kidney disease, or unspecified chronic kidney disease (principal); E11.22 Type 2 diabetes mellitus with diabetic chronic kidney disease; E11.21 Type 2 diabetes mellitus with diabetic nephropathy; N18.30 Chronic kidney disease, stage 3 unspecified; N28.1 Cyst of kidney, acquired; Z79.899 Other long term (current) drug therapy | CPT/HCPCS: 99212 ==

== ENCOUNTER 2025-03-22 12:52 | Outpatient (AMB) | payer OTHER, SELFPAY ==
[2025-03-22 12:57] VITALS: BP 118/70; BMI 23.2
--- NOTE | 2025-03-22 12:57 | A.OFFPC_ITS ---
Vital Signs 03/22/25 12:57 Height 4 ft 11 in Weight 115 lb BMI 23.2 BP 118/70 Blood Pressure Location Lt brachial Position Sitting Intake Visit Reasons: dm Intake Note: Patient here for a follow up DM Director Of Restaurants Required: No Accompanied by: Self / Same As Patient Allergies crab Allergy (Severe, Verified 03/22/25 13:07) SWELLING amoxicillin [From Augmentin] Allergy (Mild, Verified 03/22/25 13:07) Abdominal Pain clavulanic acid [From Augmentin] Allergy (Mild, Verified 03/22/25 13:07) Abdominal Pain metformin Adverse Reaction (Intermediate, Verified 03/22/25 13:07) diarrhea Medication List - Last Reconciled 03/22/25 by Mishel Rao MD alcohol swabs 1 pad topical .4 times a day 30 days atorvastatin 80 mg PO BEDTIME 90 days blood pressure monitor As directed blood sugar diagnostic (OneTouch Ultra Test strips) Use 1 lancet four times a day blood-glucose meter ([facility] UltraMini kit) As directed diltiazem HCl ER (Tiadylt ER) 240 mg PO DAILY dolutegravir-rilpivirine 50-25 mg (Juluca) 1 tab PO DAILY 30 days empagliflozin 25 mg PO DAILY 30 days fenofibrate 54 mg PO DAILY 90 days ferrous sulfate 325 mg PO DAILY hydralazine 50 mg PO TID insulin degludec (Tresiba FlexTouch U-100 insulin) 30 units (0.3 mL) subcut DAILY 90 days lancets (OneTouch UltraSoft Lancets) Use 1 lancet four times a day pen needle, diabetic twice a day pen needle, diabetic (BD Mansi 2nd Gen Pen Needle) Use 1 pen needle once a day Tobacco use date assessed: 11/09/24 Fall risk assessment: No Falls in past year Last assessed Fall Risk: 03/22/25 Dental Screening Dental Screen Date: 11/09/24 HPI HPI Comments History of Present Illness Details The patient is a 69-year-old female presenting with management of HIV infection, evaluation of anemia, and addressing symptoms related to cholelithiasis. The patient's HIV infection has been well-controlled, with recent tests showing undetectable viral loads. She is currently on a stable antiretroviral regimen. The patient reports a history of anemia, with a recent hemoglobin level of 11.1 g/dL. She is scheduled for repeat laboratory tests to monitor this condition. The patient has been experiencing symptoms related to cholelithiasis, including a persistent ache that occurs independently of meals. She has been awaiting surgical intervention since November and has experienced delays in scheduling the procedure. The discomfort affects her ability to sleep on her side. The patient also reports hyperglycemia, with blood sugar levels consistently elevated, potentially related to dietary habits. She has diabetes mellitus type 2, hypertension and hyperlipidemia. A1c has improved but still elevated and I will increase insulin. Has chronic kidney disease and follows with Nephrology. Blood pressure stable. Lipid panel will be order and her LDL goal should be less than 70. [facility] Medical History Sinusitis Hepatitis Normocytic anemia 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 infection) Pure hypercholesterolemia Essential hypertension Sessile colonic polyp 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 infection) long term (current) use of insulin Hypertension Non-toxic multinodular goiter Diabetic retinopathy associated with type 2 diabetes mellitus CKD stage 3 due to type 2 diabetes mellitus Diabetic nephropathy associated with type 2 diabetes mellitus Dyslipidemia Diabetes type 2, controlled Hypovitaminosis D Surgical History H/O colonoscopy (08/13/20) Hx of bilateral cataract extraction History of hysterectomy with unilateral oophorectomy Hx of section Hx of thyroidectomy Family History Father Liver disease Mother Hypertension CVD (cardiovascular disease) Renal disease Hyperlipidemia ESRD on hemodialysis Paternal Aunt Glaucoma Social History Household Members: Other Household Members Other:: grandson Housing: House Alcohol intake: never Patient Tobacco Use Status: Never used Tobacco e-Cigarette/Vaping Use: Never Used Second Hand Smoke Exposure: No Advance Directives Date on File: 07/01/21 service: No Current occupational status: unemployed Cognitive needs: No Hearing needs: No Vision needs: No Questionnaire PHQ-9 Over the last 2 weeks, how often have you been bothered by any of the following problems? 1. Little interest or pleasure in doing things: not at all 2. Feeling down, depressed, or hopeless: not at all 3. Trouble falling or staying asleep, or sleeping too much: not at all 4. Feeling tired or having little energy: not at all 5. Poor appetite or overeating: not at all 6. Feeling bad about yourself - or that you are a failure or have let yourself or your family down: not at all 7. Trouble concentrating on things, such as reading the newspaper or watching television: not at all 8. Moving or speaking so slowly that other people could have noticed. Or the opposite - being so fidgety or restless that you have been moving around a lot more than usual: not at all 9. Thoughts that you would be better off or of hurting yourself in some way: not at all Total score: 0 Depression Screening Interpretation: Negative Depression Screening Done: Yes 74082 - PHQ-9 Billing: Yes Source: Developed by Drs. Renny Brown, Dayanna Otoole, Bernardo Caruso and colleagues, with an educational sim from [employer]. Thrive Questionnaire Date Thrive assessed: 11/09/24 KB-7 AMB Questionnaire KB-7 Date KB - 7 assessed: 11/09/24 Source: Developed by Drs. Renny Brown, Dayanna Otoole, Bernardo Caruso and colleagues, with an educational sim from [employer]. Review of Systems Const All systems reviewed & are unremarkable except as noted in HPI and below Card Denies chest pain at rest, Denies chest pain with activity, Denies edema, Denies irregular heart rhythm, Denies claudication, Denies dyspnea, Denies dyspnea on exertion, Denies orthopnea, Denies paroxysmal nocturnal dyspnea and Denies slow heart rate Resp Denies cough, Denies dyspnea and Denies dyspnea on exertion GI Denies abdominal pain, Denies change in bowel habits, Denies excessive flatus, Denies nausea and Denies vomiting Denies urinary incontinence, Denies urinary hesitancy and Denies urinary urgency Musc Denies abnormal gait, Denies atrophy, Denies deformity and Denies limited range of motion Skin/Breast Denies bleeding lesions, Denies changing lesions and Denies rash Neuro Denies abnormal gait and Denies lack of coordination Physical exam (Primary Care) Vital Signs: Last Vital Signs BP 118/70 03/22/25 12:57 BMI result Body Mass Index 23.2 Tobacco/Smoking Status: Tobacco use Status Tobacco use date assessed 11/09/24 03/22/25 13:03 Patient Tobacco Use Status Never used Tobacco 03/22/25 13:03 e-Cigarette/Vaping Use Never Used 03/22/25 13:03 Depression Screening Interpretation: Negative Thrive Assessment: Date of Thrive Assessment Date Thrive assessed 11/09/24 03/22/25 13:03 Resp Effort & Inspection: normal respiratory effort Auscultation: clear to auscultation bilaterally Cardio Jugular venous distension: no JVD Rate: regular rate Rhythm: regular rhythm Heart sounds: S1 normal heart sound present and S2 normal heart sound present Extrem General: Yes full ROM Results AMB Hemoglobin A1c AMB Hemoglobin A1c 8.8 % Last Edit by JULIO CÉSAR Winkler on 03/22/25 13:1 0 Coding Level of Care Code Est Pt Level 4 (41826) Complex EM visit Add On G2211 Diagnoses Cholelithiasis K80.20 Cholelithiasis location: gallbladder Cholecystitis acuity: chronic Biliary obstruction: without biliary obstruction Type 2 diabetes mellitus with hyperglycemia, with long-term current use of insulin E11.65; Z79.4 Diabetes mellitus type: type 2 Diabetes mellitus complication status: with hyperglycemia Hyperlipidemia LDL goal <70 E78.5 Asymptomatic HIV infection, with no history of HIV-related illness Z21 HIV symptom status: asymptomatic, with no history of HIV-related illness Normocytic anemia D64.9 Essential hypertension I10 CKD stage 3 due to type 2 diabetes mellitus E11.22; N18.30 Additional Codes PHQ-9 - 74829 - PHQ-9 Billing: Yes ([id number]) Time Spent (min) 22 Assessment & Plan Assessment & Plan (1) Cholelithiasis: Code(s): K80.20 - Calculus of gallbladder without cholecystitis without obstruction Category: Medical Qualifiers: Cholelithiasis location: gallbladder Cholecystitis acuity: chronic Biliary obstruction: without biliary obstruction (2) Diabetes mellitus, with long-term current use of insulin: Code(s): E11.9 - Type 2 diabetes mellitus without complications; Z79.4 - long term (current) use of insulin Category: Medical Qualifiers: Diabetes mellitus type: type 2 Diabetes mellitus complication status: with hyperglycemia Qualified Code(s): E11.65 - Type 2 diabetes mellitus with hyperglycemia; Z79.4 - nursing home (current) use of insulin (3) Hyperlipidemia LDL goal <70: Code(s): E78.5 - Hyperlipidemia, unspecified Category: Medical (4) 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 infection): Comment: She is doing well on Juluca. Would continue Juluca. Check HIV viral load and CD4 count before next visit. 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 See in six months. Code(s): B20 - Human immunodeficiency virus [HIV] disease Category: Medical Qualifiers: HIV symptom status: asymptomatic, with no history of HIV-related illness Qualified Code(s): Z21 - Asymptomatic human immunodeficiency virus [HIV] infection status (5) Normocytic anemia: Code(s): D64.9 - Anemia, unspecified Category: Medical (6) Essential hypertension: Code(s): I10 - Essential (primary) hypertension Category: Medical (7) CKD stage 3 due to type 2 diabetes mellitus: Code(s): E11.22 - Type 2 diabetes mellitus with diabetic chronic kidney disease; N18.30 - Chronic kidney disease, stage 3 unspecified Category: Medical Plan The plan includes continuing the current antiretroviral therapy for HIV infection, given the undetectable viral load. Repeat laboratory tests are scheduled to monitor the patient's anemia and hyperglycemia. The patient is advised to follow up with the surgical team regarding the cholelithiasis and to address the scheduling delays for the procedure. Adjustments to the patient's insulin regimen may be considered to better manage blood sugar levels. Patient was informed and verbally consented to the use of an ambient scribe for clinic note documentation during this visit. I discussed with the patient the importance of continuing her current antiretroviral therapy to maintain her undetectable HIV viral load. We reviewed the need for repeat laboratory tests to monitor her anemia and hyperglycemia. I advised her to contact the surgical team to expedite the scheduling of her cholelithiasis procedure. Orders: Orders Vitamin D 25-OH Total Today E55.9 - Vitamin D deficiency, unspecified Microalbumin, Random (w Creat) Today R80.9 - Proteinuria, unspecified Comprehensive [place]. Panel Fast Today E78.5 - Hyperlipidemia, unspecified Complete Blood Count Auto Diff Today D64.9 - Anemia, unspecified IRON PROFILE Today D64.9 - Anemia, unspecified Lipid Panel Today E78.5 - Hyperlipidemia, unspecified AMB Hemoglobin A1c Today E11.65 - Type 2 diabetes mellitus with hyperglycemia, Z79.4 - long term (current) use of insulin Medications: Changed From insulin degludec (Tresiba FlexTouch U-100 insulin) 30 units (0.3 mL) subcut DAILY 90 days 27 mL 6RF To insulin degludec (Tresiba FlexTouch U-100 insulin) 33 units (0.33 mL) subcut DAILY 90 days 29.7 mL 6RF
== END 2025-03-22 13:14 | disposition home or self-care (01) ==
LOC: HO.HMCH 12:53
PROVIDERS: PCP Internal Medicine; Visit Provider Internal Medicine
DX: E11.65 Type 2 diabetes mellitus with hyperglycemia (principal); Z79.4 Long term (current) use of insulin; Z21 Asymptomatic human immunodeficiency virus [HIV] infection status; E11.22 Type 2 diabetes mellitus with diabetic chronic kidney disease; N18.30 Chronic kidney disease, stage 3 unspecified; K80.20 Calculus of gallbladder without cholecystitis without obstruction; I12.9 Hypertensive chronic kidney disease with stage 1 through stage 4 chronic kidney disease, or unspecified chronic kidney disease; E78.5 Hyperlipidemia, unspecified; D64.9 Anemia, unspecified

== ENCOUNTER → 2025-03-22 12:52 | Outpatient (BNVA) | payer OTHER, SELFPAY | PROVIDERS: PCP Internal Medicine; Visit Provider Internal Medicine | DX: E11.65 Type 2 diabetes mellitus with hyperglycemia (principal); E11.22 Type 2 diabetes mellitus with diabetic chronic kidney disease; I12.9 Hypertensive chronic kidney disease with stage 1 through stage 4 chronic kidney disease, or unspecified chronic kidney disease; N18.30 Chronic kidney disease, stage 3 unspecified; E78.5 Hyperlipidemia, unspecified; K80.20 Calculus of gallbladder without cholecystitis without obstruction; D64.9 Anemia, unspecified; Z79.4 Long term (current) use of insulin; Z21 Asymptomatic human immunodeficiency virus [HIV] infection status | CPT/HCPCS: 83036; 96127; 99212 ==

== ENCOUNTER 2025-04-12 11:13 | Outpatient (REF) | payer OTHER, SELFPAY ==
--- OUTSIDE RECORDS SUMMARY | 2025-04-12 12:04 | XMS_ITS | Encounter Summary ---
Author Organization [facility] Address [address] [facility] [address] [place] [address] Phone Care Team Providers Care Oil And Gas Well Treatment Operator Name Role Phone Mishel Cummings MD Primary Care Provider [phone] Reason for Visit * Reason Comments Med Refill Encounter Details Date Type Department Care Team (Late st Contact Info) Description 11/27/2021 Refill [facility] [address] [place] [address] Jignesh Easton MD Social History Tobacco [...] on filedocumented in this encounter Care Teams Oil And Gas Well Treatment Operator Relationship Specialty Start Date End Date Mishel Cummings MD [address] [place], [place] PCP - General 10/21/20 documented as of this encounter
--- OUTSIDE RECORDS SUMMARY | 2025-04-12 12:04 | XMS_ITS | Clinical Summary ---
Author Organization [employer] Address [address] [facility] [address] [facility] [address] [place] [address] Care Team Providers Care Customer Engagement Specialist Name Role Phone Unavailable Primary Care Provider Unavailabl e Allergies Active Allergy Reactions Criticality Noted Date Comments Metformin Other 04/17/2021 Shellfish Allergy 05/06/2023 Medications folic acid-vit B6-vit B12 2.5-25-1 MG tablet tablet Active elvitegravir-co bicistat-emtric itabine-tenofov ir alafenamide (Genvoya) [id number] MG tablet Active hydroCHLOROthia zide (HYDRODiuril) 12.5 [...] (1999 [place]) capsule TOME KIMBERLY C PSULA TODOS LOS D Active Jardiance 25 MG TOME 1 TABLETA POR V A ORAL TODOS LOS D 03/11/20 25 Active Active Problems No known active problems Encounters Date Type Department Care Team Description 03/16/2025 10:00 AM EDT Office Visit [facility] [address] [place] [address] Andreas Guerra Dental calculus (Primary Dx) from Last 3 Months Social History Tobacco [...] Sign Reading Time Taken Comments Blood Pressure 124/68 03/16/2025 9:52 AM EDT Pulse 65 03/16/2025 9:52 AM EDT Temperature - - Respiratory Rate - - Oxygen Saturation - - Inhaled Oxygen Concentration - - Weight - - Height - - Body Mass Index - - Plan of Treatment Upcoming Encounters Date Type Department Care Team ([facility] st Contact Info) Description 09/17/2025 10:00 AM EST Office Visit [facility] [address] [place] [address] Andreas Guerra Health Maintenance Due Date Last [...] Vaccine ( season) 2024 06/18/2022, 01/04/2021, 12/07/2020 Influenza Vaccine (#1) 2025 , 09/30/2023, 08/27/2022, Additional history exists Dental X-Ray: Bitewings 09/15/2025 09/14/2024, 01/12 Dental Oral Exam 09/16/2025 03/16/2025, 02/2024, 03/23/2023 Dental Prophylaxis 09/16/2025 03/16/2025, 1 11/15/2023, 03/23/2023 Dental X-Ray: Full Mouth 01/13/2026 01/12/2023 Tobacco Screening 03/16/2026 03/16/2025 DTaP/Tdap/Td Vaccines (2 - Td or Tdap) 08/18/2026 08/18/2016 RSV Patients and Patients Aged 60 years or older (1 - 1-dose 75+ series) 2032 HIB Vaccines Aged Out No longer eligi [...] patient's age to complete this topic Meningococcal B Vaccine Aged Out No l onger eligible based on patient's age to complete [...] Procedure Name Priority Date/Time Associated Diagnosis Comments PERIODIC ORAL EVALUATION - ESTABLISHED PATIENT Routine 03/16/2025 10:00 AM EDT COMPREHENSIVE PERIODONTAL EVALUATION - NEW OR ESTABLISHED PATIENT Routine 03/16/2025 10:00 AM EDT ORAL HYGIENE INSTRUCTIONS Routine 2024 10:00 AM EDT Full PROPHYLAXIS - ADULT Routine 025 10:00 AM EDT CASE PRESENTATION, DETAILED AND EXTENSIVE TREATMENT PLANNING Routine 03/16/2025 10:00 AM EDT BITEWINGS - 4 RADIOGRAPHIC IMAGES Routine 09/14/2024 9:00 AM EST Dental caries Gingivitis INTRAORAL - COMPLETE SERIES OF RADIOGRAPHIC IMAGES Routine 01/12/2023 10:00 AM EDT from Last 3 Months or Most Recently Relevant to Health Maintenance Insurance [facility]
== END 2025-04-12 11:14 | disposition home or self-care (01) ==
LOC: HO.MAMMO 11:13
PROVIDERS: PCP Internal Medicine; Visit Provider Internal Medicine
DX: Z12.31 Encounter for screening mammogram for malignant neoplasm of breast (principal)
CPT/HCPCS: 77063; 77067

== ENCOUNTER → 2025-04-12 12:00 | Outpatient (BNV) | payer OTHER, SELFPAY | PROVIDERS: PCP Internal Medicine; Visit Provider Internal Medicine | DX: Z12.31 Encounter for screening mammogram for malignant neoplasm of breast (principal) | CPT/HCPCS: 77063; 77067 ==

== ENCOUNTER 2025-04-30 09:37 | Outpatient (REF) | payer OTHER, SELFPAY ==
--- OUTSIDE RECORDS SUMMARY | 2025-04-30 10:14 | XMS_ITS | Encounter Summary ---
Author Organization [facility] Address [address] [facility] [address] [place] [address] Phone Care Team Providers Care Integrated Logistics Operations Manager Name Role Phone Mishel Cummings MD Primary Care Provider [phone] Reason for Visit * Reason Comments Med Refill Encounter Details Date Type Department Care Team (Late st Contact Info) Description 11/27/2021 Refill [facility] [address] [place] [id number] Jignesh Easton MD Social History Tobacco Use [...] on filedocumented in this encounter Care Teams Integrated Logistics Operations Manager Relationship Specialty Start Date End Date Mishel Cummings MD [address] [place], [place] PCP - General 10/21/20 documented as of this encounter
--- OUTSIDE RECORDS SUMMARY | 2025-04-30 10:14 | XMS_ITS | Clinical Summary ---
Author Organization [employer] Address [address] [facility] 7t [place] [address] Care Team Providers Care Video Game Animator Name Role Phone Unavailable Primary Care Provider Unavailabl e Allergies Active Allergy Reactions Criticality Noted Date Comments Metformin Other 04/17/2021 Shellfish Allergy 05/06/2023 Medications folic acid-vit B6-vit B12 2.5-25-1 MG tablet tablet Active elvitegravir-co bicistat-emtric itabine-tenofov ir alafenamide (Genvoya) [phone] MG tablet Active hydroCHLOROthia zide (HYDRODiuril) 12.5 [...] Description 03/16/2025 10:00 AM EDT Office Visit [facility] ADULT [facility] [address] [place] [address] Andreas Guerra Dental calculus (Primary Dx) from [...] Upcoming Encounters Date Type Department Care Team ([facility] st Contact Info) Description 09/17/2025 10:00 AM EST Office Visit [facility] ADULT D[facility] [address] [place] [address] Andreas Guerra Health Maintenance Due Date Last [...] Recently Relevant to Health Maintenance Insurance DENTAL [facility]
--- OUTSIDE RECORDS SUMMARY | 2025-04-30 10:15 | XMS_ITS | Patient Health Record ---
Author Organization [facility] Address [address] [place] [address] Care Team Providers Care Cement Fittings Maker Name Role Phone Renny Whitt [phone] Reason For Referral No Information Plan Of Treatment No Information
[2025-04-30 10:48] LABS: Anion Gap 11 (12-20); Blood Urea Nitrogen 22 mg/dL (9-16); Carbon Dioxide 28 mmol/L (22-29); Chloride 106 mmol/L (96-108); Estimated Glomerular Filt Rate 29; Potassium 3.6 mmol/L (3.3-5.1); Sodium 141 mmol/L (135-145)
== END 2025-04-30 09:38 | disposition home or self-care (01) ==
LOC: HO.LAB 09:37
PROVIDERS: PCP Internal Medicine; Visit Provider Internal Medicine Nephrology
DX: I12.9 Hypertensive chronic kidney disease with stage 1 through stage 4 chronic kidney disease, or unspecified chronic kidney disease (principal); N18.30 Chronic kidney disease, stage 3 unspecified; E11.22 Type 2 diabetes mellitus with diabetic chronic kidney disease; E11.21 Type 2 diabetes mellitus with diabetic nephropathy
CPT/HCPCS: 36415; 80051; 82565; 84520

== ENCOUNTER 2025-05-04 12:05 | Outpatient (AMB) | payer OTHER, SELFPAY ==
--- OUTSIDE RECORDS SUMMARY | 2025-05-04 12:08 | XMS_ITS | Encounter Summary ---
Author Organization [facility] Address [address] [facility] [address] [place] [address] Phone Care Team Providers Care Distributor Of Directories Name Role Phone Mishel Cummings MD Primary Care Provider [phone] Reason for Visit * Reason Comments Med Refill Encounter Details Date Type Department Care Team (Late st Contact Info) Description 11/27/2021 Refill [facility] [address] [place] [id number] Jignesh Easton MD Social History Tobacco Use [...] on filedocumented in this encounter Care Teams Distributor Of Directories Relationship Specialty Start Date End Date Mishel Cummings MD [address] [place], [place] PCP - General 10/21/20 documented as of this encounter
--- OUTSIDE RECORDS SUMMARY | 2025-05-04 12:08 | XMS_ITS | Clinical Summary ---
Author Organization [employer] Address [address] [facility] 7t [place] [address] Care Team Providers Care Wire Cutter Name Role Phone Unavailable Primary Care Provider Unavailabl e Allergies Active Allergy Reactions Criticality Noted Date Comments Metformin Other 04/17/2021 Shellfish Allergy 05/06/2023 Medications folic acid-vit B6-vit B12 2.5-25-1 MG tablet tablet Active elvitegravir-co bicistat-emtric itabine-tenofov ir alafenamide (Genvoya) [phone] MG tablet Active hydroCHLOROthia zide (HYDRODiuril) 12.5 [...] [facility] ADULT DENTAL [address] [place] [address] Andreas Guerra Dental calculus (Primary Dx) from [...] Upcoming Encounters Date Type Department Care Team ([facility] st Contact Info) Description 09/17/2025 10:00 AM EST Office Visit [facility] ADULT DENTAL [address] [place] [address] Andreas Guerra Health Maintenance Due Date Last [...] Recently Relevant to Health Maintenance Insurance DENTAL [facility]
--- OUTSIDE RECORDS SUMMARY | 2025-05-04 12:08 | XMS_ITS | Patient Health Record ---
Author Organization [facility] Address [address] [place] [address] Care Team Providers Care Sound Controller Name Role Phone Renny Whitt [phone] Reason For Referral No Information Plan Of Treatment No Information
--- NOTE | 2025-05-04 12:32 | HO.NEPHOV ---
Vital Signs 05/04/25 12:33 Height 4 ft 11 in Weight 115 lb 4 oz BMI 23.3 BP 140/82 H Blood Pressure Location Rt brachial Position Sitting Pulse 72 Pulse Source Pulse Oximeter Pulse Oximetry (%) 97 Oxygen Delivery Method Room Air Intake Visit Reasons: 2mon follow-up w/labs Mc Kay Machine Operator Required: Yes Mc Kay Machine Operator Language: State Wildlife Officer Services: Mc Kay Machine Operator Offered & Declined [place] [place] Kay Machine Operator services refused ) Accompanied by: Self / Same As Patient Allergies crab Allergy (Severe, Verified 05/04/25 12:33) SWELLING amoxicillin (From Augmentin) Allergy (Mild, Verified 05/04/25 12:33) Abdominal Pain clavulanic acid (From Augmentin) Allergy (Mild, Verified 05/04/25 12:33) Abdominal Pain metformin Adverse Reaction (Intermediate, Verified 05/04/25 12:33) diarrhea HPI Comments Details: Barbara was seen in the office in follow-up of her chronic kidney disease, proteinuria, renal cyst and hypertension. Her blood sugar is better controlled but still high. She is not on CORNELIA-inhibitor. She avoids taking nonsteroidal anti-inflammatories. Her viral load is undetectable and CD4 are very good. She continues to have nephrotic range proteinuria. She has no edema. Her serum creatinine is stable [facility] Medical History Sinusitis Hepatitis Normocytic anemia 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 infection) Pure hypercholesterolemia Essential hypertension Sessile colonic polyp 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 infection) intermediate (current) use of insulin Hypertension Non-toxic multinodular goiter Diabetic retinopathy associated with type 2 diabetes mellitus CKD stage 3 due to type 2 diabetes mellitus Diabetic nephropathy associated with type 2 diabetes mellitus Dyslipidemia Diabetes type 2, controlled Hypovitaminosis D Surgical History H/O colonoscopy (08/13/20) Hx of bilateral cataract extraction History of hysterectomy with unilateral oophorectomy Hx of section Hx of thyroidectomy Family History Father Liver disease Mother Hypertension CVD (cardiovascular disease) Renal disease Hyperlipidemia ESRD on hemodialysis Paternal Aunt Glaucoma Social History Household Members: Other Household Members Other:: grandson Housing: House Alcohol intake: never Patient Tobacco Use Status: Never used Tobacco e-Cigarette/Vaping Use: Never Used Second Hand Smoke Exposure: No Advance Directives Date on File: 07/01/21 service: No Current occupational status: unemployed Cognitive needs: No Hearing needs: No Vision needs: No Review of Systems Const All systems reviewed & are unremarkable except as noted in HPI and below Physical Exam Const General: comfortable and no acute distress Orientation/consciousness: patient oriented x3 HEENT Head: Yes normocephalic Mouth: Normal oral and palatal mucosa present Eyes EOM: EOMs intact bilaterally Neck Neck: Yes supple Resp Auscultation: clear to auscultation bilaterally Cardio Jugular venous distension: no JVD Rate: regular rate GI Palpation (GI): Soft to palpation Auscultation: normal bowel sounds General: Yes no CVA tenderness Back/Spine/Pelvis Back: no CVA tenderness Skin General skin exam: no rashes or lesions noted Neuro General: patient oriented x3 and moves all extremities Extrem General: Yes no pedal edema Results Reviewed Nephrology Results: Sodium, (135-145) 141 mmol/L 04/30/25 Potassium, (3.3-5.1) 3.6 mmol/L 04/30/25 Chloride, (96-108) 106 mmol/L 04/30/25 Carbon Dioxide, (22-29) 28 mmol/L 04/30/25 BUN, (9-16) 22 mg/dL H 04/30/25 Creatinine, (0.5-1.4) 1.76 mg/dL H 04/30/25 Assessment & Plan Assessment & Plan (1) Hypertension: Code(s): I10 - Essential (primary) hypertension Category: Medical Qualifiers: Hypertension type: essential hypertension Qualified Code(s): I10 - Essential (primary) hypertension (2) Diabetic nephropathy associated with type 2 diabetes mellitus: Code(s): E11.21 - Type 2 diabetes mellitus with diabetic nephropathy Category: Medical (3) CKD stage 3 due to type 2 diabetes mellitus: Code(s): E11.22 - Type 2 diabetes mellitus with diabetic chronic kidney disease; N18.30 - Chronic kidney disease, stage 3 unspecified Category: Medical (4) Proteinuria: Code(s): R80.9 - Proteinuria, unspecified Category: Medical Qualifiers: Proteinuria type: other Qualified Code(s): R80.8 - Other proteinuria Plan Barbara has a significant proteinuria. Her renal functions are stable. She is now on Diltiazem 240 mg daily as well as hydralazine which is keeping her BP control better. She needs to cut back salt in the diet. She had an incidental finding of left renal cyst which will need a follow-up renal ultrasound. She has had HIV which is well controlled. She avoids nonsteroidal anti-inflammatories. I discussed renal biopsy again which she wants to wait. C/W Jardaince to 25 mg today and plan to start ARB with time, if possible. I ordered repeat blood work . (She most likely will need renal biopsy soon). I did not make any other medication changes today. All questions answered. Follow-up given Orders: Orders Creatinine 2 Months E11.22 - Type 2 diabetes mellitus with diabetic chronic kidney disease, I10 - Essential (primary) hypertension, N18.30 - Chronic kidney disease, stage 3 unspecified Blood Urea Nitrogen 2 Months E11.22 - Type 2 diabetes mellitus with diabetic chronic kidney disease, I10 - Essential (primary) hypertension, N18.30 - Chronic kidney disease, stage 3 unspecified Electrolytes 2 Months E11.22 - Type 2 diabetes mellitus with diabetic chronic kidney disease, I10 - Essential (primary) hypertension, N18.30 - Chronic kidney disease, stage 3 unspecified Coding Level of Care Code Est Pt Level 4 (20739) Diagnoses Essential hypertension I10 Hypertension type: essential hypertension Diabetic nephropathy associated with type 2 diabetes mellitus E11.21 CKD stage 3 due to type 2 diabetes mellitus E11.22; N18.30 Other proteinuria R80.8 Proteinuria type: other
[2025-05-04 12:33] VITALS: BP 140/82; PULSE 72; O2SAT 97; BMI 23.3
== END 2025-05-04 12:39 | disposition home or self-care (01) ==
LOC: HO.HKA 12:06
PROVIDERS: PCP Internal Medicine; Visit Provider Internal Medicine Nephrology
DX: I10 Essential (primary) hypertension (principal); E11.21 Type 2 diabetes mellitus with diabetic nephropathy; E11.22 Type 2 diabetes mellitus with diabetic chronic kidney disease; N18.30 Chronic kidney disease, stage 3 unspecified; R80.8 Other proteinuria
CPT/HCPCS: 99214

== ENCOUNTER → 2025-05-04 12:05 | Outpatient (BNVA) | payer OTHER, SELFPAY | PROVIDERS: PCP Internal Medicine; Visit Provider Internal Medicine Nephrology | DX: E11.22 Type 2 diabetes mellitus with diabetic chronic kidney disease (principal); I12.9 Hypertensive chronic kidney disease with stage 1 through stage 4 chronic kidney disease, or unspecified chronic kidney disease; N18.30 Chronic kidney disease, stage 3 unspecified; E11.21 Type 2 diabetes mellitus with diabetic nephropathy; R80.8 Other proteinuria | CPT/HCPCS: 99212 ==

== ENCOUNTER 2025-05-09 14:26 | Outpatient (AMB) | payer OTHER, SELFPAY ==
--- NOTE | 2025-05-09 14:42 | A.OFFVIS_ITS ---
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 Rectal Pap Life Sciences Director Required: Yes Life Sciences Director Name: Joy ID# [id number] Information Interpreted: non-clinical & clinical Concrete Pump Operator Helper: Concrete Pump Operator Helper Present Allergies crab Allergy (Severe, Verified 05/09/25 15:04) SWELLING amoxicillin (From Augmentin) Allergy (Mild, Verified 05/09/25 15:04) Abdominal Pain clavulanic acid (From Augmentin) Allergy (Mild, Verified 05/09/25 15:04) Abdominal Pain metformin Adverse Reaction (Intermediate, Verified 05/09/25 15:04) diarrhea Medication List - Last Reconciled 05/09/25 by Kimi Marcano LPN alcohol swabs 1 pad topical .4 times a day 30 days atorvastatin 80 mg PO BEDTIME 90 days blood pressure monitor As directed blood sugar diagnostic ([employer] Ultra Test strips) Use 1 lancet four times a day blood-glucose meter ([employer] UltraMini kit) As directed diltiazem HCl ER (Tiadylt ER) 240 mg PO DAILY dolutegravir-rilpivirine 50-25 mg (Juluca) 1 tab PO DAILY 30 days empagliflozin 25 mg PO DAILY 30 days fenofibrate 54 mg PO DAILY 90 days ferrous sulfate 325 mg PO DAILY hydralazine 50 mg PO TID insulin degludec (Tresiba FlexTouch U-100 insulin) 33 units (0.33 mL) subcut DAILY 90 days lancets ([employer] [place] UltraSoft Lancets) Use 1 lancet four times a day pen needle, diabetic twice a day pen needle, diabetic (BD Mansi 2nd Gen Pen Needle) Use 1 pen needle once a day Is last menstrual period known: No Post menopausal: Yes Patient : No Do you need a note to return to daycare/school/sports/work: No HPI Comments Details: Patient is a postmenopausal woman presenting for her 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 History of HIV status positive, viral load undetectable. Currently not sexually active. Denies any vaginal dryness or irritation. Declines any STI testing. Attempting to eat a healthy diet with calcium and vitamin D and stays active with exercise. History of hysterectomy due to abnormal bleeding. Last mammogram; 2024. Colonoscopy is UTD. Dexa- 2020-Hx. osteopenia. Denies any family history of breast, ovarian or colon cancer. [facility] Medical History Sinusitis Hepatitis Normocytic anemia 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 infection) Pure hypercholesterolemia Essential hypertension Sessile colonic polyp 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 infection) half-way (current) use of insulin Hypertension Non-toxic multinodular goiter Diabetic retinopathy associated with type 2 diabetes mellitus CKD stage 3 due to type 2 diabetes mellitus Diabetic nephropathy associated with type 2 diabetes mellitus Dyslipidemia Diabetes type 2, controlled Hypovitaminosis D Surgical History H/O colonoscopy (08/13/20) Hx of bilateral cataract extraction History of hysterectomy with unilateral oophorectomy Hx of section Hx of thyroidectomy Family History Father Liver disease Mother Hypertension CVD (cardiovascular disease) Renal disease Hyperlipidemia ESRD on hemodialysis Paternal Aunt Glaucoma Social History Household Members: Other Household Members Other:: grandson Housing: House Alcohol intake: never Patient Tobacco Use Status: Never used Tobacco e-Cigarette/Vaping Use: Never Used Second Hand Smoke Exposure: No Advance Directives Date on File: 07/01/21 Patient : No service: No Current occupational status: unemployed Cognitive needs: No Hearing needs: No Vision needs: No Female Reproductive History Menstrual Menopause type: surgical (2002) Total pregnancies: 3 Full term: 3 History of abnormal pap smear: No History of STI: No Date of Mammogram: 04/12/25 History of abnormal mammogram: No (BI rad 1) Review of Systems Const All systems reviewed & are unremarkable except as noted in HPI and below Reports as per HPI Eyes Reports no additional complaints ENT Reports no additional complaints Card Reports no additional complaints Resp Reports no additional complaints GI Reports as per HPI and Reports no additional complaints Reports as per HPI Musc Reports no additional complaints Skin/Breast Reports as per HPI Neuro Reports no additional complaints Psych Reports no additional complaints Endo Reports no additional complaints Jose/Lymph Reports no additional complaints Aller/Immun Reports no additional complaints Physical Exam Vital Signs: Last Vital Signs BP 130/76 05/09/25 15:00 BMI result Body Mass Index 22.8 Const General: cooperative, healthy appearing, no acute distress, well developed and alert Orientation/consciousness: patient oriented x3 HEENT Head: Yes normal to inspection Eyes General: appearance normal, both eyes and all related structures Neck Neck: Yes normal visual inspection Thyroid: Thyroid normal Chest Chest palpation & inspection: normal inspection of the chest and other (no puckering, dimpling, peau de orange, retraction, discharge, masses) Breast/axilla inspection: normal inspection of the breasts Breast/axilla palpation: normal palpation of the breasts Resp Effort & Inspection: normal respiratory effort GI Inspection: Yes normal to inspection and Yes scar Palpation (GI): Soft to palpation Rectal Exam - Female: deferred (Rectal Pap completed) Other: Tense with the exam General: Yes bladder normal to palpation External Female Exam: normal external appearance and normal appearance of the urethra Speculum Exam - Vagina: normal appearance of the vagina, normal palpation, normal vaginal discharge and vagina atrophic Speculum Exam - Cervix: normal appearance of the cervix and Cervix absent (Atrophic, vaginal cuff no lesions or nodules) Bimanual exam- vagina & uterus: normal bimanual exam, normal palpation, bladder normal to palpation and uterus absent Bimanual Exam- Adnexa, other: no masses Skin General skin exam: no rashes or lesions noted Rashes: no rashes Neuro General: patient oriented x3 Cognition (Neuro): normal cognition Extrem General: Yes normal to inspection Psych Attitude: cooperative Thought process: Normal thought process present Assessment & Plan Assessment & Plan (1) Encounter for well woman exam with routine gynecological exam: Code(s): Z01.419 - Encounter for gynecological examination (general) (routine) without abnormal findings Category: Medical Plan: Discussed: Current recommendations for pap smears per ASCCP guidelines. Breast awareness, periodic self breast exams and yearly mammogram. Maintain a healthy lifestyle, well balanced diet including Calcium 1,200 mg and Vitamin D 600 IU daily, and routine exercise. Use of condoms for STI prevention if indicated. Contact the office with any postmenopausal bleeding. Patient verbalizes understanding and agrees to the plan of care. She was given opportunity to ask questions and all questions were answered to the best of my ability. RTO in 1 year for annual window shade ring coverer exam. This note is constructed using voice recognition software. While every effort has been made to ensure accuracy, soc analyst errors may have been included. (2) 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 infection): Code(s): B20 - Human immunodeficiency virus [HIV] disease Category: Medical Qualifiers: HIV symptom status: asymptomatic, with no history of HIV-related illness Qualified Code(s): Z21 - Asymptomatic human immunodeficiency virus [HIV] infection status Plan Rectal Pap completed, await results for final plan of care. Informed to repeat yearly. The patient expressed understanding and agreement with the plan of care. All of her questions and concerns were addressed to the best of my ability. Orders: Orders XR DEXA axial skeleton Today M85.80 - Other specified disorders of bone density and structure, unspecified site, Z78.0 - Asymptomatic menopausal state Pap Smear Today Z01.419 - Encounter for gynecological examination (general) (routine) without abnormal findings Coding Level of Care Code New Pt Prev Care >65yr (05398) Diagnoses Encounter for well woman exam with routine gynecological exam Z01.419 Asymptomatic HIV infection, with no history of HIV-related illness Z21 HIV symptom status: asymptomatic, with no history of HIV-related illness
[2025-05-09 15:00] VITALS: BP 130/76; BMI 22.8
--- OUTSIDE RECORDS SUMMARY | 2025-05-09 15:07 | XMS_ITS | Encounter Summary ---
Author Organization [facility] Address [address] [facility] [address] [place] [address] Phone Care Team Providers Care Poly Area Supervisor Name Role Phone Mishel Cummings MD Primary Care Provider [phone] Reason for Visit * Reason Comments Med Refill Encounter Details Date Type Department Care Team (Late st Contact Info) Description 11/27/2021 Refill [facility] [address] [place] [phone] Jignesh Easton MD Social History Tobacco Use [...] on filedocumented in this encounter Care Teams Poly Area Supervisor Relationship Specialty Start Date End Date Mishel Cummings MD [address] [place], [place] PCP - General 10/21/20 documented as of this encounter
--- OUTSIDE RECORDS SUMMARY | 2025-05-09 15:07 | XMS_ITS | Clinical Summary ---
Author Organization [employer] Address [address] [facility] 7t [place] [address] Care Team Providers Care Timers Inspector Name Role Phone Unavailable Primary Care Provider Unavailabl e Allergies Active Allergy Reactions Criticality Noted Date Comments Metformin Other 04/17/2021 Shellfish Allergy 05/06/2023 Medications folic acid-vit B6-vit B12 2.5-25-1 MG tablet tablet Active elvitegravir-co bicistat-emtric itabine-tenofov ir alafenamide (Genvoya) [phone] MG tablet Active hydroCHLOROthia zide (HYDRODiuril) 12.5 [...] Description 03/16/2025 10:00 AM EDT Office Visit [facility] ADULT DENTAL [address] [place] [address] Andreas Guerra Dental calculus (Primary Dx) from [...] Upcoming Encounters Date Type Department Care Team ([facility] st Contact Info) Description 09/17/2025 10:00 AM EST Office Visit [facility] ADULT DENTAL [address] [place] [address] Andreas Guerra Health Maintenance Due Date Last [...] Recently Relevant to Health Maintenance Insurance D[facility]AL [facility]
== END 2025-05-09 15:31 | disposition home or self-care (01) ==
LOC: HO.HWS 14:26
PROVIDERS: PCP Internal Medicine; Visit Provider Advanced Practice Midwife
DX: Z01.419 Encounter for gynecological examination (general) (routine) without abnormal findings (principal); Z21 Asymptomatic human immunodeficiency virus [HIV] infection status
CPT/HCPCS: 99387; 99459

== ENCOUNTER 2025-05-09 14:26 | Outpatient (REF) | payer OTHER, SELFPAY ==
[2025-05-19 00:58] LABS: HPV MRNA E6/E7 Rectal NOT DETECTED
== END 2025-05-09 14:27 | disposition home or self-care (01) ==
LOC: HO.LNP 14:26
PROVIDERS: PCP Internal Medicine; Visit Provider Advanced Practice Midwife
DX: Z01.419 Encounter for gynecological examination (general) (routine) without abnormal findings (principal); B20 Human immunodeficiency virus [HIV] disease; M85.80 Other specified disorders of bone density and structure, unspecified site; Z11.59 Encounter for screening for other viral diseases; Z78.0 Asymptomatic menopausal state
CPT/HCPCS: 87624; 87626; 88112; 88175; 99387

== ENCOUNTER 2025-05-11 02:29 | Day surgery (SDC) | payer OTHER, SELFPAY ==
[2025-05-11] VITALS (10 sets, daily range): BP systolic 121–183; BP diastolic 53–97; PULSE 57–97; RESP 12–20; TEMP 36.1–36.9; O2SAT 95–100; BMI 23.3
--- NOTE | 2025-05-11 | ECG_ITS ---
Test Reason : pre op Blood Pressure : */* mmHG Vent. Rate : 79 BPM Atrial Rate : 79 BPM P-R Int : 186 ms QRS Dur : 76 ms QT Int : 414 ms P-R-T Axes : 28 2 19 degrees QTcB Int : 474 ms Normal sinus rhythm Anteroseptal infarct , age undetermined Abnormal ECG When compared with ECG of 09-Oct-2021 12:40, Anteroseptal infarct is now Present Nonspecific T wave abnormality now evident in Anterior leads Referred By: Nicolle Buck Electronically Signed By: ARASH HERNANDEZ MD
--- NOTE | ~2025-05-11 | US_ITS ---
EXAMINATION: US ABDOMEN LIMITED CLINICAL INFORMATION: Right upper quadrant abdominal pain.. COMPARISON: December 26, 2024. TECHNIQUE: Real-time ultrasound of the right upper quadrant abdomen limited to the gallbladder using grayscale and color Doppler technique. FINDINGS: There is a single, mobile, focal, 7 mm, intraluminal, hyperechoic lesion with posterior shadowing in the dependent portion of the gallbladder. No pericholecystic fluid collection or gallbladder wall thickening. Common bile duct measures 3 mm. US/US abdomen limited IMPRESSION: Cholelithiasis. No choledocholithiasis. Electronically signed by: Eriberto Yates MD 05/11/2025 07:50 AM EDT
[2025-05-11 03:02] LABS: MANUAL DIFF FLAG NO
[2025-05-11 03:03] LABS: Hematocrit 39.3 % (37.0-47.0); Hemoglobin 12.6 g/dl (12.0-16.0); Imm Gran Abs Auto 0.03 X10*3/uL (0.00-0.03); Imm Gran Pct Auto 0.2 % (0.0-0.4); Lymphocytes Absolute Auto 2.2 X10*3/uL (1.2-4.9); Mean Corpuscular HGB Conc 32.1 g/dl (31.0-35.0); Mean Corpuscular Hemoglobin 25.1 pg (27.0-33.0); Mean Corpuscular Volume 78.4 fL (80.0-98.0); NRBC Abs Auto 0.000 X10*3/uL (0.0-0.012); NRBC Pct Auto 0.0 /100WBC (0.0-0.2); Platelet Count 288 X10*3/uL (160-400); Red Blood Count 5.01 X10*6/uL (4.20-5.50); White Blood Count 12.0 X10*3/uL (4.8-10.8)
[2025-05-11 03:09] LABS: Appearance Urine Clear; Glucose Urine UA >=1000 mg/dL (Negative); PH 6.0 (5.0-9.0); Specific Gravity - Urine >= 1.030 (1.005-1.025); UMIC TRIGGER UACC YES
[2025-05-11 03:17] LABS: Alanine Aminotransferase 15 U/L (0-31); Albumin Level 3.2 g/dL (3.5-5.0); Alkaline Phosphatase 85 U/L (39-117); Anion Gap 17 (12-20); Aspartate Amino Transferase 19 U/L (5-31); Blood Urea Nitrogen 26 mg/dL (9-16); Calcium 9.0 mg/dL (8.4-10.2); Carbon Dioxide 23 mmol/L (22-29); Chloride 103 mmol/L (96-108); Creatinine Clr Calc Pharmacy 19.7; Estimated Glomerular Filt Rate 24; Potassium 3.5 mmol/L (3.3-5.1); Sodium 139 mmol/L (135-145); Total Protein 7.2 g/dL (6.5-8.0)
--- OUTSIDE RECORDS SUMMARY | 2025-05-11 03:33 | XMS_ITS | Encounter Summary ---
Author Organization [facility] Address [address] [facility] [address] [place] [address] Phone Care Team Providers Care Geographic Information Systems Director Name Role Phone Mishel Cummings MD Primary Care Provider [phone] Reason for Visit * Reason Comments Med Refill Encounter Details Date Type Department Care Team (Late st Contact Info) Description 11/27/2021 Refill [facility] [address] [place] [address] Jignesh Easton MD Social History Tobacco [...] on filedocumented in this encounter Care Teams Geographic Information Systems Director Relationship Specialty Start Date End Date Mishel Cummings MD [address] [place], [place] PCP - General 10/21/20 documented as of this encounter
--- OUTSIDE RECORDS SUMMARY | 2025-05-11 03:33 | XMS_ITS | Patient Health Record ---
Author Organization [facility] Address [address] [place] [address] Care Team Providers Care Utility Person Name Role Phone Renny Whitt [phone] Reason For Referral No Information Plan Of Treatment No Information
--- NOTE | 2025-05-11 06:02 | ED.ABDPAIN ---
HPI - Abdominal Pain General Chief Complaint: Abdominal Pain Stated Complaint: abd pain Time Seen by Provider: 05/11/25 05:52 Source: patient Mode of arrival: ambulatory Limitations: no limitations History of Present Illness ED Provider: Dr. Alissa Dickerson HPI narrative: Patient comes to the emergency room complaining of right upper quadrant pain. Patient states that she has been having intermittent pain in the right upper quadrant for several months. In January she went to see surgery and she was told that she has gallstones and she eventually might need a cholecystectomy. Patient states that for the last few days, she has been having very sharp pains. Patient denies nausea vomiting or diarrhea, denies fever chills. Patient states that the pain woke her up from sleep. Last meal approximately 12 hours ago Related Data Previous Rx's ?Medication ?Instructions ?Recorded pen needle, diabetic 32 gauge x #200 ea 02/06/21 alcohol swabs 1 pad topical .4 times a day 30 05/01/22 days #200 ea lancets (OneTouch UltraSoft #100 ea 12/03/22 Lancets) blood-glucose meter (OneTouch #1 ea 01/11/23 UltraMini kit) ferrous sulfate 325 mg (65 mg 325 mg PO DAILY #90 tabs 08/30/23 iron) tablet blood sugar diagnostic (OneTouch #100 ea 11/23/23 Ultra Test strips) blood pressure monitor #1 ea 05/28/24 atorvastatin 80 mg tablet 80 mg PO BEDTIME 90 days #90 tabs 07/22/24 fenofibrate 54 mg tablet 54 mg PO DAILY 90 days #90 tabs 11/09/24 pen needle, diabetic 32 gauge x #100 ea 11/09/24 (BD Mansi 2nd Gen Pen Needle) diltiazem HCl 240 mg capsule,24 240 mg PO DAILY #90 caps 12/22/24 hr,extended release (Tiadylt ER) dolutegravir 50 mg-rilpivirine 25 1 tab PO DAILY 30 days #30 tabs 01/09/25 mg tablet (Juluca) empagliflozin 25 mg tablet 25 mg PO DAILY 30 days #30 tabs 01/12/25 insulin degludec 100 unit/mL (3 33 unit (0.33 mL) subcut DAILY 90 03/22/25 mL) subcutaneous pen (Tresiba days #29.7 mL FlexTouch U-100 insulin) hydralazine 50 mg tablet 50 mg PO TID #270 tabs 05/08/25 Allergies Allergy/AdvReac Type Severity Reaction Status Date / Time crab Allergy Severe SWELLING Verified 05/11/25 02:47 amoxicillin (From Augmentin) Allergy Mild Abdominal Verified 05/11/25 02:47 Pain clavulanic acid (From Allergy Mild Abdominal Verified 05/11/25 02:47 Augmentin) Pain metformin AdvReac Intermediate diarrhea Verified 05/11/25 02:47 Review of Systems Review of Systems Constitutional : No Weight loss, No Fever, No Chills, No Night Sweats, No Fatigue, No Malaise ENT/Mouth : No Hearing loss, No Ear Pain, No Nasal Congestion, No Sinus Pain, No Hoarseness, No sore throat, No Rhinorrhea, No Swallowing Difficulty Eyes: No Eye Pain, No Swelling, No Redness, No Foreign Body, No Discharge, No Vision Changes Cardiovascular : No Chest Pain, No SOB, No Dyspnea on Exertion, No Orthopnea, No Edema, No Palpitations Respiratory : No Cough, No Sputum, No Wheezing, No Smoke Exposure, No Dyspnea Gastrointestinal : No Nausea, No Vomiting, No Diarrhea, No Constipation, complaining of right upper quadrant pain, intermittent and very sharp, occasionally radiating towards the back Genitourinary : no irregular bleeding, No Dysuria, No Urinary Frequency, No Hematuria, No Urinary Incontinence, No Urgency, No Flank Pain, No Urinary Flow Changes, No Hesitancy Musculoskeletal : No joint pain, No Myalgias, No Joint Swelling Skin : No Skin Lesions, No rash Neuro : No Weakness, No Numbness, No Paresthesias, No Loss of Consciousness, No Dizziness, No Headache Psych : No Anxiety/Panic, No Depression, No SI/HI/AH/VH, No Social Issues, Heme/Lymph: No Bruising, No Bleeding,No Lymphadenopathy Endocrine : No Polyuria, No Polydipsia, No Temperature Intolerance [facility] Past Medical History Medical History (Updated 05/11/25 @ 08:15 by Alissa Dickerson MD) Sinusitis Hepatitis Normocytic anemia 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 infection) Pure hypercholesterolemia Essential hypertension Sessile colonic polyp 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 infection) USP (current) use of insulin Hypertension Non-toxic multinodular goiter Diabetic retinopathy associated with type 2 diabetes mellitus CKD stage 3 due to type 2 diabetes mellitus Diabetic nephropathy associated with type 2 diabetes mellitus Dyslipidemia Diabetes type 2, controlled Hypovitaminosis D Surgical History (Updated 05/11/25 @ 08:05 by Radha Beauchamp PA-C) H/O colonoscopy (08/13/20) Hx of bilateral cataract extraction History of hysterectomy with unilateral oophorectomy Hx of section Hx of thyroidectomy Family History Family History Father Liver disease Mother Hypertension CVD (cardiovascular disease) Renal disease Hyperlipidemia ESRD on hemodialysis Paternal Aunt Glaucoma Social History Social History Household Members: Other Household Members Other:: grandson Housing: House Alcohol intake: never Patient Tobacco Use Status: Never used Tobacco Smoked in Last 30 Days: No e-Cigarette/Vaping Use: Never Used Second Hand Smoke Exposure: No Use of substances other than those prescribed or required for medical reasons: No Advance Directives: No Advance Directives Information Provided: Yes Advance Directives Date on File: 07/01/21 service: No Current occupational status: unemployed Cognitive needs: No Hearing needs: No Vision needs: No Physical Exam ED Exam Exam: Appearance: Alert. Oriented X3. No acute distress. Eyes: Pupils equal, round and reactive to light. ENT: Pharynx normal. Neck: Normal inspection. Neck supple. No lymph nodes noted. No crepitus CVS: Normal heart rate and rhythm. Pulses normal. Normal S1 and S2 Respiratory: No respiratory distress. Breath sounds normal. No Wheezing. No rales Abdomen: Soft, tenderness to palpation the right upper quadrant, positive Millan's sign, no rebound, positive guarding. No rigidity. No distention. Skin: Skin warm and dry. Normal skin color. Normal skin turgor. Extremities: No lower extremity edema. No Lacerations. No Rash Neuro: Oriented X 3. No motor deficit. No sensory deficit. Moving all extremities. No slurred speech. CN 2 through 12 grossly intact Psych: calm, cooperative, normal affect Vital Signs: Vital Signs - 24 hr 05/11/25 02:42 05/11/25 06:47 Temperature 97.9 F 97.8 F Pulse Rate 97 63 Respiratory Rate 18 20 Blood Pressure 174/97 H 159/83 H Pulse Oximetry 95 97 Oxygen Delivery Method Room Air Room Air BMI result Body Mass Index 23.3 Course Course Course Narrative: Patient known to have cholelithiasis. Eventually surgery was plan. Today returns with worsening abdominal pain in the right upper quadrant. Physical exam positive Millan's sign. Patient receiving IV fluids, Zofran, morphine Medical Decision Making Medical Decision Making [facility] Narrative: My interpretation of labs: Patient's white blood cell count slightly elevated at 12.0, double than that of patient's baseline. Rest of hematology at baseline, chemistry shows a creatinine of 2.04 which is at patient's baseline, lactic acid within normal limits, LFTs normal On physical exam, patient had a positive Millan's sign. Ultrasound shows cholelithiasis without choledocholithiasis Patient continues having right upper quadrant pain. I discussed the patient with the surgery team, patient will be going to the OR today Patient agrees with plan Differential Diagnosis Differential Diagnoses: The differential diagnosis associated with the presentation includes (Choledocholithiasis, cholelithiasis, acute cholecystitis) Admission/Observation Consideration of admission/observation: Escalation of care including admission/observation considered Consult Healthcare Provider Management of the patient was discussed with: Wildlife Science Professor Lab Data [facility] Lab Attestation statement: I reviewed the patient's lab results. 05/11/25 02:56 05/11/25 02:56 Labs: Lab Results 05/11/25 05/11/25 Range/Units 02:56 06:49 WBC 12.0 H (4.8-10.8) X10*3/uL RBC 5.01 (4.20-5.50) X10*6/uL Hgb 12.6 (12.0-16.0) g/dl Hct 39.3 (37.0-47.0) % MCV 78.4 L (80.0-98.0) fL MCH 25.1 L (27.0-33.0) pg MCHC 32.1 (31.0-35.0) g/dl RDW 12.7 (11.0-16.0) % Plt Count 288 (160-400) X10*3/uL MPV 11.1 (9.4-12.3) fL Immature Gran % (Auto) 0.2 (0.0-0.4) % Neut % (Auto) 73.2 H (45-73) % Lymph % (Auto) 18.4 L (20-40) % [place] % (Auto) 7.1 (2-11) % Eos % (Auto) 0.9 (0-4) % Baso % (Auto) 0.2 (0-2) % Lymph # (Auto) 2.2 (1.2-4.9) X10*3/uL [place] # (Auto) 0.9 (0.1-1.2) X10*3/uL Eos # (Auto) 0.1 (0.0-0.4) X10*3/uL Baso # (Auto) 0.0 (0.0-0.2) X10*3/uL Abs Immat Gran (auto) 0.03 (0.00-0.03) X10*3/uL Absolute Neuts (auto) 8.8 H (2.0-8.3) x10*3/uL Absolute Nucleated RBC 0.000 (0.0-0.012) X10*3/uL Nucleated RBC % (auto) 0.0 (0.0-0.2) /100WBC Sodium 139 (135-145) mmol/L Potassium 3.5 (3.3-5.1) mmol/L Chloride 103 (96-108) mmol/L Carbon Dioxide 23 (22-29) mmol/L Anion Gap 17 (12-20) BUN 26 H (9-16) mg/dL Creatinine 2.04 H (0.5-1.4) mg/dL Estim Creat Clear Calc 19.7 Estimated GFR 24 Random Glucose 294 H (60-115) mg/dL Lactic Acid 1.5 (0.5-2.0) mmol/L Calcium 9.0 (8.4-10.2) mg/dL Total Bilirubin 0.1 (0.0-1.0) mg/dL AST 19 (5-31) U/L ALT 15 (0-31) U/L Alkaline Phosphatase 85 (39-117) U/L Total Protein 7.2 (6.5-8.0) g/dL Albumin 3.2 L (3.5-5.0) g/dL Urine Color Yellow Urine Appearance Clear Urine pH 6.0 (5.0-9.0) Ur Specific [place] >= 1.030 H (1.005-1.025) Urine Protein >=1000 (4+) H (Neg-Trace) mg/dL Urine Glucose (UA) >=1000 H (Negative) mg/dL Urine Ketones Negative (Negative) mg/dL Urine Blood Trace H (Negative) Urine Nitrite Negative (Negative) Ur Leukocyte Esterase Negative (Negative) Urine RBC 3-5 H (0-2) /HPF Urine WBC 0-5 (0-5) /HPF Ur Squamous Epith Cells 6-10 (0-2) /HPF Urine Bacteria 1+ (None Seen) Hyaline Casts 3-5 (0-2) /LPF Independent Interpretation I performed an independent interpretation of an: Ultrasound Radiology Impression Discussion of test interpretation with radiology: I have reviewed the radiologist's reading. Radiologist Impression: FINDINGS: There is a single, mobile, focal, 7 mm, intraluminal, hyperechoic lesion with posterior shadowing in the dependent portion of the gallbladder. No pericholecystic fluid collection or gallbladder wall thickening. Common bile duct measures 3 mm. US/US abdomen limited IMPRESSION: Cholelithiasis. No choledocholithiasis. Medications Administered Discontinued Medications Generic Name Dose Route Start Last Admin Trade Name Freq PRN Reason Stop Dose Admin Sodium Chloride 1,000 mls @ 999 mls/hr 05/11/25 06:04 05/11/25 06:51 Ns IVCONT 05/11/25 07:04 999 mls/hr .Q1H1M ONE Administration Metronidazole 500 mg in 100 mls @ 100 mls/hr 05/11/25 06:10 05/11/25 06:52 Flagyl IV 05/11/25 07:09 100 mls/hr ONCE ONE Administration Morphine Sulfate 4 mg 05/11/25 06:09 05/11/25 06:50 Morphine Sulfate 4 Mg/Ml Cartridge IVPUSH 05/11/25 06:10 4 mg ONCE ONE Administration Protocol Ondansetron HCl 4 mg 05/11/25 06:04 05/11/25 06:49 Ondansetron Hcl 4 Mg/2 Ml Vial IVPUSH 05/11/25 06:05 4 mg ONCE ONE Administration Critical Care Time Critical Care Time Critical Care Time: Yes Total Critical Care Time: 60 Attestation: I have personally provided critical care time. Time includes review of lab data, radiology results, discussion with consultants, and monitoring for potential decompensation. Intervention performed as documented. Discharge Plan Discharge Clinical Impression: Cholecystitis Patient Disposition: Admitted As Inpatient Print Language: [place]
[2025-05-11] MEDS: metroNIDAZOLE/NS 500 MG/100 ML PIGGYBACK 100 MG IV (06:52)
--- NOTE | 2025-05-11 07:12 | PC.NURSE ---
blood cultures ordered per MD Dickerson verbal order. 20g iv established to LAC. medicated per dec.
--- NOTE | 2025-05-11 07:52 | PM.HPGS ---
History of Present Illness History of Present Illness Date of Service: 05/11/25 <Radha Beauchamp PA-C - Last Filed: 05/11/25 08:07> 05/11/25 <Dannie Garcia MD - Last Filed: 05/11/25 09:38> Chief complaint: abd pain <Radha Beauchamp PA-C - Last Filed: 05/11/25 08:07> Narrative: Barbara Sawyer is a 69 year old female with PMH significant for diabetes mellitus, CKD stage 3, HIV, HTN who presented to the ED for evaluation of RUQ abd pain. Patient has history of gallstones and was previously evaluated for her biliary colic and it was recommended to proceed with laparoscopic cholecystectomy. This however was never scheduled. She reports more frequent episodes of RUQ abd pain and reports burning sensation almost daily no matter what she eats at this point. She states this current episode began yesterday and was very sharp and severe in nature. She therefore came to the ED. Work up in the ED included CBC, BMP, LFTs which was significant for leukocytosis of 12.1. ABD US was performed this morning which again demonstrates gallstones without pericholecystic fluid collection or gallbladder wall thickening. She does feel a little better and the pain has improved since receiving pain meds. She denies fevers, chills, nausea, vomiting, diarrhea, change in urine/skin/stool color, chest pain, shortness of breath. 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 Hypertension Non-toxic multinodular goiter Diabetic retinopathy associated with type 2 diabetes mellitus CKD stage 3 due to type 2 diabetes mellitus Diabetic nephropathy associated with type 2 diabetes mellitus Dyslipidemia Diabetes type 2, controlled Hypovitaminosis D <Radha Beauchamp PA-C - Last Filed: 05/11/25 08:07> Family History Family History: Family History Father Liver disease Mother Hypertension CVD (cardiovascular disease) Renal disease Hyperlipidemia ESRD on hemodialysis Paternal Aunt Glaucoma <Radha Beauchamp PA-C - Last Filed: 05/11/25 08:07> Surgical History Surgical History: Surgical History (Updated 05/11/25 @ 08:05 by Radha Beauchamp PA-C) H/O colonoscopy (08/13/20) Hx of bilateral cataract extraction History of hysterectomy with unilateral oophorectomy Hx of section Hx of thyroidectomy <Radha Beauchamp PA-C - Last Filed: 05/11/25 08:07> Social History Social History: Social History Household Members: Other Household Members Other:: grandson Housing: House Alcohol intake: never Patient Tobacco Use Status: Never used Tobacco Smoked in Last 30 Days: No e-Cigarette/Vaping Use: Never Used Second Hand Smoke Exposure: No Use of substances other than those prescribed or required for medical reasons: No Advance Directives: No Advance Directives Information Provided: Yes Advance Directives Date on File: 07/01/21 service: No Current occupational status: unemployed Cognitive needs: No Hearing needs: No Vision needs: No <Radha Beauchamp PA-C - Last Filed: 05/11/25 08:07> Meds Allergies/Adverse reactions: Allergies Allergy/AdvReac Type Severity Reaction Status Date / Time crab Allergy Severe SWELLING Verified 05/11/25 02:47 amoxicillin (From Augmentin) Allergy Mild Abdominal Verified 05/11/25 02:47 Pain clavulanic acid (From Allergy Mild Abdominal Verified 05/11/25 02:47 Augmentin) Pain metformin AdvReac Intermediate diarrhea Verified 05/11/25 02:47 <Radha Beauchamp PA-C - Last Filed: 05/11/25 08:07> Active Medications: Current Medications Levofloxacin (Levaquin) 500 mg in 100 mls @ 100 mls/hr IV ONCE ONE Stop: 05/11/25 08:08 <Radha Beauchamp PA-C - Last Filed: 05/11/25 08:07> Home medications: Home Medications ?Medication ?Instructions ?Recorded ?Confirmed ?Last Taken ?Type diltiazem HCl 240 mg capsule,24 240 mg PO DAILY 05/11/25 Unknown History hr,extended release (Tiadylt ER) dolutegravir 50 mg-rilpivirine 25 1 tab PO DAILY 05/11/25 Unknown History mg tablet (Juluca) empagliflozin 25 mg tablet 25 mg PO DAILY 05/11/25 Unknown History (Jardiance) <KWADWO Benavidez Last Filed: 05/11/25 08:07> Physical Exam Vital Signs: Vital Signs: Last Vital Signs Temp 97.8 F 05/11/25 06:47 Pulse 63 05/11/25 06:47 Resp 20 05/11/25 06:47 BP 159/83 H 05/11/25 06:47 Pulse Ox 97 05/11/25 06:47 O2 Del Method Room Air 05/11/25 06:47 BMI result Body Mass Index 23.3 <KWADWO Benavidez Last Filed: 05/11/25 08:07> Const: General: comfortable, no acute distress and alert <KWADWO Benavidez Last Filed: 05/11/25 08:07> Orientation/consciousness: patient oriented x3 <KWADWO Benavidez Last Filed: 05/11/25 08:07> Resp: Effort & Inspection: normal respiratory effort, able to speak in complete sentences and not labored <KWADWO Benavidez Last Filed: 05/11/25 08:07> GI: Inspection: No distended and Yes scar (midline infraumbilical scar ) <KWADWO Benavidez Last Filed: 05/11/25 08:07> Palpation (GI): Soft to palpation, Tenderness to palpation present (GI) in the RUQ (moderate) and Millan's sign positive and no guarding <KWADWO Benavidez Last Filed: 05/11/25 08:07> Percussion: Yes normal to percussion <KWADWO Benavidez Last Filed: 05/11/25 08:07> Abdomen image:  1. midline infraumbilical scar <KWADWO Benavidez Last Filed: 05/11/25 08:07> Skin: General skin exam: no rashes or lesions noted and no jaundice <KWADWO Benavidez Last Filed: 05/11/25 08:07> Neuro: General: patient oriented x3 <KWADWO Benavidez Last Filed: 05/11/25 08:07> Results Results Labs: Short CBC 05/11/25 Range/Units 02:56 WBC 12.0 H (4.8-10.8) X10*3/uL Hgb 12.6 (12.0-16.0) g/dl Hct 39.3 (37.0-47.0) % Plt Count 288 (160-400) X10*3/uL BMP 05/11/25 02:56 Sodium 139 Potassium 3.5 Chloride 103 Carbon Dioxide 23 BUN 26 H Creatinine 2.04 H Calcium 9.0 Liver Function 05/11/25 Range/Units 02:56 Total Bilirubin 0.1 (0.0-1.0) mg/dL AST 19 (5-31) U/L ALT 15 (0-31) U/L Alkaline Phosphatase 85 (39-117) U/L Albumin 3.2 L (3.5-5.0) g/dL Urine 05/11/25 Range/Units 02:56 Urine Color Yellow Urine Appearance Clear Urine pH 6.0 (5.0-9.0) Ur Specific [place] >= 1.030 H (1.005-1.025) Urine Protein >=1000 (4+) H (Neg-Trace) mg/dL Urine Glucose (UA) >=1000 H (Negative) mg/dL <KWADWO Benavidez Last Filed: 05/11/25 08:07> Abdominal ultrasound report/results: report reviewed and image reviewed <KWADWO Benavidez Last Filed: 05/11/25 08:07> Additional studies: labs reviewed <KWADWO Benavidez Last Filed: 05/11/25 08:07> Assessment and Plan (1) Acute cholecystitis: Status: Acute <KWADWO Benavidez Last Filed: 05/11/25 08:07> 69 year old female with PMH significant for diabetes mellitus, CKD stage 3, HIV, HTN, known gallstones presenting with acute onset RUQ abd pain with more frequent episodes of biliary colic. ABD US redemonstrates gallstones without surrounding inflammatory changes however she does have a leukocytosis with RUQ tenderness and positive millan sign suggesting acute cholecystitis. It was therefore recommended to proceed with laparoscopic cholecystectomy possible open while she is here. Risks, benefits, alternatives of laparoscopic possible open cholecystectomy were reviewed with the patient including but not limited to bleeding, infection, numbness, pain, poor healing, injury to the liver, bowel or bile ducts, leak, retained stones and the patient wishes to proceed.? She has been added onto the OR schedule for today.?All questions were answered. <Radha Beauchamp PA-C - Last Filed: 05/11/25 08:07> 69 year old female with PMH significant for diabetes mellitus, CKD stage 3, HIV, HTN, known gallstones presenting with acute onset RUQ abd pain with more frequent episodes of biliary colic. ABD US redemonstrates gallstones without surrounding inflammatory changes however she does have a leukocytosis with RUQ tenderness and positive millan sign suggesting acute cholecystitis. It was therefore recommended to proceed with laparoscopic cholecystectomy possible open while she is here. Risks, benefits, alternatives of laparoscopic possible open cholecystectomy were reviewed with the patient including but not limited to bleeding, infection, numbness, pain, poor healing, injury to the liver, bowel or bile ducts, leak, retained stones and the patient wishes to proceed.? She has been added onto the OR schedule for today.?All questions were answered. Patient seen and examined. A previously evaluated the patient several months ago and recommended laparoscopic cholecystectomy. She presents now with increased abdominal pain, presenting to the emergency department for further treatment. Patient is on Jardiance however the surgery is an emergency and needs to be performed as soon as possible. After discussion of the procedure, risks and alternatives, she consents to a laparoscopic or possible open cholecystectomy. <Dannie Garcia MD - Last Filed: 05/11/25 09:38> Quality Stroke Does the patient have a stroke diagnosis?: No <Radha Beauchamp PA-C - Last Filed: 05/11/25 08:07> VTE Prior VTE?: No <Radha Beauchamp PA-C - Last Filed: 05/11/25 08:07> VTE Risk Level:: Surgical - moderate <Radha Beauchamp PA-C - Last Filed: 05/11/25 08:07> VTE Device Contraindication: N/A - Device Ordered <Radha Beauchamp PA-C - Last Filed: 05/11/25 08:07> VTE Drug Contraindication: N/A - Med Ordered <Radha Beauchamp PA-C - Last Filed: 05/11/25 08:07> Procedures Date of Service Date of Service: 05/11/25 <Radha Beauchamp PA-C - Last Filed: 05/11/25 08:07> 05/11/25 <Dannie Garcia MD - Last Filed: 05/11/25 09:38>
--- NOTE | 2025-05-11 08:17 | HO.ANESPROP2 ---
Documented by User: Nicolle Buck NP 05/11/25 08:59 HPI - Anesthesia Eval Consult details Narrative: 69 yr female for cholecystectomy, laparoscopic, possible open No recent illness No CP/SOB with ADLs, stair climbing daily in at home. 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 DM: follows with renal, last visit 05/04/25, creat stable Anesthesia Pre-Procedure Meds Is the patient on any of the following meds?: SGLT2 Inhib (last dose 05/10/25) PMFSH Active Problems Active Problems: All Active Problems Cholecystitis (Acute) Acute cholecystitis (Acute) Encounter for well woman exam with routine gynecological exam (Acute) Cholelithiasis (Acute) Abdominal pain (Acute) Osteoarthritis of left knee (Acute) Left knee pain (Acute) Mixed hyperlipidemia (Acute) Proteinuria (Acute) Hyperlipidemia LDL goal <70 (Acute) Diabetes mellitus, with long-term current use of insulin (Acute) Hx of adenomatous polyp of colon (Acute) Hemorrhoids (Acute) Physical exam (Acute) 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 infection) (Acute) Transaminitis (Acute) Sinusitis (Acute) Hepatitis (Acute) COVID-19 (Acute) Adult general medical exam (Acute) Post-menopausal (Acute) Normocytic anemia (Acute) Pure hypercholesterolemia (Acute) Essential hypertension (Acute) Sessile colonic polyp (Acute) Diverticulosis (Acute) Colon polyp (Acute) Hypertension (Acute) Non-toxic multinodular goiter (Acute) CKD stage 3 due to type 2 diabetes mellitus (Acute) Diabetic nephropathy associated with type 2 diabetes mellitus (Acute) Dyslipidemia (Acute) Hypovitaminosis D (Acute) Past Medical History Medical History Sinusitis Hepatitis Normocytic anemia 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 infection) Pure hypercholesterolemia Essential hypertension Sessile colonic polyp 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 Hypertension Non-toxic multinodular goiter Diabetic retinopathy associated with type 2 diabetes mellitus CKD stage 3 due to type 2 diabetes mellitus Diabetic nephropathy associated with type 2 diabetes mellitus Dyslipidemia Diabetes type 2, controlled Hypovitaminosis D Family History Family History Father Liver disease Mother Hypertension CVD (cardiovascular disease) Renal disease Hyperlipidemia ESRD on hemodialysis Paternal Aunt Glaucoma Family history of problems with anesthesia: No Surgical History Surgical History H/O colonoscopy (08/13/20) Hx of bilateral cataract extraction History of hysterectomy with unilateral oophorectomy Hx of section Hx of thyroidectomy History of Problems with Anesthesia: No Social History Social History Household Members: Other Household Members Other:: grandson Housing: House Alcohol intake: never Patient Tobacco Use Status: Never used Tobacco Smoked in Last 30 Days: No e-Cigarette/Vaping Use: Never Used Second Hand Smoke Exposure: No Use of substances other than those prescribed or required for medical reasons: No Advance Directives: No Advance Directives Information Provided: Yes Advance Directives Date on File: 07/01/21 service: No Current occupational status: unemployed Cognitive needs: No Hearing needs: No Vision needs: No Meds Allergies Allergy/AdvReac Type Severity Reaction Status Date / Time crab Allergy Severe SWELLING Verified 05/11/25 09:44 amoxicillin (From Augmentin) Allergy Mild Abdominal Verified 05/11/25 09:44 Pain clavulanic acid (From Allergy Mild Abdominal Verified 05/11/25 09:44 Augmentin) Pain metformin AdvReac Intermediate diarrhea Verified 05/11/25 09:44 Home Medications ?Medication ?Instructions ?Recorded ?Confirmed ?Last Taken ?Type diltiazem HCl 240 mg capsule,24 240 mg PO DAILY 05/11/25 Unknown History hr,extended release (Tiadylt ER) dolutegravir 50 mg-rilpivirine 25 1 tab PO DAILY 05/11/25 Unknown History mg tablet (Juluca) empagliflozin 25 mg tablet 25 mg PO DAILY 05/11/25 Unknown History (Jardiance) Exam Height,Weight and Vital Signs: Height 4 ft 11 in Weight 52.4 kg Last Vital Signs Temp 97.8 F 05/11/25 06:47 Pulse 63 05/11/25 06:47 Resp 20 05/11/25 06:47 BP 159/83 H 05/11/25 06:47 Pulse Ox 97 05/11/25 06:47 O2 Del Method Room Air 05/11/25 06:47 Pertinent Lab Results Pertinent Lab Results: Laboratory Tests 05/11/25 05/11/25 02:56 06:49 WBC 12.0 H RBC 5.01 Hgb 12.6 Hct 39.3 MCV 78.4 L MCH 25.1 L MCHC 32.1 RDW 12.7 Plt Count 288 MPV 11.1 Immature Gran % (Auto) 0.2 Neut % (Auto) 73.2 H Lymph % (Auto) 18.4 L [place] % (Auto) 7.1 Eos % (Auto) 0.9 Baso % (Auto) 0.2 Lymph # (Auto) 2.2 [place] # (Auto) 0.9 Eos # (Auto) 0.1 Baso # (Auto) 0.0 Abs Immat Gran (auto) 0.03 Absolute Neuts (auto) 8.8 H Absolute Nucleated RBC 0.000 Nucleated RBC % (auto) 0.0 Sodium 139 Potassium 3.5 Chloride 103 Carbon Dioxide 23 Anion Gap 17 BUN 26 H Creatinine 2.04 H Estim Creat Clear Calc 19.7 Estimated GFR 24 Random Glucose 294 H Lactic Acid 1.5 Calcium 9.0 Total Bilirubin 0.1 AST 19 ALT 15 Alkaline Phosphatase 85 Total Protein 7.2 Albumin 3.2 L Urine Color Yellow Urine Appearance Clear Urine pH 6.0 Ur Specific Dobbins >= 1.030 H Urine Protein >=1000 (4+) H Urine Glucose (UA) >=1000 H Urine Ketones Negative Urine Blood Trace H Urine Nitrite Negative Ur Leukocyte Esterase Negative Urine RBC 3-5 H Urine WBC 0-5 Ur Squamous Epith Cells 6-10 Urine Bacteria 1+ Hyaline Casts 3-5 Narrative Narrative: EKG 05/11/25 NSR, rate 79, anteroseptal infarct, age undetermined No acute ST-T wave changes Airway Mallampati Class: II TM Dist: >3cm Neck ROM: Full Loose/Missing/Broken Teeth: Yes (back teeth; implants 8 & 9) Heart: RRR Lungs: CTAB Assessment and Plan Final Anesthetic Review Family History of Problems with Anesthesia: No History of Problems with Anesthesia: No Documented by User: Jaja Diaz MD 05/11/25 09:49 PMFSH Past Medical History Medical History Sinusitis Hepatitis Normocytic anemia 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 infection) Pure hypercholesterolemia Essential hypertension Sessile colonic polyp 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 Hypertension Non-toxic multinodular goiter Diabetic retinopathy associated with type 2 diabetes mellitus CKD stage 3 due to type 2 diabetes mellitus Diabetic nephropathy associated with type 2 diabetes mellitus Dyslipidemia Diabetes type 2, controlled Hypovitaminosis D Family History Family History Father Liver disease Mother Hypertension CVD (cardiovascular disease) Renal disease Hyperlipidemia ESRD on hemodialysis Paternal Aunt Glaucoma Surgical History Surgical History H/O colonoscopy (08/13/20) Hx of bilateral cataract extraction History of hysterectomy with unilateral oophorectomy Hx of section Hx of thyroidectomy Social History Social History Household Members: Other Household Members Other:: grandson Housing: House Alcohol intake: never Patient Tobacco Use Status: Never used Tobacco Smoked in Last 30 Days: No e-Cigarette/Vaping Use: Never Used Second Hand Smoke Exposure: No Use of substances other than those prescribed or required for medical reasons: No Advance Directives: No Advance Directives Information Provided: Yes Advance Directives Date on File: 07/01/21 service: No Current occupational status: unemployed Cognitive needs: No Hearing needs: No Vision needs: No Meds Allergies Allergy/AdvReac Type Severity Reaction Status Date / Time crab Allergy Severe SWELLING Verified 05/11/25 09:44 amoxicillin (From Augmentin) Allergy Mild Abdominal Verified 05/11/25 09:44 Pain clavulanic acid (From Allergy Mild Abdominal Verified 05/11/25 09:44 Augmentin) Pain metformin AdvReac Intermediate diarrhea Verified 05/11/25 09:44 Home Medications ?Medication ?Instructions ?Recorded ?Confirmed ?Last Taken ?Type diltiazem HCl 240 mg capsule,24 240 mg PO DAILY 05/11/25 Unknown History hr,extended release (Tiadylt ER) dolutegravir 50 mg-rilpivirine 25 1 tab PO DAILY 05/11/25 Unknown History mg tablet (Juluca) empagliflozin 25 mg tablet 25 mg PO DAILY 05/11/25 Unknown History (Jardiance) Assessment and Plan Assessment Anesthesia Assessment: Anesthesia Plan Discussed and Chart Reviewed Final Anesthetic Review NPO: Yes ASA Class: III Final Preanesthetic Review: No Changes in Pt Med Stat, Meds/Allgs Chart Reviewed, Consent Obtained/Reviewed and Anes Risks/Benef Reviewed Patient Risk: Intermediate Procedure Risk: Intermediate Anesthetic Plan Anesthetic Plan: GA and Agree w/ Assess. and Plan Disposition: Standard PACU
[2025-05-11] MEDS: cefoTEtan disodium 2 GM VIAL IVPUSH (09:13)
[2025-05-11 10:18] LABS: Glucose, Whole Blood 225 mg/dL (60-115)
--- NOTE | 2025-05-11 11:14 | W.PM.OPN ---
Operative Note Operative Note Date of Service: 05/11/25 Narrative: Preoperative diagnosis: Acute cholecystitis, cholelithiasis Postoperative diagnosis: Same Procedure: Laparoscopic cholecystectomy Surgeon: Dannie Garcia MD Pulpwood Dealer: Radha Beauchamp PA-C; JOHANA Hdz Anesthesia: General endotracheal Indications for procedure: 69-year-old female patient presenting with persistent abdominal pain in the right upper quadrant noted to have multiple gallstones within the gallbladder presenting to the emergency department with increased abdominal pain. On examination the patient is found to have tenderness in the right upper quadrant over with a positive Millan sign. Operative findings: Acute and chronic cholecystitis due to cholelithiasis Specimen: gallbladder Estimated blood loss: Less than 2 mL Complications: None Procedure details: Patient was brought to the OR and placed in a supine position. After administering general anesthesia the patient's abdomen was prepped with ChloraPrep and draped in a sterile fashion. A surgical time-out was called the consent confirmed. Patient received preoperative antibiotics and Venodyne boots were in place. Local anesthesia consisting of 0.5% Sensorcaine without epinephrine was infiltrated in a periumbilical region. A 5 mm incision was made above the umbilicus in a transverse fashion. The Veress needle was then inserted while elevating abdominal cavity with towel clips. After positive drop test the abdomen was insufflated to a pressure of 15 mm of mercury. The Veress needle was then removed and a 5 mm trocar inserted. The camera was inserted in the abdomen explored. A 12 mm trocar was then placed in the epigastrium. Two 5 mm trocars placed in the right upper quadrant by the assistant program manager. The patient was placed in reverse Trendelenburg positioning and rotated to the left. The gallbladder was grasped with the fundus and retracted cephalad by the assistant program manager. The infundibulum was then grasped and retracted away from the liver bed, also by the assistant program manager. The Dolphin dissected was then used by the surgeon to dissect the peritoneum off the infundibulum to reveal the junction with the cystic duct. Cystic artery was noted slightly medial and posterior to the cystic duct. After obtaining a critical view the cystic duct was doubly clipped and divided. The cystic artery was then doubly clipped and divided. The gallbladder was then dissected off the liver bed using electrocautery with an L hook. Hemostasis was assured all times using the electrocautery. When the gallbladder is completely dissected off the liver bed was placed in an Endo-Catch bag and brought out through the epigastric incision. The gallbladder was sent to pathology for further examination. The abdomen was then re-examined. The liver bed was irrigated and suctioned dry. No bleeding or bile leak could be identified. CO2 was then evacuated and all trocars removed. Fascia was closed at the epigastric incision using a [id number] 0 Polysorb suture. Skin was closed in all incisions using a subcuticular 4 0 Polysorb suture by both the surgeon and assistant program manager. Sterile dressings consisting of Steri-Strips, 2 x 2 gauze, and Tegaderm were then applied. The patient tolerated the procedure well. Sponge instrument and needle counts reported as correct. The patient was transferred to PACU in stable condition.
--- NOTE | 2025-05-15 07:58 | PC.NURSE ---
Patient left to surgery on continuous drip.
== END 2025-05-11 13:20 | disposition home or self-care (01) ==
LOC: HO.ED 13:02 → HO.SSS 13:13
PROVIDERS: Emergency Provider Emergency Medicine; PCP Internal Medicine; Visit Provider Surgery
PROC: 0FT44ZZ Resection of Gallbladder, Percutaneous Endoscopic Approach (ICD-10-PCS; CPT 47562; principal; 2025-05-11 10:30)
DX: K80.12 Calculus of gallbladder with acute and chronic cholecystitis without obstruction (principal); R10.11 Right upper quadrant pain; B20 Human immunodeficiency virus [HIV] disease; E11.22 Type 2 diabetes mellitus with diabetic chronic kidney disease; I12.9 Hypertensive chronic kidney disease with stage 1 through stage 4 chronic kidney disease, or unspecified chronic kidney disease; N18.30 Chronic kidney disease, stage 3 unspecified; E78.00 Pure hypercholesterolemia, unspecified; K75.9 Inflammatory liver disease, unspecified; E55.9 Vitamin D deficiency, unspecified; E04.2 Nontoxic multinodular goiter; Z86.0101 Personal history of adenomatous and serrated colon polyps; Z79.02 Long term (current) use of antithrombotics/antiplatelets; Z79.4 Long term (current) use of insulin; Z79.899 Other long term (current) drug therapy
CPT/HCPCS: 47562; 36415; 76705; 80053; 81001; 82947; 83605; 85025; 87040; 88304; 93005; 96365; 96366; 96368; 96375; 99285; J0131; J0330; J1100; J1836; J1956; J2003; J2250; J2270; J2405; J2704; J3010

== ENCOUNTER → 2025-05-11 03:28 | Outpatient (BNV) | payer OTHER, SELFPAY | PROVIDERS: Emergency Provider Emergency Medicine; PCP Internal Medicine; Visit Provider Physician Assistant Surgical | DX: K81.0 Acute cholecystitis (principal) | CPT/HCPCS: 47562; 99283 ==

== ENCOUNTER → 2025-05-11 05:59 | Outpatient (BNV) | payer OTHER, SELFPAY | PROVIDERS: Emergency Provider Emergency Medicine; PCP Internal Medicine; Visit Provider Radiology Diagnostic Radiology | DX: K80.20 Calculus of gallbladder without cholecystitis without obstruction (principal) | CPT/HCPCS: 76705 ==

== ENCOUNTER → 2025-05-11 08:45 | Outpatient (BNV) | payer OTHER, SELFPAY | PROVIDERS: Emergency Provider Emergency Medicine; PCP Internal Medicine; Visit Provider Internal Medicine Cardiovascular Disease | DX: R94.31 Abnormal electrocardiogram [ECG] [EKG] (principal); Z01.810 Encounter for preprocedural cardiovascular examination | CPT/HCPCS: 93010 ==

== ENCOUNTER 2025-05-24 10:17 | Outpatient (AMB) | payer OTHER, SELFPAY ==
--- NOTE | 2025-05-24 10:19 | MHC.OFFVIS ---
Vital Signs 05/24/25 10:27 Height 4 ft 11 in Weight 114 lb 6 oz BMI 23.1 BP 183/81 H Blood Pressure Location Lt brachial Position Sitting Pulse 80 Intake Visit Reasons: s/p lap winter Intake Note: Patient is seen in office for post op assessment post laparoscopic cholecystectomy. Pt c/o: admits to sore and tender, denies surgery:05/11/25 [employer] Driver Required: Yes [employer] Driver Language: Child Care Specialist Services: [employer] Driver Present [employer] Driver Name: Ioana ANGELA Information Interpreted: non-clinical & clinical Column Precaster: Column Precaster Present Accompanied by: Self / Same As Patient Allergies crab Allergy (Severe, Verified 05/24/25 10:27) SWELLING amoxicillin (From Augmentin) Allergy (Mild, Verified 05/24/25 10:27) Abdominal Pain clavulanic acid (From Augmentin) Allergy (Mild, Verified 05/24/25 10:27) Abdominal Pain metformin Adverse Reaction (Intermediate, Verified 05/24/25 10:27) diarrhea HPI Comments Details: 69-year-old female patient returning to the office following laparoscopic cholecystectomy performed on 05/11/2025. She feels well and denies any nausea, vomiting, fever, chills, abdominal pain, diarrhea or constipation. She denies any problems with bleeding or discharge from her incisions. 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 Hypertension Non-toxic multinodular goiter Diabetic retinopathy associated with type 2 diabetes mellitus CKD stage 3 due to type 2 diabetes mellitus Diabetic nephropathy associated with type 2 diabetes mellitus Dyslipidemia Diabetes type 2, controlled Hypovitaminosis D Surgical History Hx laparoscopic cholecystectomy (05/11/25) H/O colonoscopy (08/13/20) Hx of bilateral cataract extraction History of hysterectomy with unilateral oophorectomy Hx of section Hx of thyroidectomy Family History Father Liver disease Mother Hypertension CVD (cardiovascular disease) Renal disease Hyperlipidemia ESRD on hemodialysis Paternal Aunt Glaucoma Social History Household Members: Other Household Members Other:: grandson Housing: House Alcohol intake: never Comment: counts correct Patient Tobacco Use Status: Never used Tobacco e-Cigarette/Vaping Use: Never Used Second Hand Smoke Exposure: No Advance Directives Date on File: 07/01/21 service: No Current occupational status: unemployed Cognitive needs: No Hearing needs: No Vision needs: No Physical Exam Const General: no acute distress Nutritional Appearance: well nourished Orientation/consciousness: patient oriented x3 Limitations: no limitations Resp Effort & Inspection: normal respiratory effort GI Other: Trocar incisions are clean, dry, and intact without redness or discharge Neuro General: patient oriented x3 Extrem General: Yes no clubbing, cyanosis or edema Assessment & Plan Assessment & Plan (1) Acute cholecystitis: Code(s): K81.0 - Acute cholecystitis Category: Medical Plan 69-year-old female patient with a prior history of acute cholecystitis status post laparoscopic cholecystectomy on 05/11/2025. She tolerated the procedure well and her wounds are healing nicely. She may resume normal activity without restrictions and should follow up as needed. Coding Level of Care Code Global (97509) Diagnoses Acute cholecystitis K81.0
[2025-05-24 10:27] VITALS: BP 183/81; PULSE 80; BMI 23.1
--- OUTSIDE RECORDS SUMMARY | 2025-05-24 11:02 | XMS_ITS | Encounter Summary ---
Author Organization [facility] Address [address] [facility] [address] [place] [address] Phone Care Team Providers Care Spanish Lecturer Name Role Phone Mishel Cummings MD Primary Care Provider [phone] Reason for Visit * Reason Comments Med Refill Encounter Details Date Type Department Care Team (Late st Contact Info) Description 11/27/2021 Refill [facility] [address] [place] [phone] Jignesh Easton MD Social History Tobacco Use [...] on filedocumented in this encounter Care Teams Spanish Lecturer Relationship Specialty Start Date End Date Mishel Cummings MD [address] [place], [place] PCP - General 10/21/20 documented as of this encounter
--- OUTSIDE RECORDS SUMMARY | 2025-05-24 11:02 | XMS_ITS | Clinical Summary ---
Author Organization [employer] Address [address] [facility] [address] [place] [address] Care Team Providers Care Derrick Barge Operator Name Role Phone Unavailable Primary Care Provider Unavailabl e Allergies Active Allergy Reactions Criticality Noted Date Comments Metformin Other 04/17/2021 Shellfish Allergy 05/06/2023 Medications folic acid-vit B6-vit B12 2.5-25-1 MG tablet tablet Active elvitegravir-co bicistat-emtric itabine-tenofov ir alafenamide (Genvoya) [phone] MG tablet Active hydroCHLOROthia zide (HYDRODiuril) 12.5 [...] Description 03/16/2025 10:00 AM EDT Office Visit [facility] [address] [place] [address] Andreas Guerra Dental calculus (Primary Dx) from [...] Upcoming Encounters Date Type Department Care Team ([facility] st Contact Info) Description 09/17/2025 10:00 AM EST Office Visit [facility] [address] [place] [address] Andreas Guerra Health Maintenance Due Date Last [...] Recently Relevant to Health Maintenance Insurance DENTAL [facility]
--- OUTSIDE RECORDS SUMMARY | 2025-05-24 11:03 | XMS_ITS | Patient Health Record ---
Author Organization [facility] Address [address] [place] [address] Care Team Providers Care [place] Police Name Role Phone Peri Renny Murali [phone] Reason For Referral No Information Plan Of Treatment No Information
== END 2025-05-24 10:26 | disposition home or self-care (01) ==
LOC: HO.HGS 10:17
PROVIDERS: PCP Internal Medicine; Visit Provider Surgery
DX: K81.0 Acute cholecystitis (principal)
CPT/HCPCS: 99024

== ENCOUNTER → 2025-05-24 10:17 | Outpatient (BNVA) | payer OTHER, SELFPAY | PROVIDERS: PCP Internal Medicine; Visit Provider Surgery | DX: K81.0 Acute cholecystitis (principal) | CPT/HCPCS: 99212 ==

== ENCOUNTER 2025-06-20 09:37 | Outpatient (AMB) | payer OTHER, SELFPAY ==
--- NOTE | 2025-06-20 10:05 | MHC.OFFVIS ---
Vital Signs 06/20/25 10:09 Height 4 ft 11 in Weight 115 lb BMI 23.2 BP 182/78 H Blood Pressure Location Rt brachial Position Sitting Pulse 75 Intake Visit Reasons: HPV DNA test Intake Note: Patient referred by Dr. Bonner for HPV DNA test. Patient c/o: denies lesions, bleeding. Colposcopy scheduled w/ Dr. Miranda on 06-27-2025. Clinical Law Professor Required: Yes Information Interpreted: clinical only (Bashir [id number]) Accompanied by: Self / Same As Patient Allergies crab Allergy (Severe, Verified 06/20/25 10:08) SWELLING amoxicillin (From Augmentin) Allergy (Mild, Verified 06/20/25 10:08) Abdominal Pain clavulanic acid (From Augmentin) Allergy (Mild, Verified 06/20/25 10:08) Abdominal Pain metformin Adverse Reaction (Intermediate, Verified 06/20/25 10:08) diarrhea Medication List - Last Reconciled 06/20/25 by Cheikh Sánchez MD atorvastatin 80 mg PO BEDTIME 90 days blood pressure monitor As directed blood sugar diagnostic ([employer]hai Southgene TechnologyTouch Ultra Test strips) Use 1 lancet four times a day blood-glucose meter ([employer] Southgene TechnologyTouch UltraMini kit) As directed diltiazem HCl ER (Tiadylt ER) 240 mg PO DAILY dolutegravir-rilpivirine 50-25 mg (Juluca) 1 tab PO DAILY empagliflozin (Jardiance) 25 mg PO DAILY fenofibrate 54 mg PO DAILY 90 days ferrous sulfate 325 mg PO DAILY hydralazine 50 mg PO TID insulin degludec (Tresiba FlexTouch U-100 insulin) 33 units (0.33 mL) subcut DAILY 90 days lancets ([employer] Southgene TechnologyTouch UltraSoft Lancets) Use 1 lancet four times a day pen needle, diabetic twice a day pen needle, diabetic (BD Mansi 2nd Gen Pen Needle) Use 1 pen needle once a day HPI HPI HPV DNA test: Details: [age] year old female referred because of positive test for HPV genotype 18. She is also HIV positive She denies any complaints with regards to her anus. She says she has low viral loads. She says she feels well overall. 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 Hypertension Non-toxic multinodular goiter Diabetic retinopathy associated with type 2 diabetes mellitus CKD stage 3 due to type 2 diabetes mellitus Diabetic nephropathy associated with type 2 diabetes mellitus Dyslipidemia Diabetes type 2, controlled Hypovitaminosis D Surgical History Hx laparoscopic cholecystectomy (05/11/25) H/O colonoscopy (08/13/20) Hx of bilateral cataract extraction History of hysterectomy with unilateral oophorectomy Hx of section Hx of thyroidectomy Family History Father Liver disease Mother Hypertension CVD (cardiovascular disease) Renal disease Hyperlipidemia ESRD on hemodialysis Paternal Aunt Glaucoma Social History Household Members: Other Household Members Other:: grandson Housing: House Alcohol intake: never Comment: counts correct Patient Tobacco Use Status: Never used Tobacco e-Cigarette/Vaping Use: Never Used Second Hand Smoke Exposure: No Advance Directives Date on File: 07/01/21 service: No Current occupational status: unemployed Cognitive needs: No Hearing needs: No Vision needs: No Review of Systems Const Denies chills and Denies fever(s) Card Denies chest pain, Denies dyspnea and Denies dyspnea on exertion Resp Denies cough, Denies dyspnea and Denies dyspnea on exertion GI Denies hematochezia and Denies change in bowel habits Denies hematuria Musc Denies back pain and Denies limited range of motion Neuro Denies focal weakness and Denies convulsions Psych Denies depression and Denies mood swings Physical Exam Vital Signs: Last Vital Signs Pulse 75 06/20/25 10:09 BP 182/78 H 06/20/25 10:09 BMI result Body Mass Index 23.2 Const General: comfortable and no acute distress Orientation/consciousness: patient oriented x3 Neck Neck: Yes no lymphadenopathy Resp Auscultation: clear to auscultation bilaterally Cardio Rhythm: regular rhythm GI Other: Rectal exam shows no perianal lesions, no evidence of any perianal warts Palpation (GI): Soft to palpation, nontender and no guarding Neuro General: patient oriented x3 Office Procedures Anoscopy She was in healing rafael-knife position. The anoscope was gently inserted. A full examination of the anal canal was done. She did have some small internal and external hemorrhoidal columns. I did not see any lesions. There was no abnormal looking mucosa She had good sphincter tone. There was no induration on digital exam. There was no blood. 30162-Diaxctls Assessment & Plan Assessment & Plan (1) HPV in female: Code(s): B97.7 - Papillomavirus as the cause of diseases classified elsewhere Category: Medical Plan: She 9 year female with HIV, who tested positive for HPV 18. I explained to her that she is at higher risk for anal genital warts and AIN as well. Anoscopy does not suggest any lesion She is also going for colposcopy next week with her rouge sifter. I would recommend doing her anoscopy every year. The visit was done in the presence of an meat department manager. Coding Level of Care Code New Pt Level 3 (77960) Diagnoses HPV in female B97.7 CPT Codes Details - CPT: 34954-Hfhmwdtm ([id number])
[2025-06-20 10:09] VITALS: BP 182/78; PULSE 75; BMI 23.2
--- OUTSIDE RECORDS SUMMARY | 2025-06-20 11:32 | XMS_ITS | Encounter Summary ---
Author Organization [facility] [address] [place] [address] Phone Care Team Providers Care Front Desk Worker Name Role Phone Mishel Cummings MD Primary Care Provider [phone] Reason for Visit * Reason Comments Med Refill Encounter Details Date Type Department Care Team (Late st Contact Info) Description 11/27/2021 Refill [facility] [address] [place] [phone] Jignesh Easton MD Social History Tobacco Use [...] on filedocumented in this encounter Care Teams Front Desk Worker Relationship Specialty Start Date End Date Mishel Cummings MD [address] [place], [place] PCP - General 10/21/20 documented as of this encounter
--- OUTSIDE RECORDS SUMMARY | 2025-06-20 11:32 | XMS_ITS | Clinical Summary ---
Author Organization [employer] Address [address] [facility] 7t [place] [address] Care Team Providers Care Astrobiologist Name Role Phone Unavailable Primary Care Provider Unavailabl e Allergies Active Allergy Reactions Criticality Noted Date Comments Metformin Other 04/17/2021 Shellfish Allergy 05/06/2023 Medications folic acid-vit B6-vit B12 2.5-25-1 MG tablet tablet Active elvitegravir-co bicistat-emtric itabine-tenofov ir alafenamide (Genvoya) 189-282-050-10 MG tablet Active hydroCHLOROthia zide (HYDRODiuril) 12.5 [...] Care Team (Late st Contact Info) Description 09/17/2025 10:15 AM EST Office Visit [facility] ADULT D[facility]AL [address] [place] [address] Andreas Guerra Health Maintenance Due Date Last [...] of 2) 2007 COVID-19 Vaccine (4 - 2024- season) 2025 06/18/2022, 01/04/2021, 12/07/2020 Influenza Vaccine (#1) 2025 [...] Diagnosis Comments Full PROPHYLAXIS - ADULT Routine 025 10:00 AM EDT PERIODIC ORAL EVALUATION - ESTABLISHED PATIENT Routine 03/16/2025 10:00 AM EDT BITEWINGS - 4 RADIOGRAPHIC IMAGES Routine 09/14/2024 9:00 AM EST Dental caries Gingivitis INTRAORAL - COMPLETE SERIES OF RADIOGRAPHIC IMAGES Routine 01/12/2023 10:00 AM EDT from Last 3 Months or Most Recently Relevant to Health Maintenance Insurance [facility]
--- OUTSIDE RECORDS SUMMARY | 2025-06-20 11:33 | XMS_ITS | Clinical Summary ---
Author Organization [facility] Address [address] [place] [address] Phone Care Team Providers Care Darkroom Technician Name Role Phone Mishel Cummings MD Primary Care Provider [phone] Allergies Active Allergy Reactions Criticality Noted Date [...] Visual Foot Exam 11/11/2020 Influenza Vaccine (#1) 2025 Hepatitis B Vaccine Aged Out No longe r eligible based on patient's age to complete this topic Insurance [facility] Care Teams Darkroom Technician Relationship Specialty Start Date End Date Mishel Cummings MD [address] [place], [place] PCP - General 10/21/20
--- OUTSIDE RECORDS SUMMARY | 2025-06-20 11:33 | XMS_ITS | Encounter Summary ---
Author Organization [employer] Address [address] [facility] 7t [place] [address] Care Team Providers Care Manager Requirements Name Role Phone Unavailable Primary Care Provider Unavailabl e Encounter Details Date Type Department Care Team (Latest Contact Info) Description 06/06/2019 Abstract [facility] CONVERSIONS Dental, Provider, DDS Social History [...] Description 09/17/2025 10:15 AM EST Office Visit [facility] ADULT DENTAL [address] [place] [address] Andreas Guerra documented as of this encounter Visit Diagnoses Not on filedocumented in this encounter
--- OUTSIDE RECORDS SUMMARY | 2025-06-20 11:33 | XMS_ITS | Patient Health Record ---
Author Organization [facility] Address [address] [place] [address] Care Team Providers Care Core Rescuer Name Role Phone Renny Whitt [phone] Reason For Referral No Information Plan Of Treatment No Information
== END 2025-06-20 10:39 | disposition home or self-care (01) ==
LOC: HO.HGS 09:43
PROVIDERS: PCP Internal Medicine; Visit Provider Surgery
DX: R87.810 Cervical high risk human papillomavirus (HPV) DNA test positive (principal); B20 Human immunodeficiency virus [HIV] disease
CPT/HCPCS: 46600; 99213

== ENCOUNTER → 2025-06-20 09:37 | Outpatient (BNVA) | payer OTHER, SELFPAY | PROVIDERS: PCP Internal Medicine; Visit Provider Surgery | DX: B97.7 Papillomavirus as the cause of diseases classified elsewhere (principal) | CPT/HCPCS: 46600; 99212 ==

== ENCOUNTER 2025-06-26 09:39 | Outpatient (REF) | payer OTHER, SELFPAY ==
[2025-06-26 11:52] LABS: Anion Gap 14 (12-20); Blood Urea Nitrogen 37 mg/dL (9-16); Carbon Dioxide 24 mmol/L (22-29); Chloride 105 mmol/L (96-108); Estimated Glomerular Filt Rate 24; Potassium 3.6 mmol/L (3.3-5.1); Sodium 139 mmol/L (135-145)
--- OUTSIDE RECORDS SUMMARY | 2025-06-26 12:18 | XMS_ITS | Clinical Summary ---
Author Organization [facility] Address [address] [place] [address] Phone Care Team Providers Care Environmental Air Specialist Name Role Phone Mishel Cummings MD Primary Care Provider [phone] Allergies Active Allergy Reactions Criticality Noted Date [...] to complete this topic Insurance [facility] Care Teams Environmental Air Specialist Relationship Specialty Start Date End Date Mishel Cummings MD [address] [place], [place] PCP - General 10/21/20
--- OUTSIDE RECORDS SUMMARY | 2025-06-26 12:18 | XMS_ITS | Encounter Summary ---
Author Organization [employer] Address [address] [facility] 7t [place] [address] Care Team Providers Care Quality Control Associate Name Role Phone Unavailable Primary Care Provider Unavailabl e Encounter Details Date Type Department Care Team (Latest Contact Info) Description 06/06/2019 Abstract [facility] CONVERSIONS Dental, Provider, DDS Social History Tobacco [...] Description 09/17/2025 10:15 AM EST Office Visit [facility] ADULT [facility] [address] [place] [address] Andreas Guerra documented as of this encounter Visit Diagnoses Not on filedocumented in this encounter
--- OUTSIDE RECORDS SUMMARY | 2025-06-26 12:18 | XMS_ITS | Clinical Summary ---
Author Organization [employer] Address [address] [facility] 7t [place] [address] Care Team Providers Care Long Distance Billing Operator Name Role Phone Unavailable Primary Care Provider Unavailabl e Allergies Active Allergy Reactions Criticality Noted Date Comments Metformin Other 04/17/2021 Shellfish Allergy 05/06/2023 Medications folic acid-vit B6-vit B12 2.5-25-1 MG tablet tablet Active elvitegravir-co bicistat-emtric itabine-tenofov ir alafenamide (Genvoya) [phone] MG tablet Active hydroCHLOROthia zide (HYDRODiuril) 12.5 [...] Description 09/17/2025 10:15 AM EST Office Visit [facility] ADULT D[facility]AL [address] [place] [address] Andreas Guerra Health Maintenance Due Date Last [...] Most Recently Relevant to Health Maintenance Insurance [facility]
--- OUTSIDE RECORDS SUMMARY | 2025-06-26 12:18 | XMS_ITS | Encounter Summary ---
Author Organization [facility] Address [address] [facility] [address] [place] [address] Phone Care Team Providers Care Outdoor Power Equipment Mechanic Name Role Phone Mishel Cummings MD Primary Care Provider [phone] Reason for Visit * Reason Comments Med Refill Encounter Details Date Type Department Care Team (Late st Contact Info) Description 11/27/2021 Refill [facility] [address] [place] [phone] Jignesh Easton MD Social History Tobacco Use [...] on filedocumented in this encounter Care Teams Outdoor Power Equipment Mechanic Relationship Specialty Start Date End Date Mishel Cummings MD [address] [place], [place] PCP - General 10/21/20 documented as of this encounter
--- OUTSIDE RECORDS SUMMARY | 2025-06-26 12:18 | XMS_ITS | Patient Health Record ---
Author Organization [facility] Address [address] [place] [address] Care Team Providers Care Dry Cleaning Machine Operator Helper Name Role Phone Renny Whitt [phone] Reason For Referral No Information Plan Of Treatment No Information
== END 2025-06-26 09:40 | disposition home or self-care (01) ==
LOC: HO.LAB 09:39
PROVIDERS: PCP Internal Medicine; Visit Provider Internal Medicine Nephrology
DX: I12.9 Hypertensive chronic kidney disease with stage 1 through stage 4 chronic kidney disease, or unspecified chronic kidney disease (principal); E11.22 Type 2 diabetes mellitus with diabetic chronic kidney disease; N18.30 Chronic kidney disease, stage 3 unspecified; E11.21 Type 2 diabetes mellitus with diabetic nephropathy
CPT/HCPCS: 36415; 80051; 82565; 84520

== ENCOUNTER 2025-06-27 08:33 | Outpatient (AMB) | payer OTHER, SELFPAY ==
[2025-06-27 09:12] VITALS: BP 164/92; BMI 23.0
--- NOTE | 2025-06-27 09:12 | A.OFFVIS_ITS ---
Vital Signs 06/27/25 09:12 Height 4 ft 11 in Weight 114 lb BMI 23.0 BP 164/92 H Intake Visit Reasons: Colposcopy Oracle Fusion Middleware Architect Required: Yes Oracle Fusion Middleware Architect Services: Oracle Fusion Middleware Architect Present (in person) Oracle Fusion Middleware Architect Name: Alison ANGELA Information Interpreted: non-clinical & clinical Travel Registered Nurse Pacu: Travel Registered Nurse Pacu Present (Alison ANGELA) Accompanied by: Self / Same As Patient Allergies crab Allergy (Severe, Verified 06/27/25 09:14) SWELLING amoxicillin (From Augmentin) Allergy (Mild, Verified 06/27/25 09:14) Abdominal Pain clavulanic acid (From Augmentin) Allergy (Mild, Verified 06/27/25 09:14) Abdominal Pain metformin Adverse Reaction (Intermediate, Verified 06/27/25 09:14) diarrhea HPI Comments Details: Presenting for abnormal vaginal smear showing ASCUS HPV 18 positive COUNTS INCLUDE 234 BEDS AT [facility] Medical History HPV in female Sinusitis Hepatitis Normocytic anemia 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 infection) Pure hypercholesterolemia Essential hypertension Sessile colonic polyp 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 infection) 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 Hypertension Non-toxic multinodular goiter Diabetic retinopathy associated with type 2 diabetes mellitus CKD stage 3 due to type 2 diabetes mellitus Diabetic nephropathy associated with type 2 diabetes mellitus Dyslipidemia Diabetes type 2, controlled Hypovitaminosis D Surgical History Hx laparoscopic cholecystectomy (05/11/25) H/O colonoscopy (08/13/20) Hx of bilateral cataract extraction History of hysterectomy with unilateral oophorectomy Hx of section Hx of thyroidectomy Family History Father Liver disease Mother Hypertension CVD (cardiovascular disease) Renal disease Hyperlipidemia ESRD on hemodialysis Paternal Aunt Glaucoma Social History Household Members: Other Household Members Other:: grandson Housing: House Alcohol intake: never Comment: counts correct Patient Tobacco Use Status: Never used Tobacco e-Cigarette/Vaping Use: Never Used Second Hand Smoke Exposure: No Advance Directives Date on File: 07/01/21 service: No Current occupational status: unemployed Cognitive needs: No Hearing needs: No Vision needs: No Review of Systems Const All systems reviewed & are unremarkable except as noted in HPI and below Reports as per HPI and Reports no additional complaints GI Reports no additional complaints Reports no additional complaints Physical Exam Vital Signs: Last Vital Signs BP 164/92 H 06/27/25 09:12 BMI result Body Mass Index 23.0 Office Procedures Colposcopy Colposcopy: Pre-Procedure Counseling: Before beginning the procedure, I conducted comprehensive counseling with the patient. We thoroughly discussed the procedure itself, including its details, alternatives, and all associated risks. This included but not limited to the following complications such as bleeding, infection, and injury to the vagina, bladder, and vessels, as well as the potential need for transfusion with all its associated risks. Subsequently, the patient sign the consent. Pap smear result: Vaginal ascus/HPV 18 positive Procedure: During the procedure, the following steps were performed: A speculum was inserted, and acetic acid was applied. Colposcopy was conducted, allowing visualization of the transformation zone. Acetowhite lesions were identified at the 3+ 9 o'clock position at the vaginal apex. Vaginal biopsies were obtained from the 3+ 9 o'clock position at the vaginal apex. Hemostasis was achieved using Monsel solution, and the patient tolerated the procedure well. Post-Procedure Instructions: The patient was advised to promptly contact the office or the after hours answering service or go to the emergency room if experiencing a temperature exceeding 100.4?F, abdominal pain, nausea/vomiting, or bleeding. Additionally, the patient was instructed to abstain from vaginal intercourse and bathtub use. The patient confirmed understanding of these instructions. Discharge Instructions: The patient was instructed to schedule a follow-up appointment in 2 weeks for further evaluation and management. Please note that this note was generated using a voice recognition program, and errors may have occurred during mold cleaner. [id number] of entire vagina with biopsy Procedure code (CPT) selection complete Assessment & Plan Assessment & Plan (1) ASCUS with positive high risk human papillomavirus of vagina: Comment: HPV 18 positive Code(s): R87.620 - Atypical squamous cells of undetermined significance on cytologic smear of vagina (ASC-US); R87.811 - Vaginal high risk human papillomavirus (HPV) DNA test positive Category: Medical Plan: Discussed with the patient the result of her abnormal pap, its significance, risk of progression, persistence, and regression. the false positive/negative rate of a Pap smear as a screening test in detecting that cancer and the indication for a diagnostic test -vaginoscopy, biopsy. The patient verbalized understanding and agreed with the plan, all questions answered. Vaginoscopy, biopsy done, see procedure note Orders: Orders 2 AMB Colposcopy Today R87.620 - Atypical squamous cells of undetermined significance on cytologic smear of vagina (ASC-US), R87.811 - Vaginal high risk human papillomavirus (HPV) DNA test positive Coding Level of Care Code Procedure Only Diagnoses ASCUS with positive high risk human papillomavirus of vagina R87.620; R87.811 CPT Codes Colposcopy - CPT: 02088-Uaggyogstk of entire vagina with biopsy ([id number])
--- OUTSIDE RECORDS SUMMARY | 2025-06-27 09:45 | XMS_ITS | Encounter Summary ---
Author Organization [employer] Address [address] [facility] 7t [place] [address] Care Team Providers Care Needle Loom Operator Name Role Phone Unavailable Primary Care Provider Unavailabl e Encounter Details Date Type Department Care Team (Latest Contact Info) Description 06/06/2019 Abstract [facility] CONVERSIONS Dental, Provider, DDS Social [...] Description 09/17/2025 10:15 AM EST Office Visit [facility] ADULT DENTAL [address] [place] [address] nAdreas Guerra documented as of this encounter Visit Diagnoses Not on filedocumented in this encounter
--- OUTSIDE RECORDS SUMMARY | 2025-06-27 09:45 | XMS_ITS | Clinical Summary ---
Author Organization [employer] Address [address] [facility] 7t [place] [address] Care Team Providers Care Dock Manager Name Role Phone Unavailable Primary Care Provider Unavailabl e Allergies Active Allergy Reactions Criticality Noted Date Comments Metformin Other 04/17/2021 Shellfish Allergy 05/06/2023 Medications folic acid-vit B6-vit B12 2.5-25-1 MG tablet tablet Active elvitegravir-co bicistat-emtric itabine-tenofov ir alafenamide (Genvoya) [id number] MG tablet Active hydroCHLOROthia zide (HYDRODiuril) 12.5 [...] Description 09/17/2025 10:15 AM EST Office Visit [facility] ADULT D[facility]AL [address] [place] [address] Andreas Guerra Health Maintenance Due Date Last [...] Most Recently Relevant to Health Maintenance Insurance [facility]
--- OUTSIDE RECORDS SUMMARY | 2025-06-27 09:45 | XMS_ITS | Patient Health Record ---
Author Organization [facility] Address [address] [place] [address] Care Team Providers Care Manufacturing Lab Technician Name Role Phone Renny Whitt [phone] Reason For Referral No Information Plan Of Treatment No Information
--- OUTSIDE RECORDS SUMMARY | 2025-06-27 09:45 | XMS_ITS | Clinical Summary ---
Author Organization [facility] Address [address] [place] [address] Phone Care Team Providers Care Leather Belt Maker Name Role Phone Mishel Cummings MD Primary Care Provider [phone] Allergies Active Allergy Reactions Criticality Noted Date [...] patient's age to complete this topic Insurance [facility] Care Teams Leather Belt Maker Relationship Specialty Start Date End Date Mishel Cummings MD [address] [place], [place] PCP - General 10/21/20
--- OUTSIDE RECORDS SUMMARY | 2025-06-27 09:45 | XMS_ITS | Encounter Summary ---
Author Organization [facility] Address [address] [facility] [address] [place] [address] Phone Care Team Providers Care Account Collector Name Role Phone Mishel Cummings MD Primary Care Provider [phone] Reason for Visit * Reason Comments Med Refill Encounter Details Date Type Department Care Team (Late st Contact Info) Description 11/27/2021 Refill [facility] [address] [place] [phone] Jignesh Easton MD Social History Tobacco Use [...] on filedocumented in this encounter Care Teams Account Collector Relationship Specialty Start Date End Date Mishel Cummings MD [address] [place], [place] PCP - General 10/21/20 documented as of this encounter
== END 2025-06-27 10:00 | disposition home or self-care (01) ==
LOC: HO.HWS 08:33
PROVIDERS: PCP Internal Medicine; Visit Provider Obstetrics & Gynecology
DX: R87.811 Vaginal high risk human papillomavirus (HPV) DNA test positive (principal); R87.620 Atypical squamous cells of undetermined significance on cytologic smear of vagina (ASC-US)
CPT/HCPCS: 57421

== ENCOUNTER 2025-06-27 08:33 | Outpatient (REF) | payer OTHER, SELFPAY | END 2025-06-27 08:34 | disposition home or self-care (01) | LOC: HO.LNP 08:33 | PROVIDERS: PCP Internal Medicine; Visit Provider Obstetrics & Gynecology | DX: R87.620 Atypical squamous cells of undetermined significance on cytologic smear of vagina (ASC-US) (principal); R87.811 Vaginal high risk human papillomavirus (HPV) DNA test positive; B97.7 Papillomavirus as the cause of diseases classified elsewhere | CPT/HCPCS: 57421; 88305 ==

== ENCOUNTER 2025-07-06 11:45 | Outpatient (AMB) | payer OTHER, SELFPAY ==
--- NOTE | 2025-07-06 11:49 | HO.NEPHOV ---
Vital Signs 07/06/25 11:58 Height 4 ft 11 in Weight 114 lb 6 oz BMI 23.1 BP 154/80 H Blood Pressure Location Rt brachial Position Sitting Pulse 104 H Pulse Source Pulse Oximeter Pulse Oximetry (%) 98 Oxygen Delivery Method Room Air Intake Visit Reasons: 2mon f/u w/labs-Conf Beam Department Supervisor Required: Yes Beam Department Supervisor Language: Combat Rifle Crewmember Services: Beam Department Supervisor Present Beam Department Supervisor Name: Jagruti [id number] Information Interpreted: clinical only Accompanied by: Self / Same As Patient Allergies crab Allergy (Severe, Verified 07/06/25 11:57) SWELLING amoxicillin (From Augmentin) Allergy (Mild, Verified 07/06/25 11:57) Abdominal Pain clavulanic acid (From Augmentin) Allergy (Mild, Verified 07/06/25 11:57) Abdominal Pain metformin Adverse Reaction (Intermediate, Verified 07/06/25 11:57) diarrhea HPI Comments Details: aBrbara was seen in the office in follow-up of her chronic kidney disease, proteinuria, renal cyst and hypertension. Her blood sugar is better controlled but still high. She is not on CORNELIA-inhibitor. She avoids taking nonsteroidal anti-inflammatories. Her viral load is undetectable and CD4 are very good. She continues to have nephrotic range proteinuria. She has no edema. 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 Hypertension Non-toxic multinodular goiter Diabetic retinopathy associated with type 2 diabetes mellitus CKD stage 3 due to type 2 diabetes mellitus Diabetic nephropathy associated with type 2 diabetes mellitus Dyslipidemia Diabetes type 2, controlled Hypovitaminosis D Surgical History Hx laparoscopic cholecystectomy (05/11/25) H/O colonoscopy (08/13/20) Hx of bilateral cataract extraction History of hysterectomy with unilateral oophorectomy Hx of section Hx of thyroidectomy Family History Father Liver disease Mother Hypertension CVD (cardiovascular disease) Renal disease Hyperlipidemia ESRD on hemodialysis Paternal Aunt Glaucoma Social History Household Members: Other Household Members Other:: grandson Housing: House Alcohol intake: never Comment: counts correct Patient Tobacco Use Status: Never used Tobacco e-Cigarette/Vaping Use: Never Used Second Hand Smoke Exposure: No Advance Directives Date on File: 07/01/21 service: No Current occupational status: unemployed Cognitive needs: No Hearing needs: No Vision needs: No Review of Systems Const All systems reviewed & are unremarkable except as noted in HPI and below Physical Exam Const General: comfortable and no acute distress Orientation/consciousness: patient oriented x3 HEENT Head: Yes normocephalic Mouth: Normal oral and palatal mucosa present Eyes EOM: EOMs intact bilaterally Neck Neck: Yes supple Resp Auscultation: clear to auscultation bilaterally Cardio Jugular venous distension: no JVD Rate: regular rate GI Palpation (GI): Soft to palpation Auscultation: normal bowel sounds General: Yes no CVA tenderness Back/Spine/Pelvis Back: no CVA tenderness Skin General skin exam: no rashes or lesions noted Neuro General: patient oriented x3 and moves all extremities Extrem General: Yes no pedal edema Results Reviewed Nephrology Results: Hgb, (12.0-16.0) 12.6 g/dl 05/11/25 WBC, (4.8-10.8) 12.0 X10*3/uL H 05/11/25 Plt Count, (160-400) 288 X10*3/uL 05/11/25 Sodium, (135-145) 139 mmol/L 06/26/25 Potassium, (3.3-5.1) 3.6 mmol/L 06/26/25 Chloride, (96-108) 105 mmol/L 06/26/25 Carbon Dioxide, (22-29) 24 mmol/L 06/26/25 BUN, (9-16) 37 mg/dL H 06/26/25 Creatinine, (0.5-1.4) 2.03 mg/dL H 06/26/25 Calcium, (8.4-10.2) 9.0 mg/dL 05/11/25 Urine Protein, (Neg-Trace) >=1000 (4+) mg/dL H 05/11/25 Assessment & Plan Assessment & Plan (1) Hypertension: Code(s): I10 - Essential (primary) hypertension Category: Medical Qualifiers: Hypertension type: essential hypertension Qualified Code(s): I10 - Essential (primary) hypertension (2) Diabetic nephropathy associated with type 2 diabetes mellitus: Code(s): E11.21 - Type 2 diabetes mellitus with diabetic nephropathy Category: Medical (3) CKD stage 3 due to type 2 diabetes mellitus: Code(s): E11.22 - Type 2 diabetes mellitus with diabetic chronic kidney disease; N18.30 - Chronic kidney disease, stage 3 unspecified Category: Medical (4) Proteinuria: Code(s): R80.9 - Proteinuria, unspecified Category: Medical Qualifiers: Proteinuria type: other Qualified Code(s): R80.8 - Other proteinuria Plan Barbara has a significant proteinuria. Her renal functions are stable. I increased her to Diltiazem to 360 mg daily .She needs to cut back salt in the diet. She had an incidental finding of left renal cyst which will need a follow-up renal ultrasound. She has had HIV which is well controlled. She avoids nonsteroidal anti-inflammatories. I discussed renal biopsy again which she wants to wait. C/W Jardaince to 25 mg today and plan to start ARB with time, if possible. I ordered repeat blood work . (She most likely will need renal biopsy soon). I did not make any other medication changes today. All questions answered. Follow-up given Orders: Orders Protein Creatinine Ratio, Ur 2 Months E11.21 - Type 2 diabetes mellitus with diabetic nephropathy, E11.22 - Type 2 diabetes mellitus with diabetic chronic kidney disease, I10 - Essential (primary) hypertension, N18.30 - Chronic kidney disease, stage 3 unspecified, R80.8 - Other proteinuria Creatinine 2 Months E11.21 - Type 2 diabetes mellitus with diabetic nephropathy, E11.22 - Type 2 diabetes mellitus with diabetic chronic kidney disease, I10 - Essential (primary) hypertension, N18.30 - Chronic kidney disease, stage 3 unspecified, R80.8 - Other proteinuria Electrolytes 2 Months E11.21 - Type 2 diabetes mellitus with diabetic nephropathy, E11.22 - Type 2 diabetes mellitus with diabetic chronic kidney disease, I10 - Essential (primary) hypertension, N18.30 - Chronic kidney disease, stage 3 unspecified, R80.8 - Other proteinuria Blood Urea Nitrogen 2 Months E11.21 - Type 2 diabetes mellitus with diabetic nephropathy, E11.22 - Type 2 diabetes mellitus with diabetic chronic kidney disease, I10 - Essential (primary) hypertension, N18.30 - Chronic kidney disease, stage 3 unspecified, R80.8 - Other proteinuria Medications: New empagliflozin (Jardiance) 25 mg PO DAILY 30 tabs 11RF Changed From diltiazem HCl ER (Tiadylt ER) 360 mg PO DAILY To diltiazem HCl ER 360 mg PO DAILY 30 caps 4RF 30 days Coding Level of Care Code Est Pt Level 4 (68067) Diagnoses Essential hypertension I10 Hypertension type: essential hypertension Diabetic nephropathy associated with type 2 diabetes mellitus E11.21 CKD stage 3 due to type 2 diabetes mellitus E11.22; N18.30 Other proteinuria R80.8 Proteinuria type: other
[2025-07-06 11:58] VITALS: BP 154/80; PULSE 104; O2SAT 98; BMI 23.1
--- OUTSIDE RECORDS SUMMARY | 2025-07-06 13:38 | XMS_ITS | Encounter Summary ---
Author Organization [employer] Address [address] [facility] 7t [place] [address] Care Team Providers Care Floor Trader Name Role Phone Unavailable Primary Care Provider Unavailabl e Encounter Details Date Type Department Care Team (Latest Contact Info) Description 06/06/2019 Abstract [facility] CONVERSIONS Dental, Provider, DDS Social [...] Description 09/17/2025 10:15 AM EST Office Visit [facility] CHC ADULT DENTAL [address] [place] [address] Andreas Guerra documented as of this encounter Visit Diagnoses Not on filedocumented in this encounter
--- OUTSIDE RECORDS SUMMARY | 2025-07-06 13:38 | XMS_ITS | Patient Health Record ---
Author Organization [facility] Address [address] [place] [address] Care Team Providers Care Pulp Cooker Name Role Phone Renny Whitt [phone] Reason For Referral No Information Plan Of Treatment No Information
--- OUTSIDE RECORDS SUMMARY | 2025-07-06 13:38 | XMS_ITS | Encounter Summary ---
Author Organization [facility] Address [address] [facility] [address] [place] [address] Phone Care Team Providers Care Road Conductor Name Role Phone Mishel Cummings MD Primary Care Provider [phone] Reason for Visit * Reason Comments Med Refill Encounter Details Date Type Department Care Team (Late st Contact Info) Description 11/27/2021 [facility]ill [facility] [address] [place] [phone] Jignesh Easton MD Social History Tobacco Use [...] on filedocumented in this encounter Care Teams Road Conductor Relationship Specialty Start Date End Date Mishel Cummings MD [address] [place], [place] PCP - General 10/21/20 documented as of this encounter
--- OUTSIDE RECORDS SUMMARY | 2025-07-06 13:38 | XMS_ITS | Clinical Summary ---
Author Organization [employer] Address [address] [facility] 7t [place] [address] Care Team Providers Care Print Shop Stenographer Name Role Phone Unavailable Primary Care Provider Unavailabl e Allergies Active Allergy Reactions Criticality Noted Date Comments Metformin Other 04/17/2021 Shellfish Allergy 05/06/2023 Medications folic acid-vit B6-vit B12 2.5-25-1 MG tablet tablet Active elvitegravir-co bicistat-emtric itabine-tenofov ir alafenamide (Genvoya) 621-801-007-10 MG tablet Active hydroCHLOROthia zide (HYDRODiuril) 12.5 [...] Description 09/17/2025 10:15 AM EST Office Visit [facility] ADULT DENTAL [address] [place] [address] Andreas Guerra Health Maintenance Due Date Last [...] Most Recently Relevant to Health Maintenance Insurance [facility]
--- OUTSIDE RECORDS SUMMARY | 2025-07-06 13:38 | XMS_ITS | Clinical Summary ---
Author Organization [facility] Address [address] [place] [address] Phone Care Team Providers Care Plasma Table Operator Name Role Phone Mishel Cummings MD Primary Care Provider [phone] Allergies Active Allergy Reactions Criticality Noted Date [...] patient's age to complete this topic Insurance [facility] Care Teams Plasma Table Operator Relationship Specialty Start Date End Date Mishel Cummings MD [address] [place], [place] PCP - General 10/21/20
== END 2025-07-06 12:09 | disposition home or self-care (01) ==
LOC: HO.HKA 11:46
PROVIDERS: PCP Internal Medicine; Visit Provider Internal Medicine Nephrology
DX: I10 Essential (primary) hypertension (principal); E11.21 Type 2 diabetes mellitus with diabetic nephropathy; E11.22 Type 2 diabetes mellitus with diabetic chronic kidney disease; N18.30 Chronic kidney disease, stage 3 unspecified; R80.8 Other proteinuria
CPT/HCPCS: 99214

== ENCOUNTER → 2025-07-06 11:45 | Outpatient (BNVA) | payer OTHER, SELFPAY | PROVIDERS: PCP Internal Medicine; Visit Provider Internal Medicine Nephrology | DX: I10 Essential (primary) hypertension (principal); E11.21 Type 2 diabetes mellitus with diabetic nephropathy; R80.8 Other proteinuria; E11.22 Type 2 diabetes mellitus with diabetic chronic kidney disease; N18.30 Chronic kidney disease, stage 3 unspecified | CPT/HCPCS: 99212 ==

== ENCOUNTER 2025-07-10 07:50 | Outpatient (REF) | payer OTHER, SELFPAY ==
--- OUTSIDE RECORDS SUMMARY | 2025-07-10 08:01 | XMS_ITS | Encounter Summary ---
Author Organization [facility] Address [address] [facility] [address] [place] [address] Phone Care Team Providers Care Secured Entrance Monitor Name Role Phone Mishel Cummings MD Primary Care Provider [phone] Reason for Visit * Reason Comments Med Refill Encounter Details Date Type Department Care Team (Late st Contact Info) Description 11/27/2021 Refill [facility] [address] [place] [phone] Jignesh Easton MD Social History Tobacco Use [...] on filedocumented in this encounter Care Teams Secured Entrance Monitor Relationship Specialty Start Date End Date Mishel Cummings MD [address] [place], [place] PCP - General 10/21/20 documented as of this encounter
--- OUTSIDE RECORDS SUMMARY | 2025-07-10 08:01 | XMS_ITS | Clinical Summary ---
Author Organization [facility] Address [address] [place] [address] Phone Care Team Providers Care Metal Ceiling Builder Name Role Phone Mishel Cummings MD Primary Care Provider [phone] Allergies Active Allergy Reactions Criticality Noted Date [...] patient's age to complete this topic Insurance [facility] Care Teams Metal Ceiling Builder Relationship Specialty Start Date End Date Mishel Cummings MD [address] [place], [place] PCP - General 10/21/20
--- OUTSIDE RECORDS SUMMARY | 2025-07-10 08:01 | XMS_ITS | Patient Health Record ---
Author Organization [facility] Address [address] [place] [address] Care Team Providers Care Radio News Writer Name Role Phone Renny Whitt [phone] Reason For Referral No Information Plan Of Treatment No Information
[2025-07-12 07:48] LABS: HIV RNA PCR Qn Copies NOT DETECTED copies/mL (NOT DETECTED); HIV RNA PCR Qn Log Copies NOT DETECTED (NOT DETECTED)
[2025-07-14 14:13] LABS: Absolute CD3 Count 1750 cells/uL (840-3060); Absolute CD8 Count 1262 cells/uL (180-1170); Percent CD3 Cells 76 % (57-85); Percent CD8 Cells 55 % (12-42)
== END 2025-07-10 07:51 | disposition home or self-care (01) ==
LOC: HO.LAB 07:50
PROVIDERS: PCP Internal Medicine; Visit Provider Internal Medicine
DX: R87.620 Atypical squamous cells of undetermined significance on cytologic smear of vagina (ASC-US) (principal); R87.811 Vaginal high risk human papillomavirus (HPV) DNA test positive; Z21 Asymptomatic human immunodeficiency virus [HIV] infection status
CPT/HCPCS: 36415; 86359; 86360; 87536; 99212

== ENCOUNTER 2025-07-10 08:06 | Outpatient (AMB) | payer OTHER, SELFPAY ==
[2025-07-10 08:19] VITALS: BP 156/88; BMI 23.0
--- NOTE | 2025-07-10 08:19 | MHC.OFFVIS ---
Vital Signs 07/10/25 08:19 Height 4 ft 11 in Weight 114 lb BMI 23.0 BP 156/88 H Intake Visit Reasons: post colpo Multicultural Services Librarian Required: Yes Multicultural Services Librarian Language: Vocational Childcare Teacher Services: Multicultural Services Librarian Present (in person) Multicultural Services Librarian Name: Alison ANGELA Information Interpreted: non-clinical & clinical Accompanied by: Self / Same As Patient Allergies crab Allergy (Severe, Verified 07/10/25 08:23) SWELLING amoxicillin (From Augmentin) Allergy (Mild, Verified 07/10/25 08:23) Abdominal Pain clavulanic acid (From Augmentin) Allergy (Mild, Verified 07/10/25 08:23) Abdominal Pain metformin Adverse Reaction (Intermediate, Verified 07/10/25 08:23) diarrhea Post menopausal: Yes HPI Comments Details: Presenting post vaginoscopy/biopsy for follow-up. The patient is doing well with no complaints. The pathology showed the following: A. Vaginal apex, 3 o'clock, biopsy: Squamous mucosa within normal limits; negative for squamous intraepithelial lesion. B. Vaginal apex, 9 o'clock, biopsy: Squamous mucosa with mild chronic inflammation and reactive epithelial changes; negative for squamous intraepithelial lesion COMMENT: The atypical cells noted in the patient's previous vaginal Pap smear ([id number]; ASCUS; HPV+) may be represented by the reactive epithelial changes seen above. 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 Hypertension Non-toxic multinodular goiter Diabetic retinopathy associated with type 2 diabetes mellitus CKD stage 3 due to type 2 diabetes mellitus Diabetic nephropathy associated with type 2 diabetes mellitus Dyslipidemia Diabetes type 2, controlled Hypovitaminosis D Surgical History Hx laparoscopic cholecystectomy (05/11/25) H/O colonoscopy (08/13/20) Hx of bilateral cataract extraction History of hysterectomy with unilateral oophorectomy Hx of section Hx of thyroidectomy Family History Father Liver disease Mother Hypertension CVD (cardiovascular disease) Renal disease Hyperlipidemia ESRD on hemodialysis Paternal Aunt Glaucoma Social History Household Members: Other Household Members Other:: grandson Housing: House Alcohol intake: never Comment: counts correct Patient Tobacco Use Status: Never used Tobacco e-Cigarette/Vaping Use: Never Used Second Hand Smoke Exposure: No Advance Directives Date on File: 07/01/21 service: No Current occupational status: unemployed Cognitive needs: No Hearing needs: No Vision needs: No Review of Systems Const All systems reviewed & are unremarkable except as noted in HPI and below Reports as per HPI and Reports no additional complaints GI Reports no additional complaints Reports no additional complaints Physical Exam Vital Signs: Last Vital Signs BP 156/88 H 07/10/25 08:19 BMI result Body Mass Index 23.0 Assessment & Plan Assessment & Plan (1) ASCUS with positive high risk human papillomavirus of vagina: Comment: HPV 18 positive Code(s): R87.620 - Atypical squamous cells of undetermined significance on cytologic smear of vagina (ASC-US); R87.811 - Vaginal high risk human papillomavirus (HPV) DNA test positive Category: Medical Plan: Discussed with the patient the pathology results of the vaginoscopy biopsies. Discussed with the patient the sensitivity specificity, positive and negative predictive value in detecting cervical cancer in addition discussed the regression, persistence and progression rates. Recommended co-testing in 12 months, if cytology and or HPV are abnormal will proceed was colposcopy biopsy and endocervical curettage. Instructions given to the patient to schedule a co test appointment in 1 year. All questions answered the patient verbalized understanding. Coding Level of Care Code Est Pt Level 3 (15006) Diagnoses ASCUS with positive high risk human papillomavirus of vagina R87.620; R87.811
--- OUTSIDE RECORDS SUMMARY | 2025-07-10 08:23 | XMS_ITS | Encounter Summary ---
Author Organization [employer] Address [address] [facility] 7t [place] [address] Care Team Providers Care Global Category Manager Name Role Phone Unavailable Primary Care Provider Unavailabl e Encounter Details Date Type Department Care Team (Latest Contact Info) Description 06/06/2019 Abstract [facility] CONVERSIONS Dental, Provider, DDS Social [...] Description 09/17/2025 10:15 AM EST Office Visit [facility] CHC ADULT DENTAL [address] [place] [address] Andreas Guerra documented as of this encounter Visit Diagnoses Not on filedocumented in this encounter
--- OUTSIDE RECORDS SUMMARY | 2025-07-10 08:23 | XMS_ITS | Clinical Summary ---
Author Organization [employer] Address [address] [facility] 7t [place] [address] Care Team Providers Care Nurse Infection Control Name Role Phone Unavailable Primary Care Provider Unavailabl e Allergies Active Allergy Reactions Criticality Noted Date Comments Metformin Other 04/17/2021 Shellfish Allergy 05/06/2023 Medications folic acid-vit B6-vit B12 2.5-25-1 MG tablet tablet Active elvitegravir-co bicistat-emtric itabine-tenofov ir alafenamide (Genvoya) [id number] MG tablet Active hydroCHLOROthia zide (HYDRODiuril) 12.5 [...] Description 09/17/2025 10:15 AM EST Office Visit [facility] ADULT DENTAL [address] [place] [address] Andreas Guerra Health Maintenance Due Date Last [...] Most Recently Relevant to Health Maintenance Insurance [facility]
== END 2025-07-10 08:32 | disposition home or self-care (01) ==
LOC: HO.HWS 08:06
PROVIDERS: PCP Internal Medicine; Visit Provider Obstetrics & Gynecology
DX: R87.620 Atypical squamous cells of undetermined significance on cytologic smear of vagina (ASC-US) (principal); R87.811 Vaginal high risk human papillomavirus (HPV) DNA test positive
CPT/HCPCS: 99213

== ENCOUNTER 2025-07-20 10:00 | Outpatient (AMB) | payer OTHER, SELFPAY ==
--- NOTE | 2025-07-20 10:17 | A.OFFVIS_ITS ---
Vital Signs 07/20/25 10:18 Height 4 ft 11 in Weight 116 lb BMI 23.4 Pulse 92 Pulse Source Pulse Oximeter Pulse Oximetry (%) 99 Oxygen Delivery Method Room Air Intake Visit Reasons: 6 mth,HIV follow up Waiter/Waitress Cocktail Lounge Required: Yes Waiter/Waitress Cocktail Lounge Services: Waiter/Waitress Cocktail Lounge Present Waiter/Waitress Cocktail Lounge Name: Celia Childress CMA Information Interpreted: clinical only Bag Checker: Bag Checker Present Allergies crab Allergy (Severe, Verified 07/20/25 10:18) SWELLING amoxicillin (From Augmentin) Allergy (Mild, Verified 07/20/25 10:18) Abdominal Pain clavulanic acid (From Augmentin) Allergy (Mild, Verified 07/20/25 10:18) Abdominal Pain metformin Adverse Reaction (Intermediate, Verified 07/20/25 10:18) diarrhea HPI Comments Details: History of Present Illness The patient is a 70-year-old female presenting for a routine 6-month HIV care evaluation. She is adherent to her antiretroviral therapy with Juluca and maintains an undetectable viral load. Her chronic kidney disease is managed with current medications, as evidenced by her GFR of 24 as recently as June 26, 2023. She also manages hyperlipidemia and diabetes mellitus with medications, maintaining stable health overall. She reports a stable living situation and adequate resources for transportation and basic needs. She denies any significant mental health issues, tobacco, alcohol, or substance use history. The patient is not sexually active since the passing of her 24 years ago. She awaits scheduling of several diagnostic evaluations, including a colonoscopy, bone density assessment, and mammogram, and has scheduled ophthalmologic and dental evaluations in the coming months. Review of Systems - General: Denies weight loss, fever, fatigue. - Cardiovascular: Denies chest pain, palpitations. - Respiratory: Denies cough, shortness of breath. - Gastrointestinal: Denies abdominal pain, nausea, vomiting. - Genitourinary: Denies dysuria, frequency. - Musculoskeletal: Denies joint pain, muscle weakness. - Neurological: Denies headaches, dizziness. - Psychiatric: Reports rapid speech but denies feeling depressed. - Skin: Denies rash, itching. Physical Exam - Vital Signs- Stable - General- Pleasant female - HEENT- Pupils equal, reactive to light and accommodation; oropharynx clear - Lungs- Clear to auscultation - Cardiovascular- Regular rhythm - Abdomen- Soft, non-tender - Extremities- Non-tender - Skin- Clear Results - Labs: CD4 count 487, viral load undetectable as of July 10, 2023 - Screening: ASCUS on cervical Pap evaluated in June; normal anal Pap in April - Pending: Colonoscopy, bone density test, mammogram Plan Patient was informed and verbally consented to the use of an ambient scribe for clinic note documentation during this visit. 1. Human immunodeficiency virus [HIV] disease B20 HCC 1 I continue the patient's current regimen of Juluca and maintain routine monitoring of CD4 count and viral load with labs scheduled before her next appointment in December. 2. Chronic kidney disease, stage 3b N18.32 HCC 138 The patient's renal function is stable, requiring ongoing routine monitoring through labs. 3. Hyperlipidemia, unspecified E78.5 Patient to continue statin therapy with routine lipid level assessments. 4. Type 2 diabetes mellitus without complications E11.9 HCC 19 Continue management and monitoring of blood glucose levels with no medication changes. Discussion Notes I discussed with the patient the importance of continuing her current treatment regimen without interruption to maintain viral suppression and prevent progression of HIV. We reviewed the role of her current medications for both antiretroviral therapy and management of comorbid conditions such as hyperlipidemia and diabetes. I highlighted the benefit of maintaining her undetectable viral load through adherence to medication and routine follow-ups. In terms of her chronic kidney disease, I reviewed her latest GFR and explained the importance of regular monitoring. I also counseled her regarding her upcoming preventive screenings including mammogram, colonoscopy, and bone density assessment. All questions were answered, and consent was obtained for the continued use of ambient technology in this setting. Medical Decision Making In approaching the patient's HIV management, I assessed her adherence to Juluca and her undetectable viral load, indicating effective therapy and a preserved immune system. Considering her chronic kidney disease, hyperlipidemia, and diabetes mellitus, it is crucial to continue monitoring her condition through scheduled laboratory testing, ensuring no adverse effects from her medications. Optimal control of these chronic conditions is essential in preventing complications and maintaining her overall health. The planned follow-up and lab evaluations will allow for timely adjustments to her treatment plan as necessary, informed by the results of pending diagnostic screening tests. My decisions focus on maintaining optimal control of her HIV status while managing her comorbid conditions. Patient Instructions - Continue taking your medication daily as prescribed. - Attend all scheduled appointments, including the pending dental and eye evaluations. - Follow up on recommended screenings: colonoscopy, mammogram, and bone density test. - Maintain healthy lifestyle choices, including regular exercise and balanced nutrition. - Report any new symptoms or concerns promptly. - Return for lab work and follow-up in December. -Vaccines including flu shot and PCV-21 per her pharmacy -See in January 2026. 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 Hypertension Non-toxic multinodular goiter Diabetic retinopathy associated with type 2 diabetes mellitus CKD stage 3 due to type 2 diabetes mellitus Diabetic nephropathy associated with type 2 diabetes mellitus Dyslipidemia Diabetes type 2, controlled Hypovitaminosis D Surgical History Hx laparoscopic cholecystectomy (05/11/25) H/O colonoscopy (08/13/20) Hx of bilateral cataract extraction History of hysterectomy with unilateral oophorectomy Hx of section Hx of thyroidectomy Family History Father Liver disease Mother Hypertension CVD (cardiovascular disease) Renal disease Hyperlipidemia ESRD on hemodialysis Paternal Aunt Glaucoma Social History Household Members: Other Household Members Other:: grandson Housing: House Alcohol intake: never Comment: counts correct Patient Tobacco Use Status: Never used Tobacco e-Cigarette/Vaping Use: Never Used Second Hand Smoke Exposure: No Advance Directives Date on File: 07/01/21 service: No Current occupational status: unemployed Cognitive needs: No Hearing needs: No Vision needs: No Physical Exam Vital Signs: Last Vital Signs Pulse 92 07/20/25 10:18 Pulse Ox 99 07/20/25 10:18 Oxygen Delivery Method Room Air 07/20/25 10:18 BMI result Body Mass Index 23.4 Assessment & Plan Assessment & Plan (1) 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 infection): Code(s): B20 - Human immunodeficiency virus [HIV] disease Category: Medical Qualifiers: HIV symptom status: asymptomatic, with no history of HIV-related illness Qualified Code(s): Z21 - Asymptomatic human immunodeficiency virus [HIV] infection status Plan: as above Orders: Orders HIV-1 RNA QN PCR Expanded 5 Months Z21 - Asymptomatic human immunodeficiency virus [HIV] infection status AMB Assessment Tools Today Z21 - Asymptomatic human immunodeficiency virus [HIV] infection status Lymphocyte Subset Panel 3 5 Months Z21 - Asymptomatic human immunodeficiency virus [HIV] infection status Medications: New dolutegravir-rilpivirine 50-25 mg (Juluca) must administer with a meal/food 1 tab PO DAILY 30 tabs 5RF 30 days Coding Level of Care Code Est Pt Level 4 (13719) Diagnoses Asymptomatic HIV infection, with no history of HIV-related illness Z21 HIV symptom status: asymptomatic, with no history of HIV-related illness Additional Codes PHQ-9 - 79196 - PHQ-9 Billing: Yes ([id number]) PHQ-9 Over the last 2 weeks, how often have you been bothered by any of the following problems? 1. Little interest or pleasure in doing things: not at all 2. Feeling down, depressed, or hopeless: not at all 3. Trouble falling or staying asleep, or sleeping too much: not at all 4. Feeling tired or having little energy: not at all 5. Poor appetite or overeating: not at all 6. Feeling bad about yourself - or that you are a failure or have let yourself or your family down: not at all 7. Trouble concentrating on things, such as reading the newspaper or watching television: not at all 8. Moving or speaking so slowly that other people could have noticed. Or the opposite - being so fidgety or restless that you have been moving around a lot more than usual: several days 9. Thoughts that you would be better off or of hurting yourself in some way: not at all Total score: 1 Depression Screening Interpretation: Negative Depression Screening Done: Yes 32224 - PHQ-9 Billing: Yes Source: Developed by Drs. Renny Brown, Dayanna Otoole, Bernardo Caruso and colleagues, with an educational sim from [employer].
[2025-07-20 10:18] VITALS: PULSE 92; O2SAT 99; BMI 23.4
== END 2025-07-20 11:08 | disposition home or self-care (01) ==
LOC: HO.HID 10:00
PROVIDERS: PCP Internal Medicine; Visit Provider Internal Medicine
DX: Z21 Asymptomatic human immunodeficiency virus [HIV] infection status (principal)
CPT/HCPCS: 99214

== ENCOUNTER → 2025-07-20 10:00 | Outpatient (BNVA) | payer OTHER, SELFPAY | PROVIDERS: PCP Internal Medicine; Visit Provider Internal Medicine | DX: Z21 Asymptomatic human immunodeficiency virus [HIV] infection status (principal); Z13.31 Encounter for screening for depression | CPT/HCPCS: 96127; 99212 ==

== ENCOUNTER 2025-07-25 07:54 | Outpatient (REF) | payer OTHER, SELFPAY ==
--- OUTSIDE RECORDS SUMMARY | 2025-07-25 07:58 | XMS_ITS | Clinical Summary ---
Author Organization [facility] Address [address] [place] [address] Phone Care Team Providers Care Pleating Supervisor Name Role Phone Mishel Cummings MD Primary Care Provider [phone] Allergies Active Allergy Reactions Criticality Noted Date [...] patient's age to complete this topic [facility] Care Teams Pleating Supervisor Relationship Specialty Start Date End Date Mishel Cummings MD [address] [place], [place] PCP - General 10/21/20
--- OUTSIDE RECORDS SUMMARY | 2025-07-25 07:58 | XMS_ITS | Patient Health Record ---
Author Organization [facility] Address [address] [place] [address] Care Team Providers Care Assistant Property Manager Name Role Phone Peri Renny Murali [phone] Reason For Referral No Information Plan Of Treatment No Information
--- OUTSIDE RECORDS SUMMARY | 2025-07-25 07:58 | XMS_ITS | Encounter Summary ---
Author Organization [facility] Address [address] [facility] [address] [place] [address] Phone Care Team Providers Care Weight Checker Name Role Phone Mishel Cummings MD Primary Care Provider [phone] Reason for Visit * Reason Comments Med Refill Encounter Details Date Type Department Care Team (Late st Contact Info) Description 11/27/2021 Refill [facility] [address] [place] [phone] Jignesh Easton MD Social History Tobacco Use [...] on filedocumented in this encounter Care Teams Weight Checker Relationship Specialty Start Date End Date Mishel Cummings MD [address] [place], [place] PCP - General 10/21/20 documented as of this encounter
[2025-07-25 08:19] LABS: MANUAL DIFF FLAG NO
[2025-07-25 09:21] LABS: Hematocrit 38.4 % (37.0-47.0); Hemoglobin 11.8 g/dl (12.0-16.0); Imm Gran Abs Auto 0.01 X10*3/uL (0.00-0.03); Imm Gran Pct Auto 0.1 % (0.0-0.4); Lymphocytes Absolute Auto 3.6 X10*3/uL (1.2-4.9); Mean Corpuscular HGB Conc 30.7 g/dl (31.0-35.0); Mean Corpuscular Hemoglobin 24.6 pg (27.0-33.0); Mean Corpuscular Volume 80.2 fL (80.0-98.0); NRBC Abs Auto 0.000 X10*3/uL (0.0-0.012); NRBC Pct Auto 0.0 /100WBC (0.0-0.2); Platelet Count 320 X10*3/uL (160-400); Red Blood Count 4.79 X10*6/uL (4.20-5.50); White Blood Count 7.3 X10*3/uL (4.8-10.8)
[2025-07-25 10:21] LABS: Alanine Aminotransferase 19 U/L (0-31); Albumin Level 3.2 g/dL (3.5-5.0); Alkaline Phosphatase 83 U/L (39-117); Anion Gap 14 (12-20); Aspartate Amino Transferase 24 U/L (5-31); Blood Urea Nitrogen 26 mg/dL (9-16); Calcium 9.3 mg/dL (8.4-10.2); Carbon Dioxide 26 mmol/L (22-29); Chloride 107 mmol/L (96-108); Cholesterol 352 mg/dL (<200); Estimated Glomerular Filt Rate 20; HDL Cholesterol 45 mg/dL (>40); Iron 59 mcg/dL (30-160); Percent Iron Saturation 29 % (15-50); Potassium 3.2 mmol/L (3.3-5.1); Sodium 144 mmol/L (135-145); Total Iron Binding Capacity 201 mcg/dL (228-428); Total Protein 6.9 g/dL (6.5-8.0); Triglycerides 727 mg/dL (<150); Unsaturated Iron Binding 142 ug/dL
== END 2025-07-25 07:55 | disposition home or self-care (01) ==
LOC: HO.LAB 07:54
PROVIDERS: Visit Provider Internal Medicine
DX: E11.9 Type 2 diabetes mellitus without complications (principal); E55.9 Vitamin D deficiency, unspecified; R80.9 Proteinuria, unspecified; D64.9 Anemia, unspecified; E78.5 Hyperlipidemia, unspecified
CPT/HCPCS: 36415; 80053; 80061; 82043; 82306; 82570; 83036; 83540; 85025

== ENCOUNTER 2025-08-02 13:10 | Outpatient (AMB) | payer OTHER, SELFPAY ==
[2025-08-02 13:13] VITALS: BP 142/62; PULSE 66; O2SAT 98; BMI 22.5
--- NOTE | 2025-08-02 13:13 | MHC.PC.OV ---
Vital Signs 08/02/25 13:13 08/02/25 13:45 Height 4 ft 11 in Weight 111 lb 4 oz BMI 22.5 BP 142/62 H 132/70 Blood Pressure Location Lt brachial Lt brachial Position Sitting Sitting Pulse 66 Pulse Source Pulse Oximeter Pulse Oximetry (%) 98 Oxygen Delivery Method Room Air Intake Visit Reasons: dm Hands And Dial Inspector Required: Yes Accompanied by: Self / Same As Patient Allergies crab Allergy (Severe, Verified 08/02/25 13:13) SWELLING amoxicillin (From Augmentin) Allergy (Mild, Verified 08/02/25 13:13) Abdominal Pain clavulanic acid (From Augmentin) Allergy (Mild, Verified 08/02/25 13:13) Abdominal Pain metformin Adverse Reaction (Intermediate, Verified 08/02/25 13:13) diarrhea Medication List - Last Reconciled 08/02/25 by Kemar Arreola MD atorvastatin 80 mg PO BEDTIME 90 days blood pressure monitor As directed blood sugar diagnostic (OneTouch Ultra Test strips) Use 1 lancet four times a day blood-glucose meter ([employer] UltraMini kit) As directed diltiazem HCl ER 360 mg PO DAILY 30 days dolutegravir-rilpivirine 50-25 mg (Juluca) 1 tab PO DAILY dolutegravir-rilpivirine 50-25 mg (Juluca) 1 tab PO DAILY 30 days empagliflozin (Jardiance) 25 mg PO DAILY fenofibrate 160 mg PO DAILY 90 days ferrous sulfate 325 mg PO DAILY hydralazine 50 mg PO TID insulin degludec (Tresiba FlexTouch U-100 insulin) 33 units (0.33 mL) subcut DAILY 90 days lancets ([employer] UltraSoft Lancets) Use 1 lancet four times a day pen needle, diabetic twice a day pen needle, diabetic (BD Mansi 2nd Gen Pen Needle) Use 1 pen needle once a day Tobacco use date assessed: 08/02/25 Fall risk assessment: No Falls in past year Last assessed Fall Risk: 08/02/25 Dental Screening Dental Screen Date: 08/02/25 Did you have a dental visit in the last 12 months?: Yes Did you have a dental problem in the last 6 months where you did not have access to dental care?: No Was dental information given to patient?: Patient has dentist HPI dm HPI 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 [facility] [phone] [facility] Medical History HPV in female Sinusitis Hepatitis Normocytic anemia 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 infection) Pure hypercholesterolemia Essential hypertension Sessile colonic polyp 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 infection) 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 Hypertension Non-toxic multinodular goiter Diabetic retinopathy associated with type 2 diabetes mellitus CKD stage 3 due to type 2 diabetes mellitus Diabetic nephropathy associated with type 2 diabetes mellitus Dyslipidemia Diabetes type 2, controlled Hypovitaminosis D Surgical History Hx laparoscopic cholecystectomy (05/11/25) H/O colonoscopy (08/13/20) Hx of bilateral cataract extraction History of hysterectomy with unilateral oophorectomy Hx of section Hx of thyroidectomy Family History Father Liver disease Mother Hypertension CVD (cardiovascular disease) Renal disease Hyperlipidemia ESRD on hemodialysis Paternal Aunt Glaucoma Social History Household Members: Other Household Members Other:: grandson Housing: House Alcohol intake: never Comment: counts correct Patient Tobacco Use Status: Never used Tobacco e-Cigarette/Vaping Use: Never Used Second Hand Smoke Exposure: No Advance Directives Date on File: 07/01/21 service: No Current occupational status: unemployed Cognitive needs: No Hearing needs: No Vision needs: No Questionnaire PHQ-9 Over the last 2 weeks, how often have you been bothered by any of the following problems? 3. Trouble falling or staying asleep, or sleeping too much: not at all 4. Feeling tired or having little energy: not at all 5. Poor appetite or overeating: not at all 6. Feeling bad about yourself - or that you are a failure or have let yourself or your family down: not at all 7. Trouble concentrating on things, such as reading the newspaper or watching television: not at all 8. Moving or speaking so slowly that other people could have noticed. Or the opposite - being so fidgety or restless that you have been moving around a lot more than usual: not at all 9. Thoughts that you would be better off or of hurting yourself in some way: not at all Source: Developed by Drs. Renny Brown, Bernardo Jensen and colleagues, with an educational sim from [employer]. Thrive Questionnaire Date Thrive assessed: 11/09/24 I am a: Patient What is your living situation today?: I choose not to answer this question Within the past 12 months, did the food you bought not last and you didn't have the money to get more?: I choose not to answer this question Within the past 12 months, did you worry whether your food would run out before you got money to buy more?: I choose not to answer this question Do you have trouble paying for medicines?: No Do you have trouble getting transportation to medical appointments?: No Do you have trouble paying your heating and electricity bill?: No Do you have trouble taking care of your child, family member or friend?: No Do you have trouble with day-to-day activities such as bathing, preparing meals, shopping, managing finances, etc.?: No Are you currently unemployed and looking for a job?: No Are you interested in more education?: No Please select the resources that you would like help with: None Currently or been in a relationship where the following occur: No concerns reported THRIVE Score: 0 AUDIT C Alcohol Use Questionnaire (AUDIT-C) 1. How often do you have a drink containing alcohol?: Never 3. How often do you have six or more drinks on one occasion?: Never Total Score: 0 KB-7 AMB Questionnaire KB-7 Date KB - 7 assessed: 11/09/24 Feeling nervous, anxious, or on edge: 0 = Not at all Not being able to stop or control worryin = Not at all Worrying too much about different things: 0 = Not at all Trouble relaxin = Not at all Being so restless that it is hard to sit still: 0 = Not at all Becoming easily annoyed or irritable: 0 = Not at all Feeling afraid as if something awful might happen: 0 = Not at all Total KB-7 score (0-4 normal; 5-9 mild; 10-14 moderate; 15-21 severe): 0 Source: Developed by Dayanna Ibrahim Kurt Kroenke and colleagues, with an educational sim from [employer]. Physical exam (Primary Care) Vital Signs: Last Vital Signs Pulse 66 08/02/25 13:13 BP 132/70 08/02/25 13:45 Pulse Ox 98 08/02/25 13:13 Oxygen Delivery Method Room Air 08/02/25 13:13 BMI result Body Mass Index 22.5 Tobacco/Smoking Status: Tobacco use Status Tobacco use date assessed 08/02/25 08/02/25 13:16 Patient Tobacco Use Status Never used Tobacco 08/02/25 13:16 e-Cigarette/Vaping Use Never Used 08/02/25 13:16 Thrive Assessment: Date of Thrive Assessment Date Thrive assessed 11/09/24 08/02/25 13:16 Currently or been in a relationship where the following occur: No concerns reported Const General: alert; No acute distress Eyes Conjunctivae: conjunctivae normal Resp Auscultation: clear to auscultation bilaterally Cardio Rate: regular rate Rhythm: regular rhythm GI Inspection: Yes normal to inspection Extrem General: Yes normal to inspection and No edema Office Procedures Flu Questionnaire Does the patient have a severe egg allergy?: No Does the patient have severe life threatening allergies?: No Does the patient have a fever or illness today?: No Has the patient ever had Guillain-Red Jacket Syndrome?: No Has the patient ever had any past reaction to a flu shot?: No Immunizations Fluarix [id number] (PF) 45 mcg (15 mcg x 3)/0.5 mL IM syringe Performing Provider: Kemar Arreola MD Performing Location[place] [facility] [place] [facility] Administered by: JULIO CÉSAR Park on 08/02/25 14:07 Dose Route Admin Location Dispensed Lot Number Expiration Date NDC Stull Installer 0.5 mL IM Left Deltoid 0.5 mL [id number] 04/09/26 [id number] Hipscan VIS Given Date VIS Provided VIS Publication Date 08/02/25 Single Vaccine 24 Eligibility Eligibility Date Funding Source Not [facility] Eligible 08/02/25 Private pneumoc 20-whitley conj-dip cr(PF) 0.5 mL IM syringe Performing Provider: Kemar Arreola MD Performing Location: [facility] [place] [facility] Administered by: JULIO CÉSAR Park on 08/02/25 14:07 Dose Route Admin Location Dispensed Lot Number Expiration Date ND Stull Installer 0.5 mL IM Left Deltoid 0.5 mL [id number] 08/10/26 [employer] Total Dispensed Waste 0.5 mL 0 % VIS Given Date VIS Provided VIS Publication Date 08/02/25 Single Vaccine 25 Eligibility Eligibility Date Funding Source Not [facility] Eligible 08/02/25 Private Coding Level of Care Code Est Pt Level 4 (83684) Complex EM visit Add On G2211 Diagnoses Type 2 diabetes mellitus with hyperglycemia E11.65 Essential hypertension I10 Mixed hyperlipidemia E78.2 CKD stage 3 due to type 2 diabetes mellitus E11.22; N18.30 Hypokalemia E87.6 Assessment & Plan Assessment & Plan (1) Type 2 diabetes mellitus with hyperglycemia: Code(s): E11.65 - Type 2 diabetes mellitus with hyperglycemia Category: Medical Plan: Decrease the amount of carbohydrate intake, pasta, bread, rice and potatoes are all sugar and that is aside from all the sweet stuff, remember that fruits are good but they are Sweet also. Hemoglobin A1c goal of less than 7.0. Patient is on Jardiance 25 mg once a day Tresiba 33 units once a day (2) Essential hypertension: Code(s): I10 - Essential (primary) hypertension Category: Medical Plan: Continue with blood pressure medication. Decrease salt intake and exercise on hydralazine 50 mg 3 times a day diltiazem 360 mg once a day patient is being followed up by Nephrology (3) Mixed hyperlipidemia: Code(s): E78.2 - Mixed hyperlipidemia Category: Medical Plan: Avoid fried foods, chicken skin, eggs, butter margarine, pastries and meat. Be it pork or beef they have a lot of cholesterol patient on atorvastatin 80 mg once a day with fenofibrate 54 mg once a day (4) CKD stage 3 due to type 2 diabetes mellitus: Code(s): E11.22 - Type 2 diabetes mellitus with diabetic chronic kidney disease; N18.30 - Chronic kidney disease, stage 3 unspecified Category: Medical Plan: Keep well hydrated avoid NSAIDs continue to monitor (5) Hypokalemia: Code(s): E87.6 - Hypokalemia Category: Medical Plan History of Present Illness The patient is a 70-year-old female presenting with management of diabetes mellitus, hypertension, hypercholesterolemia, and chronic kidney disease. The patient has a history of diabetes mellitus, with a hemoglobin A1c of 10.7, indicating poor glycemic control. She is currently on Jardiance 25 mg once daily and Tresiba 33 units once daily. Her blood sugar levels have been inconsistent, sometimes low and sometimes high. The patient has chronic kidney disease stage 3, with a stable renal function and a creatinine level of 2.41. She is on diltiazem 360 mg once daily, and hydralazine 50 mg three times daily for hypertension management. The patient declined renal biopsies at this time. The patient has hypercholesterolemia with a triglyceride level of 727, significantly above the target of less than 150. She is on atorvastatin 80 mg once daily and fenofibrate 54 mg once daily. The plan includes increasing the fenofibrate dosage and retesting triglyceride levels in three months. The patient has a history of HIV and is under the care of an infectious disease specialist. She is currently on the medication Jeluka. The patient has ASCUS and follows up with gynecology for management. Recent blood work showed mild anemia with a hemoglobin level of 11.8 and low potassium levels. The patient is not on any diuretics, and the cause of low potassium is unclear. Health Maintenance - Vaccination for influenza and pneumonia discussed and administered during the visit. - Dietary modifications recommended to manage high triglyceride levels. Social History - Nutritional intake: Patient reports consuming a diet high in meats, fats, and fried foods, contributing to elevated triglyceride levels. - Family history: Family has a history of diabetes, influencing dietary choices. Review of Systems - Endocrine: Reports inconsistent blood sugar levels, sometimes low and sometimes high. - Cardiovascular: Denies chest pain or palpitations. - Gastrointestinal: Denies vomiting or diarrhea. Physical Exam - Cardiovascular: Blood pressure measured at 132/70 mmHg. Results - Labs: Hemoglobin A1c at 10.7, indicating poor glycemic control. - Labs: Creatinine level at 2.41, indicating chronic kidney disease stage 3. - Labs: Triglyceride level at 727, significantly elevated. - Labs: Hemoglobin level at 11.8, indicating mild anemia. - Labs: Low potassium levels noted. Plan Patient was informed and verbally consented to the use of an ambient scribe for clinic note documentation during this visit. 1. Diabetes Mellitus The patient's diabetes mellitus is currently managed with Jardiance 25 mg once daily and Tresiba 33 units once daily. The hemoglobin A1c is 10.7, indicating poor glycemic control, and the patient is advised to adhere to medication and dietary modifications to achieve a target A1c of less than 7.0. Referral to endocrinology is planned for further management. 2. Chronic Kidney Disease Stage 3 The patient has chronic kidney disease stage 3 with a creatinine level of 2.41. Renal function is stable, and the patient is advised to maintain hydration and avoid NSAIDs to prevent further renal damage. The patient declined renal biopsies at this time. 3. Hypertension Hypertension is managed with diltiazem 360 mg once daily and hydralazine 50 mg three times daily. Blood pressure is well controlled at 132/70 mmHg. 4. Hypercholesterolemia The patient has hypercholesterolemia with a triglyceride level of 727. The patient is on atorvastatin 80 mg once daily and fenofibrate 54 mg once daily, with plans to increase the fenofibrate dosage and retest triglyceride levels in three months. Dietary modifications are recommended to manage triglyceride levels. 5. Hiv The patient has a history of HIV and is under the care of an infectious disease specialist. She is currently on the medication Jeluka. 6. Ascus The patient has ASCUS and follows up with gynecology for management. 7. Anemia Recent blood work showed mild anemia with a hemoglobin level of 11.8. The cause of anemia is not discussed, and further evaluation may be needed. 8. Low Potassium The patient has low potassium levels, and the cause is unclear as she is not on diuretics. Further follow-up is needed to monitor potassium levels. Discussion Notes During the visit, I discussed the management of diabetes mellitus, emphasizing the importance of medication adherence and dietary modifications to achieve a target hemoglobin A1c of less than 7.0. We also reviewed the patient's chronic kidney disease, advising on maintaining hydration and avoiding NSAIDs to prevent further renal damage. For hypercholesterolemia, I recommended increasing the fenofibrate dosage and retesting triglyceride levels in three months. Vaccinations for influenza and pneumonia were administered, and the patient was encouraged to follow up with endocrinology and gynecology as needed. Patient Instructions - Take Jardiance 25 mg and Tresiba 33 units daily as prescribed. - Maintain a healthy diet, avoiding high-fat and fried foods to manage triglyceride levels. - Stay hydrated and avoid NSAIDs to protect kidney function. - Follow up with endocrinology and gynecology as scheduled. - Return for blood work in three months to monitor triglyceride levels. Orders: Orders Basic Metabolic Panel Today E87.6 - Hypokalemia Lipid Panel Today E11.65 - Type 2 diabetes mellitus with hyperglycemia, E78.00 - Pure hypercholesterolemia, unspecified Complete Blood Count Auto Diff Today E11.65 - Type 2 diabetes mellitus with hyperglycemia IRON PROFILE Today E11.65 - Type 2 diabetes mellitus with hyperglycemia Influenza [id number] Immunization Today Z23 - Encounter for immunization Comprehensive Met. Panel Today E11.65 - Type 2 diabetes mellitus with hyperglycemia Ferritin Today E11.65 - Type 2 diabetes mellitus with hyperglycemia Free T4 (Free Thyroxine) Today E11.65 - Type 2 diabetes mellitus with hyperglycemia Hemoglobin A1c Today E11.65 - Type 2 diabetes mellitus with hyperglycemia Thyroid Stimulating Hormone Today E11.65 - Type 2 diabetes mellitus with hyperglycemia Pneumococcal 20 Immunization Today Z23 - Encounter for immunization Referrals Endocrinology Referral E11.65 - Type 2 diabetes mellitus with hyperglycemia Medications: Changed From fenofibrate 54 mg PO DAILY 90 days 90 tabs 1RF E11.65 - Type 2 diabetes mellitus with hyperglycemia To fenofibrate 160 mg PO DAILY 90 tabs 1RF 90 days E11.65 - Type 2 diabetes mellitus with hyperglycemia
[2025-08-02 13:45] VITALS: BP 132/70
== END 2025-08-02 14:12 | disposition home or self-care (01) ==
LOC: HO.HMCH 13:10
PROVIDERS: PCP Internal Medicine; Visit Provider Internal Medicine
DX: E11.65 Type 2 diabetes mellitus with hyperglycemia (principal); I12.9 Hypertensive chronic kidney disease with stage 1 through stage 4 chronic kidney disease, or unspecified chronic kidney disease; E11.22 Type 2 diabetes mellitus with diabetic chronic kidney disease; N18.30 Chronic kidney disease, stage 3 unspecified; E78.2 Mixed hyperlipidemia; E87.6 Hypokalemia; Z23 Encounter for immunization

== ENCOUNTER → 2025-08-02 13:10 | Outpatient (BNVA) | payer OTHER, SELFPAY | PROVIDERS: PCP Internal Medicine; Visit Provider Internal Medicine | DX: E11.65 Type 2 diabetes mellitus with hyperglycemia (principal); E78.2 Mixed hyperlipidemia; I12.9 Hypertensive chronic kidney disease with stage 1 through stage 4 chronic kidney disease, or unspecified chronic kidney disease; E11.22 Type 2 diabetes mellitus with diabetic chronic kidney disease; N18.30 Chronic kidney disease, stage 3 unspecified; E87.6 Hypokalemia; Z23 Encounter for immunization | CPT/HCPCS: 90471; 90472; 90656; 90677; 96127; 99212 ==

== ENCOUNTER 2025-08-29 10:19 | Outpatient (AMB) | payer OTHER, SELFPAY ==
--- NOTE | 2025-08-29 10:20 | MHC.OFFVIS ---
Vital Signs 08/29/25 10:25 Height 4 ft 11 in Weight 112 lb 6.972 oz BMI 22.7 BP 158/86 H Blood Pressure Location Rt brachial Position Sitting Pulse 89 Pulse Source Pulse Oximeter Pulse Oximetry (%) 96 Oxygen Delivery Method Room Air Intake Visit Reasons: Type 2 diabetes mellitus with hyperglycemia Intake Note: NEW Patient presents today to establish treatment for Type 2 Diabetes Mellitus: Last Diabetic eye exam was on: 01/15/2025, [facility] Last Podiatry exam was on: Patient does not see a Hyster Machine Operator Most recent HbA1c: 10.7%, 07/25/2025 Random Glucose: 397 mg/dL, 10:29 AM Research And Development Tester Required: Yes Research And Development Tester Language: Mill Platform Supervisor Services: Research And Development Tester Offered & Declined Accompanied by: Self / Same As Patient Allergies crab Allergy (Severe, Verified 08/29/25 10:22) SWELLING amoxicillin (From Augmentin) Allergy (Mild, Verified 08/29/25 10:22) Abdominal Pain clavulanic acid (From Augmentin) Allergy (Mild, Verified 08/29/25 10:22) Abdominal Pain metformin Adverse Reaction (Intermediate, Verified 08/29/25 10:22) diarrhea Medication List - Last Reconciled 08/29/25 by Steph Reyes MD atorvastatin 80 mg PO BEDTIME 90 days blood pressure monitor As directed blood sugar diagnostic (OneTouch Ultra Test strips) Use 1 lancet four times a day blood-glucose meter (OffertiTouch UltraMini kit) As directed diltiazem HCl ER 360 mg PO DAILY 30 days dolutegravir-rilpivirine 50-25 mg (Juluca) 1 tab PO DAILY 30 days empagliflozin (Jardiance) 25 mg PO DAILY fenofibrate 160 mg PO DAILY 90 days ferrous sulfate 325 mg PO DAILY hydralazine 50 mg PO TID insulin degludec (Tresiba FlexTouch U-100 insulin) 32 units subcut DAILY lancets (OneTouch UltraSoft Lancets) Use 1 lancet four times a day pen needle, diabetic twice a day pen needle, diabetic (BD Mansi 2nd Gen Pen Needle) Use 1 pen needle once a day HPI Comments Details: The patient is a 70-year-old female presenting for diabetic consultation Medical history: htn, hld, HIV infection, anemia, cholelithiasis. Diagnosis diabetes 1990s Current medications Tresiba 32 units-compliant Jardiance 25mg daily Past nxfcupstmbv-kwmqjtlme-bdspcrua A1C 10/15-10.7 Checks blood glucose once daily fasting, notes generally 150s. She has a CGM. She says it is not functioning properly. She does not have her reader today. Lowest blood glucose 70s. Denies history of hypoglycemia. She is not carrying juice, glucose tabs etc Follows with nephrology, Dr Ovalles-CKD. LDL due. Last labs with elevated TG could not calculate Eye exam is up to date NTMNG She has a long history of NTMNG. She had a prior L hemithyroidectomy many years ago, and she reports the pathology of this was benign. She is unsure of the reason for her L hemithyroidectomy. She reports her Sister also has a history of a NTMNG and underwent a thyroidectomy which was also benign. Last thyroid us 2022. She is due ROS CONSTITUTIONAL: Denies weight loss, fever and chills. HEENT: Denies changes in vision and hearing. RESPIRATORY: Denies SOB and cough. CV: Denies palpitations and CP GI: Denies abdominal pain, nausea, vomiting and diarrhea. : Denies dysuria and urinary frequency. MSK: Denies new myalgia and joint pain. SKIN: Denies rash and pruritus. NEUROLOGICAL: Denies headache PSYCHIATRIC: Denies recent changes in mood. PHYSICAL EXAM: GENERAL: Alert and oriented x 3. NAD EYES: EOMI. Anicteric. HENT: Moist mucous membranes. No scleral icterus. No cervical lymphadenopathy. LUNGS: Clear to auscultation bilaterally. CARDIOVASCULAR: Regular rate and rhythm. No murmur. No JVD. ABDOMEN: Soft, non-tender +bs EXTREMITIES: No edema. Non-tender. SKIN: No rashes or lesions. Warm. NEUROLOGIC: No focal neurological deficits. CN II-XII grossly intact PSYCHIATRIC: Cooperative. Appropriate mood and affect [facility] Medical History HPV in female Sinusitis Hepatitis Normocytic anemia 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 infection) Pure hypercholesterolemia Essential hypertension Sessile colonic polyp 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 infection) skilled nursing (current) use of insulin Hypertension Non-toxic multinodular goiter Diabetic retinopathy associated with type 2 diabetes mellitus CKD stage 3 due to type 2 diabetes mellitus Diabetic nephropathy associated with type 2 diabetes mellitus Dyslipidemia Diabetes type 2, controlled Hypovitaminosis D Surgical History Hx laparoscopic cholecystectomy (05/11/25) H/O colonoscopy (08/13/20) Hx of bilateral cataract extraction History of hysterectomy with unilateral oophorectomy Hx of section Hx of thyroidectomy Family History Father Liver disease Mother Hypertension CVD (cardiovascular disease) Renal disease Hyperlipidemia ESRD on hemodialysis Paternal Aunt Glaucoma Social History Household Members: Other Household Members Other:: grandson Housing: House Alcohol intake: never Comment: counts correct Patient Tobacco Use Status: Never used Tobacco e-Cigarette/Vaping Use: Never Used Second Hand Smoke Exposure: No Advance Directives Date on File: 07/01/21 service: No Current occupational status: unemployed Cognitive needs: No Hearing needs: No Vision needs: No Physical Exam Vital Signs: Last Vital Signs Pulse 89 08/29/25 10:25 BP 158/86 H 08/29/25 10:25 Pulse Ox 96 08/29/25 10:25 Oxygen Delivery Method Room Air 08/29/25 10:25 BMI result Body Mass Index 22.7 Assessment & Plan Assessment & Plan (1) Diabetes mellitus, with long-term current use of insulin: Code(s): E11.9 - Type 2 diabetes mellitus without complications; Z79.4 - superintendent terminal (current) use of insulin Category: Medical Qualifiers: Diabetes mellitus type: type 2 Diabetes mellitus complication status: with hyperglycemia Qualified Code(s): E11.65 - Type 2 diabetes mellitus with hyperglycemia; Z79.4 - skilled nursing (current) use of insulin (2) Non-toxic multinodular goiter: Code(s): E04.2 - Nontoxic multinodular goiter Category: Medical Plan Diabetes is currently uncontrolled. Insulin use Do not want to increase insulin until she is able to monitor glucose with a CGM. She will be referred to CDE Start pioglitazone 30mg daily Check direct LDL. She reports statin compliance Discussed treatment of hypoglycemia by rules of 15s Repeat thyroid us Orders: Orders Islet Cell Antibody Scrn/Titer Today Steph Reyes MD E11.65 - Type 2 diabetes mellitus with hyperglycemia, Z79.4 - superintendent terminal (current) use of insulin LDL Cholesterol Direct Today Steph Reyes MD E78.5 - Hyperlipidemia, unspecified Pathologist Review - CBC Today Steph Reyes MD E11.65 - Type 2 diabetes mellitus with hyperglycemia Complete Blood Count Auto Diff Today Steph Reyes MD E11.65 - Type 2 diabetes mellitus with hyperglycemia TSH reflex Free T4 Today Steph Reyes MD E04.2 - Nontoxic multinodular goiter US thyroid Today Steph Reyes MD E04.2 - Nontoxic multinodular goiter Glutamic acid decarboxylase Ab Today Steph Reyes MD E11. - Type 2 diabetes mellitus with hyperglycemia, Z79.4 - superintendent terminal (current) use of insulin Referrals Diabetes Education Referral Steph Reyes MD E11. - Type 2 diabetes mellitus with hyperglycemia, Z79.4 - superintendent terminal (current) use of insulin Medications: New dextrose (Dex4 Glucose) 33 grams PO .every 15 minutes PRN 198 grams 3RF BG< 70, hypoglycemia Steph Reyes MD pioglitazone 30 mg PO DAILY 90 tabs 3RF Steph Reyes MD Changed From insulin degludec (Tresiba FlexTouch U-100 insulin) 33 units (0.33 mL) subcut DAILY 90 days 29.7 mL 6RF To insulin degludec (Tresiba FlexTouch U-100 insulin) 32 units subcut DAILY Mishel Rao MD Coding Level of Care Code Est Pt Level 4 (14623) Complex EM visit Add On G2211 Diagnoses Type 2 diabetes mellitus with hyperglycemia, with long-term current use of insulin E11.65; Z79.4 Diabetes mellitus type: type 2 Diabetes mellitus complication status: with hyperglycemia Non-toxic multinodular goiter E04.2
[2025-08-29 10:25] VITALS: BP 158/86; PULSE 89; O2SAT 96; BMI 22.7
[2025-08-29 10:34] LABS: Glucose, Whole Blood 397 mg/dL (60-115)
--- OUTSIDE RECORDS SUMMARY | 2025-08-29 19:48 | XMS_ITS | Patient Health Record ---
Author Organization [facility] Address [address] [place] [address] Care Team Providers Care Service Secretary Name Role Phone Renny Whitt [phone] Reason For Referral No Information Plan Of Treatment No Information
--- OUTSIDE RECORDS SUMMARY | 2025-08-29 19:48 | XMS_ITS | Encounter Summary ---
Author Organization [facility] Address [address] [facility] [address] [place] [address] Phone Care Team Providers Care Armorer Technician Name Role Phone Mishel Cummings MD Primary Care Provider [phone] Reason for Visit * Reason Comments Med Refill Encounter Details Date Type Department Care Team (Late st Contact Info) Description 11/27/2021 Refill [facility] [address] [place] [phone] Jignesh Easton MD [address] [place] [address] Social History Tobacco Use Types Packs/Day Years [...] on filedocumented in this encounter Care Teams Armorer Technician Relationship Specialty Start Date End Date Mishel Cummings MD [address] [place], [place] PCP - General 10/21/20 documented as of this encounter
--- OUTSIDE RECORDS SUMMARY | 2025-08-29 19:48 | XMS_ITS | Encounter Summary ---
Author Organization [employer] Address [address] 7[address] [place] [address] Care Team Providers Care Food And Beverage Attendant Name Role Phone Unavailable Primary Care Provider Unavailabl e Encounter Details Date Type Department Care Team (Latest Contact Info) Description 06/06/2019 Abstract [facility] CONVERSIONS Dental, Provider, DDS Social History Tobacco [...] Description 09/17/2025 10:15 AM EST Office Visit [facility] ADULT DENTAL [address] [place] [address] Andreas Guerra documented as of this encounter Visit Diagnoses Not on filedocumented in this encounter
--- OUTSIDE RECORDS SUMMARY | 2025-08-29 19:48 | XMS_ITS | Clinical Summary ---
Author Organization [employer] Address [address] [facility] 7t [place] [address] Care Team Providers Care Patents Examiner Name Role Phone Unavailable Primary Care Provider Unavailabl e Allergies Active Allergy Reactions Criticality Noted Date Comments Metformin Other 04/17/2021 Shellfish Allergy 05/06/2023 Medications folic acid-vit B6-vit B12 2.5-25-1 MG tablet tablet Active elvitegravir-co bicistat-emtric itabine-tenofov ir alafenamide (Genvoya) [phone] MG tablet Active hydroCHLOROthia zide (HYDRODiuril) 12.5 [...] Encounters Date Type Department Care Team Description 07/10/2025 Orders Only GENERIC EXTERNAL DATA DEPARTMENT Provider, Generic External Data from Last 3 Months Social History Tobacco [...] Description 09/17/2025 10:15 AM EST Office Visit [facility] [address] [place] [address] Andreas Guerra Health Maintenance Due Date Last [...] of 2) 2007 COVID-19 Vaccine ( season) 2025 06/18/2022, 01/04/2021, 12/07/2020 Influenza Vaccine [...] Procedure Name Priority Date/Time Associated Diagnosis Comments LYMPHOCYTE SUBSET PANEL 3, T CELLS Routine 07/10/2025 8:03 AM EDT HIV 1 RNA, QUANTITATIVE REAL TIME PCR Routine 07/10/2025 8:03 AM EDT Full PROPHYLAXIS - ADULT Routine 03/16/2025 10:00 AM EDT PERIODIC ORAL EVALUATION - ESTABLISHED PATIENT Routine 03/16/2025 10:00 AM EDT BITEWINGS - 4 RADIOGRAPHIC IMAGES Routine 09/14/2024 9:00 AM EST Dental caries Gingivitis INTRAORAL - COMPLETE SERIES OF RADIOGRAPHIC IMAGES Routine 01/12/2023 10:00 AM EDT from Last 3 Months or Most Recently Relevant to Health Maintenance Results * HIV-1 RNA, Quantitative, Real-Time PCR (07/10/2025 8:03 AM EDT) Pathologist [facility] HIV RNA PCR Qn Copies NOT DETECTED NOT DETECTED copies/mL [facility] HIV RNA PCR Qn Log Copies NOT DETECTED NOT DETECTED [facility] Comment:Result Units: Log co pies/mLThis test was performed using Real-Time Polymerase ChainReaction.Reportable Range: 20 copies/mL to 10,000,000 copies/mL(1.30 log copies/mL to 7.00 log copies/mL).THIS TEST WAS PERFORMED AT:[facility] [address] [address]SRAHTGINNY PAUL MD 07/10/2025 8:03 AM EDT 07/10/2025 8:03 AM EDT us Generic External Data Provider LAB BLOOD ORDERAB LES Final Result [facility] [address] [place] [phone] * (ABNORMAL) Lymphocyte Subset Panel 3 (07/10/2025 8:03 AM EDT) Pathologist [facility] Absolute Lymphocytes 2289 850 - 3900 cells/uL [facility] Comment:THIS TEST WAS PERFOR MED AT:[employer]/PRIYANKA [id number] [place] [address]NAMTEDPMILAGRO GRESHAM MD,PHD Absolute CD3 1750 840 - 3060 cells/uL [facility] % CD3 76 57 - 85 % [facility] Absolute CD4 Count 487(A) 490 - 1740 cells/uL [facility] % CD4 21(A) 30 - 61 % [facility] Absolute CD8 Count 1262(A) 180 - 1170 cells/uL [facility] % CD8 55(A) 12 - 42 % [facility] CD4/CD8 Ratio 0.39(A) 0.86 - 5.00 [facility] Lymphocyte Subset Panel Comment TNP [facility] 07/10/2025 8:03 AM EDT 07/10/2025 8:03 AM EDT us Generic External Data Provider LAB BLOOD ORDERAB LES Final Result [facility] [address] [place] [address] [phone] from Last 3 Months Insurance DENTAL [facility]
--- OUTSIDE RECORDS SUMMARY | 2025-08-29 19:48 | XMS_ITS | Clinical Summary ---
Author Organization [facility] Address [address] [place] [address] Phone Care Team Providers Care Software Developer Intern Name Role Phone Mishel Cummings MD Primary Care Provider Allergies Active Allergy Reactions Criticality Noted Date [...] patient's age to complete this topic Insurance [facility] Care Teams Software Developer Intern Relationship Specialty Start Date End Date Mishel Cummings MD [address] [place], [place] PCP - General 10/21/20
== END 2025-08-29 10:54 | disposition home or self-care (01) ==
LOC: HO.ENCR 10:20
PROVIDERS: PCP Internal Medicine; Visit Provider Internal Medicine
DX: E11.65 Type 2 diabetes mellitus with hyperglycemia (principal); Z79.4 Long term (current) use of insulin; E04.2 Nontoxic multinodular goiter

== ENCOUNTER → 2025-08-29 10:19 | Outpatient (BNVA) | payer OTHER, SELFPAY | PROVIDERS: PCP Internal Medicine; Visit Provider Internal Medicine | DX: E11.65 Type 2 diabetes mellitus with hyperglycemia (principal); Z79.4 Long term (current) use of insulin; E04.2 Nontoxic multinodular goiter | CPT/HCPCS: 82947; 99212 ==

== ENCOUNTER 2025-08-30 09:55 | Outpatient (REF) | payer OTHER, SELFPAY ==
[2025-08-30 10:08] LABS: MANUAL DIFF FLAG NO
[2025-08-30 10:31] LABS: Hematocrit 37.0 % (37.0-47.0); Hemoglobin 11.5 g/dl (12.0-16.0); Imm Gran Abs Auto 0.02 X10*3/uL (0.00-0.03); Imm Gran Pct Auto 0.3 % (0.0-0.4); Lymphocytes Absolute Auto 2.2 X10*3/uL (1.2-4.9); Mean Corpuscular HGB Conc 31.1 g/dl (31.0-35.0); Mean Corpuscular Hemoglobin 25.1 pg (27.0-33.0); Mean Corpuscular Volume 80.6 fL (80.0-98.0); NRBC Abs Auto 0.000 X10*3/uL (0.0-0.012); NRBC Pct Auto 0.0 /100WBC (0.0-0.2); Platelet Count 323 X10*3/uL (160-400); Red Blood Count 4.59 X10*6/uL (4.20-5.50); White Blood Count 6.7 X10*3/uL (4.8-10.8)
--- OUTSIDE RECORDS SUMMARY | 2025-08-30 14:27 | XMS_ITS | Clinical Summary ---
Author Organization [employer] Address [address] [facility] 7t [place] [address] Care Team Providers Care Nursing Service Administrator Name Role Phone Unavailable Primary Care Provider Unavailabl e Allergies Active Allergy Reactions Criticality Noted Date Comments Metformin Other 04/17/2021 Shellfish Allergy 05/06/2023 Medications folic acid-vit B6-vit B12 2.5-25-1 MG tablet tablet Active elvitegravir-co bicistat-emtric itabine-tenofov ir alafenamide (Genvoya) [phone] MG tablet Active hydroCHLOROthia zide (HYDRODiuril) 12.5 [...] Description 09/17/2025 10:15 AM EST Office Visit [facility] ADULT D[facility] [address] [place] [address] Andreas Guerra Health Maintenance Due Date Last [...] Real-Time PCR (07/10/2025 8:03 AM EDT) Pathologist [facility] HIV RNA PCR Qn Copies NOT DETECTED NOT DETECTED copies/mL [facility] HIV RNA PCR Qn Log Copies NOT DETECTED NOT DETECTED [facility] Comment:Result Units: Log co pies/mLThis test was performed using Real-Time Polymerase ChainReaction.Reportable Range: 20 copies/mL to 10,000,000 copies/mL(1.30 log copies/mL to 7.00 log copies/mL).THIS TEST WAS PERFORMED AT:[employer] [address] [address]HKBFAGINNY PAUL MD 07/10/2025 8:03 AM EDT 07/10/2025 8:03 AM EDT us Generic External Data Provider LAB BLOOD ORDERAB LES Final Result [facility] [address] [place] [phone] * (ABNORMAL) Lymphocyte Subset Panel 3 (07/10/2025 8:03 AM EDT) Pathologist [facility] Absolute Lymphocytes 2289 850 - 3900 cells/uL [facility] Comment:THIS TEST WAS PERFOR MED AT:[employer]/PRIYANKA [id number] [place] [address]WLINHURMILAGRO GRESHAM MD,PHD Absolute CD3 1750 840 - 3060 cells/uL [facility] % CD3 76 57 - 85 % [facility] Absolute CD4 Count 487(A) 490 - 1740 cells/uL [facility] % CD4 21(A) 30 - 61 % [facility] Absolute CD8 Count 1262(A) 180 - 1170 cells/uL [facility] % CD8 55(A) 12 - 42 % [facility] CD4/CD8 Ratio 0.39(A) 0.86 - 5.00 [facility] Lymphocyte Subset Panel Comment TNP [facility] 07/10/2025 8:03 AM EDT 07/10/2025 8:03 AM EDT us Generic External Data Provider LAB BLOOD ORDERAB LES Final Result [facility] [address] [place] [address] [phone] from Last 3 Months Insurance DENT[facility]
--- OUTSIDE RECORDS SUMMARY | 2025-08-30 14:27 | XMS_ITS | Encounter Summary ---
Author Organization [employer] Address [address] [facility] 7t [place] [address] Care Team Providers Care Looping Machine Operator Name Role Phone Unavailable Primary Care Provider Unavailabl e Encounter Details Date Type Department Care Team (Latest Contact Info) Description 06/06/2019 Abstract [facility] CONVERSIONS Dental, Provider, DDS Social [...] Description 09/17/2025 10:15 AM EST Office Visit [facility] ADULT DENTAL [address] [place] [address] Andreas Guerra documented as of this encounter Visit Diagnoses Not on filedocumented in this encounter
--- OUTSIDE RECORDS SUMMARY | 2025-08-30 14:27 | XMS_ITS | Encounter Summary ---
Author Organization [facility] Address [address] [address] [facility] [address] [place] [address] Phone Care Team Providers Care Executive Personal Assistant Name Role Phone Mishel Cummings MD Primary Care Provider [phone] Reason for Visit * Reason Comments Med Refill Encounter Details Date Type Department Care Team (Late st Contact Info) Description 11/27/2021 Refill [facility] [address] [place] [phone] Jignesh Easton MD [address] [place] [address] Social History Tobacco Use Types Packs/Day Years [...] on filedocumented in this encounter Care Teams Executive Personal Assistant Relationship Specialty Start Date End Date Mishel Cummings MD [address] [place], [place] PCP - General 10/21/20 documented as of this encounter
--- OUTSIDE RECORDS SUMMARY | 2025-08-30 14:27 | XMS_ITS | Patient Health Record ---
Author Organization [facility] Address [address] [place] [address] Care Team Providers Care Patient Access Registrar Name Role Phone Renny Whitt [phone] Reason For Referral No Information Plan Of Treatment No Information
--- OUTSIDE RECORDS SUMMARY | 2025-08-30 14:27 | XMS_ITS | Clinical Summary ---
Author Organization [facility] Address [address] [place] [address] Phone Care Team Providers Care Assault Boat Coxswain Name Role Phone Mishel Cummings MD Primary Care Provider [phone] Allergies Active Allergy Reactions Criticality Noted Date [...] patient's age to complete this topic Insurance [facility] Care Teams Assault Boat Coxswain Relationship Specialty Start Date End Date Mishel Cummings MD [address] [place], [place] PCP - General 10/21/20
== END 2025-08-30 09:56 | disposition home or self-care (01) ==
LOC: HO.LAB 09:55
PROVIDERS: PCP Internal Medicine; Visit Provider Internal Medicine
DX: E11.65 Type 2 diabetes mellitus with hyperglycemia (principal); Z79.4 Long term (current) use of insulin; E78.5 Hyperlipidemia, unspecified; E04.2 Nontoxic multinodular goiter
CPT/HCPCS: 83721; 84443; 85025; 86341

== ENCOUNTER 2025-09-13 09:40 | Outpatient (REF) | payer OTHER, SELFPAY ==
[2025-09-13 09:52] LABS: MANUAL DIFF FLAG NO
[2025-09-13 10:49] LABS: Hematocrit 34.2 % (37.0-47.0); Hemoglobin 10.3 g/dl (12.0-16.0); Imm Gran Abs Auto 0.03 X10*3/uL (0.00-0.03); Imm Gran Pct Auto 0.5 % (0.0-0.4); Lymphocytes Absolute Auto 1.9 X10*3/uL (1.2-4.9); Mean Corpuscular HGB Conc 30.1 g/dl (31.0-35.0); Mean Corpuscular Hemoglobin 24.2 pg (27.0-33.0); Mean Corpuscular Volume 80.5 fL (80.0-98.0); NRBC Abs Auto 0.000 X10*3/uL (0.0-0.012); NRBC Pct Auto 0.0 /100WBC (0.0-0.2); Platelet Count 290 X10*3/uL (160-400); Red Blood Count 4.25 X10*6/uL (4.20-5.50); White Blood Count 6.2 X10*3/uL (4.8-10.8)
--- OUTSIDE RECORDS SUMMARY | 2025-09-13 11:09 | XMS_ITS | Clinical Summary ---
Author Organization [facility] Address [address] [place] [address] Phone Care Team Providers Care Checkroom Attendant Name Role Phone Mishel Cummings MD Primary Care Provider [phone] Allergies Active Allergy Reactions Criticality Noted Date [...] patient's age to complete this topic Insurance [facility] Care Teams Checkroom Attendant Relationship Specialty Start Date End Date Mishel Cummings MD [address] [place], [place] PCP - General 10/21/20
--- OUTSIDE RECORDS SUMMARY | 2025-09-13 11:09 | XMS_ITS | Clinical Summary ---
Author Organization [employer] Address [address] [facility] 7t [place] [address] Care Team Providers Care Panman Name Role Phone Unavailable Primary Care Provider Unavailabl e Allergies Active Allergy Reactions Criticality Noted Date Comments Metformin Other 04/17/2021 Shellfish Allergy 05/06/2023 Medications folic acid-vit B6-vit B12 2.5-25-1 MG tablet tablet Active elvitegravir-co bicistat-emtric itabine-tenofov ir alafenamide (Genvoya) [phone] MG tablet Active hydroCHLOROthia zide (HYDRODiuril) 12.5 [...] Description 09/17/2025 10:15 AM EST Office Visit [facility] ADULT DENTAL [address] [place] [address] Andreas Guerra Health Maintenance Due Date Last [...] PCR (07/10/2025 8:03 AM EDT) Pathologist [facility] HIV RNA PCR Qn Copies NOT DETECTED NOT DETECTED copies/mL [facility] HIV RNA PCR Qn Log Copies NOT DETECTED NOT DETECTED [facility] Comment:Result Units: Log co pies/mLThis test was performed using Real-Time Polymerase ChainReaction.Reportable Range: 20 copies/mL to 10,000,000 copies/mL(1.30 log copies/mL to 7.00 log copies/mL).THIS TEST WAS PERFORMED AT:[facility] [address] [address]CUVITGINNY PAUL MD 07/10/2025 8:03 AM EDT 07/10/2025 8:03 AM EDT us Generic External Data Provider LAB BLOOD ORDERAB LES Final Result [facility] [address] [place] [phone] * (ABNORMAL) Lymphocyte Subset Panel 3 (07/10/2025 8:03 AM EDT) Pathologist [facility] Absolute Lymphocytes 2289 850 - 3900 cells/uL [facility] Comment:THIS TEST WAS PERFOR MED AT:[facility]/PRIYANKA [id number] [place] [address]MUPNGSTMILAGRO GRESHAM MD,PHD Absolute CD3 1750 840 - 3060 cells/uL [facility] % CD3 76 57 - 85 % [facility] Absolute CD4 Count 487(A) 490 - 1740 cells/uL [facility] % CD4 21(A) 30 - 61 % [facility] Absolute CD8 Count 1262(A) 180 - 1170 cells/uL [facility] % CD8 55(A) 12 - 42 % [facility] CD4/CD8 Ratio 0.39(A) 0.86 - 5.00 [facility] Lymphocyte Subset Panel Comment TNP [facility] 07/10/2025 8:03 AM EDT 07/10/2025 8:03 AM EDT us Generic External Data Provider LAB BLOOD ORDERAB LES Final Result [facility] [address] [place] [address] [phone] from Last 3 Months Insurance DENTAL [facility]
--- OUTSIDE RECORDS SUMMARY | 2025-09-13 11:09 | XMS_ITS | Patient Health Record ---
Author Organization [facility] Address [address] [place] [address] Care Team Providers Care Job Placement Officer Name Role Phone Renny Whitt [phone] Reason For Referral No Information Plan Of Treatment No Information
--- OUTSIDE RECORDS SUMMARY | 2025-09-13 11:09 | XMS_ITS | Encounter Summary ---
Author Organization [facility] Address [address] [facility] [address] [place] [address] Phone Care Team Providers Care Licensing And Registration Director Name Role Phone Mishel Cummings MD Primary Care Provider [phone] Reason for Visit * Reason Comments Med Refill Encounter Details Date Type Department Care Team (Late st Contact Info) Description 11/27/2021 Refill [facility] [address] [place] [phone] Jignesh Easton MD [address] [place] [address] Social History Tobacco Use Types Packs/Day Years [...] on filedocumented in this encounter Care Teams Licensing And Registration Director Relationship Specialty Start Date End Date Mishel Cummings MD [address] [place], [place] PCP - General 10/21/20 documented as of this encounter
--- OUTSIDE RECORDS SUMMARY | 2025-09-13 11:09 | XMS_ITS | Encounter Summary ---
Author Organization [employer] Address [address] [facility] [address] [place] [address] Care Team Providers Care Crna Name Role Phone Unavailable Primary Care Provider Unavailabl e Encounter Details Date Type Department Care Team (Latest Contact Info) Description 06/06/2019 Abstract [facility] CONVERSIONS Dental, Provider, DDS Social History [...] Description 09/17/2025 10:15 AM EST Office Visit [facility] ADULT DENTAL [address] [place] [address] Andreas Guerra documented as of this encounter Visit Diagnoses Not on filedocumented in this encounter
[2025-09-13 11:50] LABS: Alanine Aminotransferase 14 U/L (0-31); Albumin Level 3.4 g/dL (3.5-5.0); Alkaline Phosphatase 53 U/L (39-117); Anion Gap 11 (12-20); Aspartate Amino Transferase 22 U/L (5-31); Blood Urea Nitrogen 31 mg/dL (9-16); Calcium 9.3 mg/dL (8.4-10.2); Carbon Dioxide 27 mmol/L (22-29); Chloride 107 mmol/L (96-108); Cholesterol 254 mg/dL (<200); Estimated Glomerular Filt Rate 20; HDL Cholesterol 59 mg/dL (>40); Iron 91 mcg/dL (30-160); Percent Iron Saturation 33 % (15-50); Potassium 4.1 mmol/L (3.3-5.1); Sodium 141 mmol/L (135-145); Total Iron Binding Capacity 274 mcg/dL (228-428); Total Protein 6.7 g/dL (6.5-8.0); Triglycerides 189 mg/dL (<150); Unsaturated Iron Binding 183 ug/dL
[2025-09-13 12:08] LABS: Thyroid Stimulating Hormone 2.58 uIU/mL (0.32-4.0)
[2025-09-13 12:11] LABS: Ferritin 460 ng/mL (10-250); Free T4 (Free Thyroxine) 1.04 ng/dL (0.71-1.85)
[2025-09-13 13:31] LABS: Protein/Creatinine Ratio, Ur 6.52 (<0.2); Total Protein Urine Random 785 mg/dL (<12)
== END 2025-09-13 09:41 | disposition home or self-care (01) ==
LOC: HO.LAB 09:40
PROVIDERS: Internal Medicine; PCP Internal Medicine; Visit Provider Internal Medicine Nephrology
DX: I12.9 Hypertensive chronic kidney disease with stage 1 through stage 4 chronic kidney disease, or unspecified chronic kidney disease (principal); N18.30 Chronic kidney disease, stage 3 unspecified; E11.22 Type 2 diabetes mellitus with diabetic chronic kidney disease; E11.65 Type 2 diabetes mellitus with hyperglycemia; R80.8 Other proteinuria; E78.00 Pure hypercholesterolemia, unspecified
CPT/HCPCS: 36415; 80053; 80061; 82570; 82728; 83036; 83540; 84156; 84439; 84443; 85025

== ENCOUNTER 2025-09-19 10:36 | Outpatient (AMB) | payer OTHER, SELFPAY ==
--- NOTE | 2025-09-19 10:55 | HO.NEPHOV ---
Vital Signs 09/19/25 10:56 Height 4 ft 11 in Weight 118 lb 4 oz BMI 23.9 BP 140/80 H Blood Pressure Location Lt brachial Position Sitting Pulse 72 Pulse Source Pulse Oximeter Pulse Oximetry (%) 98 Oxygen Delivery Method Room Air Intake Visit Reasons: 2mon f/u w/labs-Conf Technical Services Assistant Required: Yes Technical Services Assistant Language: Customer Service Correspondence Clerk Services: Technical Services Assistant Offered & Declined ([facility] Technical Services Assistant services refused ) Accompanied by: Self / Same As Patient Allergies crab Allergy (Severe, Verified 09/19/25 10:56) SWELLING amoxicillin (From Augmentin) Allergy (Mild, Verified 09/19/25 10:56) Abdominal Pain clavulanic acid (From Augmentin) Allergy (Mild, Verified 09/19/25 10:56) Abdominal Pain metformin Adverse Reaction (Intermediate, Verified 09/19/25 10:56) diarrhea HPI Comments Details: Barbara was seen in the office in follow-up of her chronic kidney disease, proteinuria, renal cyst and hypertension. Her blood sugar is better controlled but still high. She is not on CORNELIA-inhibitor. She avoids taking nonsteroidal anti-inflammatories. Her viral load is undetectable and CD4 are very good. She continues to have nephrotic range proteinuria. She has no edema. 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 Hypertension Non-toxic multinodular goiter Diabetic retinopathy associated with type 2 diabetes mellitus CKD stage 3 due to type 2 diabetes mellitus Diabetic nephropathy associated with type 2 diabetes mellitus Dyslipidemia Diabetes type 2, controlled Hypovitaminosis D Surgical History Hx laparoscopic cholecystectomy (05/11/25) H/O colonoscopy (08/13/20) Hx of bilateral cataract extraction History of hysterectomy with unilateral oophorectomy Hx of section Hx of thyroidectomy Family History Father Liver disease Mother Hypertension CVD (cardiovascular disease) Renal disease Hyperlipidemia ESRD on hemodialysis Paternal Aunt Glaucoma Social History Household Members: Other Household Members Other:: grandson Housing: House Alcohol intake: never Comment: counts correct Patient Tobacco Use Status: Never used Tobacco e-Cigarette/Vaping Use: Never Used Second Hand Smoke Exposure: No Advance Directives Date on File: 07/01/21 service: No Current occupational status: unemployed Cognitive needs: No Hearing needs: No Vision needs: No Review of Systems Const All systems reviewed & are unremarkable except as noted in HPI and below Physical Exam Vital Signs: Last Vital Signs Pulse 72 09/19/25 10:56 BP 170/80 H 09/19/25 10:56 Pulse Ox 98 09/19/25 10:56 Oxygen Delivery Method Room Air 09/19/25 10:56 BMI result Body Mass Index 23.9 Const General: comfortable and no acute distress Orientation/consciousness: patient oriented x3 HEENT Head: Yes normocephalic Mouth: Normal oral and palatal mucosa present Eyes EOM: EOMs intact bilaterally Neck Neck: Yes supple Resp Auscultation: clear to auscultation bilaterally Cardio Jugular venous distension: no JVD Rate: regular rate GI Palpation (GI): Soft to palpation Auscultation: normal bowel sounds General: Yes no CVA tenderness Back/Spine/Pelvis Back: no CVA tenderness Skin General skin exam: no rashes or lesions noted Neuro General: patient oriented x3 and moves all extremities Extrem General: Yes no pedal edema Results Reviewed Nephrology Results: Hgb, (12.0-16.0) 10.3 g/dl L 09/13/25 WBC, (4.8-10.8) 6.2 X10*3/uL 09/13/25 Plt Count, (160-400) 290 X10*3/uL 09/13/25 Sodium, (135-145) 141 mmol/L 09/13/25 Potassium, (3.3-5.1) 4.1 mmol/L Δ 09/13/25 Chloride, (96-108) 107 mmol/L 09/13/25 Carbon Dioxide, (22-29) 27 mmol/L 09/13/25 BUN, (9-16) 31 mg/dL H 09/13/25 Creatinine, (0.5-1.4) 2.36 mg/dL H 09/13/25 Calcium, (8.4-10.2) 9.3 mg/dL 09/13/25 Urine Creatinine 120.46 mg/dL 09/13/25 Protein/Creatinin Ratio, (<0.2) 6.52 H 09/13/25 Assessment & Plan Assessment & Plan (1) Hypertension: Code(s): I10 - Essential (primary) hypertension Category: Medical Qualifiers: Hypertension type: essential hypertension Qualified Code(s): I10 - Essential (primary) hypertension (2) Diabetic nephropathy associated with type 2 diabetes mellitus: Code(s): E11.21 - Type 2 diabetes mellitus with diabetic nephropathy Category: Medical (3) CKD stage 3b, GFR 30-44 ml/min: Code(s): N18.32 - Chronic kidney disease, stage 3b Category: Medical Plan Barbara has a significant proteinuria. Her renal functions are stable. She needs to cut back salt in the diet. She had an incidental finding of left renal cyst which will need a follow-up renal ultrasound. She has had HIV which is well controlled. She avoids nonsteroidal anti-inflammatories. I discussed renal biopsy again which she wants to wait. C/W Jardaince to 25 mg today and plan to start ARB with time, if possible. If BP goes up, we should increase her hydralazine. I did not make any other medication changes today. All questions answered. Follow-up given Orders: Orders Blood Urea Nitrogen 3 Months E11.21 - Type 2 diabetes mellitus with diabetic nephropathy, I10 - Essential (primary) hypertension, N18.32 - Chronic kidney disease, stage 3b Parathyroid Hormone Intact 3 Months E11.21 - Type 2 diabetes mellitus with diabetic nephropathy, I10 - Essential (primary) hypertension, N18.32 - Chronic kidney disease, stage 3b Complete Blood Count Auto Diff 3 Months E11.21 - Type 2 diabetes mellitus with diabetic nephropathy, I10 - Essential (primary) hypertension, N18.32 - Chronic kidney disease, stage 3b Creatinine 3 Months E11.21 - Type 2 diabetes mellitus with diabetic nephropathy, I10 - Essential (primary) hypertension, N18.32 - Chronic kidney disease, stage 3b Electrolytes 3 Months E11.21 - Type 2 diabetes mellitus with diabetic nephropathy, I10 - Essential (primary) hypertension, N18.32 - Chronic kidney disease, stage 3b Calcium 3 Months E11.21 - Type 2 diabetes mellitus with diabetic nephropathy, I10 - Essential (primary) hypertension, N18.32 - Chronic kidney disease, stage 3b Phosphorus 3 Months E11.21 - Type 2 diabetes mellitus with diabetic nephropathy, I10 - Essential (primary) hypertension, N18.32 - Chronic kidney disease, stage 3b Vitamin D 25-OH Total 3 Months E11.21 - Type 2 diabetes mellitus with diabetic nephropathy, I10 - Essential (primary) hypertension, N18.32 - Chronic kidney disease, stage 3b Coding Level of Care Code Est Pt Level 4 (72722) Diagnoses Essential hypertension I10 Hypertension type: essential hypertension Diabetic nephropathy associated with type 2 diabetes mellitus E11. CKD stage 3b, GFR 30-44 ml/min N18.32
[2025-09-19 10:56] VITALS: BP 140/80; PULSE 72; O2SAT 98; BMI 23.9
== END 2025-09-19 11:39 | disposition home or self-care (01) ==
LOC: HO.HKA 10:37
PROVIDERS: PCP Internal Medicine; Visit Provider Internal Medicine Nephrology
DX: I10 Essential (primary) hypertension (principal); E11.21 Type 2 diabetes mellitus with diabetic nephropathy; N18.32 Chronic kidney disease, stage 3b
CPT/HCPCS: 99214

== ENCOUNTER → 2025-09-19 10:36 | Outpatient (BNVA) | payer OTHER, SELFPAY | PROVIDERS: PCP Internal Medicine; Visit Provider Internal Medicine Nephrology | DX: I12.9 Hypertensive chronic kidney disease with stage 1 through stage 4 chronic kidney disease, or unspecified chronic kidney disease (principal); E11.22 Type 2 diabetes mellitus with diabetic chronic kidney disease; N18.32 Chronic kidney disease, stage 3b; R80.9 Proteinuria, unspecified; B20 Human immunodeficiency virus [HIV] disease; N28.1 Cyst of kidney, acquired; Z79.899 Other long term (current) drug therapy; Z79.84 Long term (current) use of oral hypoglycemic drugs | CPT/HCPCS: 99212 ==

== ENCOUNTER 2025-09-25 10:32 | Outpatient (AMB) | payer OTHER, SELFPAY ==
--- NOTE | 2025-09-25 11:19 | MHC.AMDMED ---
Intake Intake Visit Reasons: 60 mins Branch Library Clerk Required: Yes Branch Library Clerk Language: Psychologist Chief Name: [id number] Accompanied by: Self / Same As Patient Allergies crab Allergy (Severe, Verified 09/19/25 10:56) SWELLING amoxicillin (From Augmentin) Allergy (Mild, Verified 09/19/25 10:56) Abdominal Pain clavulanic acid (From Augmentin) Allergy (Mild, Verified 09/19/25 10:56) Abdominal Pain metformin Adverse Reaction (Intermediate, Verified 09/19/25 10:56) diarrhea HPI Comprehensive Diabetes Asmnt Most Recent Diabetes Results: Hemoglobin A1c 5.7 % 06/04/20 Microalb/Creat Ratio, (<30) 1585.7 ug/mg cr H 07/25/25 Cholesterol, (<200) 254 mg/dL H 09/13/25 HDL Cholesterol, (>40) 59 mg/dL 09/13/25 Triglycerides, (<150) 189 mg/dL H 09/13/25 Creatinine, (0.5-1.4) 2.36 mg/dL H 09/13/25 BUN, (9-16) 31 mg/dL H 09/13/25 Sodium, (135-145) 141 mmol/L 09/13/25 Potassium, (3.3-5.1) 4.1 mmol/L Δ 09/13/25 Chloride, (96-108) 107 mmol/L 09/13/25 Carbon Dioxide, (22-29) 27 mmol/L 09/13/25 Calcium, (8.4-10.2) 9.3 mg/dL 09/13/25 AST, (5-31) 22 U/L 09/13/25 ALT, (0-31) 14 U/L 09/13/25 Total Protein, (6.5-8.0) 6.7 g/dL 09/13/25 Albumin, (3.5-5.0) 3.4 g/dL L 09/13/25 [facility] Medical History HPV in female Sinusitis Hepatitis Normocytic anemia 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 infection) Pure hypercholesterolemia Essential hypertension Sessile colonic polyp 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 infection) 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 (current) 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 insulin Hypertension Non-toxic multinodular goiter Diabetic retinopathy associated with type 2 diabetes mellitus CKD stage 3 due to type 2 diabetes mellitus Diabetic nephropathy associated with type 2 diabetes mellitus Dyslipidemia Diabetes type 2, controlled Hypovitaminosis D Surgical History Hx laparoscopic cholecystectomy (05/11/25) H/O colonoscopy (08/13/20) Hx of bilateral cataract extraction History of hysterectomy with unilateral oophorectomy Hx of section Hx of thyroidectomy Family History Father Liver disease Mother Hypertension CVD (cardiovascular disease) Renal disease Hyperlipidemia ESRD on hemodialysis Paternal Aunt Glaucoma Social History Household Members: Other Household Members Other:: grandson Housing: House Alcohol intake: never Comment: counts correct Patient Tobacco Use Status: Never used Tobacco e-Cigarette/Vaping Use: Never Used Second Hand Smoke Exposure: No Advance Directives Date on File: 07/01/21 service: No Current occupational status: unemployed Cognitive needs: No Hearing needs: No Vision needs: No Assessment & Plan Assessment & Plan (1) Diabetes mellitus, with long-term current use of insulin: Code(s): E11.9 - Type 2 diabetes mellitus without complications; Z79.4 - assisted (current) use of insulin Qualifiers: Diabetes mellitus type: type 2 Diabetes mellitus complication status: with hyperglycemia Qualified Code(s): E11.65 - Type 2 diabetes mellitus with hyperglycemia; Z79.4 - buttermaker continuous churn (current) use of insulin Plan: Patient at visit to set up an ahoyDoc with cellphone lucrecia Patient reports that she had sensor, but could not recall which one. Her try how to able to get it to work. She did not bring current sensor or reader to today's visit Instructed Pt on what CGM can and can't do CGM Can: Give Pt minute by minute reading of glucose levels Displays glucose trend arrows that represents the direction glucose levels are fluctuating Give insight on decisions about how to dose insulin CGM cannot: Improve glucose control on its own Completely eliminate the need for all finger sticks Make dosing decision for you CGM is the reading of glucose in the interstitial fluid not actual blood glucose, finger sticks are still necessary when Pt's symptom?s do not match sensor reading and if sensors prompts Pt to do a fingerstick Instructed patient sensors water proof you can shower, or swim do not submerge sensor in water for over 30 minutes Is sensor falls off cannot put back in you need to replace sensor, customer service number given to patient for sensor replacement Sensor placed on the back of left arm Patient left visit with sensor in warmup Reviewed how to interpret trend arrows Discussed lag time between finger stick and sensor data.? Instructed patient the importance of having blood glucometer for backup testing if needed Reviewed delay of CGM from fingersticks Reminded Pt that if symptoms do not match sensor still needs to check fingersticks. Portions of this note were created using voice recognition software, please excuse any words or phrases that may have been misinterpreted. Patient Instructions: Instrucciones para el paciente: CGM proporciona informaci?n sobre el control de la glucosa en renee a lo elkin del d?a, incluidas la hiperglucemia y la hipoglucemia. Contin?e controlando la glucosa en renee seg?n las instrucciones. Siga las pautas de nutrici?n proporcionadas. Informe cualquier molestia de inmediato al proveedor de atenci?n m?dica. Mantente toño hidratado. Puede ba?arse, ducharse, nadar y hacer ejercicio mientras usa el sensor de glucosa. No sumerja el sensor de glucosa en agua eleanor m?s de 30 minutos. Retire el sensor para cynthia resonancia magn?tomasa o cynthia tomograf?a computarizada. Evite la m?quina de kamala X en los aeropuertos: retire el sensor o solicite la varita Coding Level of Care Code Est Pt Level 1 (35114) Diagnoses Type 2 diabetes mellitus with hyperglycemia, with long-term current use of insulin E11.65; Z79.4 Diabetes mellitus type: type 2 Diabetes mellitus complication status: with hyperglycemia
--- OUTSIDE RECORDS SUMMARY | 2025-09-25 13:20 | XMS_ITS | Encounter Summary ---
Author Organization [employer] Address [address] [facility] [address] [place] [address] Care Team Providers Care Bottom Stop Attacher Name Role Phone Unavailable Primary Care Provider Unavailabl e Encounter Details Date Type Department Care Team (Latest Contact Info) Description 06/06/2019 Abstract [facility] CONVERSIONS Dental, Provider, DDS Social [...] Care Team (Late st Contact Info) Description 10/16/2025 10:30 AM EST Office Visit [facility] ADULT DENTAL [address] [place] [address] Miguel Gaspar DDS [address] [place] [address] 03/19/2026 10:15 AM EDT Office Visit [facility] ADULT DENTAL [address] [place] [address] Andreas Guerra documented as of this encounter Visit Diagnoses Not on filedocumented in this encounter
--- OUTSIDE RECORDS SUMMARY | 2025-09-25 13:20 | XMS_ITS | Encounter Summary ---
Author Organization [employer] Address [address] [facility] [address]t [place] [address] Care Team Providers Care Supervisor Housecleaner Name Role Phone Unavailable Primary Care Provider Unavailabl e Reason for Visit * Reason Onset Date Comments 09/25 appt 09/18/2025 Encounter Details Date Type Department Care Team (Late st Contact Info) Description 09/18/2025 Telephone [facility] ADULT DENTAL [address] [place], [place] [phone] Miguel Gaspar DDS [address] [facility] [place], [place] [phone] 09/25 appt Social History Tobacco Use Types Packs/Day Years [...] encounter Miscellaneous Notes * Telephone Encounter - Andra Carmichael - 09/18/2025 1:15 PM EST Patient is calling in to 09/25 appointment due to another appointment same day and time that sheis unable to reschedule due to nature of appointment. She is looking for the same time 10:30am documented in this encounter Plan of Treatment Upcoming Encounters Date Type Department Care Team (Late st Contact Info) Description 10/16/2025 10:30 AM EST Office Visit [facility] ADULT DENTAL [address] [place] [address] Miguel Gaspar, VANESSA [address] [place] [address] 03/19/2026 10:15 AM EDT Office Visit [facility] ADULT DENTAL [address] [place] [address] Andreas Guerra documented as of this encounter Visit Diagnoses Not on filedocumented in this encounter
--- OUTSIDE RECORDS SUMMARY | 2025-09-25 13:20 | XMS_ITS | Patient Health Record ---
Author Organization [facility] Address [address] [place] [address] Care Team Providers Care Invas Tech Name Role Phone Renny Whitt [phone] Reason For Referral No Information Plan Of Treatment No Information
--- OUTSIDE RECORDS SUMMARY | 2025-09-25 13:20 | XMS_ITS | Clinical Summary ---
Author Organization [employer] Address [address] [facility] 7[address] [place] [address] Care Team Providers Care Community Theater Actor Name Role Phone Unavailable Primary Care Provider Unavailabl e Allergies Active Allergy Reactions Criticality Noted Date Comments Metformin Other 04/17/2021 Shellfish Allergy 05/06/2023 Medications folic acid-vit B6-vit B12 2.5-25-1 MG tablet tablet Active elvitegravir-co bicistat-emtric itabine-tenofov ir alafenamide (Genvoya) 164-269-194-10 MG tablet Active hydroCHLOROthia zide (HYDRODiuril) 12.5 [...] Encounters Date Type Department Care Team Description 09/18/2025 Telephone [facility] ADULT DENTAL [address] [place] [address] Miguel Gaspar DDS rs 09/25 appt 09/17/2025 10:15 AM EST Office Visit [facility] ADULT DENTAL [address] [place] [address] Andreas Guerra Dental calculus (Primary Dx) 07/10/2025 Orders Only GENERIC EXTERNAL DATA DEPARTMENT [...] Sign Reading Time Taken Comments Blood Pressure 136/68 09/17/2025 10:11 AM EST Pulse 72 09/17/2025 10:11 AM EST Temperature - - Respiratory Rate - - Oxygen Saturation - - Inhaled Oxygen Concentration - - Weight - - Height - - Body Mass Index - - Plan of Treatment Upcoming Encounters Date Type Department Care Team (Late st Contact Info) Description 10/16/2025 10:30 AM EST Office Visit [facility] ADULT DENTAL [address] [place] [address] Miguel Gaspar DDS [address] [facility] [place] [address] 03/19/2026 10:15 AM EDT Office Visit [facility] ADULT DENTAL [address] [place] [address] Andreas Guerra Health Maintenance Due Date Last Done Comments CT Colonography 1957 Colonoscopy 1957 Colorectal Cancer Screening 1957 Depression Screening 1957 FIT DNA/Cologuard 1957 FIT 1957 FOBT 1957 Lipid Panel 1957 SDOH Screening 1957 Sigmoidoscopy 1957 Alcohol/Substance Use Screening 1969 Hepatitis C Screening 1975 Mammogram 1997 Zoster Vaccines (1 of 2) 2007 COVID-19 Vaccine ( season) 2025 06/18/2022, 01/04/2021, 12/07/2020 Dental X-Ray: Full Mouth 01/13/2026 01/12/2023 Dental Oral Exam 03/19/2026 09/17/2025, 03/2025, 09/14/2024, Additional history exists Dental Prophylaxis 03/19/2026 09/17/2025, 0 03/16/2025, 09/14/2024, Additional history exists DTaP/Tdap/Td Vaccines (2 - Td or Tdap) 08/18/2026 08/18/2016 Tobacco Screening 09/17/2026 09/17/2025 Dental X-Ray: Bitewings 09/18/2026 09/17/20 25, 09/14/2024, 01/12/2023 RSV Patients and Patients Aged 60 years or older (1 - 1-dose 75+ series) 2032 Influenza Vaccine Completed 08/02/2025, , 09/30/2023, Additional history exists Pneumococcal Vaccine: 50+ Years Completed 08/02/2025 HIB Vaccines Aged Out No longer eligi [...] Procedure Name Priority Date/Time Associated Diagnosis Comments COMPREHENSIVE PERIODONTAL EVALUATION - NEW OR ESTABLISHED PATIENT Routine 09/17/2025 10:15 AM EST PERIODIC ORAL EVALUATION - ESTABLISHED PATIENT Routine 09/17/2025 10:15 AM EST INTRAORAL - PERIAPICAL EACH ADDITIONAL RADIOGRAPHIC IMAGE Routine 09/17/2025 10:15 AM EST INTRAORAL - PERIAPICAL FIRST RADIOGRAPHIC IMAGE Routine 09/17/2025 10:15 AM EST BITEWINGS - 4 RADIOGRAPHIC IMAGES Routine 09/17/2025 10:15 AM EST ORAL HYGIENE INSTRUCTIONS Routine 09/17/2025 10:15 AM EST CASE PRESENTATION, DETAILED AND EXTENSIVE TREATMENT PLANNING Routine 09/17/2025 10:15 AM EST PROPHYLAXIS - ADULT Routine 09/17/2025 1 0:15 AM EST LYMPHOCYTE SUBSET PANEL 3, T CELLS Routine 07/10/2025 8:03 AM EDT HIV 1 RNA, QUANTITATIVE REAL TIME PCR Routine 07/10/2025 8:03 AM EDT INTRAORAL - COMPLETE SERIES OF RADIOGRAPHIC IMAGES Routine 01/12/2023 10:00 AM EDT from Last 3 Months or Most Recently Relevant to Health Maintenance Results * HIV-1 RNA, Quantitative, Real-Time PCR (07/10/2025 8:03 AM EDT) HIV RNA PCR Qn Copies NOT DETECTED NOT DETECTED copies/mL [facility] HIV RNA PCR Qn Log Copies NOT DETECTED NOT DETECTED [facility] Comment:Result Units: Log co pies/mLThis test was performed using Real-Time Polymerase ChainReaction.Reportable Range: 20 copies/mL to 10,000,000 copies/mL(1.30 log copies/mL to 7.00 log copies/mL).THIS TEST WAS PERFORMED AT:[employer] [place] [id number] PAUL MD 07/10/2025 8:03 AM EDT 07/10/2025 8:03 AM EDT us Generic External Data Provider LAB BLOOD ORDERAB LES Final Result Performing Organization Address [facility] Co de Phone Number [facility] [address] [place] [address] [phone] * (ABNORMAL) Lymphocyte Subset Panel 3 (07/10/2025 8:03 AM EDT) Absolute Lymphocytes 2289 850 - 3900 cells/uL [facility] Comment:THIS TEST WAS PERFOR MED AT:[id number] [place] [id number] W. MASON,MD,PHD Absolute CD3 1750 840 - 3060 cells/uL [facility] % CD3 76 57 - 85 % [facility] Absolute CD4 Count 487(A) 490 - 1740 cells/uL [facility] % CD4 21(A) 30 - 61 % [facility] Absolute CD8 Count 1262(A) 180 - 1170 cells/uL [facility] % CD8 55(A) 12 - 42 % [facility] CD4/CD8 Ratio 0.39(A) 0.86 - 5.00 [facility] Lymphocyte Subset Panel Comment TNP [facility] 07/10/2025 8:03 AM EDT 07/10/2025 8:03 AM EDT us Generic External Data Provider LAB BLOOD ORDERAB LES Final Result Performing Organization Address [facility]/ZIP Co de Phone Number [facility] [address] [place] [address] [phone] from Last 3 Months Insurance DENTAL - [facility] [employer]
== END 2025-09-25 11:22 | disposition home or self-care (01) ==
LOC: HO.ENCR 10:33
PROVIDERS: PCP Internal Medicine; Visit Provider Registered Nurse Diabetes Educator
DX: E11.65 Type 2 diabetes mellitus with hyperglycemia (principal); Z79.4 Long term (current) use of insulin

== ENCOUNTER → 2025-09-25 10:32 | Outpatient (BNVA) | payer OTHER, SELFPAY | PROVIDERS: PCP Internal Medicine; Visit Provider Registered Nurse Diabetes Educator | DX: E11.65 Type 2 diabetes mellitus with hyperglycemia (principal); E11.21 Type 2 diabetes mellitus with diabetic nephropathy; E11.319 Type 2 diabetes mellitus with unspecified diabetic retinopathy without macular edema; N18.30 Chronic kidney disease, stage 3 unspecified; Z79.4 Long term (current) use of insulin | CPT/HCPCS: 99211 ==

== ENCOUNTER 2025-09-27 09:40 | Outpatient (AMB) | payer OTHER, SELFPAY ==
[2025-09-27 10:11] VITALS: BP 132/68; PULSE 58; O2SAT 98; BMI 24.0
--- NOTE | 2025-09-27 10:11 | MHC.OFFVIS ---
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 Passenger Most recent HbA1c: 10.7%, 07/25/2025 Random Glucose: 124 mg/dL Medical Claims Processor Required: No Medical Claims Processor Services: Medical Claims Processor Offered & Declined Accompanied by: Self / Same As Patient Allergies crab Allergy (Severe, Verified 09/27/25 10:15) SWELLING amoxicillin (From Augmentin) Allergy (Mild, Verified 09/27/25 10:15) Abdominal Pain clavulanic acid (From Augmentin) Allergy (Mild, Verified 09/27/25 10:15) Abdominal Pain metformin Adverse Reaction (Intermediate, Verified 09/27/25 10:15) diarrhea HPI Comments Details: The patient is a 70-year-old female presenting for diabetic follow up Medical history: htn, hld, HIV infection, anemia, cholelithiasis. Diagnosis diabetes . Current medications Tresiba 32 units-compliant Jardiance 25mg daily Actos 30mg daily Past qmcwhciputb-iovqgalpv-gyybtaym A1C 10.4 (09/13/2025) from 07/25-10.7 Billy reviewed 14% use Avg 210 n/a-GMI TGT 45% high 54% Denies history of hypoglycemia. She is not carrying juice, glucose tabs etc Follows with nephrology, Dr Ovalles-CKD. LDL 158 not on statin Eye exam is up to date NTMNG She has a long history of NTMNG. She had a prior L hemithyroidectomy many years ago, and she reports the pathology of this was benign. She is unsure of the reason for her L hemithyroidectomy. She reports her Sister also has a history of a NTMNG and underwent a thyroidectomy which was also benign. Last thyroid us 2022. She is due -this was ordered last visit ROS CONSTITUTIONAL: Denies weight loss, fever and chills. HEENT: Denies changes in vision and hearing. RESPIRATORY: Denies SOB and cough. CV: Denies palpitations and CP GI: Denies abdominal pain, nausea, vomiting and diarrhea. : Denies dysuria and urinary frequency. MSK: Denies new myalgia and joint pain. SKIN: Denies rash and pruritus. NEUROLOGICAL: Denies headache PSYCHIATRIC: Denies recent changes in mood. PHYSICAL EXAM: GENERAL: Alert and oriented x 3. NAD EYES: EOMI. Anicteric. HENT: Moist mucous membranes. No scleral icterus. No cervical lymphadenopathy. LUNGS: Clear to auscultation bilaterally. CARDIOVASCULAR: Regular rate and rhythm. No murmur. No JVD. ABDOMEN: Soft, non-tender +bs EXTREMITIES: No edema. Non-tender. SKIN: No rashes or lesions. Warm. NEUROLOGIC: No focal neurological deficits. CN II-XII grossly intact PSYCHIATRIC: Cooperative. 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 Hypertension Non-toxic multinodular goiter Diabetic retinopathy associated with type 2 diabetes mellitus CKD stage 3 due to type 2 diabetes mellitus Diabetic nephropathy associated with type 2 diabetes mellitus Dyslipidemia Diabetes type 2, controlled Hypovitaminosis D Surgical History Hx laparoscopic cholecystectomy (05/11/25) H/O colonoscopy (08/13/20) Hx of bilateral cataract extraction History of hysterectomy with unilateral oophorectomy Hx of section Hx of thyroidectomy Family History Father Liver disease Mother Hypertension CVD (cardiovascular disease) Renal disease Hyperlipidemia ESRD on hemodialysis Paternal Aunt Glaucoma Social History Household Members: Other Household Members Other:: grandson Housing: House Alcohol intake: never Comment: counts correct Patient Tobacco Use Status: Never used Tobacco e-Cigarette/Vaping Use: Never Used Second Hand Smoke Exposure: No Advance Directives Date on File: 07/01/21 service: No Current occupational status: unemployed Cognitive needs: No Hearing needs: No Vision needs: No Physical Exam Vital Signs: Last Vital Signs Pulse 58 09/27/25 10:11 BP 132/68 09/27/25 10:11 Pulse Ox 98 09/27/25 10:11 Oxygen Delivery Method Room Air 09/27/25 10:11 BMI result Body Mass Index 24.0 Results Reviewed Results Reviewed: Laboratory Last Values Glucose (Clinic) 124 mg/dL (60-115) H 09/27/25 10:17 Assessment & Plan Assessment & Plan (1) Type 2 diabetes mellitus with hyperglycemia: Code(s): E11.65 - Type 2 diabetes mellitus with hyperglycemia Category: Medical Qualifiers: 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 Start mounjaro 2.5mg weekly. Continue jardiance, actos LDL elevated recommend starting statin therapy Treat hypoglycemia by rules of 15s Return in one month for CGM review Medications: New Mounjaro (tirzepatide) for 4 weeks 2.5 mg (0.5 mL) subcut QWEEK 6 mL 3RF NS E11.65 - Type 2 diabetes mellitus with hyperglycemia Changed From insulin degludec (Tresiba FlexTouch U-100 insulin) 32 units subcut DAILY To insulin degludec (Tresiba FlexTouch U-100 insulin) 40 units (0.4 mL) subcut DAILY 15 mL 3RF Coding Level of Care Code Est Pt Level 4 (78809) Diagnoses Type 2 diabetes mellitus with hyperglycemia, with long-term current use of insulin E11.65; Z79.4 Diabetes mellitus longterm insulin use: with mechanical design technician use Non-toxic multinodular goiter E04.2
[2025-09-27 10:20] LABS: Glucose, Whole Blood 124 mg/dL (60-115)
--- OUTSIDE RECORDS SUMMARY | 2025-09-27 11:22 | XMS_ITS | Clinical Summary ---
Author Organization [employer] Address [address] [place] [address] Care Team Providers Care Hollow Handle Bench Worker Name Role Phone Unavailable Primary Care Provider Unavailabl e Allergies Active Allergy Reactions Criticality Noted Date Comments Metformin Other 04/17/2021 Shellfish Allergy 05/06/2023 Medications folic acid-vit B6-vit B12 2.5-25-1 MG tablet tablet Active elvitegravir-co bicistat-emtric itabine-tenofov ir alafenamide (Genvoya) 809-749-249-10 MG tablet Active hydroCHLOROthia zide (HYDRODiuril) 12.5 [...] Type Department Care Team Description 09/18/2025 Telephone [facility]ULT [facility] [address] [place] [address] Miguel Gaspar DDS rs 09/25 appt 09/17/2025 10:15 AM EST Office Visit [facility] [address] [place] [address] Andreas Guerra Dental calculus (Primary Dx) 07/10/2025 [...] Description 10/16/2025 10:30 AM EST Office Visit [facility] [address] [place] [address] Miguel Gaspar DDS [address] [facility] [place] [address] 03/19/2026 10:15 AM EDT Office Visit [facility] [address] [place] [address] Andreas Guerra Health Maintenance Due Date Last [...] Qn Copies NOT DETECTED NOT DETECTED copies/mL [facility] HIV RNA PCR Qn Log Copies NOT DETECTED NOT DETECTED [facility] Comment:Result Units: Log co pies/mLThis test was performed using Real-Time Polymerase ChainReaction.Reportable Range: 20 copies/mL to 10,000,000 copies/mL(1.30 log copies/mL to 7.00 log copies/mL).THIS TEST WAS PERFORMED AT:[address] [place] [id number] PAUL MD 07/10/2025 8:03 AM EDT 07/10/2025 8:03 AM EDT us Generic External Data Provider LAB BLOOD ORDERAB LES Final Result Performing Organization Address [facility] Co de Phone Number [facility] [address] [place] [address] [phone] * (ABNORMAL) Lymphocyte Subset Panel 3 (07/10/2025 8:03 AM EDT) Absolute Lymphocytes 2289 850 - 3900 cells/uL [facility] Comment:THIS TEST WAS PERFOR MED AT:[id number] [place] [address]HFHAVAR W. MASON,MD,PHD Absolute CD3 1750 840 - 3060 cells/uL [facility] % CD3 76 57 - 85 % [facility] Absolute CD4 Count 487(A) 490 - 1740 cells/uL [facility] % CD4 21(A) 30 - 61 % [facility] Absolute CD8 Count 1262(A) 180 - 1170 cells/uL [facility] % CD8 55(A) 12 - 42 % [facility] CD4/CD8 Ratio 0.39(A) 0.86 - 5.00 [facility] Lymphocyte Subset Panel Comment TNP [facility] 07/10/2025 8:03 AM EDT 07/10/2025 8:03 AM EDT us Generic External Data Provider LAB BLOOD ORDERAB LES Final Result Performing Organization Address [facility]/ZIP Co de Phone Number [facility] [address] [place] [address] [phone] from Last 3 Months Insurance DENTAL - [facility]
--- OUTSIDE RECORDS SUMMARY | 2025-09-27 11:22 | XMS_ITS | Clinical Summary ---
Author Organization [facility] Address [address] [place] [address] Phone Care Team Providers Care Mail Opener Name Role Phone Mishel Cummings MD Primary Care Provider [phone] Allergies Active Allergy Reactions Criticality Noted Date [...] patient's age to complete this topic Insurance [facility] Care Teams Mail Opener Relationship Specialty Start Date End Date Mishel Cummings MD [address] [place], [place] PCP - General 10/21/20
--- OUTSIDE RECORDS SUMMARY | 2025-09-27 11:22 | XMS_ITS | Patient Health Record ---
Author Organization [facility] Address [address] [place] [address] Care Team Providers Care Crossband Layer Name Role Phone Renny Whitt [phone] Reason For Referral No Information Plan Of Treatment No Information
--- OUTSIDE RECORDS SUMMARY | 2025-09-27 11:22 | XMS_ITS | Encounter Summary ---
Author Organization [facility] Address [address] [facility] [facility] [address] [facility] [address] [place] [address] Phone Care Team Providers Care Progressive Care Manager Name Role Phone Mishel Cummings MD Primary Care Provider [phone] Reason for Visit * Reason Comments Med Refill Encounter Details Date Type Department Care Team (Late st Contact Info) Description 11/27/2021 Refill [facility] [address] [place] [phone] Jignesh Easton MD [address] [place] [address] Social History Tobacco Use Types Packs/Day Years [...] on filedocumented in this encounter Care Teams Progressive Care Manager Relationship Specialty Start Date End Date Mishel Cummings MD [address] [place], [place] PCP - General 10/21/20 documented as of this encounter
--- OUTSIDE RECORDS SUMMARY | 2025-09-27 11:22 | XMS_ITS | Encounter Summary ---
Author Organization [employer] Address [address] [facility] [address] [place] [address] Care Team Providers Care Carpenters Name Role Phone Unavailable Primary Care Provider Unavailabl e Encounter Details Date Type Department Care Team (Latest Contact Info) Description 06/06/2019 Abstract [facility] CONVERSIONS Dental, Provider, DDS Social History [...] Description 10/16/2025 10:30 AM EST Office Visit [facility] [address] [place] [address] Miguel Gaspar DDS [address] [place] [address] 03/19/2026 10:15 AM EDT Office Visit [facility] [address] [place] [address] Andreas Guerra documented as of this encounter Visit Diagnoses Not on filedocumented in this encounter
--- OUTSIDE RECORDS SUMMARY | 2025-09-27 11:22 | XMS_ITS | Encounter Summary ---
Author Organization [employer] Address [address] [facility] [address] [place] [address] Care Team Providers Care [place] Boatman Name Role Phone Unavailable Primary Care Provider Unavailabl e Reason for Visit * Reason Onset Date Comments 09/25 appt 09/18/2025 Encounter Details Date Type Department Care Team (Late st Contact Info) Description 09/18/2025 Telephone [facility] [address] [place], [place] [phone] Miguel Gaspar DDS [address] [facility] [place], [place] [phone] 09/25 appt Social History Tobacco Use Types [...] Description 10/16/2025 10:30 AM EST Office Visit [facility] [address] [place] [address] Miguel Gaspar, VANESSA [address] [place] [address] 03/19/2026 10:15 AM EDT Office Visit [facility] [address] [place] [address] Andreas Guerra documented as of this encounter Visit Diagnoses Not on filedocumented in this encounter
== END 2025-09-27 10:42 | disposition home or self-care (01) ==
LOC: HO.ENCR 09:41
PROVIDERS: PCP Internal Medicine; Visit Provider Internal Medicine
DX: E11.65 Type 2 diabetes mellitus with hyperglycemia (principal); Z79.4 Long term (current) use of insulin; E04.2 Nontoxic multinodular goiter

== ENCOUNTER → 2025-09-27 09:40 | Outpatient (BNVA) | payer OTHER, SELFPAY | PROVIDERS: PCP Internal Medicine; Visit Provider Internal Medicine | DX: E11.65 Type 2 diabetes mellitus with hyperglycemia (principal); E04.2 Nontoxic multinodular goiter; Z79.4 Long term (current) use of insulin; Z79.84 Long term (current) use of oral hypoglycemic drugs | CPT/HCPCS: 82947; 99212 ==